=== PATIENT | male | born 1940 | race Caucasian/White ===

== ENCOUNTER 2017-10-26 18:54 | Emergency (ER) | payer MEDICARE, OTHER ==
[2017-10-26] MEDS ORDERED: Bacitracin/Neomycin/Polymyxin B Oint 0.9 GM U/D Packet TOP ONE (19:16)
--- NOTE | 2017-10-26 19:16 | EDM.PDOC ---
ED HPI GENERAL MEDICAL PROBLEM - General Chief Complaint: Laceration Stated Complaint: fell on ice Time Seen by Provider: 10/26/17 19:00 Source of Information: Reports: Patient, Family (, son Leonardo), Old Records ( [facility] chart/EMR) History Limitations: Reports: No Limitations - History of Present Illness INITIAL COMMENTS - FREE TEXT/NARRATIVE: The patient was brought to the emergency room via private automobile by his son and for evaluation of lacerations/skin tears of his right hand, which occurred at his home when he tripped and landed on his wooden walkway at about 18:00 hours. He did have a minor frontal head injury, however no history of headaches, visual changes, diplopia, change in mental status, paresthesias, neck /back pain, neurological deficits, or other complaints or injuries. No history of foreign body. The patient is right-handed. He did rinse out the laceration site and apply dressing prior to arrival with no other medications to this point. He is uncertain when he had his last tetanus booster. The patient denies any chest pain/pressure, heart flutter, dizziness, orthostasis, orthopnea, diaphoresis, paresthesias, recent decreased exercise tolerance, or any other anginal-type symptoms. No recent history of abdominal pain, heartburn, nausea, diarrhea, melena, gross hematochezia, or any food intolerance, including fatty foods, etc.. The patient also denies any recent fever, cough, wheezing, dyspnea , etc.. Onset: Today, Sudden Onset Date: 10/26/17 Onset Time: 16:00 Duration: Constant Location: Reports: Head, Upper Extremity, Right. Denies: Face, Neck, Chest, Abdomen, Back, Pelvis, Upper Extremity, Left, Lower Extremity, Left, Lower Extremity, Right, Radiates to Quality: Reports: Sharp Severity: Moderate Improves with: Reports: None Worsens with: Reports: None Context: Reports: Other (As above) Associated Symptoms: Denies: Confusion, Chest Pain, Cough, Diaphoresis, Fever/ Chills, Headaches, Malaise, Nausea/Vomiting, Seizure, Shortness of Breath, Syncope, Weakness Treatments SENIOR QA ANALYST: Reports: Dressing(s) Right Hand Pain Score (Numeric/FACES): 6 - Related Data Allergies Allergy/AdvReac Type Severity Reaction Status Date / Time celecoxib [From Celebrex] Allergy Stomach Verified 10/26/17 18:58 Ache Home Meds: Home Meds Leflunomide 20 mg PO DAILY 05/20/15 [History] Omeprazole 20 mg PO DAILY 05/20/15 [History] Simvastatin 20 mg PO BEDTIME 05/20/15 [History] Warfarin [Coumadin] 2.5 mg PO DAILY@1800 05/20/15 [History] predniSONE [Prednisone] 5 mg PO DAILY 05/20/15 [History] Calcium Carb & Citrate/Vit D3 [Calcium + D3 ER Tablet] 1 tab PO DAILY@1200 07/27 [History] Krill/Om-3/DHA/EPA/Phospho/Ast [Krill Oil 1,000 mg Softgel] 1 cap PO DAILY@1200 07/27/15 [History] Aspirin 81 mg PO DAILY 11/23/15 [History] Hydrocodone/Acetaminophen [Hydrocodon-Acetaminophn 10-325] 1 each PO Q4HR PRN [History] Nitroglycerin [Nitrostat] 0.4 mg SL ASDIRECTED PRN 11/23/15 [History] Furosemide [Lasix] 20 mg PO DAILY PRN 01/05/16 [History] Sertraline [Zoloft] 25 mg PO DAILY 01/05/16 [History] Amiodarone [Cordarone] 200 mg PO DAILY 10/26/17 [History] Lisinopril 15 mg PO BEDTIME 10/26/17 [History] Metoprolol Succinate [Toprol XL] 100 mg PO DAILY 10/26/17 [History] PARoxetine HCl [Paroxetine HCl] 20 mg PO DAILY 10/26/17 [History] Past Medical History HEENT History: Reports: Cataract, Hard of Hearing, Impaired Vision, Other (See Below). Denies: Allergic Rhinitis, Glaucoma, Macular Degeneration, Retinal Detachment Other HEENT History: Patient wears glasses. No current hearing aide therapy. Cardiovascular History: Reports: Afib, Aneurysm, Arrhythmia, Automatic Implantable Cardioverter Defibrillators, CAD, Cardiomyopathy, Heart Failure, High Cholesterol, Hypertension, PVD, Syncope, Other (See Below). Denies: Blood Clots/VTE/DVT, IA, Pacemaker, PTCA, Stents Other Cardiovascular History: Atrial fibrillation with rapid ventricular response with secondary cardiac and respiratory collapse requiring intubation cardioversion on 05/20/15. PACs, PVCs, and additional history of ventricular tachycardia with ICD placement as below. Borderline incomplete right bundle branch block. Severe cardiomyopathy with ejection fraction of only 25% area of mild carotid occlusive disease at 1649 percent bilaterally. Abdominal aortic aneurysm. Respiratory History: Reports: COPD, Intubation, Previous, Pulmonary Fibrosis, Other (See Below). Denies: Asthma, PE, Pneumothorax, Sleep Apnea, TB Other Respiratory History: Benign right pulmonary nodule Gastrointestinal History: Reports: Cholelithiasis, Gastritis, GERD, Hepatitis, Helicobacter Pylori, Pancreatitis, PUD, Other (See Below). Denies: Celiac Disease, Chronic Constipation, Chronic Diarrhea, Colon Polyp, Diverticulosis, GI Bleed, Inflammatory Bowel Disease, Irritable Bowel Syndrome Other Gastrointestinal History: Cholelithiasis with secondary pancreatitis and hepatitis on 11/30/12. Genitourinary History: Reports: BPH, Prostate Disorder, Renal Calculus, Urinary Incontinence, Other (See Below). Denies: Acute Renal Failure, Chronic Renal Insuffiency, STD, UTI, Recurrent Other Genitourinary History: Bilateral renal cysts, Peyronie's disease. History of bladder cancer diagnosed on 12/09/14 with BCG treatment. Benign prostatic nodule diagnosed on 09/05/1999. Recurrent bilateral nephrolithiasis since his 30s with at least 4 previous episodes with last episode in April 2012. Musculoskeletal History: Reports: Arthritis, Back Pain, Chronic, Neck Pain, Chronic, Osteoarthritis, Osteoporosis, RA, Other (See Below). Denies: Amputation, Fracture, Gout, SLE Other Musculoskeletal History: Severe rheumatoid arthritis Neurological History: Reports: None. Denies: Alzheimers Disease, Cerebral Aneurysms, CVA, Headaches, Chronic, Head Trauma, Migraines, MS, Neuropathy, Diabetic, Neuropathy, Peripheral, Parkinson's, Seizure, TIA Psychiatric History: Reports: Addiction, Anxiety, Depression, Other (See Below) . 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 Denies: Diabetes, Gestational, Diabetes Mellitus, Type 3c, Hyperthyroidism, IDDM Other Endocrine/Metabolic History: Diabetes mellitus/borderline hyperglycemia currently treated with diet Hematologic History: Reports: Anemia. Denies: Blood Transfusion(s) Immunologic History: Reports: None. Denies: AIDS, HIV, SLE Oncologic (Cancer) History: Reports: Bladder, Other (See Below). Denies: Basal Cell Carcinoma, Colon, Leukemia, Lymphoma, Malignant Melanoma, Non-Hodgkin's Lymphoma, Prostate, Squamous Cell Carcinoma Other Oncologic History: Bladder cancer diagnosed on 12/09/14 with subsequent BCG therapy as above Dermatologic History: Reports: None. Denies: Eczema, Psoriasis - Infectious Disease History Infectious Disease History: Reports: Chicken Pox, Measles, Mumps. Denies: C- Difficile, Meningitis, Mononucleosis, MRSA, Pertussis (Whooping Cough), Rheumatic Fever, Rubella, Scarlet Fever, Shingles, TB, VRE - Past Surgical History Head Surgeries/Procedures: Reports: None HEENT Surgical History: Reports: Cataract Surgery, Oral Surgery, Tonsillectomy, Other (See Below). Denies: Adenoidectomy, Eye Surgery, Laser Surgery, LASIK, Myringotomy w Tube(s), Naso-Sinus Surgery Other HEENT Surgeries/Procedures: Bilateral cataract surgery. Multiple teeth extractions with current complete dentures and partial lowers. Tonsillectomy at age 22. Cardiovascular Surgical History: Reports: AICD, Other (See Below). Denies: AAA Repair, Aneurysm, Carotid Stents, Coronary Artery Bypass, Coronary Artery Stent , Pacer, Percutaneous Transluminal Angioplasty, Varicose, Vascular Surgery Other Cardiovascular Surgeries/Procedures: AICD placement in September 28, 2015 with previous Life Vest therapy Respiratory Surgical History: Reports: Lung Biopsies, Other (See Below) (Right pulmonary nodule biopsy in 2000) GI Surgical History: Reports: Colonoscopy, EGD, ERCP, Other (See Below). Denies : Appendectomy, Cholecystectomy, Hernia, Abdominal, Hernia, Inguinal, Hernia Repair/Other, Polypectomy Other GI Surgeries/Procedures: Colonoscopy on 02/28/08 and EGD on 03/26/08 with additional ERCP patient denying cholecystectomy despite previous history of obstructive cholelithiasis and secondary pancreatitis Male Surgical History: Reports: Circumcision, Kidney Stone Extraction, Prostate Biopsy, Renal Calculus, TURBT-Transurethral Resection of Bladder Tumor , Vasectomy, Other (See Below) Other Male Surgeries/Procedures: Last cystoscopy in 2017 by patient history. Circumcision as an . Renal stone extraction June 2002. Vasectomy in his late 20s. Prostate biopsy on 09/05/1999. TURBT on 12/09/14 Endocrine Surgical History: Reports: None. Denies: Thyroidectomy Neurological Surgical History: Reports: None. Denies: C-Spine, Discectomy, Laminectomy, Lumbar Spine, Sacral Spine, Spinal Fusion, Vertebroplasty Musculoskeletal Surgical History: Reports: None. Denies: Amputation, Arthroscopic Procedure, Joint Replacement, ORIF, Shoulder Surgery Oncologic Surgical History: Reports: Other (See Below) Other Oncologic Surgeries/Procedures: TURBT as above Dermatological Surgical History: Reports: None - Past Imaging History Past Imaging History: Reports: Angiography (April 2015 with ejection fraction of only 25%), Carotid US (08/07/15), CAT Scan (CT urethrogram on 11/22/14. CT of the abdomen and pelvis on 02/07/12.), DEXA Scan (09/20/16 with previous evaluation on 12/26/11), Stress Testing (Low level cardiac stress test on ), Ultrasound (Last abdominal aortic ultrasound on 11/11/16. Renal ultrasound on 05/05/12) Social & Family History - Family History HEENT: Reports: None. Denies: Allergic Rhinitis, Glaucoma, Macular Degeneration , Retinal Detachment Cardiac: Reports: High Cholesterol, Other (See Below). Denies: Afib, Aneurysm, Arrhythmia, Blood Clots/VTE/DVT, CAD, Heart Failure, Hypertension, IA, Pacemaker , PVD/COD, Syncope Other Cardiac Family History: Mother with hyperlipidemia Respiratory: Reports: None. Denies: Asthma, COPD, PE, Pneumothorax, Sleep Apnea , TB GI: Reports: Cholelithiasis, Other (See Below). Denies: Celiac Disease, Colon Polyps, GERD, GI bleed, Inflammatory Bowel Disease, Irritable Bowel Syndrome, PUD Other GI Family History: Mother with cholelithiasis : Reports: None, Renal Calculus, Other (See Below). Denies: Dialysis, Renal Disease/Insufficiency Other Family History: Father with urolithiasis OBGYN: Reports: None. Denies: Endometriosis, Recurrent Spontaneous Musculoskeletal: Reports: RA, Other (See Below). Denies: Gout, SLE Other Musculoskeletal Family History: Paternal grandmother with rheumatoid arthritis Neurological: Reports: Alzheimers Disease, CVA, Dementia, Other (See Below) Other Neurological Family History: Parents with Alzheimer's disease. Paternal grandfather with fatal CVA. Psychiatric: Reports: None. Denies: Abuse, Victim of, ADD, ADHD, Anxiety, Depression, Psych Hospitalization(s), PTSD, Suicide Attempt Endocrine/Metabolic: Reports: Diabetes, type II, Hypothyroidism, IDDM, Other ( See Below). Denies: Diabetes, Type I, Diabetes Mellitus, Type 3c Other Endocrine/Metabolic Family History: Mother with hypothyroidism. Mother with IDDM. Hematologic: Reports: None. Denies: Anemia, Transfusion Reaction Immunologic: Reports: None. Denies: AIDS, HIV, SLE Dermatologic: Reports: None. Denies: Eczema, Psoriasis Oncologic: Reports: None. Denies: Bladder, Colon, Hodgkin's Lymphoma, Leukemia , Lymphoma, Non-Hodgkin's Lymphoma, Prostate, Skin - Tobacco Use Smoking Status *Q: Former Smoker Tobacco Use Within Last Twelve Months: No Years of Tobacco use: 55 Packs/Tins Daily: 1 Used Tobacco, but Quit: Yes Month/Year Tobacco Last Used: April 2015 Smoking Cessation Information Provided To Patient: No Second Hand Smoke Exposure: No Second Hand Smoke Education Provided: No - Caffeine Use Caffeine Use: Reports: Coffee (2 cups of coffee per day). 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 ED EXAM, SKIN/RASH Exam: See Below Exam Limited By: No Limitations General Appearance: Alert, WD/WN, No Apparent Distress Eye Exam: Bilateral Eye: EOMI, Normal Fundi, Normal Inspection (Patient wearing glasses, no nystagmus), PERRL Ears: Normal External Exam, Normal Canal (Moderate bilateral cerumen), Normal TMs (However difficult to visualize), Hearing Loss (Mild bilateral presbycusis) Nose: Normal Inspection, Normal Mucosa, No Blood Throat/Mouth: Normal Inspection, Normal Lips, Normal Gums, Normal Oropharynx, Normal Voice, No Airway Compromise. No: Normal Teeth (Complete upper dentures with multiple missing teeth lowers the patient not having his lower partials today), Dysphagia, Inflammation Head: Atraumatic, Normocephalic. No: Facial Swelling, Facial Tenderness, Sinus Tenderness Neck: Normal Inspection, Supple, Non-Tender, Full Range of Motion, Carotid Bruit (Mild bilateral carotid bruits). No: Lymphadenopathy (L), Lymphadenopathy (R), Thyromegaly Respiratory/Chest: No Respiratory Distress, Lungs Clear, Normal Breath Sounds, No Accessory Muscle Use, Chest Non-Tender. No: Pleural Rub, Retractions Cardiovascular: Normal Peripheral Pulses, Regular Rate, Rhythm, No Edema, No Gallop, No JVD, No Murmur, No Rub. No: Gallop/S3, Gallop/S4, Friction Rub Peripheral Pulses: 0: Dorsalis Pedis (L), Dorsalis Pedis (R), 2+: Radial (L), Radial (R) GI/Abdominal: Normal Bowel Sounds, Soft, Non-Tender, No Organomegaly, No Distention, No Abnormal Bruit, No Mass, Pelvis Stable. No: Guarding (Male) Exam: Deferred Rectal (Males) Exam: Deferred Back Exam: Normal Inspection, Full Range of Motion. No: CVA Tenderness (L), CVA Tenderness (R), Muscle Spasm Extremities: No Pedal Edema, Normal Capillary Refill, Joint Swelling (Severe rheumatoid arthritic changes, including his hands, stable by history), Limited Range of Motion (Secondary to rheumatoid arthritis), Other (2 small superficial lacerations and skin tears over than the dorsal surface of the right hand with one C-shaped the lesion of 2.0 cm another small lesion of 0.5 cm. No foreign body with only mild localized tenderness secondary to laceration. No crepitation or sign of fracture. Mild ecchymosis surrounding laceration sites.) . No: Angelito's Sign Neurological: Alert, Oriented, CN II-XII Intact, Normal Cognition, Normal Gait, Normal Reflexes (Negative Babinski's, finger to nose, and pronator rotation tests. No evidence of facial paresis, tongue deviation, orthostasis, etc.. Excellent reverse thought processes.), No Motor/Sensory Deficits Psychiatric: Normal Affect, Normal Mood Skin: Normal Color, No Rash, Ecchymosis (As above), Wound/Incision (As above). No: Diaphoretic, Increased Warmth, Lymphangitis Location, Skin: Upper Extremity, Right Characteristics: Other (As above) Associated features: Tenderness (As above) Lymphatic: No Adenopathy Course - Vital Signs Last Recorded V/S: Last Vital Signs Temp 36.3 C 10/26/17 19:42 Pulse 60 10/26/17 19:42 Resp 18 10/26/17 19:42 BP 139/53 L 10/26/17 19:42 Pulse Ox 98 10/26/17 19:42 Vital Signs - 24 hr 10/26/17 19:42 Temperature [ 36.3 C Temporal] Pulse, 60 Peripheral [ Right Pulse Oximetry] Respiratory 18 Rate Blood Pressure 139/53 L [Right Upper Arm] O2 Sat by Pulse 98 Oximetry - Orders/Labs/Meds Orders: Active Orders 24 hr Category Date Time Status Occlusive Dressing [Wound Care] [RC] ONETIME Care 10/26/17 19:18 Active Vaccines to be Administered [RC] PER UNIT ROUTINE Care 10/26/17 19:17 Active Obtain Past Medical Record [OM.PC] Routine Oth 10/26/17 19:16 Active Labs: None Meds: Medications Discontinued Medications Generic Name Dose Route Start Last Admin Trade Name Freq PRN Reason Stop Dose Admin Diphtheria/Tetanus/Acell Pertussis 0.5 ml 10/26/17 19:17 10/26/17 19:30 Adacel IM 10/26/17 19:18 0.5 ml .ONCE ONE Administration Neomycin/Polymyxin/Bacitracin 1 each 10/26/17 19:16 10/26/17 19:30 Triple Antibiotic Oint TOP 10/26/17 19:17 1 each ONETIME ONE Administration - Radiology Interpretation Free Text/Narrative:: monitoring coordinator showed normal sinus rhythm in the 60s with no ectopy or arrhythmia Departure - Departure Time of Disposition: 19:55 Disposition: Home, Self-Care 01 Condition: Good Clinical Impression: Laceration, Head contusion, Coronary artery disease, COPD (chronic obstructive pulmonary disease), Atrial fibrillation, Hyperlipidemia, Rheumatoid arteritis, Diabetes mellitus, Mixed anxiety depressive disorder - Discharge Information Instructions: Head Injury, Adult Forms: ED Department Discharge Additional Instructions: 1. Follow up with your regular provider in 10-14 days as needed, if symptoms persist. 2. Antibacterial soap wash/soak with subsequent antibacterial dressing such as Neosporin, etc. as directed 2 times per day until the wound or laceration site completely heals. Keep the area clean and dry with activity restrictions as discussed. 3. Head precautions as directed-see form. - Problem List & Annotations (1) Laceration SNOMED Code(s): 920696979 Code(s): BXD1554 - Status: Acute Priority: High Onset Date: 10/26/17 Annotation/Comment:: Minor lacerations/skin tears of the dorsal surface of the right hand not amenable to laceration repair. Wound was cleansed with chlorhexidine and Neosporin applied with subsequent Vaseline gauze dressing by the nurse. DTaP was given. Wound care discussed. (2) Head contusion SNOMED Code(s): 824808151 Code(s): S00.93XA - CONTUSION OF UNSPECIFIED PART OF HEAD, INITIAL ENCOUNTER Status: Acute Priority: High Onset Date: 10/26/17 Annotation/Comment:: Minor head contusion with no neurological deficits. Head precautions given especially in light of patient's Coumadin therapy. Qualifiers: Encounter type: initial encounter Contusion of head detail: scalp Qualified Code(s): S00.03XA - Contusion of scalp, initial encounter (3) Coronary artery disease SNOMED Code(s): 75756339 Code(s): I25.10 - ATHSCL HEART DISEASE OF [place] CORONARY ARTERY W/O ANG PCTRS Status: Chronic Priority: Medium Annotation/Comment:: Stable by history with no recent history of chest pain or anginal type symptoms Qualifiers: Coronary Disease-Associated Artery/Lesion type: [place] artery [place] vs. transplanted heart: [place] heart Associated angina: without angina Qualified Code(s): I25.10 - Atherosclerotic heart disease of [place] coronary artery without angina pectoris (4) Diabetes mellitus SNOMED Code(s): 55509400 Code(s): E11.9 - TYPE 2 DIABETES MELLITUS WITHOUT COMPLICATIONS Status: Chronic Priority: Medium Onset Date: 11/23/15 Annotation/Comment:: Stable by history. The patient does not perform home Accu-Cheks with his diabetes currently diet controlled Qualifiers: Diabetes mellitus type: type 2 Diabetes mellitus complication status: without complication Qualified Code(s): E11.9 - Type 2 diabetes mellitus without complications (5) Atrial fibrillation SNOMED Code(s): 50532691 Code(s): I48.91 - UNSPECIFIED ATRIAL FIBRILLATION Status: Chronic Priority: Medium Annotation/Comment:: No recent history of chest pain, heart flutter, or other anginal complaints. INR 1 week ago was 2.6 by their history. Note history of PVCs, ventricular tachycardia, etc. with current defibrillator, which has not been firing recently Qualifiers: Atrial fibrillation type: chronic Qualified Code(s): I48.2 - Chronic atrial fibrillation (6) COPD (chronic obstructive pulmonary disease) SNOMED Code(s): 71829365 Code(s): J44.9 - CHRONIC OBSTRUCTIVE PULMONARY DISEASE, UNSPECIFIED Status : Chronic Priority: Medium Annotation/Comment:: No recent fevers, bronchitic -type symptoms, etc. Qualifiers: COPD type: unspecified COPD Qualified Code(s): J44.9 - Chronic obstructive pulmonary disease, unspecified (7) Hyperlipidemia SNOMED Code(s): 20849848 Code(s): E78.5 - HYPERLIPIDEMIA, UNSPECIFIED Status: Chronic Priority: Medium Annotation/Comment:: Currently under therapy Qualifiers: Hyperlipidemia type: Mixed hyperlipidemia (8) Rheumatoid arteritis SNOMED Code(s): 509963294 Code(s): I00 - RHEUMATIC FEVER WITHOUT HEART INVOLVEMENT Status: Chronic Priority: Medium Annotation/Comment:: Severe rheumatoid arthritis, however stable by his history (9) Mixed anxiety depressive disorder SNOMED Code(s): 217512393 Code(s): F41.8 - OTHER SPECIFIED ANXIETY DISORDERS Status: Chronic Priority: Medium Annotation/Comment:: Stable by patient history. They are somewhat confused about his current medical therapy and will verify whether the patient is on Zoloft versus Paxil. - Problem List Review Problem List Initiated/Reviewed/Updated: Yes - My Orders Last 24 Hours: My Active Orders 10/26/17 19:16 Obtain Past Medical Record [OM.PC] Routine 10/26/17 19:17 Vaccines to be Administered [RC] PER UNIT ROUTINE 10/26/17 19:18 Occlusive Dressing [Wound Care] [RC] ONETIME - Assessment/Plan Last 24 Hours: My Active Orders 10/26/17 19:16 Obtain Past Medical Record [OM.PC] Routine 10/26/17 19:17 Vaccines to be Administered [RC] PER UNIT ROUTINE 10/26/17 19:18 Occlusive Dressing [Wound Care] [RC] ONETIME Assessment:: As above Plan: As above. Extensive precautions were given to the patient and his family, who are in agreement with the treatment plan. See Patient Instructions for further treatment and plan.
[2017-10-26] MEDS ORDERED: Diphtheria,Pertussis(Acell),Tetanus Vaccine 0.5 ML SDV IM ONE (19:17)
[2017-10-26 19:43] VITALS: BP 139/53
== END 2017-10-26 19:55 | disposition home or self-care (01) ==
LOC: LL.ED 18:54
DX: S61.411A Laceration without foreign body of right hand, initial encounter (principal); S00.93XA Contusion of unspecified part of head, initial encounter; I25.10 Atherosclerotic heart disease of native coronary artery without angina pectoris; J44.9 Chronic obstructive pulmonary disease, unspecified; I48.91 Unspecified atrial fibrillation; E78.5 Hyperlipidemia, unspecified; F41.8 Other specified anxiety disorders; I00 Rheumatic fever without heart involvement; I11.0 Hypertensive heart disease with heart failure; I50.9 Heart failure, unspecified; E78.00 Pure hypercholesterolemia, unspecified; E11.9 Type 2 diabetes mellitus without complications; Z88.8 Allergy status to other drugs, medicaments and biological substances; Z79.899 Other long term (current) drug therapy; Z23 Encounter for immunization; Z79.82 Long term (current) use of aspirin; Z87.891 Personal history of nicotine dependence; W00.9XXA Unspecified fall due to ice and snow, initial encounter
CPT/HCPCS: 90471; 90715; 99283

== ENCOUNTER 2019-02-22 10:07 | Inpatient (IN) | payer MEDICARE, OTHER ==
[2019-02-22] MEDS ORDERED: Promethazine 12.5 MG in Sodium Chloride 0.9% 100 ML IV ONE (10:25)
--- NOTE | 2019-02-22 10:28 | EDM.PDOC ---
ED HPI GENERAL MEDICAL PROBLEM - General Chief Complaint: General Stated Complaint: Weakness, loose stools Time Seen by Provider: 02/22/19 10:15 Source of Information: Reports: Patient, Family () History Limitations: Reports: No Limitations - History of Present Illness INITIAL COMMENTS - FREE TEXT/NARRATIVE: Patient is a 78-year-old gentleman with known history of coronary arterial disease and peripheral artery disease seen today with generalized weakness nausea diarrhea testicular pain patient underwent peripheral angioplasty of the lower extremities with stent placement for the past 3 days has had diarrhea and multiple emesis seen today with generalized weakness. Duration: Day(s): Location: Reports: Generalized Quality: Reports: Ache Severity: Moderate Improves with: Reports: Rest Worsens with: Reports: Movement Associated Symptoms: Reports: Nausea/Vomiting, Weakness Groin Pain Score (Numeric/FACES): 3 - Related Data Allergies Allergy/AdvReac Type Severity Reaction Status Date / Time celecoxib [From Celebrex] Allergy Stomach Verified 02/22/19 10:11 Ache Home Meds: Home Meds Leflunomide 20 mg PO DAILY 05/20/15 [History] Omeprazole 20 mg PO DAILY 05/20/15 [History] Simvastatin 20 mg PO BEDTIME 05/20/15 [History] predniSONE [Prednisone] 5 mg PO DAILY 05/20/15 [History] Aspirin 81 mg PO DAILY 11/23/15 [History] Hydrocodone/Acetaminophen [Hydrocodon-Acetaminophn 10-325] 1 each PO Q4HR PRN [History] Nitroglycerin [Nitrostat] 0.4 mg SL ASDIRECTED PRN 11/23/15 [History] Furosemide [Lasix] 20 mg PO DAILY PRN 01/05/16 [History] Lisinopril 10 mg PO BEDTIME 10/26/17 [History] Metoprolol Succinate [Toprol XL] 100 mg PO DAILY@1800 10/26/17 [History] PARoxetine HCl [Paroxetine HCl] 20 mg PO DAILY 10/26/17 [History] Iron Polysaccharide Complex [Ferric X-150] 150 mg PO DAILY 06/06/18 [History] Tamsulosin [Tamsulosin 24 Hr] 0.4 mg PO DAILY 06/06/18 [History] Warfarin Sodium [Jantoven] 2.5 mg PO DAILY 06/06/18 [History] Acetaminophen 650 mg PO Q6HR PRN 02/22/19 [History] Calcium Carbonate/Vitamin D3 [Calcium 500-Vit D3 200 Caplet] 1 tab PO DAILY [History] Enoxaparin [Lovenox] 80 mg SQ BID 02/22/19 [History] Hydrocortisone [Hydrocortisone 2.5% Crm] 1 supp RECTAL BID PRN 02/22/19 [History ] Warfarin [Coumadin] 1.25 mg PO ASDIRECTED 02/22/19 [History] cephALEXin [Keflex] 250 mg PO BID PRN 02/22/19 [History] Past Medical History HEENT History: Reports: Cataract, Hard of Hearing, Impaired Vision, Other (See Below) Other HEENT History: Patient wears glasses. No current hearing aide therapy. Cardiovascular History: Reports: Afib, Aneurysm, Arrhythmia, Automatic Implantable Cardioverter Defibrillators, CAD, Cardiomyopathy, Heart Failure, High Cholesterol, Hypertension, PVD, Syncope, Other (See Below) Other Cardiovascular History: Atrial fibrillation with rapid ventricular response with secondary cardiac and respiratory collapse requiring intubation cardioversion on 05/20/15. PACs, PVCs, and additional history of ventricular tachycardia with ICD placement as below. Borderline incomplete right bundle branch block. Severe cardiomyopathy with ejection fraction of only 25% area of mild carotid occlusive disease at 1649 percent bilaterally. Abdominal aortic aneurysm. Respiratory History: Reports: COPD, Intubation, Previous, Pulmonary Fibrosis, Other (See Below) Other Respiratory History: Benign right pulmonary nodule Gastrointestinal History: Reports: Cholelithiasis, Gastritis, GERD, Hepatitis, Helicobacter Pylori, Pancreatitis, PUD, Other (See Below) Other Gastrointestinal History: Cholelithiasis with secondary pancreatitis and hepatitis on 11/30/12. Genitourinary History: Reports: BPH, Prostate Disorder, Renal Calculus, Urinary Incontinence, Other (See Below) Other Genitourinary History: Bilateral renal cysts, Peyronie's disease. History of bladder cancer diagnosed on 12/09/14 with BCG treatment. Benign prostatic nodule diagnosed on 09/05/1999. Recurrent bilateral nephrolithiasis since his 30s with at least 4 previous episodes with last episode in April 2012. 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 Endocrine/Metabolic History: Reports: Diabetes, Type II, Osteopenia, Osteoporosis Other Endocrine/Metabolic History: Diabetes mellitus/borderline hyperglycemia currently treated with diet Hematologic History: Reports: Anemia Immunologic History: Reports: None Oncologic (Cancer) History: Reports: Bladder, Other (See Below) Other Oncologic History: Bladder cancer diagnosed on 12/09/14 with subsequent BCG therapy as above Dermatologic History: Reports: None - Infectious Disease History Infectious Disease History: Reports: Chicken Pox, Measles, Mumps - Past Surgical History Head Surgeries/Procedures: Reports: None HEENT Surgical History: Reports: Cataract Surgery, Oral Surgery, Tonsillectomy, Other (See Below) Other HEENT Surgeries/Procedures: Bilateral cataract surgery. Multiple teeth extractions with current complete dentures and partial lowers. Tonsillectomy at age 22. Cardiovascular Surgical History: Reports: AICD, Other (See Below) Other Cardiovascular Surgeries/Procedures: AICD placement in September 28, 2015 with previous Life Vest therapy Respiratory Surgical History: Reports: Lung Biopsies, Other (See Below) GI Surgical History: Reports: Colonoscopy, EGD, ERCP, Other (See Below) Other GI Surgeries/Procedures: Colonoscopy on 02/28/08 and EGD on 03/26/08 with additional ERCP patient denying cholecystectomy despite previous history of obstructive cholelithiasis and secondary pancreatitis Male Surgical History: Reports: Circumcision, Kidney Stone Extraction, Prostate Biopsy, Renal Calculus, TURBT-Transurethral Resection of Bladder Tumor , Vasectomy, Other (See Below) Other Male Surgeries/Procedures: Last cystoscopy in 2016 by patient history. Circumcision as an infant. Renal stone extraction June 2002. Vasectomy in his late 20s. Prostate biopsy on 09/05/1999. TURBT on 12/09/14 Endocrine Surgical History: Reports: None Neurological Surgical History: Reports: None Musculoskeletal Surgical History: Reports: None Oncologic Surgical History: Reports: Other (See Below) Other Oncologic Surgeries/Procedures: TURBT as above Dermatological Surgical History: Reports: None - Past Imaging History Past Imaging History: Reports: Angiography (April 2015 with ejection fraction of only 25%), Carotid US (08/07/15), CAT Scan (CT urethrogram on 11/22/14. CT of the abdomen and pelvis on 02/07/12.), DEXA Scan (09/20/16 with previous evaluation on 12/26/11), Stress Testing (Low level cardiac stress test on ), Ultrasound (Last abdominal aortic ultrasound on 11/11/16. Renal ultrasound on 05/05/12) Social & Family History - Family History HEENT: Reports: None Cardiac: Reports: High Cholesterol, Other (See Below) Other Cardiac Family History: Mother with hyperlipidemia Respiratory: Reports: None GI: Reports: Cholelithiasis, Other (See Below) Other GI Family History: Mother with cholelithiasis : Reports: None, Renal Calculus, Other (See Below) Other Family History: Father with urolithiasis OBGYN: Reports: None Musculoskeletal: Reports: RA, Other (See Below) Other Musculoskeletal Family History: Paternal grandmother with rheumatoid arthritis Neurological: Reports: Alzheimers Disease, CVA, Dementia, Other (See Below) Other Neurological Family History: Parents with Alzheimer's disease. Paternal grandfather with fatal CVA. Psychiatric: Reports: None Endocrine/Metabolic: Reports: Diabetes, type II, Hypothyroidism, IDDM, Other ( See Below) Other Endocrine/Metabolic Family History: Mother with hypothyroidism. Mother with IDDM. Hematologic: Reports: None Immunologic: Reports: None Dermatologic: Reports: None Oncologic: Reports: None - Caffeine Use Caffeine Use: Reports: Coffee (2 cups of coffee per day). 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 Denies: Chest Pain Endocrine: Reports: Fatigue GI/Abdominal: Reports: Stool Incontinence : Reports: Other (Testicular pain with swelling) Musculoskeletal: Reports: No Symptoms Skin: Reports: Change in Color (Multiple ecchymotic areas around the belly secondary to Lovenox) Neurological: Reports: No Symptoms Psychiatric: Reports: No Symptoms Hematologic/Lymphatic: Reports: Easy Bleeding, Easy Bruising Immunologic: Reports: No Symptoms ED EXAM, GENERAL - Physical Exam Exam: See Below Exam Limited By: No Limitations General Appearance: Mild Distress Eye Exam: Bilateral Eye: EOMI, PERRL Ears: Other (Atul side) Ear Exam: Bilateral Ear: Auricle Normal (Atul sign) Nose: Normal Inspection, Normal Mucosa, No Blood Throat/Mouth: Normal Inspection, Normal Lips, Normal Teeth, Normal Gums, Normal Oropharynx, Normal Voice, No Airway Compromise Head: Atraumatic, Normocephalic Neck: Normal Inspection, Supple, Non-Tender, Full Range of Motion Respiratory/Chest: No Respiratory Distress, Lungs Clear, Chest Non-Tender Cardiovascular: Regular Rate, Rhythm Peripheral Pulses: 1+: Posterior Tibial (L) (Dopplerable), Posterior Tibial (R) (Dopplerable ), Dorsalis Pedis (L) (Dopplerable), Dorsalis Pedis (R) ( dopplerable), 2+: Femoral (L), Femoral (R) GI/Abdominal: Normal Bowel Sounds, Soft, Non-Tender, No Organomegaly, No Distention, No Mass, Pelvis Stable (Male) Exam: Scrotum Tenderness (L) (Secondary to hematoma), Scrotum Tenderness (R), Testicular Tenderness (L), Testicular Tenderness (R) Rectal (Males) Exam: Decreased Rectal Tone Back Exam: Normal Inspection, Full Range of Motion, NT Extremities: No Pedal Edema, Slow Capillary Refill, Other (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) Neurological: Alert, Oriented, CN II-XII Intact, Normal Cognition, Normal Gait, Normal Reflexes, No Motor/Sensory Deficits Psychiatric: Anxious, Depressed Mood Skin Exam: Warm, Dry Lymphatic: No Adenopathy Course - Vital Signs Last Recorded V/S: Last Vital Signs Temp 98.3 F 02/22/19 10:10 Pulse 67 02/22/19 10:10 Resp 14 02/22/19 10:10 BP 121/59 L 02/22/19 10:10 Pulse Ox 92 L 02/22/19 10:10 - Orders/Labs/Meds Orders: Active Orders 24 hr Category Date Time Status EKG Documentation Completion [RC] ASDIRECTED Care 02/22/19 10:28 Ordered Chest 1V Frontal [CR] Stat Exams 02/22/19 10:56 Ordered CULTURE BLOOD [BC] Stat Lab 02/22/19 11:07 Ordered CULTURE BLOOD [BC] Stat Lab 02/22/19 11:07 Ordered Sodium Chloride 0.9% [Normal Saline] 1,000 ml Med 02/22/19 10:30 Ordered IV ASDIRECTED Sodium Chloride 0.9% [Saline Flush] Med 02/22/19 10:22 Ordered 10 ml FLUSH ASDIRECTED PRN Blood Culture x2 Reflex Set [OM.PC] Stat Ot 02/22/19 11:07 Ordered Saline Lock Insert [OM.PC] Stat Ot 02/22/19 10:22 Ordered Medication Orders Sodium Chloride (Normal Saline) 1,000 mls @ 500 mls/hr IV ASDIRECTED [place] Last Admin: 02/22/19 10:45 Dose: 500 mls/hr Sodium Chloride (Saline Flush) 10 ml FLUSH ASDIRECTED PRN PRN Reason: Keep Vein Open Labs: Laboratory Tests 02/22/19 02/22/19 02/22/19 Range/Units 10:40 10:40 10:40 WBC 20.2 H (4.0-10.2) K/uL RBC 3.69 L (4.33-5.41) M/uL Hgb 10.8 L (13.1-16.8) g/dL Hct 33.7 L (39.0-49.0) % MCV 91.3 D (84.0-98.0) fL MCH 29.3 (28.2-33.3) pg MCHC 32.0 (31.7-36.0) g/dL RDW 16.7 H (11.2-14.1) % Plt Count 166 (150-350) K/uL Neut % (Auto) 86.3 H (45.0-80.0) % Lymph % (Auto) 5.1 L (10.0-50.0) % Aurora % (Auto) 8.4 (2.0-14.0) % Eos % (Auto) 0.0 (0.0-5.0) % Baso % (Auto) 0.2 (0.0-2.0) % Neut # (Auto) 17.37 H (1.40-7.00) K/uL Lymph # (Auto) 1.03 (0.50-3.50) K/uL Aurora # (Auto) 1.70 H (0.00-1.00) K/uL Eos # (Auto) 0.01 (0.00-0.50) K/uL Baso # (Auto) 0.04 (0.00-0.20) K/uL PT 22.7 H D (9.5-12.0) SEC INR 2.1 Sodium 138 (136-145) mmol/L Potassium 3.0 L (3.5-5.1) mmol/L Chloride 100 (98-107) mmol/L Carbon Dioxide 23.8 (21.0-32.0) mmol/L BUN 25 H (7-18) mg/dL Creatinine 1.25 H (0.51-1.17) mg/dL Est Cr Clr Drug Dosing TNP Estimated GFR (MDRD) 56 mL/min Glucose 140 H (74-106) mg/dL Calcium 9.0 (8.5-10.1) mg/dL Total Bilirubin 1.7 H (0.2-1.0) mg/dL AST 18 (15-37) U/L ALT 21 (12-78) U/L Alkaline Phosphatase 95 (46-116) IU/L Troponin I (0.000-0.056) ng/mL NT-Pro-B Natriuret Pep (0-125) pg/mL Total Protein 7.2 (6.4-8.2) g/dL Albumin 2.8 L (3.4-5.0) g/dL 02/22/19 Range/Units 10:57 WBC (4.0-10.2) K/uL RBC (4.33-5.41) M/uL Hgb (13.1-16.8) g/dL Hct (39.0-49.0) % MCV (84.0-98.0) fL MCH (28.2-33.3) pg MCHC (31.7-36.0) g/dL RDW (11.2-14.1) % Plt Count (150-350) K/uL Neut % (Auto) (45.0-80.0) % Lymph % (Auto) (10.0-50.0) % Aurora % (Auto) (2.0-14.0) % Eos % (Auto) (0.0-5.0) % Baso % (Auto) (0.0-2.0) % Neut # (Auto) (1.40-7.00) K/uL Lymph # (Auto) (0.50-3.50) K/uL [place] # (Auto) (0.00-1.00) K/uL Eos # (Auto) (0.00-0.50) K/uL Baso # (Auto) (0.00-0.20) K/uL PT (9.5-12.0) SEC INR Sodium (136-145) mmol/L Potassium (3.5-5.1) mmol/L Chloride (98-107) mmol/L Carbon Dioxide (21.0-32.0) mmol/L BUN (7-18) mg/dL Creatinine (0.51-1.17) mg/dL Est Cr Clr Drug Dosing Estimated GFR (MDRD) mL/min Glucose (74-106) mg/dL Calcium (8.5-10.1) mg/dL Total Bilirubin (0.2-1.0) mg/dL AST (15-37) U/L ALT (12-78) U/L Alkaline Phosphatase (46-116) IU/L Troponin I 0.011 (0.000-0.056) ng/mL NT-Pro-B Natriuret Pep 9093 H (0-125) pg/mL Total Protein (6.4-8.2) g/dL Albumin (3.4-5.0) g/dL Meds: Medications Generic Name Dose Route Start Last Admin Trade Name Freq PRN Reason Stop Dose Admin Sodium Chloride 1,000 mls @ 500 mls/hr 02/22/19 10:30 02/22/19 10:45 Normal Saline IV 500 mls/hr ASDIRECTED [place] Administration Sodium Chloride 10 ml 02/22/19 10:22 Saline Flush FLUSH ASDIRECTED PRN Keep Vein Open Discontinued Medications Generic Name Dose Route Start Last Admin Trade Name Freq PRN Reason Stop Dose Admin Diphenoxylate HCl/Atropine 2 tab 02/22/19 10:58 02/22/19 11:26 Lomotil 0.025-2.5 Mg PO 02/22/19 10:59 2 tab ONETIME ONE Administration Promethazine HCl 12.5 mg/ 100.5 mls @ 400 mls/hr 02/22/19 10:25 02/22/19 10: 48 Sodium Chloride IV 02/22/19 10:40 400 mls/hr ONETIME ONE Administration Departure - Departure Time of Disposition: 11:38 Disposition: Admitted As Inpatient 64 Condition: Fair Clinical Impression: Diarrhea - Discharge Information *PRESCRIPTION DRUG MONITORING PROGRAM REVIEWED*: No *COPY OF PRESCRIPTION DRUG MONITORING REPORT IN PATIENT RADHA: No Referrals: More Fried PA-C [Primary Care Provider] - Forms: ED Department Discharge - Problem List & Annotations (1) Hypokalemia SNOMED Code(s): 74149981 Code(s): E87.6 - HYPOKALEMIA Status: Acute Priority: Medium Onset Date : 11/23/15 Annotation/Comment:: Secondary to diarrhea and generalized weakness (2) Dehydration, moderate SNOMED Code(s): 2096369712995 Code(s): E86.0 - DEHYDRATION Status: Acute Annotation/Comment:: Secondary to diarrhea (3) Diarrhea SNOMED Code(s): 68551662 Code(s): R19.7 - DIARRHEA, UNSPECIFIED Status: Acute Qualifiers: Diarrhea type: presumed infectious Qualified Code(s): R19.7 - Diarrhea, unspecified - Problem List Review Problem List Initiated/Reviewed/Updated: Yes - My Orders Last 24 Hours: My Active Orders 02/22/19 10:22 Sodium Chloride 0.9% [Saline Flush] 10 ml FLUSH ASDIRECTED PRN Saline Lock Insert [OM.PC] Stat 02/22/19 10:28 EKG Documentation Completion [RC] ASDIRECTED 02/22/19 10:30 Sodium Chloride 0.9% [Normal Saline] 1,000 ml IV ASDIRECTED 02/22/19 10:56 Chest 1V Frontal [CR] Stat 02/22/19 11:07 CULTURE BLOOD [BC] Stat CULTURE BLOOD [BC] Stat Blood Culture x2 Reflex Set [OM.PC] Stat - Assessment/Plan Admission H&P: Please use this note as an admission H&P Last 24 Hours: My Active Orders 02/22/19 10:22 Sodium Chloride 0.9% [Saline Flush] 10 ml FLUSH ASDIRECTED PRN Saline Lock Insert [OM.PC] Stat 02/22/19 10:28 EKG Documentation Completion [RC] ASDIRECTED 02/22/19 10:30 Sodium Chloride 0.9% [Normal Saline] 1,000 ml IV ASDIRECTED 02/22/19 10:56 Chest 1V Frontal [CR] Stat 02/22/19 11:07 CULTURE BLOOD [BC] Stat CULTURE BLOOD [BC] Stat Blood Culture x2 Reflex Set [OM.PC] Stat Plan: Patient will be admitted for workup which will include blood cultures and stool cultures for C. difficile I will hydrate him and start IV potassium and medication to control symptoms
[2019-02-22] MEDS ORDERED: Sodium Chloride 0.9% 1,000 ML IV SCH (10:30)
[2019-02-22] MEDS ORDERED: Atropine/Diphenoxylate 0.025-2.5 MG Tab PO ONE (10:58)
[2019-02-22 11:04] LABS: CHLORIDE,CL 100 mmol/L (98-107); SODIUM,NA 138 mmol/L (136-145)
[2019-02-22] MEDS ORDERED: Sodium Chloride 0.9% 10 ML Syringe FLUSH PRN (11:43)
[2019-02-22] MEDS ORDERED: Acetaminophen 325 MG Tab PO PRN (11:43)
[2019-02-22] MEDS ORDERED: Furosemide 20 MG Tab PO PRN (11:50)
[2019-02-22] MEDS ORDERED: Nitroglycerin 0.4 MG Tab.SL SL PRN (11:50)
[2019-02-22] MEDS ORDERED: Hydrocortisone Acetate 25 MG Supp RECTAL PRN (11:50)
[2019-02-22] MEDS ORDERED: Atropine/Diphenoxylate 0.025-2.5 MG Tab PO SCH (12:00)
[2019-02-22] MEDS: metroNIDAZOLE 500 MG Tab PO SCH ×2 (12:52→19:52)
[2019-02-22] MEDS: Sodium Chloride 0.9% 1,000 ML IV SCH ×2 (13:16→19:14)
[2019-02-22] MEDS ORDERED: Potassium Chloride 10 MEQ in Premix Bag 1 BAG IV SCH ×2 (15:30→16:30)
[2019-02-22] MEDS: Potassium Chloride 10 MEQ in Premix Bag 1 BAG IV SCH ×4 (15:51→19:13)
[2019-02-22] MEDS: Atropine/Diphenoxylate 0.025-2.5 MG Tab PO SCH ×2 (15:51→19:55)
[2019-02-22] MEDS ORDERED: Promethazine 25 MG/ML SDV IM PRN (17:00)
[2019-02-22] MEDS: Metoprolol Succinate 50 MG Tab.ER PO SCH (17:58)
[2019-02-22] MEDS ORDERED: Warfarin 2.5 MG Tab PO SCH (18:00)
[2019-02-22] MEDS: Simvastatin 20 MG Tab PO SCH (19:52)
[2019-02-22] MEDS: Lisinopril 10 MG Tab PO SCH (19:55)
[2019-02-22] MEDS: Enoxaparin 80 MG/0.8 ML Syringe SUBCUT SCH (19:56)
[2019-02-22] MEDS: Acetaminophen 325 MG Tab PO PRN (22:39)
[2019-02-23] MEDS: metroNIDAZOLE 500 MG Tab PO SCH ×3 (04:29→19:42)
[2019-02-23] MEDS: Acetaminophen 325 MG Tab PO PRN ×3 (04:29→19:52)
[2019-02-23] MEDS: Enoxaparin 80 MG/0.8 ML Syringe SUBCUT SCH (07:28)
[2019-02-23] MEDS: Omeprazole 20 MG Cap.CR PO SCH (07:29)
[2019-02-23] MEDS: Atropine/Diphenoxylate 0.025-2.5 MG Tab PO SCH ×4 (07:29→19:42)
[2019-02-23] MEDS: Tamsulosin 0.4 MG Cap.ER PO SCH (07:29)
[2019-02-23] MEDS: predniSONE 5 MG Tab PO SCH (07:29)
[2019-02-23] MEDS: Aspirin 81 MG Tab.Chew PO SCH (07:29)
[2019-02-23] MEDS: Calcium Carbonate/Vitamin D3 1500 MG-400 Units Tab PO SCH (07:29)
[2019-02-23] MEDS: Iron Polysaccharides Complex 150 MG Cap PO SCH (07:29)
[2019-02-23] MEDS: PARoxetine 20 MG Tab PO SCH (07:29)
[2019-02-23] MEDS: Sodium Chloride 0.9% 1,000 ML IV SCH (08:17)
[2019-02-23] MEDS: LEFLUNOMIDE 20 MG PO SCH (09:11)
--- NOTE | 2019-02-23 09:31 | PCM.PN ---
- General Info Date of Service: 02/23/19 Functional Status: Reports: Tolerating Diet - Review of Systems General: Reports: Fever (Last night had temperature over 103 Tylenol given) Pulmonary: Reports: No Symptoms Cardiovascular: Reports: No Symptoms Gastrointestinal: Reports: Diarrhea, Nausea (Improving) Genitourinary: Reports: Other (Testicular discomfort) Skin: Reports: Bruising, Other (Testicular discoloration secondary to bruising and pink secondary to multiple BMs) - Patient Data Vitals - Most Recent: Last Vital Signs Temp 98.8 F 02/23/19 08:00 Pulse 80 02/23/19 08:00 Resp 16 02/23/19 08:00 BP 129/47 L 02/23/19 08:00 Pulse Ox 96 02/23/19 08:00 Weight - Most Recent: 155 lb 12.8 oz I&O - Last 24 Hours: Intake & Output 02/22/19 02/23/19 02/23/19 22:59 06:59 14:59 Intake Total 900 2038 350 Balance 900 2038 350 Lab Results Last 24 Hours: Laboratory Results - last 24 hr 02/22/19 02/22/19 02/22/19 Range/Units 10:40 10:40 10:40 WBC 20.2 H (4.0-10.2) K/uL RBC 3.69 L (4.33-5.41) M/uL Hgb 10.8 L (13.1-16.8) g/dL Hct 33.7 L (39.0-49.0) % MCV 91.3 D (84.0-98.0) fL MCH 29.3 (28.2-33.3) pg MCHC 32.0 (31.7-36.0) g/dL RDW 16.7 H (11.2-14.1) % Plt Count 166 (150-350) K/uL Neut % (Auto) 86.3 H (45.0-80.0) % Lymph % (Auto) 5.1 L (10.0-50.0) % [place] % (Auto) 8.4 (2.0-14.0) % Eos % (Auto) 0.0 (0.0-5.0) % Baso % (Auto) 0.2 (0.0-2.0) % Neut # (Auto) 17.37 H (1.40-7.00) K/uL Lymph # (Auto) 1.03 (0.50-3.50) K/uL [place] # (Auto) 1.70 H (0.00-1.00) K/uL Eos # (Auto) 0.01 (0.00-0.50) K/uL Baso # (Auto) 0.04 (0.00-0.20) K/uL PT 22.7 H D (9.5-12.0) SEC INR 2.1 Sodium 138 (136-145) mmol/L Potassium 3.0 L (3.5-5.1) mmol/L Chloride 100 (98-107) mmol/L Carbon Dioxide 23.8 (21.0-32.0) mmol/L BUN 25 H (7-18) mg/dL Creatinine 1.25 H (0.51-1.17) mg/dL Est Cr Clr Drug Dosing TNP Estimated GFR (MDRD) 56 mL/min Glucose 140 H (74-106) mg/dL Lactic Acid (0.4-2.0) mmol/L Calcium 9.0 (8.5-10.1) mg/dL Total Bilirubin 1.7 H (0.2-1.0) mg/dL AST 18 (15-37) U/L ALT 21 (12-78) U/L Alkaline Phosphatase 95 (46-116) IU/L Troponin I (0.000-0.056) ng/mL NT-Pro-B Natriuret Pep (0-125) pg/mL Total Protein 7.2 (6.4-8.2) g/dL Albumin 2.8 L (3.4-5.0) g/dL 02/22/19 02/22/19 02/22/19 Range/Units 10:40 10:57 11:00 WBC (4.0-10.2) K/uL RBC (4.33-5.41) M/uL Hgb (13.1-16.8) g/dL Hct (39.0-49.0) % MCV (84.0-98.0) fL MCH (28.2-33.3) pg MCHC (31.7-36.0) g/dL RDW (11.2-14.1) % Plt Count (150-350) K/uL Neut % (Auto) (45.0-80.0) % Lymph % (Auto) (10.0-50.0) % [place] % (Auto) (2.0-14.0) % Eos % (Auto) (0.0-5.0) % Baso % (Auto) (0.0-2.0) % Neut # (Auto) (1.40-7.00) K/uL Lymph # (Auto) (0.50-3.50) K/uL [place] # (Auto) (0.00-1.00) K/uL Eos # (Auto) (0.00-0.50) K/uL Baso # (Auto) (0.00-0.20) K/uL PT (9.5-12.0) SEC INR Sodium (136-145) mmol/L Potassium (3.5-5.1) mmol/L Chloride (98-107) mmol/L Carbon Dioxide (21.0-32.0) mmol/L BUN (7-18) mg/dL Creatinine (0.51-1.17) mg/dL Est Cr Clr Drug Dosing Estimated GFR (MDRD) mL/min Glucose (74-106) mg/dL Lactic Acid 2.0 2.0 (0.4-2.0) mmol/L Calcium (8.5-10.1) mg/dL Total Bilirubin (0.2-1.0) mg/dL AST (15-37) U/L ALT (12-78) U/L Alkaline Phosphatase (46-116) IU/L Troponin I 0.011 (0.000-0.056) ng/mL NT-Pro-B Natriuret Pep 9093 H (0-125) pg/mL Total Protein (6.4-8.2) g/dL Albumin (3.4-5.0) g/dL 02/23/19 02/23/19 02/23/19 Range/Units 07:15 07:15 07:15 WBC 17.1 H (4.0-10.2) K/uL RBC 3.18 L (4.33-5.41) M/uL Hgb 9.3 L D (13.1-16.8) g/dL Hct 29.0 L (39.0-49.0) % MCV 91.2 (84.0-98.0) fL MCH 29.2 (28.2-33.3) pg MCHC 32.1 (31.7-36.0) g/dL RDW 16.4 H (11.2-14.1) % Plt Count 143 L (150-350) K/uL Neut % (Auto) 86.0 H (45.0-80.0) % Lymph % (Auto) 4.7 L (10.0-50.0) % [place] % (Auto) 8.8 (2.0-14.0) % Eos % (Auto) 0.3 (0.0-5.0) % Baso % (Auto) 0.2 (0.0-2.0) % Neut # (Auto) 14.70 H (1.40-7.00) K/uL Lymph # (Auto) 0.81 (0.50-3.50) K/uL [place] # (Auto) 1.51 H (0.00-1.00) K/uL Eos # (Auto) 0.05 (0.00-0.50) K/uL Baso # (Auto) 0.04 (0.00-0.20) K/uL PT 34.0 H D (9.5-12.0) SEC INR 3.2 Sodium 139 (136-145) mmol/L Potassium 3.1 L (3.5-5.1) mmol/L Chloride 105 (98-107) mmol/L Carbon Dioxide 22.9 (21.0-32.0) mmol/L BUN 27 H (7-18) mg/dL Creatinine 1.21 H (0.51-1.17) mg/dL Est Cr Clr Drug Dosing 48.67 Estimated GFR (MDRD) 58 mL/min Glucose 119 H (74-106) mg/dL Lactic Acid (0.4-2.0) mmol/L Calcium 8.0 L (8.5-10.1) mg/dL Total Bilirubin (0.2-1.0) mg/dL AST (15-37) U/L ALT (12-78) U/L Alkaline Phosphatase (46-116) IU/L Troponin I (0.000-0.056) ng/mL NT-Pro-B Natriuret Pep (0-125) pg/mL Total Protein (6.4-8.2) g/dL Albumin (3.4-5.0) g/dL Carlos Results Last 24 Hours: Microbiology 02/22/19 11:07 Stool Occult Blood (CARLOS) - Final Stool / Feces Med Orders - Current: Current Medications Acetaminophen (Tylenol) 650 mg PO Q6HR PRN PRN Reason: Pain Last Admin: 02/23/19 04:29 Dose: 650 mg Hydrocodone Bitart/Acetaminophen ([place] 325-10 Mg) 1 tab PO BID PRN PRN Reason: Pain Aspirin (Aspirin) 81 mg PO DAILY [facility] Last Admin: 02/23/19 07:29 Dose: 81 mg Calcium Carbonate (Caltrate 600+D 1500 Mg-400 Units) 1 tab PO DAILY [facility] Last Admin: 02/23/19 07:29 Dose: 1 tab Diphenoxylate HCl/Atropine (Lomotil 0.025-2.5 Mg) 1 tab PO QID [facility] Last Admin: 02/23/19 07:29 Dose: 1 tab Enoxaparin Sodium (Lovenox) 80 mg SUBCUT Q12HR [facility] Last Admin: 02/23/19 07:28 Dose: 80 mg Furosemide (Lasix) 20 mg PO DAILY PRN PRN Reason: fluid Hydrocortisone Acetate (Anucort-Hc) 25 mg RECTAL BID PRN PRN Reason: Itching Sodium Chloride (Normal Saline) 1,000 mls @ 75 mls/hr IV ASDIRECTED [facility] Last Admin: 02/23/19 08:17 Dose: 75 mls/hr Potassium Chloride 10 meq/ (Premix) 50 mls @ 50 mls/hr IV Q1H [facility] Stop: 02/23/19 13:29 Lisinopril (Prinivil) 10 mg PO BEDTIME [facility] Last Admin: 02/22/19 19:55 Dose: Not Given Metoprolol Succinate (Toprol Xl) 100 mg PO DAILY@1800 [facility] Last Admin: 02/22/19 17:58 Dose: 100 mg Metronidazole (Flagyl) 500 mg PO Q8H [facility] Last Admin: 02/23/19 04:29 Dose: 500 mg Nitroglycerin (Nitrostat) 0.4 mg SL ASDIRECTED PRN PRN Reason: Chest Pain Leflunomide [ Leflunomide] 20 Mg Tablet 20 mg PO DAILY [facility] Last Admin: 02/23/19 09:11 Dose: 20 mg Omeprazole (Omeprazole) 20 mg PO DAILY [facility] Last Admin: 02/23/19 07:29 Dose: 20 mg Paroxetine HCl (Paxil) 20 mg PO DAILY [facility] Last Admin: 02/23/19 07:29 Dose: 20 mg Polysaccharide Iron Complex (Ferrex 150) 150 mg PO DAILY [facility] Last Admin: 02/23/19 07:29 Dose: 150 mg Prednisone (Prednisone) 5 mg PO DAILY [facility] Last Admin: 02/23/19 07:29 Dose: 5 mg Promethazine HCl (Phenergan) 12.5 mg IM Q6H PRN PRN Reason: Nausea/Vomiting Simvastatin (Zocor) 20 mg PO BEDTIME [facility] Last Admin: 02/22/19 19:52 Dose: 20 mg Sodium Chloride (Saline Flush) 10 ml FLUSH ASDIRECTED PRN PRN Reason: Keep Vein Open Sodium Chloride (Saline Flush) 10 ml FLUSH ASDIRECTED PRN PRN Reason: Keep Vein Open Tamsulosin HCl (Flomax) 0.4 mg PO DAILY [facility] Last Admin: 02/23/19 07:29 Dose: 0.4 mg Warfarin Sodium (Coumadin) 1.25 mg PO SuTuThSa@1800 [facility] Warfarin Sodium (Coumadin) 2.5 mg PO MoWeFr@1800 [facility] Last Admin: 02/22/19 17:58 Dose: 2.5 mg Discontinued Medications Acetaminophen (Tylenol) 650 mg PO Q4H PRN PRN Reason: analgesia/fever Diphenoxylate HCl/Atropine (Lomotil 0.025-2.5 Mg) 2 tab PO ONETIME ONE Stop: 02/22/19 10:59 Last Admin: 02/22/19 11:26 Dose: 2 tab Diphenoxylate HCl/Atropine (Lomotil 0.025-2.5 Mg) 1 tab PO QID [facility] Last Admin: 02/22/19 14:12 Dose: Not Given Sodium Chloride (Normal Saline) 1,000 mls @ 500 mls/hr IV ASDIRECTED [facility] Last Admin: 02/22/19 10:45 Dose: 500 mls/hr Promethazine HCl 12.5 mg/ (Sodium Chloride) 100.5 mls @ 400 mls/hr IV ONETIME ONE Stop: 02/22/19 10:40 Last Admin: 02/22/19 10:48 Dose: 400 mls/hr Potassium Chloride 10 meq/ (Premix) 50 mls @ 50 mls/hr IV Q1H [place] Stop: 02/22/19 19:59 Last Admin: 02/22/19 19:13 Dose: 50 mls/hr - Exam General: Alert, Oriented, Cooperative, Lethargic (At times) HEENT: Pupils Equal Neck: Supple Lungs: Clear to Auscultation, Normal Respiratory Effort Cardiovascular: Regular Rate, Regular Rhythm GI/Abdominal Exam: Normal Bowel Sounds, Soft, No Organomegaly, No Distention, No Abnormal Bruit, No Mass, Pelvis Stable (Male) Exam: Scrotal Swelling, Scrotum Tenderness (L), Scrotum Tenderness (R) , Suprapubic Fullness, Other (Secondary to hematoma) Back Exam: Normal Inspection, Full Range of Motion Extremities: Normal Inspection, Limited Range of Motion Skin: Warm, Dry, Ecchymosis (Testicular) Neurological: No New Focal Deficit Psy/Mental Status: Alert, Normal Affect, Normal Mood - Problem List & Annotations (1) Hypokalemia SNOMED Code(s): 91159856 Code(s): E87.6 - HYPOKALEMIA Status: Acute Priority: Medium Current Visit: No Onset Date: 11/23/15 Annotation/Comment:: Slowly improving potassium today 3.1 (2) Dehydration, moderate SNOMED Code(s): 5098282696397 Code(s): E86.0 - DEHYDRATION Status: Acute Current Visit: Yes Annotation/Comment:: Dehydration improving (3) Diarrhea SNOMED Code(s): 02116672 Code(s): R19.7 - DIARRHEA, UNSPECIFIED Status: Acute Current Visit: Yes Qualifiers: Diarrhea type: presumed infectious Qualified Code(s): R19.7 - Diarrhea, unspecified Annotation/Comment:: Diarrhea slowing down to 1-2 bowel movements in the last 24 hours sample obtained for C. difficile and cultures - Problem List Review Problem List Initiated/Reviewed/Updated: Yes - My Orders Last 24 Hours: My Active Orders 02/22/19 10:22 Sodium Chloride 0.9% [Saline Flush] 10 ml FLUSH ASDIRECTED PRN Saline Lock Insert [OM.PC] Stat 02/22/19 10:28 EKG Documentation Completion [RC] ASDIRECTED 02/22/19 10:56 Chest 1V Frontal [CR] Stat 02/22/19 11:07 Blood Culture x2 Reflex Set [OM.PC] Stat 02/22/19 11:30 CULTURE BLOOD [BC] Stat 02/22/19 11:43 Patient Status [ADT] Routine Up With Assistance [RC] ASDIRECTED Vital Signs [RC] Q4HR Sodium Chloride 0.9% [Saline Flush] 10 ml FLUSH ASDIRECTED PRN Peripheral IV Insertion Adult [OM.PC] Routine Resuscitation Status Routine 02/22/19 11:44 Peripheral IV Care [RC] 02/22/19 11:45 STOOL CULTURE [MREF] DAILY Sodium Chloride 0.9% [Normal Saline] 1,000 ml IV ASDIRECTED 02/22/19 11:48 Intake and Output [RC] QSHIFT OT Evaluation and Treatment [CONS] Routine PT Evaluation and Treatment [CONS] Routine 02/22/19 11:50 Telemetry Monitoring [Cardiac Monitoring] [RC] Q2HR CULTURE BLOOD [BC] Stat Acetaminophen [Tylenol] 650 mg PO Q6HR PRN Acetaminophen/HYDROcodone [[place] 325-10 MG] 1 tab PO BID PRN Furosemide [Lasix] 20 mg PO DAILY PRN Hydrocortisone Acetate [Anucort-HC] 25 mg RECTAL BID PRN Nitroglycerin [Nitrostat] 0.4 mg SL ASDIRECTED PRN 02/22/19 12:00 metroNIDAZOLE [Flagyl] 500 mg PO Q8H 02/22/19 16:00 Atropine/Diphenoxylate [Lomotil 0.025-2.5 MG] 1 tab PO QID 02/22/19 17:00 Promethazine [Phenergan] 12.5 mg IM Q6H PRN 02/22/19 18:00 Metoprolol Succinate [Toprol XL] 100 mg PO DAILY@1800 Warfarin [Coumadin] 2.5 mg PO MoWeFr@1800 02/22/19 20:00 Enoxaparin [Lovenox] 80 mg SUBCUT Q12HR Lisinopril [Prinivil] 10 mg PO BEDTIME Simvastatin [Zocor] 20 mg PO BEDTIME 02/22/19 Lunch Regular Diet [DIET] 02/23/19 08:00 Aspirin 81 mg PO DAILY Calcium Carbonate/Vitamin D3 [Caltrate 600+D 1500 MG-400 Units] 1 tab PO DAILY Iron Polysaccharides Complex [Ferrex 150] 150 mg PO DAILY Leflunomide [Leflunomide] 20 mg PO DAILY Omeprazole 20 mg PO DAILY PARoxetine [Paxil] 20 mg PO DAILY Tamsulosin [Flomax] 0.4 mg PO DAILY predniSONE 5 mg PO DAILY 02/23/19 09:15 Potassium Chloride [KCl 10 MEQ in Water 50 ML] 10 meq Premix Bag 1 bag IV Q1H 02/23/19 18:00 Warfarin [Coumadin] 1.25 mg PO SuTuThSa@1800 02/24/19 05:11 BASIC METABOLIC PANEL,BMP [CHEM] DAILY CBC WITH AUTO DIFF [HEME] DAILY 02/25/19 05:11 BASIC METABOLIC PANEL,BMP [CHEM] DAILY CBC WITH AUTO DIFF [HEME] DAILY 02/26/19 05:11 BASIC METABOLIC PANEL,BMP [CHEM] DAILY CBC WITH AUTO DIFF [HEME] DAILY
[2019-02-23] MEDS ORDERED: Furosemide 40 MG/4 ML VIAL IVPUSH ONE (10:07)
[2019-02-23] MEDS: Potassium Chloride 10 MEQ in Premix Bag 1 BAG IV SCH ×4 (10:30→13:44)
[2019-02-23] MEDS ORDERED: Piperacillin/Tazobactam 3.375 GM in Sodium Chloride 0.9% 100 ML IV SCH (10:30)
[2019-02-23] MEDS: Sodium Chloride 0.9% 10 ML Syringe FLUSH PRN ×2 (14:46→19:54)
[2019-02-23] MEDS: Piperacillin/Tazobactam 3.375 GM in Sodium Chloride 0.9% 100 ML IV SCH ×2 (14:46→19:42)
[2019-02-23] MEDS: Metoprolol Succinate 50 MG Tab.ER PO SCH (17:13)
[2019-02-23] MEDS ORDERED: Warfarin 2.5 MG Tab PO SCH ×2 (18:00)
[2019-02-23] MEDS: Simvastatin 20 MG Tab PO SCH (19:43)
[2019-02-23] MEDS: Lisinopril 10 MG Tab PO SCH (19:54)
[2019-02-24] MEDS: Acetaminophen 325 MG Tab PO PRN ×2 (01:44→08:26)
[2019-02-24] MEDS: Piperacillin/Tazobactam 3.375 GM in Sodium Chloride 0.9% 100 ML IV SCH ×4 (01:45→19:58)
[2019-02-24] MEDS: metroNIDAZOLE 500 MG Tab PO SCH ×2 (05:14→11:35)
[2019-02-24] MEDS: LEFLUNOMIDE 20 MG PO SCH (08:24)
[2019-02-24] MEDS: predniSONE 5 MG Tab PO SCH (08:25)
[2019-02-24] MEDS: Aspirin 81 MG Tab.Chew PO SCH (08:25)
[2019-02-24] MEDS: Calcium Carbonate/Vitamin D3 1500 MG-400 Units Tab PO SCH (08:25)
[2019-02-24] MEDS: Atropine/Diphenoxylate 0.025-2.5 MG Tab PO SCH ×4 (08:25→19:56)
[2019-02-24] MEDS: Omeprazole 20 MG Cap.CR PO SCH (08:25)
[2019-02-24] MEDS: Tamsulosin 0.4 MG Cap.ER PO SCH (08:25)
[2019-02-24] MEDS: PARoxetine 20 MG Tab PO SCH (08:26)
[2019-02-24] MEDS: Iron Polysaccharides Complex 150 MG Cap PO SCH (08:26)
--- NOTE | 2019-02-24 11:39 | PCM.PN ---
- General Info Date of Service: 02/24/19 - Review of Systems General: Reports: Fever, Weakness HEENT: Reports: No Symptoms Pulmonary: Reports: Shortness of Breath Cardiovascular: Reports: Dyspnea on Exertion Gastrointestinal: Reports: No Symptoms Genitourinary: Reports: No Symptoms Musculoskeletal: Reports: No Symptoms Skin: Reports: No Symptoms Neurological: Reports: No Symptoms Psychiatric: Reports: No Symptoms - Patient Data Vitals - Most Recent: Last Vital Signs Temp 101.5 F H 02/24/19 07:40 Pulse 82 02/24/19 07:40 Resp 15 02/24/19 07:40 BP 160/55 H 02/24/19 07:40 Pulse Ox 97 02/24/19 11:13 Weight - Most Recent: 155 lb 12.811 oz I&O - Last 24 Hours: Intake & Output 02/23/19 02/24/19 02/24/19 22:59 06:59 14:59 Intake Total 860 300 Balance 860 300 Lab Results Last 24 Hours: Laboratory Results - last 24 hr 02/23/19 02/24/19 02/24/19 Range/Units 16:45 07:07 07:07 WBC 17.1 H (4.0-10.2) K/uL RBC 3.47 L (4.33-5.41) M/uL Hgb 9.9 L (13.1-16.8) g/dL Hct 31.2 L (39.0-49.0) % MCV 89.9 (84.0-98.0) fL MCH 28.5 (28.2-33.3) pg MCHC 31.7 (31.7-36.0) g/dL RDW 16.3 H (11.2-14.1) % Plt Count 160 (150-350) K/uL Neut % (Auto) 83.6 H (45.0-80.0) % Lymph % (Auto) 7.4 L (10.0-50.0) % [place] % (Auto) 8.2 (2.0-14.0) % Eos % (Auto) 0.7 (0.0-5.0) % Baso % (Auto) 0.1 (0.0-2.0) % Neut # (Auto) 14.25 H (1.40-7.00) K/uL Lymph # (Auto) 1.27 (0.50-3.50) K/uL [place] # (Auto) 1.39 H (0.00-1.00) K/uL Eos # (Auto) 0.12 (0.00-0.50) K/uL Baso # (Auto) 0.02 (0.00-0.20) K/uL PT (9.5-12.0) SEC INR Sodium 139 (136-145) mmol/L Potassium 3.9 3.3 L (3.5-5.1) mmol/L Chloride 105 (98-107) mmol/L Carbon Dioxide 20.0 L (21.0-32.0) mmol/L BUN 24 H (7-18) mg/dL Creatinine 1.19 H (0.51-1.17) mg/dL Est Cr Clr Drug Dosing 49.49 mL/min Estimated GFR (MDRD) 59 mL/min Glucose 119 H (74-106) mg/dL Calcium 8.5 (8.5-10.1) mg/dL 02/24/19 Range/Units 07:07 WBC (4.0-10.2) K/uL RBC (4.33-5.41) M/uL Hgb (13.1-16.8) g/dL Hct (39.0-49.0) % MCV (84.0-98.0) fL MCH (28.2-33.3) pg MCHC (31.7-36.0) g/dL RDW (11.2-14.1) % Plt Count (150-350) K/uL Neut % (Auto) (45.0-80.0) % Lymph % (Auto) (10.0-50.0) % [place] % (Auto) (2.0-14.0) % Eos % (Auto) (0.0-5.0) % Baso % (Auto) (0.0-2.0) % Neut # (Auto) (1.40-7.00) K/uL Lymph # (Auto) (0.50-3.50) K/uL [place] # (Auto) (0.00-1.00) K/uL Eos # (Auto) (0.00-0.50) K/uL Baso # (Auto) (0.00-0.20) K/uL PT 38.1 H (9.5-12.0) SEC INR 3.5 Sodium (136-145) mmol/L Potassium (3.5-5.1) mmol/L Chloride (98-107) mmol/L Carbon Dioxide (21.0-32.0) mmol/L BUN (7-18) mg/dL Creatinine (0.51-1.17) mg/dL Est Cr Clr Drug Dosing mL/min Estimated GFR (MDRD) mL/min Glucose (74-106) mg/dL Calcium (8.5-10.1) mg/dL Carlos Results Last 24 Hours: Microbiology 02/22/19 11:30 Aerobic Blood Culture - Preliminary Blood - Venous NO GROWTH AFTER 2 DAYS Anaerobic Blood Culture - Preliminary NO GROWTH AFTER 2 DAYS 02/23/19 11:15 Clostridioides difficile (PCR) - Final Stool / Feces 02/22/19 11:50 Aerobic Blood Culture - Preliminary Blood - Venous - Lab Draw NO GROWTH AFTER 1 DAY Anaerobic Blood Culture - Preliminary NO GROWTH AFTER 1 DAY Med Orders - Current: Current Medications Acetaminophen (Tylenol) 650 mg PO Q6HR PRN PRN Reason: Pain Last Admin: 02/24/19 08:26 Dose: 650 mg Hydrocodone Bitart/Acetaminophen ([place] 325-10 Mg) 1 tab PO BID PRN PRN Reason: Pain Albuterol/Ipratropium (Duoneb 3.0-0.5 Mg/3 Ml) 3 ml NEB Q4HRRT [facility] Aspirin (Aspirin) 81 mg PO DAILY [facility] Last Admin: 02/24/19 08:25 Dose: 81 mg Calcium Carbonate (Caltrate 600+D 1500 Mg-400 Units) 1 tab PO DAILY [facility] Last Admin: 02/24/19 08:25 Dose: 1 tab Diphenoxylate HCl/Atropine (Lomotil 0.025-2.5 Mg) 1 tab PO QID [facility] Last Admin: 02/24/19 08:25 Dose: 1 tab Furosemide (Lasix) 20 mg PO DAILY PRN PRN Reason: fluid Furosemide (Lasix) 40 mg IVPUSH DAILY [facility] Hydrocortisone Acetate (Anucort-Hc) 25 mg RECTAL BID PRN PRN Reason: Itching Piperacillin Sod/Tazobactam (Sod 3.375 gm/ Sodium Chloride) 100 mls @ 200 mls/ hr IV Q6H [facility] Last Admin: 02/24/19 08:26 Dose: 200 mls/hr Azithromycin 500 mg/ Sodium (Chloride) 250 mls @ 250 mls/hr IV Q24H [facility] Lisinopril (Prinivil) 10 mg PO BEDTIME [facility] Last Admin: 02/23/19 19:54 Dose: Not Given Metoprolol Succinate (Toprol Xl) 100 mg PO DAILY@1800 [facility] Last Admin: 02/23/19 17:13 Dose: Not Given Metronidazole (Flagyl) 500 mg PO Q8H [facility] Last Admin: 02/24/19 05:14 Dose: 500 mg Nitroglycerin (Nitrostat) 0.4 mg SL ASDIRECTED PRN PRN Reason: Chest Pain Leflunomide [ Leflunomide] 20 Mg Tablet 20 mg PO DAILY [facility] Last Admin: 02/24/19 08:24 Dose: 20 mg Omeprazole (Omeprazole) 20 mg PO DAILY [facility] Last Admin: 02/24/19 08:25 Dose: 20 mg Paroxetine HCl (Paxil) 20 mg PO DAILY [facility] Last Admin: 02/24/19 08:26 Dose: 20 mg Polysaccharide Iron Complex (Ferrex 150) 150 mg PO DAILY [facility] Last Admin: 02/24/19 08:26 Dose: 150 mg Potassium Chloride (Klor-Con M20) 40 meq PO BID [facility] Prednisone (Prednisone) 5 mg PO DAILY [facility] Last Admin: 02/24/19 08:25 Dose: 5 mg Promethazine HCl (Phenergan) 12.5 mg IM Q6H PRN PRN Reason: Nausea/Vomiting Simvastatin (Zocor) 20 mg PO BEDTIME [facility] Last Admin: 02/23/19 19:43 Dose: 20 mg Sodium Chloride (Saline Flush) 10 ml FLUSH ASDIRECTED PRN PRN Reason: Keep Vein Open Last Admin: 02/23/19 19:54 Dose: 10 ml Sodium Chloride (Saline Flush) 10 ml FLUSH ASDIRECTED PRN PRN Reason: Keep Vein Open Tamsulosin HCl (Flomax) 0.4 mg PO DAILY [facility] Last Admin: 02/24/19 08:25 Dose: 0.4 mg Warfarin Sodium (Coumadin) 1.25 mg PO DAILY@1800 [facility] Last Admin: 02/23/19 17:13 Dose: 1.25 mg Discontinued Medications Acetaminophen (Tylenol) 650 mg PO Q4H PRN PRN Reason: analgesia/fever Diphenoxylate HCl/Atropine (Lomotil 0.025-2.5 Mg) 2 tab PO ONETIME ONE Stop: 02/22/19 10:59 Last Admin: 02/22/19 11:26 Dose: 2 tab Diphenoxylate HCl/Atropine (Lomotil 0.025-2.5 Mg) 1 tab PO QID [facility] Last Admin: 02/22/19 14:12 Dose: Not Given Enoxaparin Sodium (Lovenox) 80 mg SUBCUT Q12HR [facility] Last Admin: 02/23/19 07:28 Dose: 80 mg Furosemide (Lasix) 40 mg IVPUSH NOW ONE Stop: 02/23/19 10:08 Last Admin: 02/23/19 10:29 Dose: 40 mg Sodium Chloride (Normal Saline) 1,000 mls @ 500 mls/hr IV ASDIRECTED [facility] Last Admin: 02/22/19 10:45 Dose: 500 mls/hr Promethazine HCl 12.5 mg/ (Sodium Chloride) 100.5 mls @ 400 mls/hr IV ONETIME ONE Stop: 02/22/19 10:40 Last Admin: 02/22/19 10:48 Dose: 400 mls/hr Sodium Chloride (Normal Saline) 1,000 mls @ 75 mls/hr IV ASDIRECTED [facility] Last Admin: 02/23/19 08:17 Dose: 75 mls/hr Potassium Chloride 10 meq/ (Premix) 50 mls @ 50 mls/hr IV Q1H [facility] Stop: 02/22/19 19:59 Last Admin: 02/22/19 19:13 Dose: 50 mls/hr Potassium Chloride 10 meq/ (Premix) 50 mls @ 50 mls/hr IV Q1H [facility] Stop: 02/23/19 13:29 Last Admin: 02/23/19 13:44 Dose: 50 mls/hr Piperacillin Sod/Tazobactam (Sod 3.375 gm/ Sodium Chloride) 100 mls @ 200 mls/ hr IV Q6H [facility] Last Admin: 02/23/19 11:52 Dose: Not Given Warfarin Sodium (Coumadin) 1.25 mg PO SuTuThSa@1800 [facility] Warfarin Sodium (Coumadin) 2.5 mg PO MoWeFr@1800 [facility] Last Admin: 02/22/19 17:58 Dose: 2.5 mg - Exam Quality Assessment: Supplemental Oxygen General: Alert, Oriented, Cooperative, No Acute Distress HEENT: Pupils Equal, Pupils Reactive, EOMI, Mucous Membr. Moist/[place] Neck: Supple Lungs: Decreased Breath Sounds, Rales Cardiovascular: Regular Rate, Regular Rhythm GI/Abdominal Exam: Normal Bowel Sounds, Soft, Non-Tender, No Organomegaly, No Distention, No Abnormal Bruit, No Mass, Pelvis Stable (Male) Exam: Deferred Back Exam: Decreased Range of Motion Extremities: Normal Inspection, Normal Range of Motion, Non-Tender, No Pedal Edema, Normal Capillary Refill Skin: Warm, Dry, Intact Neurological: No New Focal Deficit Psy/Mental Status: Alert, Normal Affect, Normal Mood - Problem List & Annotations (1) Hypokalemia SNOMED Code(s): 18463810 Code(s): E87.6 - HYPOKALEMIA Status: Acute Priority: Medium Current Visit: No Onset Date: 11/23/15 Annotation/Comment:: Slowly improving potassium today 3.1 (2) Dehydration, moderate SNOMED Code(s): 1253501481924 Code(s): E86.0 - DEHYDRATION Status: Acute Current Visit: Yes Annotation/Comment:: Dehydration improving (3) Diarrhea SNOMED Code(s): 20997803 Code(s): R19.7 - DIARRHEA, UNSPECIFIED Status: Acute Current Visit: Yes Qualifiers: Diarrhea type: presumed infectious Qualified Code(s): R19.7 - Diarrhea, unspecified Annotation/Comment:: Diarrhea slowing down to 1-2 bowel movements in the last 24 hours sample obtained for C. difficile and cultures (4) Pneumonia SNOMED Code(s): 778476389 Code(s): J18.9 - PNEUMONIA, UNSPECIFIED ORGANISM Status: Acute Current Visit: Yes Qualifiers: Laterality: right Lung location: lower lobe of lung Annotation/Comment:: Lower lobe pneumonitis as seen on x-ray cardiac silhouette increased assessment pneumonia cultures negative up to now will switch antibiotics from patient (5) Congestive heart failure SNOMED Code(s): 98190726 Code(s): I50.9 - HEART FAILURE, UNSPECIFIED Status: Acute Current Visit: Yes Annotation/Comment:: Chest x-ray revealed increased heart size saturations down to 88% on room air 97% on 2 L will start him on Lasix daily potassium and Zithromax 500 daily at this time DuoNeb started - Problem List Review Problem List Initiated/Reviewed/Updated: Yes - My Orders Last 24 Hours: My Active Orders 02/23/19 14:30 Piperacillin/Tazobactam [Zosyn] 3.375 gm Sodium Chloride 0.9% [Normal Saline] 100 ml IV Q6H 02/23/19 16:25 Vital Signs [RC] Q8HR 02/23/19 18:00 Warfarin [Coumadin] 1.25 mg PO DAILY@1800 02/24/19 07:33 Chest 1V Frontal [CR] Routine 02/24/19 11:22 RT Aerosol Therapy [RC] ASDIRECTED 02/24/19 11:30 Azithromycin [Zithromax] 500 mg Sodium Chloride 0.9% [Normal Saline] 250 ml IV Q24H 02/24/19 12:00 Albuterol/Ipratropium [DuoNeb 3.0-0.5 MG/3 ML] 3 ml NEB Q4HRRT 02/24/19 18:00 Potassium Chloride [Klor-Con M20] 40 meq PO BID 02/25/19 05:11 BASIC METABOLIC PANEL,BMP [CHEM] DAILY CBC WITH AUTO DIFF [HEME] DAILY 02/25/19 08:00 Furosemide [Lasix] 40 mg IVPUSH DAILY 02/26/19 05:11 BASIC METABOLIC PANEL,BMP [CHEM] DAILY CBC WITH AUTO DIFF [HEME] DAILY - Plan Plan:: See above note
[2019-02-24] MEDS: Potassium Chloride 20 MEQ Tab.ER PO SCH ×2 (11:53→17:44)
[2019-02-24] MEDS: Albuterol/Ipratropium 3.0-0.5 MG/3 ML Neb Soln NEB SCH ×4 (11:53→23:36)
[2019-02-24] MEDS: Furosemide 40 MG/4 ML VIAL IVPUSH SCH (11:54)
[2019-02-24] MEDS: Sodium Chloride 0.9% 10 ML Syringe FLUSH PRN ×3 (11:55→13:45)
[2019-02-24] MEDS: Azithromycin 500 MG in Sodium Chloride 0.9% 250 ML IV SCH (11:56)
[2019-02-24] MEDS: Metoprolol Succinate 50 MG Tab.ER PO SCH (17:44)
[2019-02-24] MEDS: Lisinopril 10 MG Tab PO SCH (19:55)
[2019-02-24] MEDS: Simvastatin 20 MG Tab PO SCH (19:56)
[2019-02-25] MEDS: Acetaminophen/HYDROcodone 325-10 MG Tab PO PRN ×2 (01:33→11:36)
[2019-02-25] MEDS: Piperacillin/Tazobactam 3.375 GM in Sodium Chloride 0.9% 100 ML IV SCH ×2 (01:34→07:55)
[2019-02-25] MEDS: Albuterol/Ipratropium 3.0-0.5 MG/3 ML Neb Soln NEB SCH ×3 (04:14→11:24)
[2019-02-25 07:26] LABS: CHLORIDE,CL 104 mmol/L (98-107); SODIUM,NA 138 mmol/L (136-145)
[2019-02-25 07:39] VITALS: BP 115/52; PULSE 76
[2019-02-25] MEDS: Potassium Chloride 20 MEQ Tab.ER PO SCH (07:41)
[2019-02-25] MEDS: Furosemide 40 MG/4 ML VIAL IVPUSH SCH (07:46)
[2019-02-25] MEDS: Sodium Chloride 0.9% 10 ML Syringe FLUSH PRN (07:46)
[2019-02-25] MEDS: Acetaminophen 325 MG Tab PO PRN (07:50)
[2019-02-25] MEDS: LEFLUNOMIDE 20 MG PO SCH (07:51)
[2019-02-25] MEDS: Tamsulosin 0.4 MG Cap.ER PO SCH (07:51)
[2019-02-25] MEDS: PARoxetine 20 MG Tab PO SCH (07:52)
[2019-02-25] MEDS: Atropine/Diphenoxylate 0.025-2.5 MG Tab PO SCH ×2 (07:52→11:24)
[2019-02-25] MEDS: Omeprazole 20 MG Cap.CR PO SCH (07:52)
[2019-02-25] MEDS: Calcium Carbonate/Vitamin D3 1500 MG-400 Units Tab PO SCH (07:52)
[2019-02-25] MEDS: Iron Polysaccharides Complex 150 MG Cap PO SCH (07:52)
[2019-02-25] MEDS: Aspirin 81 MG Tab.Chew PO SCH (07:52)
[2019-02-25] MEDS: predniSONE 5 MG Tab PO SCH (07:52)
[2019-02-25] MEDS ORDERED: Phytonadione ORAL 2.5mg/2.5ml Soln Simple Syrup U/D PO ONE (11:01)
--- NOTE | 2019-02-25 11:10 | PCM.PN ---
- General Info Date of Service: 02/25/19 Functional Status: Reports: Tolerating Diet - Review of Systems General: Reports: Weakness, Fatigue. Denies: Fever HEENT: Reports: No Symptoms Pulmonary: Reports: No Symptoms Cardiovascular: Reports: No Symptoms Gastrointestinal: Reports: Diarrhea (cultures negative) Genitourinary: Reports: Other (testicular enlargement and tenderness to touch; escoriation on posterior aspect of testicle secondary to enlargement and diarrhea; foul smelling) Musculoskeletal: Reports: No Symptoms Skin: Reports: Other (see ) Neurological: Reports: Confusion Psychiatric: Reports: Confusion - Patient Data Vitals - Most Recent: Last Vital Signs Temp 98.4 F 02/25/19 07:39 Pulse 76 02/25/19 07:39 Resp 18 02/25/19 07:39 BP 115/52 L 02/25/19 07:39 Pulse Ox 96 02/25/19 07:39 Weight - Most Recent: 155 lb 12.811 oz I&O - Last 24 Hours: Intake & Output 02/24/19 02/25/19 02/25/19 22:59 06:59 14:59 Intake Total 1 200 960 Balance 1 200 960 Lab Results Last 24 Hours: Laboratory Results - last 24 hr 02/24/19 02/25/19 02/25/19 Range/Units 07:07 06:55 06:55 WBC 13.0 H (4.0-10.2) K/uL RBC 3.23 L (4.33-5.41) M/uL Hgb 9.4 L (13.1-16.8) g/dL Hct 28.9 L (39.0-49.0) % MCV 89.5 (84.0-98.0) fL MCH 29.1 (28.2-33.3) pg MCHC 32.5 (31.7-36.0) g/dL RDW 16.6 H (11.2-14.1) % Plt Count 188 (150-350) K/uL Neut % (Auto) 82.8 H (45.0-80.0) % Lymph % (Auto) 9.6 L (10.0-50.0) % Rich % (Auto) 6.1 (2.0-14.0) % Eos % (Auto) 1.3 (0.0-5.0) % Baso % (Auto) 0.2 (0.0-2.0) % Neut # (Auto) 10.74 H (1.40-7.00) K/uL Lymph # (Auto) 1.24 (0.50-3.50) K/uL Rich # (Auto) 0.79 (0.00-1.00) K/uL Eos # (Auto) 0.17 (0.00-0.50) K/uL Baso # (Auto) 0.03 (0.00-0.20) K/uL PT (9.5-12.0) SEC INR Sodium 138 (136-145) mmol/L Potassium 3.3 L (3.5-5.1) mmol/L Chloride 104 (98-107) mmol/L Carbon Dioxide 22.9 (21.0-32.0) mmol/L BUN 24 H (7-18) mg/dL Creatinine 1.10 (0.51-1.17) mg/dL Est Cr Clr Drug Dosing 53.54 mL/min Estimated GFR (MDRD) > 60 mL/min Glucose 115 H (74-106) mg/dL Calcium 8.3 L (8.5-10.1) mg/dL NT-Pro-B Natriuret Pep 4886 H (0-125) pg/mL 02/25/19 Range/Units 06:55 WBC (4.0-10.2) K/uL RBC (4.33-5.41) M/uL Hgb (13.1-16.8) g/dL Hct (39.0-49.0) % MCV (84.0-98.0) fL MCH (28.2-33.3) pg MCHC (31.7-36.0) g/dL RDW (11.2-14.1) % Plt Count (150-350) K/uL Neut % (Auto) (45.0-80.0) % Lymph % (Auto) (10.0-50.0) % Rich % (Auto) (2.0-14.0) % Eos % (Auto) (0.0-5.0) % Baso % (Auto) (0.0-2.0) % Neut # (Auto) (1.40-7.00) K/uL Lymph # (Auto) (0.50-3.50) K/uL Rich # (Auto) (0.00-1.00) K/uL Eos # (Auto) (0.00-0.50) K/uL Baso # (Auto) (0.00-0.20) K/uL PT 73.8 H D (9.5-12.0) SEC INR 6.8 H* Sodium (136-145) mmol/L Potassium (3.5-5.1) mmol/L Chloride (98-107) mmol/L Carbon Dioxide (21.0-32.0) mmol/L BUN (7-18) mg/dL Creatinine (0.51-1.17) mg/dL Est Cr Clr Drug Dosing mL/min Estimated GFR (MDRD) mL/min Glucose (74-106) mg/dL Calcium (8.5-10.1) mg/dL NT-Pro-B Natriuret Pep (0-125) pg/mL Carlos Results Last 24 Hours: Microbiology 02/22/19 11:15 Stool Aerobic Culture - Preliminary Stool / Feces 02/22/19 11:50 Aerobic Blood Culture - Preliminary Blood - Venous - Lab Draw NO GROWTH AFTER 2 DAYS Anaerobic Blood Culture - Preliminary NO GROWTH AFTER 2 DAYS 02/22/19 11:30 Aerobic Blood Culture - Preliminary Blood - Venous NO GROWTH AFTER 2 DAYS Anaerobic Blood Culture - Preliminary NO GROWTH AFTER 2 DAYS 02/23/19 11:15 Clostridioides difficile (PCR) - Final Stool / Feces Med Orders - Current: Current Medications Acetaminophen (Tylenol) 650 mg PO Q6HR PRN PRN Reason: Pain Last Admin: 02/25/19 07:50 Dose: 650 mg Hydrocodone Bitart/Acetaminophen ([place] 325-10 Mg) 1 tab PO BID PRN PRN Reason: Pain Last Admin: 02/25/19 01:33 Dose: 1 tab Albuterol/Ipratropium (Duoneb 3.0-0.5 Mg/3 Ml) 3 ml NEB Q4HRRT [facility] Last Admin: 02/25/19 07:41 Dose: 3 ml Aspirin (Aspirin) 81 mg PO DAILY [place] Last Admin: 02/25/19 07:52 Dose: 81 mg Calcium Carbonate (Caltrate 600+D 1500 Mg-400 Units) 1 tab PO DAILY [facility] Last Admin: 02/25/19 07:52 Dose: 1 tab Diphenoxylate HCl/Atropine (Lomotil 0.025-2.5 Mg) 1 tab PO QID [facility] Last Admin: 02/25/19 07:52 Dose: 1 tab Furosemide (Lasix) 20 mg PO DAILY PRN PRN Reason: fluid Furosemide (Lasix) 40 mg IVPUSH DAILY [facility] Last Admin: 02/25/19 07:46 Dose: 40 mg Hydrocortisone Acetate (Anucort-Hc) 25 mg RECTAL BID PRN PRN Reason: Itching Piperacillin Sod/Tazobactam (Sod 3.375 gm/ Sodium Chloride) 100 mls @ 200 mls/ hr IV Q6H [facility] Last Admin: 02/25/19 07:55 Dose: 200 mls/hr Azithromycin 500 mg/ Sodium (Chloride) 250 mls @ 250 mls/hr IV Q24H [facility] Last Admin: 02/24/19 11:56 Dose: 250 mls/hr Lisinopril (Prinivil) 10 mg PO BEDTIME [facility] Last Admin: 02/24/19 19:55 Dose: 10 mg Metoprolol Succinate (Toprol Xl) 100 mg PO DAILY@1800 [facility] Last Admin: 02/24/19 17:44 Dose: 100 mg Nitroglycerin (Nitrostat) 0.4 mg SL ASDIRECTED PRN PRN Reason: Chest Pain Leflunomide [ Leflunomide] 20 Mg Tablet 20 mg PO DAILY [facility] Last Admin: 02/25/19 07:51 Dose: 20 mg Omeprazole (Omeprazole) 20 mg PO DAILY [facility] Last Admin: 02/25/19 07:52 Dose: 20 mg Paroxetine HCl (Paxil) 20 mg PO DAILY [facility] Last Admin: 02/25/19 07:52 Dose: 20 mg Phytonadione (Aquamephyton) 5 mg PO ONETIME ONE Stop: 02/25/19 11:02 Polysaccharide Iron Complex (Ferrex 150) 150 mg PO DAILY [facility] Last Admin: 02/25/19 07:52 Dose: 150 mg Potassium Chloride (Klor-Con M20) 40 meq PO BID [facility] Last Admin: 02/25/19 07:41 Dose: 40 meq Prednisone (Prednisone) 5 mg PO DAILY [facility] Last Admin: 02/25/19 07:52 Dose: 5 mg Promethazine HCl (Phenergan) 12.5 mg IM Q6H PRN PRN Reason: Nausea/Vomiting Simvastatin (Zocor) 20 mg PO BEDTIME [facility] Last Admin: 02/24/19 19:56 Dose: 20 mg Sodium Chloride (Saline Flush) 10 ml FLUSH ASDIRECTED PRN PRN Reason: Keep Vein Open Last Admin: 02/25/19 07:46 Dose: 10 ml Sodium Chloride (Saline Flush) 10 ml FLUSH ASDIRECTED PRN PRN Reason: Keep Vein Open Tamsulosin HCl (Flomax) 0.4 mg PO DAILY [facility] Last Admin: 02/25/19 07:51 Dose: 0.4 mg Discontinued Medications Acetaminophen (Tylenol) 650 mg PO Q4H PRN PRN Reason: analgesia/fever Diphenoxylate HCl/Atropine (Lomotil 0.025-2.5 Mg) 2 tab PO ONETIME ONE Stop: 02/22/19 10:59 Last Admin: 02/22/19 11:26 Dose: 2 tab Diphenoxylate HCl/Atropine (Lomotil 0.025-2.5 Mg) 1 tab PO QID [facility] Last Admin: 02/22/19 14:12 Dose: Not Given Enoxaparin Sodium (Lovenox) 80 mg SUBCUT Q12HR [facility] Last Admin: 02/23/19 07:28 Dose: 80 mg Furosemide (Lasix) 40 mg IVPUSH NOW ONE Stop: 02/23/19 10:08 Last Admin: 02/23/19 10:29 Dose: 40 mg Sodium Chloride (Normal Saline) 1,000 mls @ 500 mls/hr IV ASDIRECTED [facility] Last Admin: 02/22/19 10:45 Dose: 500 mls/hr Promethazine HCl 12.5 mg/ (Sodium Chloride) 100.5 mls @ 400 mls/hr IV ONETIME ONE Stop: 02/22/19 10:40 Last Admin: 02/22/19 10:48 Dose: 400 mls/hr Sodium Chloride (Normal Saline) 1,000 mls @ 75 mls/hr IV ASDIRECTED [facility] Last Admin: 02/23/19 08:17 Dose: 75 mls/hr Potassium Chloride 10 meq/ (Premix) 50 mls @ 50 mls/hr IV Q1H [place] Stop: 02/22/19 19:59 Last Admin: 02/22/19 19:13 Dose: 50 mls/hr Potassium Chloride 10 meq/ (Premix) 50 mls @ 50 mls/hr IV Q1H [facility] Stop: 02/23/19 13:29 Last Admin: 02/23/19 13:44 Dose: 50 mls/hr Piperacillin Sod/Tazobactam (Sod 3.375 gm/ Sodium Chloride) 100 mls @ 200 mls/ hr IV Q6H [facility] Last Admin: 02/23/19 11:52 Dose: Not Given Metronidazole (Flagyl) 500 mg PO Q8H [facility] Last Admin: 02/24/19 11:35 Dose: 500 mg Warfarin Sodium (Coumadin) 1.25 mg PO SuTuThSa@1800 [place] Warfarin Sodium (Coumadin) 2.5 mg PO MoWeFr@1800 [place] Last Admin: 02/22/19 17:58 Dose: 2.5 mg Warfarin Sodium (Coumadin) 1.25 mg PO DAILY@1800 [place] Last Admin: 02/23/19 17:13 Dose: 1.25 mg Warfarin Sodium (Coumadin) 1 mg PO DAILY@1800 [facility] Last Admin: 02/24/19 17:44 Dose: 1 mg - Exam General: Alert, Cooperative HEENT: Pupils Equal, Pupils Reactive, EOMI, Mucous Membr. Moist/[place] Neck: Supple Lungs: Clear to Auscultation, Normal Respiratory Effort Cardiovascular: Irregular Rhythm, Other (a fib) GI/Abdominal Exam: Normal Bowel Sounds, Soft, Non-Tender, No Organomegaly, No Distention, No Abnormal Bruit, No Mass, Pelvis Stable (Male) Exam: Scrotum Tenderness (L), Scrotum Tenderness (R), Testicular Tenderness (L), Testicular Tenderness (R), Other (testicular enlargement and tenderness to touch; escoriation on posterior aspect of testicle secondary to enlargement and diarrhea; foul smelling; unable to transluminate scrotum secondary to possile slid fluids or infection; US ordered) Back Exam: Normal Inspection, Full Range of Motion Extremities: Normal Inspection, Normal Range of Motion, Non-Tender, No Pedal Edema, Normal Capillary Refill Skin: Other (see ) Wound/Incisions: Other (see ) Neurological: Other (some confusion; worse at night) Psy/Mental Status: Alert, Normal Mood - Problem List & Annotations (1) Hypokalemia SNOMED Code(s): 36495171 Code(s): E87.6 - HYPOKALEMIA Status: Acute Priority: Medium Current Visit: No Onset Date: 11/23/15 Annotation/Comment:: will increase potassium to three times day (2) Dehydration, moderate SNOMED Code(s): 0619500290346 Code(s): E86.0 - DEHYDRATION Status: Acute Current Visit: Yes Annotation/Comment:: Dehydration improving (3) Diarrhea SNOMED Code(s): 72385603 Code(s): R19.7 - DIARRHEA, UNSPECIFIED Status: Acute Current Visit: Yes Qualifiers: Diarrhea type: presumed infectious Qualified Code(s): R19.7 - Diarrhea, unspecified Annotation/Comment:: negative c diff cultures; improving. Nurse reports only one episode this AM. (4) Pneumonia SNOMED Code(s): 811459252 Code(s): J18.9 - PNEUMONIA, UNSPECIFIED ORGANISM Status: Acute Current Visit: Yes Qualifiers: Pneumonia type: due to unspecified organism Laterality: right Lung location: lower lobe of lung Qualified Code(s): J18.1 - Lobar pneumonia, unspecified organism Annotation/Comment:: Improving; lungs clear; will continue antibiotic therapy and duonebs as scheduled; WBC improving (5) Congestive heart failure SNOMED Code(s): 62105432 Code(s): I50.9 - HEART FAILURE, UNSPECIFIED Status: Acute Current Visit: Yes Qualifiers: Heart failure chronicity: unspecified Annotation/Comment:: will continue lasix and duoneb therapy. Chest X ray tomorrow. (6) Scrotum swelling SNOMED Code(s): 950149715 Code(s): N50.89 - OTHER SPECIFIED DISORDERS OF THE MALE GENITAL ORGANS Status: Acute Current Visit: Yes Annotation/Comment:: testicular enlargement and tenderness to touch; escoriation on posterior aspect of testicle secondary to enlargement and diarrhea; foul smelling; unable to transluminate scrotum secondary to possile slid fluids or infection; US ordered for today. May need I & D of scrotum will wait for US results - Problem List Review Problem List Initiated/Reviewed/Updated: Yes - My Orders Last 24 Hours: My Active Orders 02/24/19 11:22 RT Aerosol Therapy [RC] Q4HR 02/24/19 12:00 Albuterol/Ipratropium [DuoNeb 3.0-0.5 MG/3 ML] 3 ml NEB Q4HRRT Azithromycin [Zithromax] 500 mg Sodium Chloride 0.9% [Normal Saline] 250 ml IV Q24H Furosemide [Lasix] 40 mg IVPUSH DAILY Potassium Chloride [Klor-Con M20] 40 meq PO BID 02/25/19 11:01 Wound Care [RC] Q12H Scrotum and Contents [US] Routine CULTURE WOUND + SMEAR [RM] Routine Phytonadione [AquaMephyton] 5 mg PO ONETIME ONE 02/25/19 11:47 Chest 2V [CR] Routine 02/26/19 05:11 Chest 2V [CR] Routine BASIC METABOLIC PANEL,BMP [CHEM] DAILY CBC WITH AUTO DIFF [HEME] DAILY INR,PT,PROTHROMBIN TIME [COAG] Routine PRO B-TYPE NATRIUR PEPT,BNPPRO [CHEM] DAILY - Plan Plan:: See above note
[2019-02-25] MEDS: Azithromycin 500 MG in Sodium Chloride 0.9% 250 ML IV SCH (11:25)
[2019-02-25] MEDS ORDERED: Potassium Chloride 20 MEQ Tab.ER PO SCH (12:00)
--- NOTE | 2019-02-25 13:42 | PCM.DCSUM1 ---
Discharge Summary - Hospital Course Free Text/Narrative:: Patient was admitted with hypokalemia, diarrhea, and generalized weakness. He also had leukocytosis and testicular tenderness. At this time, we decided to admit the patient. Patient was admitted for treatment of the diarrhea and hypokalemia. Antibiotics were started secondary to possibility of C diff. Cultures came back negative. Patient spiked fever during initial admission. Chest x ray revealed CHF and pneumonia- right lower lobe. Patient started on antibiotics for this. WBC improving. Chest x ray still shows mild infiltrate and CHF is improving. Patient will be transferred to [facility] care to continue antibiotic therapy. Ultrasound was completed today showed bilateral hydrocele and skin thickening in the posterior scrotal. Will continue with dressing changes and antibiotic therapy secondary to scrotal skin infection. PT and OT will work with patient on strengthening. Patient has intermittent confusion. reports this does happen at home sometimes. Diagnosis: Stroke: No - Discharge Data Discharge Date: 02/25/19 Discharge Disposition: DC/Tfer W/I Hosp To Swing Condition: Good - Discharge Diagnosis/Problem(s) (1) Hypokalemia SNOMED Code(s): 01932877 ICD Code: E87.6 - HYPOKALEMIA Status: Acute Priority: Medium Current Visit: No Onset Date: 11/23/15 Problem Details: will increase potassium to three times day as SWB (2) Dehydration, moderate SNOMED Code(s): 8243196749843 ICD Code: E86.0 - DEHYDRATION Status: Acute Current Visit: Yes Problem Details: Dehydration improving (3) Diarrhea SNOMED Code(s): 81356816 ICD Code: R19.7 - DIARRHEA, UNSPECIFIED Status: Acute Current Visit: Yes Problem Details: negative c diff cultures; improving. Nurse reports only one episode this AM. Qualifiers: Diarrhea type: presumed infectious Qualified Code(s): R19.7 - Diarrhea, unspecified (4) Pneumonia SNOMED Code(s): 163634840 ICD Code: J18.9 - PNEUMONIA, UNSPECIFIED ORGANISM Status: Acute Current Visit: Yes Problem Details: Improving; lungs clear; will continue antibiotic therapy and duonebs as scheduled; WBC improving Qualifiers: Pneumonia type: due to unspecified organism Laterality: right Lung location: lower lobe of lung Qualified Code(s): J18.1 - Lobar pneumonia, unspecified organism (5) Congestive heart failure SNOMED Code(s): 13570380 ICD Code: I50.9 - HEART FAILURE, UNSPECIFIED Status: Acute Current Visit : Yes Problem Details: will continue lasix and duoneb therapy. Chest X ray tomorrow. Qualifiers: Heart failure chronicity: unspecified (6) Scrotum swelling SNOMED Code(s): 314849500 ICD Code: N50.89 - OTHER SPECIFIED DISORDERS OF THE MALE GENITAL ORGANS Status: Acute Current Visit: Yes Problem Details: testicular enlargement and tenderness to touch; escoriation on posterior aspect of testicle secondary to enlargement and diarrhea; foul smelling; unable to transluminate scrotum secondary to possile slid fluids or infection; US ordered for today. Ultrasound showed thickening of the scrotal skin. Patient will need urology follow up as an outpatient for bilateral hydrocele. - Patient Summary/Data Consults: Consultations 02/22/19 11:48 OT Evaluation and Treatment [CONS] Routine PT Evaluation and Treatment [CONS] Routine - Discharge Plan *PRESCRIPTION DRUG MONITORING PROGRAM REVIEWED*: No *COPY OF PRESCRIPTION DRUG MONITORING REPORT IN PATIENT RADHA: No Home Medications: Home Meds Leflunomide 20 mg PO DAILY 05/20/15 [History] Omeprazole 20 mg PO DAILY 05/20/15 [History] Simvastatin 20 mg PO BEDTIME 05/20/15 [History] predniSONE [Prednisone] 5 mg PO DAILY 05/20/15 [History] Aspirin 81 mg PO DAILY 11/23/15 [History] Hydrocodone/Acetaminophen [Hydrocodon-Acetaminophn 10-325] 1 each PO BID PRN [History] Nitroglycerin [Nitrostat] 0.4 mg SL ASDIRECTED PRN 11/23/15 [History] Furosemide [Lasix] 20 mg PO DAILY PRN 01/05/16 [History] Lisinopril 10 mg PO BEDTIME 10/26/17 [History] Metoprolol Succinate [Toprol XL] 100 mg PO DAILY@1800 10/26/17 [History] PARoxetine HCl [Paroxetine HCl] 20 mg PO DAILY 10/26/17 [History] Iron Polysaccharide Complex [Ferric X-150] 150 mg PO DAILY 06/06/18 [History] Tamsulosin [Tamsulosin 24 Hr] 0.4 mg PO DAILY 06/06/18 [History] Warfarin Sodium [Jantoven] 2.5 mg PO MOWEFR 06/06/18 [History] Acetaminophen 650 mg PO Q6HR PRN 02/22/19 [History] Calcium Carbonate/Vitamin D3 [Calcium 500-Vit D3 200 Caplet] 1 tab PO DAILY [History] Enoxaparin [Lovenox] 80 mg SQ BID 02/22/19 [History] Warfarin [Coumadin] 1.25 mg PO ASDIRECTED 02/22/19 [History] cephALEXin [Keflex] 250 mg PO BID PRN 02/22/19 [History] Hydrocortisone Acetate [Anusol-Hc] 25 mg RC BID PRN 02/23/19 [History] Patient Handouts: Promethazine injection, Atropine; Diphenoxylate tablets Forms: ED Department Discharge Referrals: More Fried PA-C [Primary Care Provider] - - Discharge Summary/Plan Comment DC Time >30 min.: No - General Info Date of Service: 02/25/19 Admission Dx/Problem (Free Text: See progress note from 02-25-19 - Patient Data Vitals - Most Recent: Last Vital Signs Temp 98.4 F 02/25/19 07:39 Pulse 76 02/25/19 07:39 Resp 18 02/25/19 07:39 BP 115/52 L 02/25/19 07:39 Pulse Ox 96 02/25/19 07:39 Weight - Most Recent: 155 lb 12.811 oz I&O - Last 24 hours: Intake & Output 02/24/19 02/25/19 02/25/19 22:59 06:59 14:59 Intake Total 1 200 1200 Balance 1 200 1200 Lab Results - Last 24 hrs: Laboratory Results - last 24 hr 02/25/19 02/25/19 02/25/19 Range/Units 06:55 06:55 06:55 WBC 13.0 H (4.0-10.2) K/uL RBC 3.23 L (4.33-5.41) M/uL Hgb 9.4 L (13.1-16.8) g/dL Hct 28.9 L (39.0-49.0) % MCV 89.5 (84.0-98.0) fL MCH 29.1 (28.2-33.3) pg MCHC 32.5 (31.7-36.0) g/dL RDW 16.6 H (11.2-14.1) % Plt Count 188 (150-350) K/uL Neut % (Auto) 82.8 H (45.0-80.0) % Lymph % (Auto) 9.6 L (10.0-50.0) % [place] % (Auto) 6.1 (2.0-14.0) % Eos % (Auto) 1.3 (0.0-5.0) % Baso % (Auto) 0.2 (0.0-2.0) % Neut # (Auto) 10.74 H (1.40-7.00) K/uL Lymph # (Auto) 1.24 (0.50-3.50) K/uL [place] # (Auto) 0.79 (0.00-1.00) K/uL Eos # (Auto) 0.17 (0.00-0.50) K/uL Baso # (Auto) 0.03 (0.00-0.20) K/uL PT 73.8 H D (9.5-12.0) SEC INR 6.8 H* Sodium 138 (136-145) mmol/L Potassium 3.3 L (3.5-5.1) mmol/L Chloride 104 (98-107) mmol/L Carbon Dioxide 22.9 (21.0-32.0) mmol/L BUN 24 H (7-18) mg/dL Creatinine 1.10 (0.51-1.17) mg/dL Est Cr Clr Drug Dosing 53.54 mL/min Estimated GFR (MDRD) > 60 mL/min Glucose 115 H (74-106) mg/dL Calcium 8.3 L (8.5-10.1) mg/dL REG Results - Last 24 hrs: Microbiology 02/22/19 11:50 Aerobic Blood Culture - Preliminary Blood - Venous - Lab Draw NO GROWTH AFTER 3 DAYS Anaerobic Blood Culture - Preliminary NO GROWTH AFTER 3 DAYS 02/22/19 11:30 Aerobic Blood Culture - Preliminary Blood - Venous NO GROWTH AFTER 3 DAYS Anaerobic Blood Culture - Preliminary NO GROWTH AFTER 3 DAYS 02/22/19 11:15 Stool Aerobic Culture - Preliminary Stool / Feces 02/23/19 11:15 Clostridioides difficile (PCR) - Final Stool / Feces Med Orders - Current: Current Medications Acetaminophen (Tylenol) 650 mg PO Q6HR PRN PRN Reason: Pain Last Admin: 02/25/19 07:50 Dose: 650 mg Hydrocodone Bitart/Acetaminophen ([place] 325-10 Mg) 1 tab PO BID PRN PRN Reason: Pain Last Admin: 02/25/19 11:36 Dose: 1 tab Albuterol/Ipratropium (Duoneb 3.0-0.5 Mg/3 Ml) 3 ml NEB Q4HRRT [facility] Last Admin: 02/25/19 11:24 Dose: 3 ml Aspirin (Aspirin) 81 mg PO DAILY [facility] Last Admin: 02/25/19 07:52 Dose: 81 mg Calcium Carbonate (Caltrate 600+D 1500 Mg-400 Units) 1 tab PO DAILY [facility] Last Admin: 02/25/19 07:52 Dose: 1 tab Diphenoxylate HCl/Atropine (Lomotil 0.025-2.5 Mg) 1 tab PO QID [facility] Last Admin: 02/25/19 11:24 Dose: 1 tab Furosemide (Lasix) 20 mg PO DAILY PRN PRN Reason: fluid Furosemide (Lasix) 40 mg IVPUSH DAILY [facility] Last Admin: 02/25/19 07:46 Dose: 40 mg Hydrocortisone Acetate (Anucort-Hc) 25 mg RECTAL BID PRN PRN Reason: Itching Piperacillin Sod/Tazobactam (Sod 3.375 gm/ Sodium Chloride) 100 mls @ 200 mls/ hr IV Q6H [facility] Last Admin: 02/25/19 07:55 Dose: 200 mls/hr Azithromycin 500 mg/ Sodium (Chloride) 250 mls @ 250 mls/hr IV Q24H [facility] Last Admin: 02/25/19 11:25 Dose: 250 mls/hr Lisinopril (Prinivil) 10 mg PO BEDTIME [facility] Last Admin: 02/24/19 19:55 Dose: 10 mg Metoprolol Succinate (Toprol Xl) 100 mg PO DAILY@1800 [facility] Last Admin: 02/24/19 17:44 Dose: 100 mg Nitroglycerin (Nitrostat) 0.4 mg SL ASDIRECTED PRN PRN Reason: Chest Pain Leflunomide [ Leflunomide] 20 Mg Tablet 20 mg PO DAILY [facility] Last Admin: 02/25/19 07:51 Dose: 20 mg Omeprazole (Omeprazole) 20 mg PO DAILY [facility] Last Admin: 02/25/19 07:52 Dose: 20 mg Paroxetine HCl (Paxil) 20 mg PO DAILY [facility] Last Admin: 02/25/19 07:52 Dose: 20 mg Polysaccharide Iron Complex (Ferrex 150) 150 mg PO DAILY [facility] Last Admin: 02/25/19 07:52 Dose: 150 mg Potassium Chloride (Klor-Con M20) 40 meq PO TID [facility] Last Admin: 02/25/19 11:24 Dose: 40 meq Prednisone (Prednisone) 5 mg PO DAILY [facility] Last Admin: 02/25/19 07:52 Dose: 5 mg Promethazine HCl (Phenergan) 12.5 mg IM Q6H PRN PRN Reason: Nausea/Vomiting Simvastatin (Zocor) 20 mg PO BEDTIME [facility] Last Admin: 02/24/19 19:56 Dose: 20 mg Sodium Chloride (Saline Flush) 10 ml FLUSH ASDIRECTED PRN PRN Reason: Keep Vein Open Last Admin: 02/25/19 07:46 Dose: 10 ml Sodium Chloride (Saline Flush) 10 ml FLUSH ASDIRECTED PRN PRN Reason: Keep Vein Open Tamsulosin HCl (Flomax) 0.4 mg PO DAILY [facility] Last Admin: 02/25/19 07:51 Dose: 0.4 mg Discontinued Medications Acetaminophen (Tylenol) 650 mg PO Q4H PRN PRN Reason: analgesia/fever Diphenoxylate HCl/Atropine (Lomotil 0.025-2.5 Mg) 2 tab PO ONETIME ONE Stop: 02/22/19 10:59 Last Admin: 02/22/19 11:26 Dose: 2 tab Diphenoxylate HCl/Atropine (Lomotil 0.025-2.5 Mg) 1 tab PO QID [facility] Last Admin: 02/22/19 14:12 Dose: Not Given Enoxaparin Sodium (Lovenox) 80 mg SUBCUT Q12HR [facility] Last Admin: 02/23/19 07:28 Dose: 80 mg Furosemide (Lasix) 40 mg IVPUSH NOW ONE Stop: 02/23/19 10:08 Last Admin: 02/23/19 10:29 Dose: 40 mg Sodium Chloride (Normal Saline) 1,000 mls @ 500 mls/hr IV ASDIRECTED [facility] Last Admin: 02/22/19 10:45 Dose: 500 mls/hr Promethazine HCl 12.5 mg/ (Sodium Chloride) 100.5 mls @ 400 mls/hr IV ONETIME ONE Stop: 02/22/19 10:40 Last Admin: 02/22/19 10:48 Dose: 400 mls/hr Sodium Chloride (Normal Saline) 1,000 mls @ 75 mls/hr IV ASDIRECTED [facility] Last Admin: 02/23/19 08:17 Dose: 75 mls/hr Potassium Chloride 10 meq/ (Premix) 50 mls @ 50 mls/hr IV Q1H [facility] Stop: 02/22/19 19:59 Last Admin: 02/22/19 19:13 Dose: 50 mls/hr Potassium Chloride 10 meq/ (Premix) 50 mls @ 50 mls/hr IV Q1H [facility] Stop: 02/23/19 13:29 Last Admin: 02/23/19 13:44 Dose: 50 mls/hr Piperacillin Sod/Tazobactam (Sod 3.375 gm/ Sodium Chloride) 100 mls @ 200 mls/ hr IV Q6H [facility] Last Admin: 02/23/19 11:52 Dose: Not Given Metronidazole (Flagyl) 500 mg PO Q8H [facility] Last Admin: 02/24/19 11:35 Dose: 500 mg Phytonadione (Aquamephyton) 5 mg PO ONETIME ONE Stop: 02/25/19 11:02 Last Admin: 02/25/19 11:24 Dose: 5 mg Potassium Chloride (Klor-Con M20) 40 meq PO BID [facility] Last Admin: 02/25/19 07:41 Dose: 40 meq Warfarin Sodium (Coumadin) 1.25 mg PO [email or web address] [facility] Warfarin Sodium (Coumadin) 2.5 mg PO [email or web address] [facility] Last Admin: 02/22/19 17:58 Dose: 2.5 mg Warfarin Sodium (Coumadin) 1.25 mg PO [email or web address] [facility] Last Admin: 02/23/19 17:13 Dose: 1.25 mg Warfarin Sodium (Coumadin) 1 mg PO [email or web address] [facility] Last Admin: 02/24/19 17:44 Dose: 1 mg Comments:: See progress note from 02-25-19 for physical exam.
== END 2019-02-25 13:47 | disposition swing bed (61) | DRG 391 ==
LOC: LL.ED 10:07 → LL.MS 11:16
PROVIDERS: ADMIT Family Medicine; ATTEND Family Medicine
DX: R19.7 Diarrhea, unspecified (principal); J18.1 Lobar pneumonia, unspecified organism; I42.9 Cardiomyopathy, unspecified; E87.6 Hypokalemia; N50.819 Testicular pain, unspecified; E86.0 Dehydration; H91.90 Unspecified hearing loss, unspecified ear; H54.7 Unspecified visual loss; I48.91 Unspecified atrial fibrillation; Z95.810 Presence of automatic (implantable) cardiac defibrillator; I11.0 Hypertensive heart disease with heart failure; I25.10 Atherosclerotic heart disease of native coronary artery without angina pectoris; I50.9 Heart failure, unspecified; N40.0 Benign prostatic hyperplasia without lower urinary tract symptoms; I73.9 Peripheral vascular disease, unspecified; E78.00 Pure hypercholesterolemia, unspecified; E11.51 Type 2 diabetes mellitus with diabetic peripheral angiopathy without gangrene; N50.89 Other specified disorders of the male genital organs; I47.2 Ventricular tachycardia; M19.91 Primary osteoarthritis, unspecified site; I71.4 Abdominal aortic aneurysm, without rupture; Z98.49 Cataract extraction status, unspecified eye; Z87.442 Personal history of urinary calculi; Z87.11 Personal history of peptic ulcer disease; J44.9 Chronic obstructive pulmonary disease, unspecified; R91.1 Solitary pulmonary nodule; K21.9 Gastro-esophageal reflux disease without esophagitis; N40.1 Benign prostatic hyperplasia with lower urinary tract symptoms; N39.498 Other specified urinary incontinence; Z85.51 Personal history of malignant neoplasm of bladder; G89.29 Other chronic pain; M54.9 Dorsalgia, unspecified; M54.2 Cervicalgia; M19.90 Unspecified osteoarthritis, unspecified site; M06.9 Rheumatoid arthritis, unspecified; E11.9 Type 2 diabetes mellitus without complications; F32.9 Major depressive disorder, single episode, unspecified; F41.9 Anxiety disorder, unspecified; M81.0 Age-related osteoporosis without current pathological fracture; Z79.01 Long term (current) use of anticoagulants; Z79.82 Long term (current) use of aspirin; Z79.52 Long term (current) use of systemic steroids; Z79.899 Other long term (current) drug therapy; Z88.8 Allergy status to other drugs, medicaments and biological substances
CPT/HCPCS: 36415; 71045; 80053; 82272; 83605; 83880; 84484; 85025; 85610; 87045; 87046 ×3; 93005; 96365; 99285; J2550; J7030; J7050; 51702; 71046; 76870; 80048; 84132; 87040; 87070; 87077; 87186; 87205; 87493; 94640; 97110-GP; 97162-GP; 97165-GO; 97530-GP; A9270-GY; J0456; J1650; J1940; J2543; J3480; J7620-GY

== ENCOUNTER 2019-02-25 13:36 | Inpatient (IN) | payer MEDICARE, OTHER ==
[2019-02-25] MEDS ORDERED: Furosemide 20 MG Tab PO PRN (13:43)
[2019-02-25] MEDS ORDERED: Sodium Chloride 0.9% 10 ML Syringe FLUSH PRN (13:43)
[2019-02-25] MEDS ORDERED: Hydrocortisone Acetate 25 MG Supp RECTAL PRN (13:43)
[2019-02-25] MEDS ORDERED: Nitroglycerin 0.4 MG Tab.SL SL PRN (13:43)
[2019-02-25] MEDS ORDERED: Promethazine 25 MG/ML SDV IM PRN (14:00)
[2019-02-25] MEDS: Piperacillin/Tazobactam 3.375 GM in Sodium Chloride 0.9% 100 ML IV SCH ×2 (14:34→19:56)
[2019-02-25] MEDS ORDERED: LORazepam 2 MG/ML SDV IVPUSH ONE (16:48)
[2019-02-25] MEDS: Sodium Chloride 0.9% 10 ML Syringe FLUSH PRN ×2 (17:01→19:57)
[2019-02-25] MEDS: Potassium Chloride 20 MEQ Tab.ER PO SCH (17:58)
[2019-02-25] MEDS: Atropine/Diphenoxylate 0.025-2.5 MG Tab PO SCH ×2 (18:02→22:35)
[2019-02-25] MEDS: Albuterol/Ipratropium 3.0-0.5 MG/3 ML Neb Soln NEB SCH ×3 (18:02→23:30)
[2019-02-25] MEDS: Metoprolol Succinate 50 MG Tab.ER PO SCH (18:13)
[2019-02-25] MEDS: Simvastatin 20 MG Tab PO SCH (22:15)
[2019-02-25] MEDS: Lisinopril 10 MG Tab PO SCH (22:26)
[2019-02-26] MEDS: Piperacillin/Tazobactam 3.375 GM in Sodium Chloride 0.9% 100 ML IV SCH ×4 (01:52→19:59)
[2019-02-26] MEDS: Albuterol/Ipratropium 3.0-0.5 MG/3 ML Neb Soln NEB SCH ×5 (04:27→20:06)
[2019-02-26 08:02] LABS: CHLORIDE,CL 107 mmol/L (98-107); SODIUM,NA 140 mmol/L (136-145)
[2019-02-26] MEDS: PARoxetine 20 MG Tab PO SCH (08:11)
[2019-02-26] MEDS: predniSONE 5 MG Tab PO SCH (08:11)
[2019-02-26] MEDS: Iron Polysaccharides Complex 150 MG Cap PO SCH (08:11)
[2019-02-26] MEDS: Omeprazole 20 MG Cap.CR PO SCH (08:11)
[2019-02-26] MEDS: Tamsulosin 0.4 MG Cap.ER PO SCH (08:11)
[2019-02-26] MEDS: Potassium Chloride 20 MEQ Tab.ER PO SCH ×3 (08:11→17:39)
[2019-02-26] MEDS: Furosemide 40 MG/4 ML VIAL IVPUSH SCH (08:11)
[2019-02-26] MEDS: Calcium Carbonate/Vitamin D3 1500 MG-400 Units Tab PO SCH (08:11)
[2019-02-26] MEDS: LEFLUNOMIDE 20 MG PO SCH (08:12)
[2019-02-26] MEDS: Aspirin 81 MG Tab.Chew PO SCH (08:13)
[2019-02-26] MEDS: Atropine/Diphenoxylate 0.025-2.5 MG Tab PO SCH ×3 (08:19→15:45)
[2019-02-26] MEDS: Sodium Chloride 0.9% 10 ML Syringe FLUSH PRN ×2 (11:46→15:23)
[2019-02-26] MEDS ORDERED: Azithromycin 500 MG in Sodium Chloride 0.9% 250 ML IV SCH (12:00)
[2019-02-26] MEDS: Acetaminophen/HYDROcodone 325-10 MG Tab PO PRN (15:21)
--- NOTE | 2019-02-26 15:21 | PCM.PN ---
- General Info Date of Service: 02/26/19 Functional Status: Reports: Pain Controlled - Review of Systems General: Reports: Weakness HEENT: Reports: No Symptoms Pulmonary: Reports: No Symptoms Cardiovascular: Reports: No Symptoms Gastrointestinal: Reports: No Symptoms, Other (Diarrhea control) Genitourinary: Reports: Pain (Testicular pain) Musculoskeletal: Reports: No Symptoms Skin: Reports: Bruising (Bilateral testicles), Other (Pus draining from skin abscess) Neurological: Reports: No Symptoms Psychiatric: Reports: No Symptoms - Patient Data Vitals - Most Recent: Last Vital Signs Temp 98.8 F 02/26/19 07:24 Pulse 92 02/26/19 07:24 Resp 18 02/26/19 07:24 BP 158/53 H 02/26/19 07:24 Pulse Ox 96 02/26/19 07:24 Weight - Most Recent: 155 lb 12.811 oz I&O - Last 24 Hours: Intake & Output 02/26/19 02/26/19 02/26/19 06:59 14:59 22:59 Output Total 900 1600 Balance -900 -1600 Lab Results Last 24 Hours: Laboratory Results - last 24 hr 02/26/19 02/26/19 02/26/19 Range/Units 07:25 07:25 07:25 WBC 10.3 H (4.0-10.2) K/uL RBC 3.29 L (4.33-5.41) M/uL Hgb 9.5 L (13.1-16.8) g/dL Hct 29.2 L (39.0-49.0) % MCV 88.8 (84.0-98.0) fL MCH 28.9 (28.2-33.3) pg MCHC 32.5 (31.7-36.0) g/dL RDW 16.6 H (11.2-14.1) % Plt Count 231 (150-350) K/uL Neut % (Auto) 77.5 (45.0-80.0) % Lymph % (Auto) 11.8 (10.0-50.0) % [place] % (Auto) 7.9 (2.0-14.0) % Eos % (Auto) 2.4 (0.0-5.0) % Baso % (Auto) 0.4 (0.0-2.0) % Neut # (Auto) 7.99 H (1.40-7.00) K/uL Lymph # (Auto) 1.22 (0.50-3.50) K/uL [place] # (Auto) 0.81 (0.00-1.00) K/uL Eos # (Auto) 0.25 (0.00-0.50) K/uL Baso # (Auto) 0.04 (0.00-0.20) K/uL PT 22.3 H D (9.5-12.0) SEC INR 2.1 Sodium 140 (136-145) mmol/L Potassium 4.5 (3.5-5.1) mmol/L Chloride 107 (98-107) mmol/L Carbon Dioxide 23.2 (21.0-32.0) mmol/L BUN 23 H (7-18) mg/dL Creatinine 1.00 (0.51-1.17) mg/dL Est Cr Clr Drug Dosing 58.89 mL/min Estimated GFR (MDRD) > 60 mL/min Glucose 127 H (74-106) mg/dL Calcium 8.6 (8.5-10.1) mg/dL NT-Pro-B Natriuret Pep 4945 H (0-125) pg/mL Med Orders - Current: Current Medications Acetaminophen (Tylenol) 650 mg PO Q6H PRN PRN Reason: Pain Hydrocodone Bitart/Acetaminophen ([place] 325-10 Mg) 1 tab PO BID PRN PRN Reason: Pain Albuterol/Ipratropium (Duoneb 3.0-0.5 Mg/3 Ml) 3 ml NEB Q4HRRT [facility] Last Admin: 02/26/19 11:43 Dose: 3 ml Aspirin (Aspirin) 81 mg PO DAILY [facility] Last Admin: 02/26/19 08:13 Dose: 81 mg Azithromycin (Zithromax) 500 mg PO DAILY@1200 [place] Calcium Carbonate (Caltrate 600+D 1500 Mg-400 Units) 1 tab PO DAILY [facility] Last Admin: 02/26/19 08:11 Dose: 1 tab Diphenoxylate HCl/Atropine (Lomotil 0.025-2.5 Mg) 1 tab PO QID [facility] Last Admin: 02/26/19 11:53 Dose: Not Given Furosemide (Lasix) 20 mg PO DAILY PRN PRN Reason: fluid Furosemide (Lasix) 40 mg IVPUSH DAILY [facility] Last Admin: 02/26/19 08:11 Dose: 40 mg Hydrocortisone Acetate (Anucort-Hc) 25 mg RECTAL BID PRN PRN Reason: Itching Piperacillin Sod/Tazobactam (Sod 3.375 gm/ Sodium Chloride) 100 mls @ 200 mls/ hr IV Q6H [facility] Last Admin: 02/26/19 08:11 Dose: 200 mls/hr Lisinopril (Prinivil) 10 mg PO BEDTIME [facility] Last Admin: 02/25/19 22:26 Dose: Not Given Metoprolol Succinate (Toprol Xl) 100 mg PO DAILY@1800 [facility] Last Admin: 02/25/19 18:13 Dose: Not Given Nitroglycerin (Nitrostat) 0.4 mg SL ASDIRECTED PRN PRN Reason: Chest Pain Leflunomide [ Leflunomide] 20 Mg Tab 20 mg PO DAILY [facility] Last Admin: 02/26/19 08:12 Dose: 20 mg Omeprazole (Omeprazole) 20 mg PO DAILY [facility] Last Admin: 02/26/19 08:11 Dose: 20 mg Paroxetine HCl (Paxil) 20 mg PO DAILY [facility] Last Admin: 02/26/19 08:11 Dose: 20 mg Polysaccharide Iron Complex (Ferrex 150) 150 mg PO DAILY [facility] Last Admin: 02/26/19 08:11 Dose: 150 mg Potassium Chloride (Klor-Con M20) 40 meq PO TID [facility] Last Admin: 02/26/19 11:45 Dose: 40 meq Prednisone (Prednisone) 5 mg PO DAILY [facility] Last Admin: 02/26/19 08:11 Dose: 5 mg Promethazine HCl (Phenergan) 12.5 mg IM Q6H PRN PRN Reason: Nausea/Vomiting Simvastatin (Zocor) 20 mg PO BEDTIME [facility] Last Admin: 02/25/19 22:15 Dose: Not Given Sodium Chloride (Saline Flush) 10 ml FLUSH ASDIRECTED PRN PRN Reason: Keep Vein Open Last Admin: 02/26/19 11:46 Dose: 10 ml Sodium Chloride (Saline Flush) 10 ml FLUSH ASDIRECTED PRN PRN Reason: Keep Vein Open Sodium Chloride (Saline Flush) 10 ml FLUSH ASDIRECTED PRN PRN Reason: Keep Vein Open Tamsulosin HCl (Flomax) 0.4 mg PO DAILY [facility] [place] Last Admin: 02/26/19 08:11 Dose: 0.4 mg Discontinued Medications Azithromycin 500 mg/ Sodium (Chloride) 250 mls @ 250 mls/hr IV Q24H [place] Stop: 02/26/19 12:59 Last Admin: 02/26/19 11:45 Dose: 250 mls/hr Lorazepam (Ativan) 1 mg IVPUSH ONETIME ONE Stop: 02/25/19 16:49 Last Admin: 02/25/19 16:54 Dose: 1 mg - Problem List & Annotations (1) Swelling of testicle SNOMED Code(s): 737751828 Code(s): N50.89 - OTHER SPECIFIED DISORDERS OF THE MALE GENITAL ORGANS Status: Acute Current Visit: Yes Annotation/Comment:: Patient came in with testicular swelling and testicular tenderness ultrasound revealed testicles to be good bilateral hydrocele there was a small abscess on the posterior aspect of the testicle which was draining we been keeping it clean there is some skin ecchymosis secondary to the mass at this time we will continue giving antibiotics for the pneumonia which seems to be helping and the swelling is down I will contact urology to see they have any other recommendations thank you - Problem List Review Problem List Initiated/Reviewed/Updated: Yes - My Orders Last 24 Hours: My Active Orders 02/25/19 14:30 Piperacillin/Tazobactam [Zosyn] 3.375 gm Sodium Chloride 0.9% [Normal Saline] 100 ml IV Q6H 02/25/19 16:00 Albuterol/Ipratropium [DuoNeb 3.0-0.5 MG/3 ML] 3 ml NEB Q4HRRT Atropine/Diphenoxylate [Lomotil 0.025-2.5 MG] 1 tab PO QID 02/25/19 18:00 Metoprolol Succinate [Toprol XL] 100 mg PO DAILY@1800 Potassium Chloride [Klor-Con M20] 40 meq PO TID 02/25/19 18:43 Consult to Case Management/[employer]tainment [employer] Manager [CONS] Routine 02/25/19 20:00 Lisinopril [Prinivil] 10 mg PO BEDTIME Simvastatin [Zocor] 20 mg PO BEDTIME 02/26/19 05:11 Chest 2V [CR] Routine 02/26/19 08:00 Aspirin 81 mg PO DAILY Calcium Carbonate/Vitamin D3 [Caltrate 600+D 1500 MG-400 Units] 1 tab PO DAILY Furosemide [Lasix] 40 mg IVPUSH DAILY [place] Polysaccharides Complex [Ferrex 150] 150 mg PO DAILY Leflunomide [Leflunomide] 20 mg PO DAILY Omeprazole 20 mg PO DAILY PARoxetine [Paxil] 20 mg PO DAILY Tamsulosin [Flomax] 0.4 mg PO DAILY predniSONE 5 mg PO DAILY 02/26/19 11:15 Insert Soliz Catheter [Insert Urinary Catheter] [OM.PC] Q24H 02/26/19 Lunch Mechanical Soft Diet [DIET] 02/27/19 11:15 Insert Soliz Catheter [Insert Urinary Catheter] [OM.PC] Q24H 02/27/19 12:00 Azithromycin [Zithromax] 500 mg PO DAILY@1200 02/28/19 11:15 Insert Soliz Catheter [Insert Urinary Catheter] [OM.PC] Q24H
[2019-02-26] MEDS: Metoprolol Succinate 50 MG Tab.ER PO SCH (17:43)
[2019-02-26] MEDS: Simvastatin 20 MG Tab PO SCH (19:59)
[2019-02-26] MEDS: Lisinopril 10 MG Tab PO SCH (20:00)
[2019-02-27] MEDS: Albuterol/Ipratropium 3.0-0.5 MG/3 ML Neb Soln NEB SCH (00:04)
[2019-02-27] MEDS ORDERED: Albuterol/Ipratropium 3.0-0.5 MG/3 ML Neb Soln NEB PRN (00:53)
[2019-02-27] MEDS: Piperacillin/Tazobactam 3.375 GM in Sodium Chloride 0.9% 100 ML IV SCH ×4 (02:44→20:14)
[2019-02-27] MEDS: Acetaminophen/HYDROcodone 325-10 MG Tab PO PRN ×2 (04:01→11:18)
[2019-02-27] MEDS: LEFLUNOMIDE 20 MG PO SCH (07:47)
[2019-02-27] MEDS: Omeprazole 20 MG Cap.CR PO SCH (07:48)
[2019-02-27] MEDS: Aspirin 81 MG Tab.Chew PO SCH (07:48)
[2019-02-27] MEDS: Tamsulosin 0.4 MG Cap.ER PO SCH (07:48)
[2019-02-27] MEDS: Iron Polysaccharides Complex 150 MG Cap PO SCH (07:48)
[2019-02-27] MEDS: PARoxetine 20 MG Tab PO SCH (07:49)
[2019-02-27] MEDS: Calcium Carbonate/Vitamin D3 1500 MG-400 Units Tab PO SCH (07:49)
[2019-02-27] MEDS: predniSONE 5 MG Tab PO SCH (07:49)
[2019-02-27] MEDS: Sodium Chloride 0.9% 10 ML Syringe FLUSH PRN ×2 (07:50→15:57)
[2019-02-27] MEDS: Furosemide 40 MG/4 ML VIAL IVPUSH SCH (07:50)
[2019-02-27] MEDS: Potassium Chloride 20 MEQ Tab.ER PO SCH ×2 (07:50→11:18)
[2019-02-27] MEDS: LORazepam 2 MG/ML SDV IVPUSH PRN (11:19)
[2019-02-27] MEDS ORDERED: Azithromycin 250 MG Tab PO SCH (12:00)
--- NOTE | 2019-02-27 15:01 | PCM.PN ---
- General Info Date of Service: 02/27/19 Admission Dx/Problem (Free Text): Pneumonia scleral infection hypokalemia Patient seen today doing better less confused family present we will ahead and examined his scrotal look much better it was decided to continue medications the same way cultures and sensitivity activities arrived later today and it was decided that he had he had E. Faecalis sensitive to penicillin and [place] at this time I felt that the amoxicillin and so Bactrim were doing the job but decided to go with straight penicillin and Banko at this time about 1 hour later I saw her the nurses were surprised that he started shaking and not feeling well and diaphoretic and last approximately 15 minutes and now patient is feeling his usual self with no complaints I will go ahead and do a CBC and a CMP now and a chest x-ray and UA to see if there is an underlying condition otherwise will continue with the plan Functional Status: Reports: Pain Controlled (Diaphoretic) - Review of Systems General: Reports: Weakness, Fatigue, Chills, Other HEENT: Reports: No Symptoms Pulmonary: Reports: Shortness of Breath Cardiovascular: Reports: Dyspnea on Exertion, Lightheadedness Gastrointestinal: Reports: No Symptoms Genitourinary: Reports: No Symptoms Musculoskeletal: Reports: No Symptoms Neurological: Reports: No Symptoms Psychiatric: Reports: No Symptoms - Patient Data Vitals - Most Recent: Last Vital Signs Temp 96.8 F 02/27/19 08:00 Pulse 99 02/27/19 08:00 Resp 16 02/27/19 08:00 BP 125/58 L 02/27/19 08:00 Pulse Ox 99 02/27/19 08:00 Weight - Most Recent: 155 lb 12.811 oz I&O - Last 24 Hours: Intake & Output 02/26/19 02/27/19 02/27/19 22:59 06:59 14:59 Intake Total 640 175 Output Total 1550 400 Balance -910 -225 Lab Results Last 24 Hours: Laboratory Results - last 24 hr 02/27/19 02/27/19 Range/Units 07:13 14:08 INR 2.3 POC Glucose 188 H (65-110) mg/dl Med Orders - Current: Current Medications Acetaminophen (Tylenol) 650 mg PO Q6H PRN PRN Reason: Pain Hydrocodone Bitart/Acetaminophen ([place] 325-10 Mg) 1 tab PO BID PRN PRN Reason: Pain Last Admin: 02/27/19 11:18 Dose: 1 tab Albuterol/Ipratropium (Duoneb 3.0-0.5 Mg/3 Ml) 3 ml NEB Q6HRRT PRN PRN Reason: Dyspnea Aspirin (Aspirin) 81 mg PO DAILY [facility] Last Admin: 02/27/19 07:48 Dose: 81 mg Calcium Carbonate (Caltrate 600+D 1500 Mg-400 Units) 1 tab PO DAILY [facility] Last Admin: 02/27/19 07:49 Dose: 1 tab Diphenoxylate HCl/Atropine (Lomotil 0.025-2.5 Mg) 1 tab PO QID PRN PRN Reason: Diarrhea Furosemide (Lasix) 20 mg PO DAILY PRN PRN Reason: fluid Furosemide (Lasix) 40 mg IVPUSH DAILY [facility] Last Admin: 02/27/19 07:50 Dose: 40 mg Hydrocortisone Acetate (Anucort-Hc) 25 mg RECTAL BID PRN PRN Reason: Itching Piperacillin Sod/Tazobactam (Sod 3.375 gm/ Sodium Chloride) 100 mls @ 200 mls/ hr IV Q6H [facility] Last Admin: 02/27/19 07:50 Dose: 200 mls/hr Vancomycin HCl 1.25 gm/ Sodium (Chloride) 250 mls @ 135 mls/hr IV ONETIME ONE Stop: 02/27/19 16:51 Vancomycin HCl 1.25 gm/ Sodium (Chloride) 250 mls @ 135 mls/hr IV Q24H [facility] Lisinopril (Prinivil) 10 mg PO BEDTIME [facility] Last Admin: 02/26/19 20:00 Dose: 10 mg Lorazepam (Ativan) 0.5 mg IVPUSH Q8H PRN PRN Reason: Agitation Last Admin: 02/27/19 11:19 Dose: 0.5 mg Metoprolol Succinate (Toprol Xl) 100 mg PO DAILY@1800 [facility] Last Admin: 02/26/19 17:43 Dose: 100 mg Nitroglycerin (Nitrostat) 0.4 mg SL ASDIRECTED PRN PRN Reason: Chest Pain Leflunomide [ Leflunomide] 20 Mg Tab 20 mg PO DAILY [facility] Last Admin: 02/27/19 07:47 Dose: 20 mg Omeprazole (Omeprazole) 20 mg PO DAILY [facility] Last Admin: 02/27/19 07:48 Dose: 20 mg Paroxetine HCl (Paxil) 20 mg PO DAILY [facility] Last Admin: 02/27/19 07:49 Dose: 20 mg Polysaccharide Iron Complex (Ferrex 150) 150 mg PO DAILY [facility] Last Admin: 02/27/19 07:48 Dose: 150 mg Potassium Chloride (Klor-Con M20) 40 meq PO TID [facility] Last Admin: 02/27/19 11:18 Dose: 40 meq Prednisone (Prednisone) 5 mg PO DAILY [facility] Last Admin: 02/27/19 07:49 Dose: 5 mg Promethazine HCl (Phenergan) 12.5 mg IM Q6H PRN PRN Reason: Nausea/Vomiting Simvastatin (Zocor) 20 mg PO BEDTIME [facility] Last Admin: 02/26/19 19:59 Dose: 20 mg Sodium Chloride (Saline Flush) 10 ml FLUSH ASDIRECTED PRN PRN Reason: Keep Vein Open Last Admin: 02/27/19 07:50 Dose: 10 ml Sodium Chloride (Saline Flush) 10 ml FLUSH ASDIRECTED PRN PRN Reason: Keep Vein Open Sodium Chloride (Saline Flush) 10 ml FLUSH ASDIRECTED PRN PRN Reason: Keep Vein Open Tamsulosin HCl (Flomax) 0.4 mg PO DAILY [facility] Last Admin: 02/27/19 07:48 Dose: 0.4 mg Vancomycin HCl (Pharmacy To Dose - Vancomycin) 1 dose .XX ASDIRECTED [facility] Discontinued Medications Albuterol/Ipratropium (Duoneb 3.0-0.5 Mg/3 Ml) 3 ml NEB Q4HRRT [facility] Stop: 02/27/19 00:53 Last Admin: 02/27/19 00:04 Dose: 3 ml Azithromycin (Zithromax) 500 mg PO DAILY@1200 [facility] Last Admin: 02/27/19 11:18 Dose: 500 mg Diphenoxylate HCl/Atropine (Lomotil 0.025-2.5 Mg) 1 tab PO QID [facility] Last Admin: 02/26/19 15:45 Dose: Not Given Azithromycin 500 mg/ Sodium (Chloride) 250 mls @ 250 mls/hr IV Q24H [place] Stop: 02/26/19 12:59 Last Admin: 02/26/19 11:45 Dose: 250 mls/hr Lorazepam (Ativan) 1 mg IVPUSH ONETIME ONE Stop: 02/25/19 16:49 Last Admin: 02/25/19 16:54 Dose: 1 mg Warfarin Sodium (Coumadin) 1 mg PO ONETIME ONE Stop: 02/26/19 18:01 Last Admin: 02/26/19 17:39 Dose: 1 mg - Exam Quality Assessment: Supplemental Oxygen, Urine Catheter General: Alert, Oriented, No Acute Distress (Present time) HEENT: Pupils Equal, Pupils Reactive, EOMI, Mucous Membr. Moist/[place] Neck: Supple Lungs: Clear to Auscultation, Normal Respiratory Effort Cardiovascular: Regular Rate, Regular Rhythm GI/Abdominal Exam: Normal Bowel Sounds, Soft, Non-Tender, No Organomegaly, No Distention, No Abnormal Bruit, No Mass, Pelvis Stable Back Exam: Normal Inspection, Full Range of Motion Extremities: Normal Inspection, Normal Range of Motion, Non-Tender, No Pedal Edema, Normal Capillary Refill Skin: Ecchymosis, Other (Testicles are swollen with some skin breakdown) Wound/Incisions: Healing Well, Drainage (Minimal compared to yesterday) Neurological: No New Focal Deficit Psy/Mental Status: Alert, Normal Affect, Normal Mood - Problem List & Annotations (1) Swelling of testicle SNOMED Code(s): 772430638 Code(s): N50.89 - OTHER SPECIFIED DISORDERS OF THE MALE GENITAL ORGANS Status: Acute Current Visit: Yes Annotation/Comment:: Patient seen will do lab workup and chest x-ray to see what can figure out what happened to him - Problem List Review Problem List Initiated/Reviewed/Updated: Yes - My Orders Last 24 Hours: My Active Orders 02/26/19 15:23 Swallowing Function w Video [CR] Routine 02/26/19 15:51 Atropine/Diphenoxylate [Lomotil 0.025-2.5 MG] 1 tab PO QID PRN 02/27/19 00:50 LORazepam [Ativan] 0.5 mg IVPUSH Q8H PRN 02/27/19 00:53 Albuterol/Ipratropium [DuoNeb 3.0-0.5 MG/3 ML] 3 ml NEB Q6HRRT PRN 02/27/19 11:15 Insert Soliz Catheter [Insert Urinary Catheter] [OM.PC] Q24H 02/27/19 14:53 Chest 2V [CR] Stat CBC WITH AUTO DIFF [HEME] Stat CMP [COMPREHENSIVE METABOLIC PN,CMP] [CHEM] Routine 02/27/19 15:00 Vancomycin 1.25 gm Sodium Chloride 0.9% [Normal Saline] 250 ml IV ONETIME 02/28/19 11:15 Insert Soliz Catheter [Insert Urinary Catheter] [OM.PC] Q24H 02/28/19 12:00 Vancomycin 1.25 gm Sodium Chloride 0.9% [Normal Saline] 250 ml IV Q24H 03/04/19 11:00 Swallowing Function w Video [CR] Routine
[2019-02-27] MEDS ORDERED: LORazepam 2 MG/ML SDV IVPUSH ONE (15:37)
--- NOTE | 2019-02-27 15:40 | PCM.SN ---
- Free Text/Narrative Note: Patient seen at the request of nurses patient appeared very anxious confused and disoriented I went ahead and evaluated him chest x-ray revealed maybe the pneumonia is still present we will go ahead and change antibiotics as above we will go ahead and start Ativan 1 mg IV since he is a threat to the nurses and himself patient is more combative today and wants to get up from bed therefore we will sedate him since he could hurt himself a fall.
[2019-02-27 15:45] LABS: CHLORIDE,CL 102 mmol/L (98-107); SODIUM,NA 138 mmol/L (136-145)
[2019-02-27] MEDS: Metoprolol Succinate 50 MG Tab.ER PO SCH (17:27)
[2019-02-27] MEDS ORDERED: Haloperidol Lactate 5 MG/ML SDV IM ONE (18:02)
[2019-02-27] MEDS: Digoxin 500 MCG/2 ML Amp IVPUSH SCH (20:14)
[2019-02-27] MEDS: Lisinopril 10 MG Tab PO SCH (20:15)
[2019-02-27] MEDS: Simvastatin 20 MG Tab PO SCH (20:15)
[2019-02-28] MEDS: Piperacillin/Tazobactam 3.375 GM in Sodium Chloride 0.9% 100 ML IV SCH ×4 (02:22→20:43)
[2019-02-28] MEDS: Digoxin 500 MCG/2 ML Amp IVPUSH SCH ×2 (02:23→08:00)
[2019-02-28] MEDS: Sodium Chloride 0.9% 10 ML Syringe FLUSH PRN ×5 (02:23→20:47)
[2019-02-28] MEDS: Acetaminophen/HYDROcodone 325-10 MG Tab PO PRN ×2 (07:44→17:40)
[2019-02-28] MEDS: Calcium Carbonate/Vitamin D3 1500 MG-400 Units Tab PO SCH (07:57)
[2019-02-28] MEDS: Omeprazole 20 MG Cap.CR PO SCH (07:57)
[2019-02-28] MEDS: Aspirin 81 MG Tab.Chew PO SCH (07:57)
[2019-02-28] MEDS: Iron Polysaccharides Complex 150 MG Cap PO SCH (07:57)
[2019-02-28] MEDS: Tamsulosin 0.4 MG Cap.ER PO SCH (07:58)
[2019-02-28] MEDS: predniSONE 5 MG Tab PO SCH (07:58)
[2019-02-28] MEDS: PARoxetine 20 MG Tab PO SCH (07:58)
[2019-02-28] MEDS: Furosemide 40 MG/4 ML VIAL IVPUSH SCH (07:59)
[2019-02-28] MEDS: LEFLUNOMIDE 20 MG PO SCH (08:02)
[2019-02-28 08:08] LABS: CHLORIDE,CL 104 mmol/L (98-107); SODIUM,NA 138 mmol/L (136-145)
[2019-02-28] MEDS: Lisinopril 10 MG Tab PO SCH (20:37)
[2019-02-28] MEDS: Simvastatin 20 MG Tab PO SCH (20:37)
[2019-03-01] MEDS: Piperacillin/Tazobactam 3.375 GM in Sodium Chloride 0.9% 100 ML IV SCH ×4 (02:04→19:28)
[2019-03-01] MEDS: Sodium Chloride 0.9% 10 ML Syringe FLUSH PRN ×5 (02:05→19:29)
[2019-03-01] MEDS: Acetaminophen/HYDROcodone 325-10 MG Tab PO PRN ×2 (03:41→21:36)
[2019-03-01] MEDS: Aspirin 81 MG Tab.Chew PO SCH (07:16)
[2019-03-01] MEDS: predniSONE 5 MG Tab PO SCH (07:16)
[2019-03-01] MEDS: Iron Polysaccharides Complex 150 MG Cap PO SCH (07:16)
[2019-03-01] MEDS: PARoxetine 20 MG Tab PO SCH (07:16)
[2019-03-01] MEDS: LEFLUNOMIDE 20 MG PO SCH (07:16)
[2019-03-01] MEDS: Omeprazole 20 MG Cap.CR PO SCH (07:16)
[2019-03-01] MEDS: Calcium Carbonate/Vitamin D3 1500 MG-400 Units Tab PO SCH (07:16)
[2019-03-01] MEDS: Tamsulosin 0.4 MG Cap.ER PO SCH (07:17)
[2019-03-01] MEDS: Furosemide 40 MG/4 ML VIAL IVPUSH SCH (07:17)
[2019-03-01] MEDS: Acetaminophen 325 MG Tab PO PRN (09:43)
[2019-03-01] MEDS: Simvastatin 20 MG Tab PO SCH (19:29)
[2019-03-01] MEDS: Lisinopril 10 MG Tab PO SCH (19:29)
[2019-03-02] MEDS: Piperacillin/Tazobactam 3.375 GM in Sodium Chloride 0.9% 100 ML IV SCH ×2 (02:24→08:10)
[2019-03-02] MEDS: Sodium Chloride 0.9% 10 ML Syringe FLUSH PRN ×5 (02:25→14:14)
[2019-03-02] MEDS: LEFLUNOMIDE 20 MG PO SCH (08:14)
[2019-03-02] MEDS: Furosemide 40 MG/4 ML VIAL IVPUSH SCH (08:14)
[2019-03-02] MEDS: Iron Polysaccharides Complex 150 MG Cap PO SCH (08:16)
[2019-03-02] MEDS: Acetaminophen 325 MG Tab PO PRN ×2 (08:16→13:05)
[2019-03-02] MEDS: Aspirin 81 MG Tab.Chew PO SCH (08:17)
[2019-03-02] MEDS: predniSONE 5 MG Tab PO SCH (08:17)
[2019-03-02] MEDS: Omeprazole 20 MG Cap.CR PO SCH (08:17)
[2019-03-02] MEDS: PARoxetine 20 MG Tab PO SCH (08:17)
[2019-03-02] MEDS: Calcium Carbonate/Vitamin D3 1500 MG-400 Units Tab PO SCH (08:17)
[2019-03-02] MEDS: Tamsulosin 0.4 MG Cap.ER PO SCH (08:18)
[2019-03-02] MEDS: Acetaminophen/HYDROcodone 325-10 MG Tab PO PRN ×2 (09:42→19:52)
[2019-03-02] MEDS ORDERED: Penicillin G Benzathine/Procaine 600-600 1.2 Millunits/2 ML Syringe IM ONE (13:45)
[2019-03-02] MEDS: fentaNYL 100 MCG/2 ML SDV IVPUSH PRN (14:07)
[2019-03-02] MEDS: Lisinopril 10 MG Tab PO SCH (19:47)
[2019-03-02] MEDS: Simvastatin 20 MG Tab PO SCH (19:47)
[2019-03-03] MEDS: LORazepam 2 MG/ML SDV IVPUSH PRN (01:47)
[2019-03-03] MEDS: Sodium Chloride 0.9% 10 ML Syringe FLUSH PRN ×2 (01:48→11:56)
[2019-03-03] MEDS: predniSONE 5 MG Tab PO SCH (07:54)
[2019-03-03] MEDS: PARoxetine 20 MG Tab PO SCH (07:54)
[2019-03-03] MEDS: Tamsulosin 0.4 MG Cap.ER PO SCH (07:54)
[2019-03-03] MEDS: Calcium Carbonate/Vitamin D3 1500 MG-400 Units Tab PO SCH (07:54)
[2019-03-03] MEDS: Iron Polysaccharides Complex 150 MG Cap PO SCH (07:55)
[2019-03-03] MEDS: Omeprazole 20 MG Cap.CR PO SCH (07:55)
[2019-03-03] MEDS: Aspirin 81 MG Tab.Chew PO SCH (07:56)
[2019-03-03] MEDS: Furosemide 40 MG/4 ML VIAL IVPUSH SCH (07:56)
[2019-03-03] MEDS: LEFLUNOMIDE 20 MG PO SCH (07:56)
[2019-03-03] MEDS: Acetaminophen/HYDROcodone 325-10 MG Tab PO PRN ×2 (07:57→19:36)
[2019-03-03 08:04] LABS: CHLORIDE,CL 100 mmol/L (98-107); SODIUM,NA 137 mmol/L (136-145)
[2019-03-03] MEDS: Atropine/Diphenoxylate 0.025-2.5 MG Tab PO PRN ×2 (09:20→19:36)
[2019-03-03] MEDS: fentaNYL 100 MCG/2 ML SDV IVPUSH PRN (12:34)
[2019-03-03] MEDS: Simvastatin 20 MG Tab PO SCH (19:38)
[2019-03-03] MEDS: Lisinopril 10 MG Tab PO SCH (19:38)
[2019-03-04] MEDS: Omeprazole 20 MG Cap.CR PO SCH (07:32)
[2019-03-04] MEDS: Aspirin 81 MG Tab.Chew PO SCH (07:32)
[2019-03-04] MEDS: Tamsulosin 0.4 MG Cap.ER PO SCH (07:33)
[2019-03-04] MEDS: Iron Polysaccharides Complex 150 MG Cap PO SCH (07:33)
[2019-03-04] MEDS: PARoxetine 20 MG Tab PO SCH (07:33)
[2019-03-04] MEDS: LEFLUNOMIDE 20 MG PO SCH (07:33)
[2019-03-04] MEDS: Calcium Carbonate/Vitamin D3 1500 MG-400 Units Tab PO SCH (07:33)
[2019-03-04] MEDS: Sodium Chloride 0.9% 10 ML Syringe FLUSH PRN ×2 (07:33→12:16)
[2019-03-04] MEDS: predniSONE 5 MG Tab PO SCH (07:33)
[2019-03-04] MEDS: Furosemide 40 MG/4 ML VIAL IVPUSH SCH (07:33)
[2019-03-04] MEDS: Acetaminophen/HYDROcodone 325-10 MG Tab PO PRN ×2 (07:34→18:35)
[2019-03-04] MEDS ORDERED: Penicillin G Benzathine/Procaine 600-600 1.2 Millunits/2 ML Syringe IM ONE (12:00)
[2019-03-04] MEDS: Acetaminophen 325 MG Tab PO PRN (12:13)
[2019-03-04] MEDS: Lisinopril 10 MG Tab PO SCH (19:50)
[2019-03-04] MEDS: Simvastatin 20 MG Tab PO SCH (19:50)
[2019-03-05] MEDS: Omeprazole 20 MG Cap.CR PO SCH (07:25)
[2019-03-05] MEDS: Tamsulosin 0.4 MG Cap.ER PO SCH (07:25)
[2019-03-05] MEDS: Calcium Carbonate/Vitamin D3 1500 MG-400 Units Tab PO SCH (07:25)
[2019-03-05] MEDS: Aspirin 81 MG Tab.Chew PO SCH (07:25)
[2019-03-05] MEDS: LEFLUNOMIDE 20 MG PO SCH (07:25)
[2019-03-05] MEDS: PARoxetine 20 MG Tab PO SCH (07:26)
[2019-03-05] MEDS: Acetaminophen/HYDROcodone 325-10 MG Tab PO PRN ×2 (07:26→20:22)
[2019-03-05] MEDS: predniSONE 5 MG Tab PO SCH (07:26)
[2019-03-05] MEDS: Iron Polysaccharides Complex 150 MG Cap PO SCH (07:28)
--- NOTE | 2019-03-05 09:13 | PN ---
PATIENT NAME: WADE POWERS MEDICAL RECORD NUMBER: : [id number] DATE: 02/25/2019 HISTORY OF PRESENT ILLNESS: This 78-year-old gentleman is seen in consultation from Dr. Hummel for evaluation of scrotal infection. He was admitted a week ago with weakness, elevated WBC, testicular swelling and pain, and right lower lobe pneumonia. He was placed on antibiotics for the scrotal infection and did have purulent drainage. This revealed Enterococcus faecalis. The patient is currently on IV vancomycin. According to Dr. Hummel and the nurse, infection has significantly improved and ultrasound revealed resolution of the abscess. The patient's vitals are reviewed and he has been afebrile. WBC is also improving and was down to 11.1 yesterday. PHYSICAL EXAMINATION: GENERAL: Reveals a pleasant elderly gentleman who is awake and alert. He apparently was quite confused earlier this morning, but is orientated to person and place today. ABDOMEN: Completely soft, nontender. GENITOURINARY: External genitalia normal other than the posterior half of the scrotum where he has a well-demarcated eschar which is starting to peel posteriorly. This measures up to approximately 6 x 8 cm. This is consistent with a pressure sore with its location posteriorly and well demarcation. There is no evidence of cellulitis today. The eschar is starting to peel off posteriorly and I did debride and trim this portion. There is granulation tissue forming beneath. This appears to be healing satisfactorily. ASSESSMENT: Scrotal infection. PLAN: Findings were reviewed with Dr. Hummel and his family. Apparently, the patient resides at home and has a very sedentary lifestyle and I presume this is a pressure sore that got infected from prolonged sitting. He is currently in swing bed and transition plans will be made with Dr. Hummel and the family. I feel he could be switched to oral antibiotics soon and continue this for another week or so. No further surgical intervention is necessary at this time. Dr. Hummel will continue to debride the eschar as it comes loose.
[2019-03-05] MEDS: Furosemide 40 MG/4 ML VIAL IVPUSH SCH (10:58)
[2019-03-05] MEDS: Sodium Chloride 0.9% 10 ML Syringe FLUSH PRN ×3 (12:35→23:54)
[2019-03-05] MEDS: Simvastatin 20 MG Tab PO SCH (20:23)
[2019-03-05] MEDS: Lisinopril 10 MG Tab PO SCH (20:24)
[2019-03-05] MEDS: Acetaminophen 325 MG Tab PO PRN (23:51)
[2019-03-05] MEDS: LORazepam 2 MG/ML SDV IVPUSH PRN (23:53)
[2019-03-06] MEDS: PARoxetine 20 MG Tab PO SCH (08:28)
[2019-03-06] MEDS: LEFLUNOMIDE 20 MG PO SCH (08:28)
[2019-03-06] MEDS: Aspirin 81 MG Tab.Chew PO SCH (08:29)
[2019-03-06] MEDS: Tamsulosin 0.4 MG Cap.ER PO SCH (08:29)
[2019-03-06] MEDS: Omeprazole 20 MG Cap.CR PO SCH (08:29)
[2019-03-06] MEDS: Iron Polysaccharides Complex 150 MG Cap PO SCH (08:29)
[2019-03-06] MEDS: Calcium Carbonate/Vitamin D3 1500 MG-400 Units Tab PO SCH (08:29)
[2019-03-06] MEDS: Sodium Chloride 0.9% 10 ML Syringe FLUSH PRN ×2 (08:30→12:07)
[2019-03-06] MEDS: Furosemide 40 MG/4 ML VIAL IVPUSH SCH (08:30)
[2019-03-06] MEDS: predniSONE 5 MG Tab PO SCH (08:36)
[2019-03-06] MEDS: Acetaminophen/HYDROcodone 325-10 MG Tab PO PRN ×2 (10:04→17:58)
[2019-03-06] MEDS: Lisinopril 10 MG Tab PO SCH (19:50)
[2019-03-06] MEDS: Simvastatin 20 MG Tab PO SCH (19:50)
[2019-03-07] MEDS: Aspirin 81 MG Tab.Chew PO SCH (07:30)
[2019-03-07] MEDS: Omeprazole 20 MG Cap.CR PO SCH (07:30)
[2019-03-07] MEDS: predniSONE 5 MG Tab PO SCH (07:30)
[2019-03-07] MEDS: LEFLUNOMIDE 20 MG PO SCH (07:30)
[2019-03-07] MEDS: Tamsulosin 0.4 MG Cap.ER PO SCH (07:30)
[2019-03-07] MEDS: Iron Polysaccharides Complex 150 MG Cap PO SCH (07:30)
[2019-03-07] MEDS: Calcium Carbonate/Vitamin D3 1500 MG-400 Units Tab PO SCH (07:30)
[2019-03-07] MEDS: PARoxetine 20 MG Tab PO SCH (07:30)
[2019-03-07] MEDS: Acetaminophen/HYDROcodone 325-10 MG Tab PO PRN ×2 (07:31→14:48)
[2019-03-07] MEDS: Acetaminophen 325 MG Tab PO PRN (11:58)
[2019-03-07] MEDS: Sodium Chloride 0.9% 10 ML Syringe FLUSH PRN ×2 (12:00→12:01)
[2019-03-07] MEDS: Simvastatin 20 MG Tab PO SCH (19:54)
[2019-03-07] MEDS: Lisinopril 10 MG Tab PO SCH (19:55)
[2019-03-08] MEDS: Acetaminophen/HYDROcodone 325-10 MG Tab PO PRN ×3 (05:36→23:47)
[2019-03-08] MEDS: Tamsulosin 0.4 MG Cap.ER PO SCH (08:04)
[2019-03-08] MEDS: PARoxetine 20 MG Tab PO SCH (08:04)
[2019-03-08] MEDS: Iron Polysaccharides Complex 150 MG Cap PO SCH (08:05)
[2019-03-08] MEDS: Calcium Carbonate/Vitamin D3 1500 MG-400 Units Tab PO SCH (08:05)
[2019-03-08] MEDS: Omeprazole 20 MG Cap.CR PO SCH (08:05)
[2019-03-08] MEDS: Aspirin 81 MG Tab.Chew PO SCH (08:06)
[2019-03-08] MEDS: predniSONE 5 MG Tab PO SCH (08:06)
[2019-03-08] MEDS: LEFLUNOMIDE 20 MG PO SCH (08:06)
[2019-03-08] MEDS: Simvastatin 20 MG Tab PO SCH (19:37)
[2019-03-08] MEDS: Lisinopril 10 MG Tab PO SCH (19:37)
[2019-03-08] MEDS: Acetaminophen 325 MG Tab PO PRN (19:40)
[2019-03-08] MEDS: LORazepam 2 MG/ML SDV IVPUSH PRN (21:15)
[2019-03-09] MEDS: PARoxetine 20 MG Tab PO SCH (07:56)
[2019-03-09] MEDS: Omeprazole 20 MG Cap.CR PO SCH (07:56)
[2019-03-09] MEDS: predniSONE 5 MG Tab PO SCH (07:57)
[2019-03-09] MEDS: Calcium Carbonate/Vitamin D3 1500 MG-400 Units Tab PO SCH (07:57)
[2019-03-09] MEDS: Tamsulosin 0.4 MG Cap.ER PO SCH (07:57)
[2019-03-09] MEDS: Aspirin 81 MG Tab.Chew PO SCH (07:57)
[2019-03-09] MEDS: LEFLUNOMIDE 20 MG PO SCH (07:58)
[2019-03-09] MEDS: Iron Polysaccharides Complex 150 MG Cap PO SCH (07:58)
[2019-03-09] MEDS: Acetaminophen/HYDROcodone 325-10 MG Tab PO PRN ×2 (07:59→17:10)
[2019-03-09] MEDS: Sodium Chloride 0.9% 10 ML Syringe FLUSH SCH ×3 (07:59→17:10)
[2019-03-09 08:13] VITALS: BP 113/54; PULSE 75
--- NOTE | 2019-03-09 12:41 | PCM.DCSUM1 ---
Discharge Summary - Hospital Course Free Text/Narrative:: Patient was seen and admitted to the hospital with testicular swelling and pain at this time he was diagnosed with diarrhea and an infectious process probably secondary to the diarrhea.On his testicle he had irritation we went ahead and cultured one of the wounds which showed it to be enterococci faecalis at this time we started him on vancomycin and penicillin which were sensitive to the bacteria we discontinue the antibiotic today on day 9 secondary to worsening of renal functions. Plan is for patient to discharge with home health care for [place]. Face to Face completed. Face to face completed on 03-09-19. Primary reason for home health: patient is homebound and will need assistance with ADLS, wound care, and mediations. Patient will need to be followed by nursing, home health aide for assistance with ADLS, and social work coordinator. Patient treated for sepsis, confusion, and giving medications, including antibiotics in the hospital. patient has open testicular wound and will need assistance with cleansing of the wound. JUSTICE Silva to assume plan of care. Testicular wound- Patient will need periodic debridement of eschar tissue. Please consult PCP for this. Diagnosis: Stroke: No - Discharge Data Discharge Date: 03/10/19 Discharge Disposition: Home, W Home Health Agency 06 Condition: Good - Discharge Diagnosis/Problem(s) (1) Swelling of testicle SNOMED Code(s): 171804145 ICD Code: N50.89 - OTHER SPECIFIED DISORDERS OF THE MALE GENITAL ORGANS Status: Acute Current Visit: Yes Problem Details: Patient was admitted with bilateral hydroceles and diarrhea which progressed to infection of the scrotum and sepsis patient was treated aggressively with antibiotics and responded well to current antibiotics will be DC'd home tomorrow with home health at this time I had a [id number] with patient to establish home health. I feel comfortable that he will do well at home. JUSTICE Silva to assume care after hospitalization. (2) Diarrhea SNOMED Code(s): 81550388 ICD Code: R19.7 - DIARRHEA, UNSPECIFIED Status: Resolved Current Visit: No Problem Details: resolved Qualifiers: Diarrhea type: presumed infectious Qualified Code(s): R19.7 - Diarrhea, unspecified - Patient Summary/Data Consults: Consultations 02/25/19 13:43 OT Evaluation and Treatment [CONS] Routine PT Evaluation and Treatment [CONS] Routine 02/25/19 18:43 Consult to Case Management/Shell Sorter [CONS] Routine 03/01/19 19:38 Consult to Physician [CONS] Routine - Patient Instructions Diet: Usual Diet as Tolerated Activity: As Tolerated Showering/Bathing: May Shower Wound/Incision Care: Keep Operative Site/Wound Site Clean and Dry Notify Provider of: Fever, Increased Pain, Swelling and Redness, Drainage - Discharge Plan *PRESCRIPTION DRUG MONITORING PROGRAM REVIEWED*: Not Applicable *COPY OF PRESCRIPTION DRUG MONITORING REPORT IN PATIENT RADHA: Not Applicable Prescriptions/Med Rec: Warfarin [Coumadin] 1.5 mg PO DAILY@1800 #30 tablet Home Medications: Home Meds Leflunomide 20 mg PO DAILY 05/20/15 [History] Omeprazole 20 mg PO DAILY 05/20/15 [History] Simvastatin 20 mg PO BEDTIME 05/20/15 [History] predniSONE [Prednisone] 5 mg PO DAILY 05/20/15 [History] Aspirin 81 mg PO DAILY 11/23/15 [History] Hydrocodone/Acetaminophen [Hydrocodon-Acetaminophn 10-325] 1 each PO BID PRN [History] Nitroglycerin [Nitrostat] 0.4 mg SL ASDIRECTED PRN 11/23/15 [History] Furosemide [Lasix] 20 mg PO DAILY PRN 01/05/16 [History] Lisinopril 10 mg PO BEDTIME 10/26/17 [History] Metoprolol Succinate [Toprol XL] 100 mg PO DAILY@1800 10/26/17 [History] PARoxetine HCl [Paroxetine HCl] 20 mg PO DAILY 10/26/17 [History] Iron Polysaccharide Complex [Ferric X-150] 150 mg PO DAILY 06/06/18 [History] Tamsulosin [Flomax] 0.4 mg PO DAILY 06/06/18 [History] Acetaminophen 650 mg PO Q6HR PRN 02/22/19 [History] Calcium Carbonate/Vitamin D3 [Calcium 500-Vit D3 200 Caplet] 1 tab PO DAILY [History] Hydrocortisone Acetate [Anusol-Hc] 25 mg RC BID PRN 02/23/19 [History] Warfarin [Coumadin] 1.5 mg PO DAILY@1800 #30 tablet 03/09/19 [Rx] Oxygen Therapy Mode: Room Air Patient Handouts: Wound Infection, Wound Care, Adult - Discharge Summary/Plan Comment DC Time >30 min.: Yes (40 min; coordination of care) - General Info Date of Service: 03/09/19 - Review of Systems General: Reports: Weakness (improving) HEENT: Reports: No Symptoms Pulmonary: Reports: No Symptoms Cardiovascular: Reports: No Symptoms Gastrointestinal: Denies: Diarrhea Genitourinary: Reports: Other (remove blackwell today; monitor for retention) Musculoskeletal: Reports: No Symptoms Skin: Reports: Other (testicular wound) Neurological: Reports: Confusion (intermittent) Psychiatric: Reports: Confusion - Patient Data Vitals - Most Recent: Last Vital Signs Temp 98.1 F 03/09/19 08:00 Pulse 75 03/09/19 08:00 Resp 16 03/09/19 08:00 BP 113/54 L 03/09/19 08:00 Pulse Ox 95 03/09/19 08:00 Weight - Most Recent: 147 lb 11.355 oz I&O - Last 24 hours: Intake & Output 03/08/19 03/09/19 03/09/19 22:59 06:59 14:59 Intake Total 700 Output Total 900 800 Balance -200 -800 Lab Results - Last 24 hrs: Laboratory Results - last 24 hr 03/09/19 Range/Units 07:45 PT 16.5 H (9.5-12.0) SEC INR 1.5 Med Orders - Current: Current Medications Acetaminophen (Tylenol) 650 mg PO Q6H PRN PRN Reason: Pain Last Admin: 03/08/19 19:40 Dose: 650 mg Hydrocodone Bitart/Acetaminophen ([place] 325-10 Mg) 1 tab PO TID PRN PRN Reason: Pain Last Admin: 03/09/19 07:59 Dose: 1 tab Albuterol/Ipratropium (Duoneb 3.0-0.5 Mg/3 Ml) 3 ml NEB Q6HRRT PRN PRN Reason: Dyspnea Aspirin (Aspirin) 81 mg PO DAILY [place] Last Admin: 03/09/19 07:57 Dose: 81 mg Calcium Carbonate (Caltrate 600+D 1500 Mg-400 Units) 1 tab PO DAILY [place] Last Admin: 03/09/19 07:57 Dose: 1 tab Diphenoxylate HCl/Atropine (Lomotil 0.025-2.5 Mg) 1 tab PO QID PRN PRN Reason: Diarrhea Last Admin: 03/03/19 19:36 Dose: 1 tab Fentanyl (Sublimaze) 50 mcg IVPUSH Q2H PRN PRN Reason: Pain Last Admin: 03/03/19 12:34 Dose: 50 mcg Hydrocortisone Acetate (Anucort-Hc) 25 mg RECTAL BID PRN PRN Reason: Itching Lisinopril (Prinivil) 10 mg PO BEDTIME [facility] Last Admin: 03/08/19 19:37 Dose: 10 mg Lorazepam (Ativan) 0.5 mg IVPUSH Q8H PRN PRN Reason: Agitation Last Admin: 03/08/19 21:15 Dose: 0.5 mg Nitroglycerin (Nitrostat) 0.4 mg SL ASDIRECTED PRN PRN Reason: Chest Pain Leflunomide [ Leflunomide] 20 Mg Tab 20 mg PO DAILY [facility] Last Admin: 03/09/19 07:58 Dose: 20 mg Omeprazole (Omeprazole) 20 mg PO DAILY [facility] Last Admin: 03/09/19 07:56 Dose: 20 mg Paroxetine HCl (Paxil) 20 mg PO DAILY [facility] Last Admin: 03/09/19 07:56 Dose: 20 mg Polysaccharide Iron Complex (Ferrex 150) 150 mg PO DAILY [facility] Last Admin: 03/09/19 07:58 Dose: 150 mg Prednisone (Prednisone) 5 mg PO DAILY [facility] Last Admin: 03/09/19 07:57 Dose: 5 mg Promethazine HCl (Phenergan) 12.5 mg IM Q6H PRN PRN Reason: Nausea/Vomiting Simvastatin (Zocor) 20 mg PO BEDTIME [facility] Last Admin: 03/08/19 19:37 Dose: 20 mg Sodium Chloride (Saline Flush) 10 ml FLUSH ASDIRECTED PRN PRN Reason: Keep Vein Open Last Admin: 03/05/19 23:54 Dose: 10 ml Sodium Chloride (Saline Flush) 10 ml FLUSH BID [facility] Last Admin: 03/09/19 10:53 Dose: Not Given Tamsulosin HCl (Flomax) 0.4 mg PO DAILY [facility] Last Admin: 03/09/19 07:57 Dose: 0.4 mg Warfarin Sodium (Coumadin) 1.5 mg PO DAILY@1800 [facility] Last Admin: 03/08/19 17:14 Dose: 1.5 mg Discontinued Medications Hydrocodone Bitart/Acetaminophen ([place] 325-10 Mg) 1 tab PO BID PRN PRN Reason: Pain Last Admin: 03/07/19 07:31 Dose: 1 tab Albuterol/Ipratropium (Duoneb 3.0-0.5 Mg/3 Ml) 3 ml NEB Q4HRRT [facility] Stop: 02/27/19 00:53 Last Admin: 02/27/19 00:04 Dose: 3 ml Azithromycin (Zithromax) 500 mg PO DAILY@1200 [facility] Last Admin: 02/27/19 11:18 Dose: 500 mg Digoxin (Lanoxin) 250 mcg IVPUSH Q6H [facility] Stop: 02/28/19 08:01 Last Admin: 02/28/19 08:00 Dose: 250 mcg Diphenoxylate HCl/Atropine (Lomotil 0.025-2.5 Mg) 1 tab PO QID [facility] Last Admin: 02/26/19 15:45 Dose: Not Given Furosemide (Lasix) 20 mg PO DAILY PRN PRN Reason: fluid Furosemide (Lasix) 40 mg IVPUSH DAILY [facility] Last Admin: 03/06/19 08:30 Dose: 40 mg Haloperidol Lactate (Haldol) 2 mg IM ONETIME ONE Stop: 02/27/19 18:03 Last Admin: 02/27/19 18:18 Dose: 2 mg Azithromycin 500 mg/ Sodium (Chloride) 250 mls @ 250 mls/hr IV Q24H [facility] Stop: 02/26/19 12:59 Last Admin: 02/26/19 11:45 Dose: 250 mls/hr Piperacillin Sod/Tazobactam (Sod 3.375 gm/ Sodium Chloride) 100 mls @ 200 mls/ hr IV Q6H [facility] Last Admin: 03/01/19 07:30 Dose: 200 mls/hr Vancomycin HCl 1.25 gm/ Sodium (Chloride) 250 mls @ 135 mls/hr IV ONETIME ONE Stop: 02/27/19 16:51 Last Admin: 02/27/19 16:00 Dose: Not Given Vancomycin HCl 1.25 gm/ Sodium (Chloride) 250 mls @ 135 mls/hr IV Q24H [facility] Last Admin: 03/05/19 12:33 Dose: Not Given Vancomycin HCl 1.25 gm/ Sodium (Chloride) 250 mls @ 135 mls/hr IV ONETIME ONE Stop: 02/27/19 17:51 Last Admin: 02/27/19 16:15 Dose: 135 mls/hr Piperacillin Sod/Tazobactam (Sod 3.375 gm/ Sodium Chloride) 100 mls @ 200 mls/ hr IV Q6H [facility] Last Admin: 03/02/19 08:10 Dose: 200 mls/hr Vancomycin HCl 1 gm/ Sodium (Chloride) 250 mls @ 165 mls/hr IV Q24H [facility] Last Admin: 03/08/19 12:18 Dose: Not Given Lorazepam (Ativan) 1 mg IVPUSH ONETIME ONE Stop: 02/25/19 16:49 Last Admin: 02/25/19 16:54 Dose: 1 mg Lorazepam (Ativan) 1 mg IVPUSH ONETIME ONE Stop: 02/27/19 15:38 Last Admin: 02/27/19 15:54 Dose: 1 mg Metoprolol Succinate (Toprol Xl) 100 mg PO DAILY@1800 [facility] Last Admin: 02/27/19 17:27 Dose: Not Given Penicillin G Procaine/Benzathine (Bicillin C-R 600/600) 1.2 millunits IM ONETIME ONE Stop: 03/02/19 13:46 Last Admin: 03/02/19 14:07 Dose: 1.2 millunits Penicillin G Procaine/Benzathine (Bicillin C-R 600/600) 1.2 millunits IM ONETIME ONE Stop: 03/04/19 12:01 Last Admin: 03/04/19 12:13 Dose: 1.2 millunits Pharmacy Consult (Consult To Pharmacy) 1 each .XX ASDIRECTED [facility] Potassium Chloride (Klor-Con M20) 40 meq PO TID [facility] Last Admin: 02/27/19 11:18 Dose: 40 meq Sodium Chloride (Saline Flush) 10 ml FLUSH ASDIRECTED PRN PRN Reason: Keep Vein Open Last Admin: 03/07/19 12:01 Dose: 10 ml Sodium Chloride (Saline Flush) 10 ml FLUSH ASDIRECTED PRN PRN Reason: Keep Vein Open Vancomycin HCl (Pharmacy To Dose - Vancomycin) 1 dose .XX ASDIRECTED [facility] Warfarin Sodium (Coumadin) 1 mg PO ONETIME ONE Stop: 02/26/19 18:01 Last Admin: 02/26/19 17:39 Dose: 1 mg Warfarin Sodium (Coumadin) 1 mg PO DAILY@1800 [facility] Last Admin: 03/07/19 17:56 Dose: 1 mg - Exam General: Reports: Alert, Cooperative HEENT: Reports: Pupils Equal, Pupils Reactive, EOMI, Mucous Membr. Moist/[place] Neck: Reports: Supple Lungs: Reports: Clear to Auscultation, Normal Respiratory Effort Cardiovascular: Reports: Regular Rate, Regular Rhythm GI/Abdominal Exam: Normal Bowel Sounds, Soft, Non-Tender, No Organomegaly, No Distention, No Abnormal Bruit, No Mass, Pelvis Stable (Male) Exam: Scrotal Swelling (testicular wound- Patient will need periodic debridement of eschar tissue. Please consult PCP for this. ) Back Exam: Reports: Normal Inspection, Full Range of Motion Extremities: Normal Inspection, Normal Range of Motion, Non-Tender, No Pedal Edema, Normal Capillary Refill Wound/Incisions: Reports: Healing Well, Other (eschar tissue present ) Psy/Mental Status: Reports: Alert, Normal Affect
== END 2019-03-09 19:00 | disposition home health service (06) | DRG 871 ==
LOC: LL.MS 13:48
PROVIDERS: ADMIT Family Medicine; ATTEND Family Medicine
DX: A41.9 Sepsis, unspecified organism (principal); J18.1 Lobar pneumonia, unspecified organism; R19.7 Diarrhea, unspecified; E87.6 Hypokalemia; E86.0 Dehydration; I50.9 Heart failure, unspecified; N50.89 Other specified disorders of the male genital organs; Z79.82 Long term (current) use of aspirin; Z79.01 Long term (current) use of anticoagulants; Z79.899 Other long term (current) drug therapy
CPT/HCPCS: 36415; 71045; 71046; 74230; 76870; 80048; 80053; 80202; 82962; 83605; 83880; 85025; 85610; 92526-GN; 92611-GN; 93975; 94640; 97110-GO; 97110-GP; 97116-GP; 97161-GP; 97165-GO; 97530-GO; 97530-GP; A9270-GY; J0456; J0558; J1160; J1630; J1940; J2060; J2543; J3010; J3370; J7050; J7620-GY

== ENCOUNTER 2019-03-26 11:42 | Inpatient (IN) | payer MEDICARE, OTHER ==
--- OUTSIDE RECORDS SUMMARY | 2019-03-26 13:24 | XMSREPORT ---
:1940 Author Organization and [facility] Address [address] [place] [address] Care Team Providers Name Role Phone Adelita Seth MD Primary Care Provider More Fried PA-C Attributed Provider Adelita Seth MD Home Health Attending [facility] Unavailable Reason for Referral (Routine) Status Reason Specialty Diagnoses / Procedures Referred By Contact Referred To Contact [address] [address] (Routine) Status Reason Specialty Diagnoses / Procedures Referred By Contact Referred To Contact [address] [address] Reason for Visit Reason Comments Abscess Has abcess scrotal area past 3 weeks. has been on antibiotics. Auth/Cert Status Reason Specialty Diagnoses / Procedures Referred By Contact Referred To Contact Encounter Details Date Type Department Care Team Description 03/16/2019 - Hospital Encounter [facility], Emergency Department [address] [place], [place] [id number] Cellulitis of 03/26/2019 Center 5E Surgical RohitMarisol MD [address] [place] [address] scrotum [address] [facility] [address] [place] [address] [phone] [place] [address] Jamir Coles MD [address] [place] [address] [phone] Navjot Leigh MD [address] [place] [address] [phone] Hilary Feliz MD [address] [place] [address] [phone] Rodolfo Castillo MD [address] [place], [place] [id number] Allergies Active Allergy Reactions Severity Noted Date Comments Celecoxib Stomach Pain Medium 09/10/2013 documented as of this encounter (statuses as of 03/26/2019) Medications Medication Sig Dispensed Refills Start End Status Date Date calcium Take 1 tablet 0 Active carbonate-vitamin D by mouth 1 time (CALCIUM 500+D) 500 per day at noon mg-200 unit tablet With meals acetaminophen (TYLENOL) Take 650 mg by 0 06/15/20 Active 325 mg tablet mouth every 6 18 hours as needed for fever Fe Take 1 tablet 0 Active Bzoueb-Tfyr-M-Thre-B12- by mouth 1 time FA (IRON-150 PO) per day at noon warfarin (JANTOVEN) 2.5 Take 1 tablet 90 tablet 0 03/26/20 Active MG tabletIndications: (2.5 mg) by Chronic atrial mouth 1 time fibrillation (HCC) per day leflunomide (ARAVA) 20 Take 1 tablet 90 tablet 0 03/26/2006/24/ Active mg tabletIndications: (20 mg) by 2018 Rheumatoid arthritis mouth 1 time involving multiple per day sites with positive rheumatoid factor (HCC) aspirin (ASPIRIN LOW Take 1 tablet 90 tablet 0 03/26/2006/24/ Active DOSE) 81 mg chewable (81 mg) by 2018 tabletIndications: mouth 1 time Cardiomyopathy, per day dilated, nonischemic (HCC) PARoxetine (PAXIL) 20 Take 1 tablet 90 tablet 0 03/26/2006/24/ Active mg tabletIndications: (20 mg) by 2018 Anxiety mouth 1 time per day predniSONE 5 mg Take 1 tablet 90 tablet 0 03/26/2006/24/ Active tabletIndications: (5 mg) by mouth 2018 Rheumatoid arthritis 1 time per day involving multiple sites, unspecified rheumatoid factor presence (HCC) furosemide (LASIX) 20 Take 2 tablets 30 tablet 0 03/27/2004/11/ Active mg tabletIndications: (40 mg) by 2018 Acute on chronic mouth 1 time diastolic congestive per day for 15 heart failure, NYHA days class 4 (HCC) furosemide (LASIX) 20 Take 1 tablet 30 tablet 0 04/11/2005/11/ Active mg tabletIndications: (20 mg) by 2018 Acute on chronic mouth 1 time diastolic congestive per day heart failure, NYHA class 4 (HCC) metoprolol succinate Take 1 tablet 90 tablet 0 03/27/2006/25/ Active (TOPROL XL) 100 mg SR (100 mg) by 2018 tablet (24 mouth 1 time hr)Indications: Acute per day on chronic diastolic congestive heart failure, NYHA class 4 (HCC) nitroglycerin Dissolve 1 30 tablet 0 03/26/2003/30/ Active (NITROSTAT) 0.4 mg tablet (0.4 mg) 2019 sublingual under the tabletIndications: tongue Every 5 Cardiomyopathy, minutes as dilated, nonischemic needed for (HCC) chest pain May repeat every 5 minutes for a total of 3 doses. 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 per day at noon bladder (HCC) lactobacillus Take 1 capsule 90 capsule 0 03/27/2006/25/ Active (CULTURELLE) by mouth 1 time 2018 capsuleIndications: per day Jose Maria's gangrene of scrotum melatonin 3 mg Take 3 tablets 90 tablet 0 03/26/2004/25/ Active tabletIndications: (9 mg) by mouth 2018 Anxiety every night at bedtime oxyCODONE (OXY-IR) 5 mg Take 2 tablets 30 tablet 0 03/26/20 Active tablet (immediate (10 mg) by release)Indications: mouth every 6 Jose Maria's gangrene of hours as needed scrotum for moderate pain or severe pain polyethylene glycol Take 3 1 Bottle 0 03/26/20 Active (MIRALAX) teaspoonsful powderIndications: (17 g) by mouth Jose Maria's gangrene of 1 time per day scrotum docusate sodium Take 2 capsules 120 capsule 0 03/26/2004/25/ Active (COLACE) 100 mg (200 mg) by 2018 capsuleIndications: mouth 2 times a Jose Maria's gangrene of day scrotum ciprofloxacin (CIPRO) Take 1 tablet 2 tablet 0 03/26/2003/27/ Active 500 mg (500 mg) by 2018 tabletIndications: mouth 2 times a Jose Maria's gangrene of day for 1 day scrotum amoxicillin-clavulanate Take 1 tablet 2 tablet 0 03/26/2003/27/ Active potassium (AUGMENTIN) by mouth 2 2018 875-125 mg times a day for tabletIndications: 1 day Jose Maria's gangrene of scrotum nitroglycerin Dissolve 1 25 tablet 1 01/20/2003/26/ Discontinued (NITROSTAT) 0.4 mg tablet under 2018 sublingual tablet the tongue as needed for chest pain. aspirin (ASPIRIN LOW Take 81 mg by 0 03/26/ Discontinued DOSE) 81 mg chewable mouth 1 time 2019 tablet per day. predniSONE 5 mg TAKE 1 TABLET 90 tablet 3 06/15/2003/16/ Discontinued tabletIndications: BY MOUTH ONCE 2018 Rheumatoid arthritis DAILY involving multiple sites with positive rheumatoid factor (HCC) furosemide (LASIX) 20 Take 1 tablet 1 06/24/2003/26/ Discontinued mg tabletIndications: (20 mg) by 2018 Systolic congestive mouth 1 time heart failure, per day unspecified HF chronicity (HCC) lisinopril (PRINIVIL, Take 1.5 tablet 3 06/24/2003/26/ Discontinued ZESTRIL) 10 mg (15 mg) by 2018 tabletIndications: mouth at Cardiomyopathy, bedtime. dilated, nonischemic (HCC) omeprazole (PRILOSEC) TAKE 1 CAPSULE 90 capsule 4 07/15/2003/16/ Discontinued 20 mg BY MOUTH EVERY 2018 capsuleIndications: MORNING GERD (gastroesophageal reflux disease) PARoxetine (PAXIL) 20 TAKE 1 TABLET 90 tablet 3 10/01/1903/16/ Discontinued mg tabletIndications: (20 MG) BY 2018 Recurrent major MOUTH 1 TIME depressive disorder, in PER DAY partial remission (HCC) JANTOVEN 2.5 MG TAKE 1/2 TO 1 90 tablet 0 10/13/1903/16/ Discontinued tabletIndications: TABLET BY BRANDO 2018 Chronic atrial TH ONCE DAILY fibrillation (HCC) simvastatin (ZOCOR) 20 TAKE 1 TABLET 90 tablet 3 11/14/1903/26/ Discontinued mg tabletIndications: BY MOUTH ONCE 2018 Hypercholesterolemia DAILY *MUST MAKE APPOINTMENT WITH BEFORE ANY MORE REFILLS GIVEN* tamsulosin (FLOMAX) 0.4 TAKE 1 CAPSULE 90 capsule 4 11/26/1903/26/ Discontinued mg capsuleIndications: BY MOUTH ONCE A 2018 Malignant neoplasm of DAY overlapping sites of bladder (HCC), Urinary tract infection metoprolol succinate Take 1 tablet 90 tablet 3 12/16/1903/26/ Discontinued (TOPROL XL) 100 mg SR (100 mg) by 2018 tablet (24 mouth 1 time hr)Indications: per day Essential hypertension leflunomide (ARAVA) 20 TAKE 1 TABLET 90 tablet 0 03/02/2003/26/ Discontinued mg tabletIndications: (20 MG) BY 2018 Rheumatoid arthritis MOUTH 1 TIME involving multiple PER DAY sites with positive rheumatoid factor (HCC) iron polysaccharide 150 mg 0 06/06/20 Discontinued complex (FERREX 150) 2018 150 MG CAPS calcium 1 tablet 0 02/23/2003/16/ Discontinued carbonate-vitamin D3 2018 600 mg-400 unit tablet HYDROcodone-acetaminoph Take 1 tablet 60 tablet 0 03/16/2003/26/ Discontinued en (NORCO) 10-325 mg by mouth 2 2018 tabletIndications: times a day as Rheumatoid arteritis needed for moderate pain omeprazole (PRILOSEC) Take 20 mg by 0 03/26/ Discontinued 20 mg capsule mouth 1 time a 2018 day in the morning PARoxetine (PAXIL) 20 Take 20 mg by 0 03/26/ Discontinued mg tablet mouth 1 time 2019 per day predniSONE 5 mg tablet Take 5 mg by 0 03/26/ Discontinued mouth 1 time 2019 per day documented as of this encounter (statuses as of 03/26/2019) Active Problems Problem Noted Date Immunosuppression 03/17/2019 Coronary artery disease 03/17/2019 Mixed anxiety depressive disorder 03/17/2019 Osteoarthrosis 03/17/2019 Rheumatoid arteritis 03/17/2019 Scrotum swelling 03/17/2019 Wound, open, scrotum or testes 03/16/2019 CKD (chronic kidney disease) stage 2, GFR 60-89 ml/min 03/16/2019 Acute kidney injury superimposed on chronic kidney disease 03/16/2019 Cellulitis of scrotum 03/16/2019 Heart disease 03/12/2019 Overview: January 25, 2019 Angiogram Single renal arteries bilaterally without significant stenosis. No significant aortoiliac stenotic disease. Occluded left superficial femoral artery, which responded well to recanalization, 4-mm angioplasty, 5-mm stent graft placement, and 5-mm angioplasty with palpable pulse to the left foot following intervention. February 09, 2019 Angiogram for staged right intervention, Multifocal stenosis right superficial femoral and popliteal artery responded well to prolonged inflation 6 mm angioplasty. Single vessel peritoneal runoff to the right foot. Patent left common femoral, deep femoral, and superficial femoral artery including stent graft left common femoral arteriotomy closure. 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 05/09/2016 Overview: Overview: ICD [employer] D142 INOGEN MRI CONDITIONAL Ventricular tachycardia (paroxysmal) 11/23/2015 Cardiomyopathy, dilated, nonischemic 11/03/2015 HCD (health care directive) 09/29/2015 Labyrinthitis 07/27/2015 CHF (congestive heart failure), NYHA class IV 06/09/2015 Dyslipidemia 05/30/2015 Bladder cancer 01/08/2015 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 06/09/2014 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 06/06/2014 Atrial fibrillation 12/30/2013 GERD (gastroesophageal reflux disease) 12/27/2013 Hyperlipidemia 05/14/2010 Vitamin D deficiency 05/14/2010 Rheumatoid arthritis 08/26/2002 COPD (chronic obstructive pulmonary disease) documented as of this encounter (statuses as of 03/26/2019) Resolved Problems Problem Noted Date Resolved Date Open wound of left chest wall 01/05/2016 06/08/2017 Pain management contract signed 11/03/2015 10/21/2018 Overview: More Fried PA-C, [facility] in [place], [place], seen every 6 months Bladder tumor 12/01/2014 02/06/2015 Chest wall pain 09/15/2014 10/31/2014 Encounter for long-term (current) use of other medications 09/16/20112016 Special screening for malignant neoplasm of prostate 10/09/2010 12/30/2013 Tobacco use disorder 08/01/2015 Personal history of other specified diseases(V13.89) 11/17/2012 Disorder of bone and cartilage 11/17/2012 documented as of this encounter (statuses as of 03/26/2019) Immunizations Name Dates Previously Given Next Due BCG 01/05/2016 (Deferred: Patient Refused) Denosumab (Prolia) 02/08/2015, 06/13/2014 FLU VACCINE HIGH DOSE 65YR+(Fluzone) 05/21/2018, 05/16/2017, 05/15/2016, 04/23/2016, 06/10/2015 Influenza Vaccine 06/10/2015, 07/08/2013, 05/28/2012 Influenza Vaccine,unspecified 05/05/2014, 07/08/2013, 05/28/2012, 06/03/2011, 05/31/2010, 04/25/2009, 06/16/2008, 06/18/2006, 06/20/2004, 06/12/2004 Pneumococcal Conj PCV13 11/03/2015 Pneumococcal Polysaccharide PPSV23 01/02/2012, 06/20/2004 TDAP 10/26/2017, 01/02/2012 Varicella Vaccine 10/31/2015 (Deferred: Patient Refused) documented as of this encounter Social History Tobacco Use Types Packs/Day Years Used Date Former Smoker Cigarettes 0.25 50 Quit: 05/28/2015 Smokeless Tobacco: Never Used Alcohol Use Drinks/Week oz/Week Comments No 0 Standard drinks or equivalent 0.0 Sexually Active Control Partners Comments Not Currently Sex Assigned at Date Recorded Not on file Job Start Date Occupation Industry Not on file Not on file Not on file Travel History Travel Start Travel End No recent travel history available. documented as of this encounter Last Filed Vital Signs Vital Sign Reading Time Taken Blood Pressure 142/66 03/26/2019 8:03 AM CDT Pulse 78 03/26/2019 8:03 AM CDT Temperature 36.8 C (98.2 F) 03/26/2019 8:03 AM CDT Respiratory Rate 17 03/26/2019 8:03 AM CDT Oxygen Saturation 93% 03/26/2019 8:03 AM CDT Inhaled Oxygen Concentration - - Weight 77.3 kg (170 lb 8 oz) 03/26/2019 7:00 AM CDT Height 175.3 cm (5' 9") 03/17/2019 2:19 PM CDT Body Mass Index 25.18 03/17/2019 2:19 PM CDT documented in this encounter Functional Status Functional Status Response Date of Assessment Is the person deaf or does he/she have serious difficulty No 03/17/2019 hearing? Is this person blind or does he/she have difficulty No 03/17/2019 seeing even when wearing glasses? Do you have difficulty with walking, balance, climbing Yes 03/17/2019 stairs, or had a fall in the last 3 months? Does the patient have difficulty dressing or bathing? Yes 03/17/2019 Because of a physical, mental, or emotional condition; Yes 03/17/2019 does this person have difficulty doing errands alone such as visiting a doctor's office or shopping? Cognitive Status Response Date of Assessment Because of a physical, mental, or emotional condition; No 03/17/2019 does this person have serious difficulty concentrating, remembering, or making decisions? documented as of this encounter Discharge Summaries Rodolfo Castillo MD - 03/26/2019 9:23 AM CDT Hospital Discharge Summary Attending Physician: Rodolfo Castillo MD Attending Physician Specialty: Adult Hospitalist Admit Date: 03/16/2019 Discharge Date: 03/26/19 Primary Care Physician: Adelita Seth MD Discharge Diagnoses Principal Problem: Cellulitis of scrotum Active Problems: Rheumatoid arthritis (HCC) GERD (gastroesophageal reflux disease) Atrial fibrillation (HCC) [facility] current use of anticoagulant therapy CHF (congestive heart failure), NYHA class IV (HCC) Cardiomyopathy, dilated, nonischemic (HCC) Anxiety Dyslipidemia ICD (implantable cardioverter-defibrillator) in place CKD (chronic kidney disease) stage 2, GFR 60-89 ml/min Acute kidney injury superimposed on chronic kidney disease (HCC) Immunosuppression (HCC) Resolved Problems: * No resolved hospital problems. * Hospital Course No notes on file 78-year-old male with history of diabetes, rheumatoid arthritis on chronic prednisone, congestive heart failure, CKD stage II who presented to the hospital on March 16, 2019 after he was experiencing scrotal pain. He was found to have a lesion prior to admission to the hospital. It was thought to be related to a possible cellulitis versus abscess. He was started on antibiotics. He felt that it was related to sitting down on his scrotum. When he was initially admitted to the hospital he was treated with antibiotics and then eventually discharged. Unfortunately presented back with worsening fevers and chills. When he presented to the ER patient was seen to have a thick eschar over the distalscrotum and posterior scrotum. It was noted to be edematous and erythematous with tenderness. He was also complaining of multiple symptoms including fevers chills nausea vomiting. He was admitted [facility] for scrotal cellulitis and started on IV antibiotics. Trauma acute care was consulted as the large scrotal wound appeared to be worsening and he is noted to be septic with worsening renalfunction. 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 Patient was placed on broad-spectrum antibiotic and IV fluids. Due to the fact the patient is on Coumadin, he was given blood products. In the OR patient was found to have necrotic skin. That portion of the skin was removed and the right testicle was exposed. There was some tissue over the left testicle but no abscess or significant drainage. There was only skin debridement. Patient went back to the OR again for scrotal wound dressing changes. During that time plastic surgery did see the patient and placed a Grafix XC graft and a Grafix core. The core was placed over the left posterior left testicle and the second sheet of the XC covering the defect scrotal support was applied. Patient was also seen by infectious disease who recommended IV antibiotics while in hospital vancomycin was stopped. Patient was switched to Cipro and Augmentin on discharge. Duration would be completed on March 27, 2019. During his hospitalization he was noted to be mildly confused. This started to improve as he was provided melatonin. Family was updated with information and questions were answered. Prior to discharge follow- up appointments with surgical services were provided. Prescriptions were sent to pharmacy at [facility]. Discharge assessment Severe sepsis secondary to scrotal cellulitis necrotizing scrotal skin: At this point the patient isnot septic anymore. He is hemodynamically stable. Antibiotics will be continued until March 27 Scrotal cellulitis/necrotizing scrotal lesion status post debridement status post graft placement Atrial fibrillation: Currently rate controlled: Continue metoprolol. Continue Coumadin. Acute on chronic diastolic heart failure:Patient has gained approximately 5 kg. Will increase the patient's Lasix. Patient has not required oxygen. Acute on chronic kidney injury secondary to sepsis and possible drug-induced. Lisinopril will be continued to be hold. Lasix is restarted. Last creatinine is 1.21 appears to be baseline History of nonischemic cardiomyopathy status post ICD placed Pain provided: Patient has required oxycodone while in hospital this will be provided upon discharge. LabTests Pending at Discharge Unresulted Lab Orders (From admission, onward) Start Ordered 03/23/19 0700 PROTIME/INR Every twenty four hours, Timed Rout Start: 03/23/19 0700 End: Until Specified 03/22/19 1143 03/18/19 0655 COMPREHENSIVE METABOLIC PANEL Early AM draw, Routine & nbsp; Start: 03/18/19 0655 End: Until Specified 03/18/19 0651 03/17/19 0432 BASIC METABOLIC PANEL Early AM draw, Routine Start: 03/17/19 0432 End: Until Specified 03/16/19 2116 03/17/19 0432 COMPLETE BLOOD COUNT WITH DIFFERENTIAL Early AM draw, Routine Start: 03/17/19 0432 End: Until Specified 03/16/19 3516 Follow-Up Scheduled Preliminary Discharge Medications This list of medications is preliminary and tentative. Please see the After Visit Summary for the final and accurate medication list. Discharge Medication List START taking these medications START: amoxicillin-clavulanate potassium 875-125 mg tablet Commonly known as: AUGMENTIN Dose: 1 tablet Take 1 tablet by mouth 2 times a day for 1 day START: ciprofloxacin 500 mg tablet Commonly known as: CIPRO Dose: 500 mg Take 1 tablet (500 mg) by mouth 2 times a day for 1 day START: docusate sodium 100 mg capsule Commonly known as: COLACE Dose: 200 mg Take 2 capsules (200 mg) by mouth 2 times a day START: lactobacillus capsule Dose: 1 capsule Take 1 capsule by mouth 1 time per day Start taking on: 03/27/2019 START: melatonin 3 mg tablet Dose: 9 mg Take 3 tablets (9 mg) by mouth every night at bedtime START: oxyCODONE 5 mg tablet (immediate release) Commonly known as: OXY-IR Dose: 10 mg Take 2 tablets (10 mg) by mouth every 6 hours as needed for moderate pain or severe pain START: polyethylene glycol powder Commonly known as: MIRALAX Dose: 1 capful Take 3 teaspoonsful (17 g) by mouth 1 time per day CONTINUE taking these medications which have CHANGED CONTINUE: * furosemide 20 mg tablet Commonly known as: LASIX Dose: 40 mg Take 2 tablets (40 mg) by mouth 1 time per day for 15 days Start taking on: 03/27/2019 What changed: how much to take CONTINUE: * furosemide 20 mg tablet Commonly known as: LASIX Dose: 20 mg Take 1 tablet (20 mg) by mouth 1 time per day Start taking on: 04/11/2019 What changed: You were already taking a medication with the same name, and this prescription was added. Make sure you understand how and when to take each. CONTINUE: nitroglycerin 0.4 mg sublingual tablet Commonly known as: NITROSTAT Dose: 0.4 mg Dissolve 1 tablet (0.4 mg) under the tongue Every 5 minutes as needed for chest pain May repeat every 5 minutes for a total of 3 doses. What changed: when to take this additional instructions CONTINUE: simvastatin 20 mg tablet Commonly known as: ZOCOR Dose: 20 mg Take 1 tablet (20 mg) by mouth every night at bedtime What changed: how much to take how to take this when to take this additional instructions CONTINUE: tamsulosin 0.4 mg capsule Commonly known as: FLOMAX Dose: 0.4 mg Take 1 capsule (0.4 mg) by mouth 1 time per day at noon What changed: how much to take how to take this when to take this additional instructions CONTINUE: warfarin 2.5 MG tablet Commonly known as: JANTOVEN Dose: 2.5 mg Take 1 tablet (2.5 mg) by mouth 1 time per day What changed: See the new instructions. * This list has 2 medication(s) that are the same as other medications prescribed for you. Read thedirections carefully, and ask your doctor or other care provider to review them with you. CONTINUE taking these medications which have NOT CHANGED CONTINUE: acetaminophen 325 mg tablet Commonly known as: TYLENOL Dose: 650 mg Take 650 mg by mouth every 6 hours as needed for fever CONTINUE: aspirin 81 mg chewable tablet Commonly known as: ASPIRIN LOW DOSE Dose: 81 mg Take 1 tablet (81 mg) by mouth 1 time per day CONTINUE: CALCIUM 500+D 500 mg-200 unit tablet Generic drug: calcium carbonate-vitamin D Dose: 1 tablet Take 1 tablet by mouth 1 time per day at noon With meals CONTINUE: IRON-150 PO Dose: 1 tablet Take 1 tablet by mouth 1 time per day at noon CONTINUE: leflunomide 20 mg tablet Commonly known as: ARAVA Dose: 20 mg Take 1 tablet (20 mg) by mouth 1 time per day CONTINUE: metoprolol succinate 100 mg SR tablet (24 hr) Commonly known as: TOPROL XL Dose: 100 mg Take 1 tablet (100 mg) by mouth 1 time per day Start taking on: 03/27/2019 CONTINUE: omeprazole 20 mg capsule Commonly known as: priLOSEC Dose: 20 mg Take 1 capsule (20 mg) by mouth 1 time a day in the morning Start taking on: 03/27/2019 CONTINUE: PARoxetine 20 mg tablet Commonly known as: PAXIL Dose: 20 mg Take 1 tablet (20 mg) by mouth 1 time per day CONTINUE: predniSONE 5 mg tablet Dose: 5 mg Take 1 tablet (5 mg) by mouth 1 time per day You might also be taking other medications not listed above. If you have questions about any of your other medications, talk to the person who prescribed them or your Primary Care Provider. STOP taking these medications STOP: HYDROcodone-acetaminophen 10-325 mg tablet Commonly known as: NORCO STOP: lisinopril 10 mg tablet Commonly known as: EDY GEESTRIWalter Where to Get Your Medications These medications were sent to [facility] ([facility] [address] [facility] [id number] [address] [facility] [address] amoxicillin-clavulanate potassium 875-125 mg tablet aspirin 81 mg chewable tablet ciprofloxacin 500 mg tablet docusate sodium 100 mg capsule furosemide 20 mg tablet furosemide 20 mg tablet lactobacillus capsule leflunomide 20 mg tablet melatonin 3 mg tablet metoprolol succinate 100 mg SR tablet (24 hr) nitroglycerin 0.4 mg sublingual tablet omeprazole 20 mg capsule PARoxetine 20 mg tablet polyethylene glycol powder predniSONE 5 mg tablet simvastatin 20 mg tablet tamsulosin 0.4 mg capsule warfarin 2.5 MG tablet Information about where to get these medications is not yet available Ask your nurse or doctor about these medications oxyCODONE 5 mg tablet (immediate release) Temp: 98.2 F (36.8 C) BP: 142/66 Weight: 77.3 kg (170 lb 8 oz) SpO2: 93 % Resp: 17 Pulse: 78 Current BMI (>50=increased risk): 23.48 O2 Device: Room Air O2 Flow Rate (L/min): 2 l/min Physical Exam Constitutional: He is oriented to person, place, and time. He appears well- developed and well-nourished. HENT: Head: Normocephalic. Eyes: Pupils are equal, round, and reactive to light. Conjunctivae are normal. Neck: Normal range of motion. Cardiovascular: Normal rate and regular rhythm. Pulmonary/Chest: Effort normal and breath sounds normal. Abdominal: Soft. Musculoskeletal: Normal range of motion. Neurological: He is alert and oriented to person, place, and time. Skin: Skin is warm. Psychiatric: He has a normal mood and affect. His behavior is normal. Procedures Performed and Findings All procedures during admission Procedure(s): SCROTAL DEBRIDEMENT All procedures during admission Procedure(s): RIGHT GROIN & SCROTAL WOUND DRESSING CHANGE Consultations Obtained UROLOGY CONSULT PHARMACY REFERRAL COMPLETE MEDICATION RECONCILIATION INFECTIOUS DISEASE CONSULT SKIN WOUND OR OSTOMY REFERRAL SPIRITUAL CARE REFERRAL INFECTION CONTROL REFERRAL PLASTIC SURGERY CONSULT SKIN WOUND OR OSTOMY REFERRAL WARFARIN: RX TO DOSE (ADULT) Discharge Disposition ADULT Discharge Planning: Home (1, 2) Medical Decision Making A total of 60 minutes were spent on discharge coordination. documented in this encounter Discharge Instructions Jose Alanna J, [facility] - 03/19/2019Heart Failure Discharge Instructions Activity: ? Be as active as possible ? Break down tasks to small activities to avoid becoming overly tired ? Talk to your doctor before lifting more than 10 pounds ? Begin to exercise slowly and increase only as tolerated; refer to your education book ? Balance activity and rest periods Nutrition: ? Follow a low sodium (salt) diet ? Choose no added salt or low sodium foods; choose fresh foods as much as possible ? Avoid adding salt to food when cooking or at the table ? Read the nutrition facts labels and avoid foods with more than 300 mg of sodium per serving Medication: ? Make a list and schedule of the medications you take ? Keep a current list of your medications with you ? Take your medications as prescribed ? Avoid NSAIDs or Non-Steroidal Anti-Inflammatory Drugs (i.e. Advil, Ibuprofen, Motrin, etc.) Self-Care: ? Weigh yourself and write it down first thing in the morning after you empty your bladder and before you eat or drink ? Check for swelling of your feet, ankles, legs, and stomach ? Do your daily exercise ? If you smoke, stop ? Keep all follow-up appointments and bring your medications and weight log with you Review the Living Well with Heart Failure booklet for more information on caring for yourself or your loved one at home. Call Your Doctor or Health Slabber If You Have: ? Weight gain of more than 2 pounds overnight or 5 pounds in one week (or whatever weight gain you were told to report by your doctor) ? New or increased swelling of your legs or ankles, swelling or pain in your stomach ? Decrease in amount you urinate ? Increased shortness of breath ? Increased cough with yellow or green sputum (mucus) ? Increased breathing trouble at night (waking up short of breath, needing more pillows to breathe) ? Feeling much more tired than usual ? Racing or pounding heart beat ? Dizziness Go To The Nearest Emergency Room or Call 911 If You Have: ? Shortness of breath so severe that you cannot catch your breath even while resting ? [place], foamy sputum (mucus) ? New problem sleeping; you need to sit straight up to sleep or are not able to sleep due to shortness of breath ? Severe chest pain that does not resolve with rest or Nitroglycerin ? New or increased confusion or cannot think clearly ? A continuous rapid or irregular heart beat ? Fainting or feeling to dizzy to stand up Warfarin Discharge Instructions: Warfarin dose given 03/26/19 in the hospital. Start warfarin tomorrow as below: 03/27/19: Take warfarin 1.25 mg 03/28/19: Take warfarin 2.5 mg 03/29/19 take warfarin 1.25 mg 03/30/19: Check INR in AM documented in this encounter Medications at Time of Discharge Medication Sig Dispensed Refills Start Date End Date warfarin () 2.5 MG Take 1 tablet (2.5 90 tablet 0 03/26/2019 tabletIndications: Chronic mg) by mouth 1 atrial fibrillation (HCC) time per day leflunomide (ARAVA) 20 mg Take 1 tablet (20 90 tablet 0 03/26/20192018 tabletIndications: mg) by mouth 1 Rheumatoid arthritis time per day involving multiple sites with positive rheumatoid factor (HCC) aspirin (ASPIRIN LOW DOSE) Take 1 tablet (81 90 tablet 0 03/26/20192018 81 mg chewable mg) by mouth 1 tabletIndications: time per day Cardiomyopathy, dilated, nonischemic (HCC) PARoxetine (PAXIL) 20 mg Take 1 tablet (20 90 tablet 0 03/26/20192018 tabletIndications: Anxiety mg) by mouth 1 time per day predniSONE 5 mg Take 1 tablet (5 90 tablet 0 03/26/2019 06/24/2019 tabletIndications: mg) by mouth 1 Rheumatoid arthritis time per day involving multiple sites, unspecified rheumatoid factor presence (HCC) furosemide (LASIX) 20 mg Take 2 tablets (40 30 tablet 0 03/27/20192018 tabletIndications: Acute mg) by mouth 1 on chronic diastolic time per day for congestive heart failure, 15 days NYHA class 4 (HCC) metoprolol succinate Take 1 tablet (100 90 tablet 0 03/27/2019 06/25/2019 (TOPROL XL) 100 mg SR mg) by mouth 1 tablet (24 hr)Indications: time per day Acute on chronic diastolic congestive heart failure, NYHA class 4 (HCC) nitroglycerin (NITROSTAT) Dissolve 1 tablet 30 tablet 0 03/26/20192019 0.4 mg sublingual (0.4 mg) under the tabletIndications: tongue Every 5 Cardiomyopathy, dilated, minutes as needed nonischemic ([facility]) for chest pain May repeat every 5 minutes for a total of 3 doses. omeprazole (PRILOSEC) 20 Take 1 capsule (20 90 capsule 0 03/27/2019 mg capsuleIndications: mg) by mouth 1 Gastroesophageal reflux time a day in the disease without morning esophagitis simvastatin (ZOCOR) 20 mg Take 1 tablet (20 90 tablet 0 03/26/20192018 tabletIndications: Pure mg) by mouth every hypercholesterolemia night at bedtime tamsulosin (FLOMAX) 0.4 mg Take 1 capsule 90 capsule 0 03/26/20192018 capsuleIndications: (0.4 mg) by mouth Malignant neoplasm of 1 time per day at overlapping sites of noon bladder ([facility]) lactobacillus (CULTURELLE) Take 1 capsule by 90 capsule 0 03/27/201906/25 capsuleIndications: mouth 1 time per Jose Maria's gangrene of day scrotum melatonin 3 mg Take 3 tablets (9 90 tablet 0 03/26/2019 04/25/2019 tabletIndications: Anxiety mg) by mouth every night at bedtime oxyCODONE (OXY-IR) 5 mg Take 2 tablets (10 30 tablet 0 03/26/2019 tablet (immediate mg) by mouth every release)Indications: 6 hours as needed Jose Maria's gangrene of for moderate pain scrotum or severe pain Fe Take 1 tablet by 0 Imzdza-[id number]-FA mouth 1 time per (IRON-150 PO) day at noon acetaminophen (TYLENOL) Take 650 mg by 0 06/15/2018 325 mg tablet mouth every 6 hours as needed for fever calcium carbonate-vitamin Take 1 tablet by 0 D (CALCIUM 500+D) 500 mouth 1 time per mg-200 unit tablet day at noon With meals furosemide (LASIX) 20 mg Take 1 tablet (20 30 tablet 0 04/11/20192018 tabletIndications: Acute mg) by mouth 1 on chronic diastolic time per day congestive heart failure, NYHA class 4 ([facility]) polyethylene glycol Take 3 1 Bottle 0 03/26/2019 (MIRALAX) teaspoonsful (17 powderIndications: g) by mouth 1 time Jose Maria's gangrene of per day scrotum docusate sodium (COLACE) Take 2 capsules 120 capsule 0 03/26/20192018 100 mg capsuleIndications: (200 mg) by mouth Jose Maria's gangrene of 2 times a day scrotum ciprofloxacin (CIPRO) 500 Take 1 tablet (500 2 tablet 0 03/26/20192018 mg tabletIndications: mg) by mouth 2 Jose Maria's gangrene of times a day for 1 scrotum day amoxicillin-clavulanate Take 1 tablet by 2 tablet 0 03/26/2019 03/27/2019 potassium (AUGMENTIN) mouth 2 times a 875-125 mg day for 1 day tabletIndications: Jose Maria's gangrene of scrotum documented as of this encounter Progress Notes Rodolfo Castillo MD - 03/25/2019 9:36 AM CDT Hospital Progress Note Wade Herbert is a 78yr old male admitted on 03/16/2019. Assessment / Plan Principal Problem: Cellulitis of scrotum Active Problems: Rheumatoid arthritis (HCC) GERD (gastroesophageal reflux disease) Atrial fibrillation (HCC) FCI current use of anticoagulant therapy CHF (congestive heart failure), NYHA class IV ([facility]) Cardiomyopathy, dilated, nonischemic (HCC) Anxiety Dyslipidemia ICD (implantable cardioverter-defibrillator) in place CKD (chronic kidney disease) stage 2, GFR 60-89 ml/min Acute kidney injury superimposed on chronic kidney disease (HCC) Immunosuppression (HCC) Resolved Problems: * No resolved hospital problems. * 78-year-old male with history of diabetes, rheumatoid arthritis on chronic prednisone, congestive heart failure, CKD stage II who presented to the hospital on March 16, 2019 after he was experiencing scrotal pain. He was found to have a lesion prior to admission to the hospital. It was thought to be related to a possible cellulitis versus abscess. He was started on antibiotics. He felt that it was related to sitting down on his scrotum. When he was initially admitted to the hospital he was treated with antibiotics and then eventually discharged. Unfortunately presented back with worsening fevers and chills. When he presented to the ER patient was seen to have a thick eschar over the distalscrotum and posterior scrotum. It was noted to be edematous and erythematous with tenderness. He was also complaining of multiple symptoms including fevers chills nausea vomiting. He was admitted [facility] for scrotal cellulitis and started on IV antibiotics. Trauma acute care was consulted as the large scrotal wound appeared to be worsening and he is noted to be septic with worsening renalfunction. 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 Patient was placed on broad-spectrum antibiotic and IV fluids. Due to the fact the patient is on Coumadin, he was given blood products. In the OR patient was found to have necrotic skin. That portion of the skin was removed and the right testicle was exposed. There was some tissue over the left testicle but no abscess or significant drainage. There was only skin debridement. Patient went back to the OR again for scrotal wound dressing changes. During that time plastic surgery did see the patient and placed a Grafix XC graft and a Grafix core. The core was placed over the left posterior left testicle and the second sheet of the XC covering the defect scrotal support was applied. Patient was also seen by infectious disease who recommended IV antibiotics while in hospital vancomycin was stopped. Patient is to be on Cipro and Augmentin on discharge. Duration would be completed on March 27, 2019. Assessment and Plan Severe sepsis secondary to scrotal cellulitis necrotizing scrotal skin: At this point the patient isnot septic anymore. He is hemodynamically stable. Antibiotics will be continued until March 27 Scrotal cellulitis/necrotizing scrotal lesion status post debridement status post graft placement Atrial fibrillation: Currently rate controlled: Continue metoprolol. Continue Coumadin. Acute on chronic diastolic heart failure:Patient has gained approximately 5 kg. Will increase the patient's Lasix. Patient has not required oxygen. Acute on chronic kidney injury secondary to sepsis and possible drug-induced. Lisinopril will be continued to be hold. Lasix is restarted. Last creatinine is 1.21 appears to be baseline History of nonischemic cardiomyopathy status post ICD placed Pain medicationprovided: Patient has required oxycodone HPI / History / ROS HPI Review of Systems Constitutional: Negative. HENT: Negative. Respiratory: Negative. Cardiovascular: Negative. Gastrointestinal: Negative. Endocrine: Negative. Genitourinary: Graft placed. Doing well. No redness. No cellulits Musculoskeletal: Negative. Skin: Negative. Neurological: Negative. Hematological: Negative. Psychiatric/Behavioral: Negative. Physical / Results Current Vital Signs Temp: 98.2 F (36.8 C) BP: 142/66 Weight: 77.3 kg (170 lb 8 oz) SpO2: 93 % Resp: 17 Pulse: 78 Current BMI (>50=increased risk): 23.48 O2 Device: Room Air O2 Flow Rate (L/min): 2 l/min Pain Ratin Physical Exam Constitutional: He is oriented to person, place, and time. He appears well- developed and well-nourished. HENT: Head: Normocephalic. Neck: Normal range of motion. Cardiovascular: Normal rate. Pulmonary/Chest: Effort normal and breath sounds normal. Abdominal: Soft. Bowel sounds are normal. Musculoskeletal: Normal range of motion. Neurological: He is alert and oriented to person, place, and time. Skin: Skin is warm. Medical Decision Making I have: Independently visualized and interpreted an image, tracing or specimen previously or subsequently interpreted by another provider. Discussed results of laboratory, radiology or other diagnostic tests with the physician who performed or interpreted the study. Obtained/reviewed old records from [place] or elsewhere (details outlined elsewhere in note). Obtained history from a person other than the patient (details outlined elsewhere in note). Discussed case with another provider (details outlined elsewhere in note). A total of 25 minutes was spent with the patient or on the floor today, greater than 50% of which was spent in counseling regarding today's findings/assessment/ plan and in coordination of care, chart review, medical decision making, and documentation Marcia Mckeon APRN-MEDICAID SPECIALIST - 03/25/2019 9:36 AM CDTChart check. Patient not seen. Noted he underwent scrotal debridement and placement of placental tissue graft by Dr. Kuhn and plastic surgery [facility] yesterday. Ongoing wound cares/management per their service. Urology will be signing off. Please reconsult prn. Thank you! Marcia Bravo DNP, [employer] ADJUSTER-BC, [employer] [facility] [place] Pager [phone] SingLora MD - 03/25/2019 6:31 AM CDT Wade Marisolranjit Herbert [phone] [id number] Surgery Daily Progress Note Subjective: Patient was seen and examined. AO x 2, to name and date Currently not complaining of pain Denies N/V, denies SOB and CP Had a bowel movement yesterday after procedure Tolerating diet Objective: Current Vital Signs Temp: 97.5 F (36.4 C) BP: 137/76 Pulse: 84 O2 Device: Room Air O2 Flow Rate (L/min): 2 l/min Resp: 16 Pain Ratin (out of 10) Weight: 77.1 kg (169 lb 15.6 oz) SpO2: 95 % General: NAD, pleasant, laying comfortably Respiratory: CTAB, no wheezing Cardiac: RRR, s1s2 nL Abdomen: soft, non-tender, non-distended Extremities: no edema b/l LE : ABD pad in place, no drainage noted, scrotal support in place, external cath Intake/Output Summary (Last 24 hours) at 03/25/2019 0747 Last data filed at 03/25/2019 0424 Gross per 24 hour Intake 2337 ml Output 825 ml Net 1512 ml Labs: Lab Results Component Value Date WBC 6.0 03/24/2019 NUCRBC 0 03/24/2019 RBC 3.22 (L) 03/24/2019 HEMOGLOBIN 9.0 (L) 03/24/2019 HEMATOCRIT 28.8 (L) 03/24/2019 MCV 89.4 03/24/2019 MCH 28.0 03/24/2019 MCHC 31.3 (L) 03/24/2019 RDW 16.7 (A) 02/22/2019 PLTCOUNT 206 03/24/2019 NEUTROPCT 58.0 03/24/2019 BANDPCT 0.2 02/22/2019 LYMPHSPCT 25.8 03/24/2019 MONOSPCT 11.7 03/24/2019 EOSPCT 3.7 03/24/2019 BASOPHILPCT 0.3 03/24/2019 Lab Results Component Value Date GLUCOSE 148 (H) 03/25/2019 BUN 16 03/24/2019 CREATSERUM 1.30 03/24/2019 BCRATIO 12.3 03/24/2019 NA 139 03/24/2019 POTASSIUM 3.9 03/24/2019 CL 107 03/24/2019 CO2 24 03/24/2019 ANIONGAP 10 02/26/2016 CA 8.8 03/24/2019 EGFR 53 (L) 03/24/2019 EGFRAF 64 03/24/2019 Imaging: No new imaging. 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 Doing well. Plan: Continue pain management Continue care per primary team Surgery will sign off. Please call if needed. Lora Dwyer MD PGY-1 Resident [facility]2019 [facility] - 03/24/2019 9:39 AM CDTHospital Progress Note Wade Herbert is a 78yr old male admitted on 03/16/2019. 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 * 78-year-old male with history of diabetes, rheumatoid arthritis on chronic prednisone, congestive heart failure, CKD stage II who presented to the hospital on March 16, 2019 after he was experiencing scrotal pain. He was found to have a lesion prior to admission to the hospital. It was thought to be related to a possible cellulitis versus abscess. He was started on antibiotics. He felt that it was related to sitting down on his scrotum. When he was initially admitted to the hospital he was treated with antibiotics and then eventually discharged. Unfortunately presented back with worsening fevers and chills. When he presented to the ER patient was seen to have a thick eschar over the distalscrotum and posterior scrotum. It was noted to be edematous and erythematous with tenderness. He was also complaining of multiple symptoms including fevers chills nausea vomiting. He was admitted [facility] for scrotal cellulitis and started on IV antibiotics. Trauma acute care was consulted as the large scrotal wound appeared to be worsening and he is noted to be septic with worsening renalfunction. 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 Patient was placed on broad-spectrum antibiotic and IV fluids. Due to the fact the patient is on Coumadin, he was given blood products. In the OR patient was found to have necrotic skin. That portion of the skin was removed and the right testicle was exposed. There was some tissue over the left testicle but no abscess or significant drainage. There was only skin debridement. Patient went back to the OR again for scrotal wound dressing changes. During that time plastic surgery did see the patient and placed a Grafix XC graft and a Grafix core. The core was placed over the left posterior left testicle and the second sheet of the XC covering the defect scrotal support was applied. Patient was also seen by infectious disease who recommended IV antibiotics while in hospital vancomycin was stopped. Patient is to be on Cipro and Augmentin on discharge. Duration would be completed on March 27, 2019. Assessment and Plan Severe sepsis secondary to scrotal cellulitis necrotizing scrotal skin: At this point the patient isnot septic anymore. He is hemodynamically stable. Antibiotics will be continued until March 27 Scrotal cellulitis/necrotizing scrotal lesion status post debridement status post graft placement Atrial fibrillation: Currently rate controlled: Continue metoprolol. Continue Coumadin. Chronic diastolic heart failure:continue home lasix. Acute on chronic kidney injury secondary to sepsis and possible drug-induced. Lisinopril will be continued to be hold. Lasix is restarted. History of nonischemic cardiomyopathy status post ICD placed HPI / History / ROS HPI Review of Systems Constitutional: Negative. HENT: Negative. Respiratory: Negative. Cardiovascular: Negative. Gastrointestinal: Negative. Endocrine: Negative. Genitourinary: Graft placed. Doing well. No redness. No cellulits Musculoskeletal: Negative. Skin: Negative. Neurological: Negative. Hematological: Negative. Psychiatric/Behavioral: Negative. Physical / Results Physical Exam Constitutional: He is oriented to person, place, and time. He appears well- developed and well-nourished. HENT: Head: Normocephalic. Neck: Normal range of motion. Cardiovascular: Normal rate. Pulmonary/Chest: Effort normal and breath sounds normal. Abdominal: Soft. Bowel sounds are normal. Musculoskeletal: Normal range of motion. Neurological: He is alert and oriented to person, place, and time. Skin: Skin is warm. Medical Decision Making I have: Independently visualized and interpreted an image, tracing or specimen previously or subsequently interpreted by another provider. Discussed results of laboratory, radiology or other diagnostic tests with the physician who performed or interpreted the study. Obtained/reviewed old records from [place] or elsewhere (details outlined elsewhere in note). Obtained history from a person other than the patient (details outlined elsewhere in note). Discussed case with another provider (details outlined elsewhere in note). A total of 25 minutes was spent with the patient or on the floor today, greater than 50% of which was spent in counseling regarding today's findings/assessment/ plan and in coordination of care, chart review, medical decision making, and documentation Richard Munoz MD - 03/24/2019 6:32 AM CDT Surgery Daily Progress Note Wade Herbert : 1940 S: - Patient transferred from [facility] last night for dressing change, and possible scrotal graft with Dr. Kuhn today. 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 Medicine is primary. No acute events overnight. Denies chest pain, sob, nausea, vomiting, abdominal pain, scrotal pain. O: Temp: 97.6 F (36.4 C) BP: 121/54 Pulse: 78 O2 Device: NC - no humidity O2 Flow Rate (L/min): 2 l/min Resp: 16 Pain Ratin (out of 10) Weight: 78.5 kg (173 lb 1 oz) SpO2: 98 % Gen: Alert, resting comfortably Resp: CTA BL, no accessory breath sounds Cards: RRR, no murmurs Abd: Soft, non distended, non tender Ext: Palpable pulses, no peripheral edema : Scrotal dressing in place. Ulcer on anterior left scrotum without drainage. Intake/Output Summary (Last 24 hours) at 03/24/2019 0632 Last data filed at 03/24/2019 0500 Gross per 24 hour Intake 300 ml Output 400 ml Net -100 ml Lab Results Component Value Date WBC 6.0 03/24/2019 HEMOGLOBIN 9.0 (L) 03/24/2019 PLTCOUNT 206 03/24/2019 NA 139 03/24/2019 POTASSIUM 3.9 03/24/2019 CREATSERUM 1.30 03/24/2019 Imaging: None A/P: Wade Herbert is a 78yr male s/p scrotal debridement for Jose Maria's gangrene transferred to [place] for dressing change. Stable today - NPO until surgery - OR today for dressing change - Cares per primary team Richard Guallpa MD General Surgery Resident Pager #[phone] Associated attestation - Reza Kuhn MD - 03/24/2019 12:41 PM CDT I have seen and discussed the patient on rounds with the resident. The plan, as outlined in the note, was developed in collaboration with the resident following review of the history, physical exam, radiographs when indicated and events since admission. I have examined the patient and agree with theresident? s assessment and plan. Risks and goal explained to patient and his for scrotal dressing change and indicated procedures.Lucas Bailey MD - 03/23/2019 1:15 PM CDT . INTERNAL MEDICINE DAILY PROGRESS NOTE Patient Name: Wade Herbert Admitted: 03/16/2019 Today's Date: 03/23/2019 Assessment and Plan Acute Medical Conditions: # Chest pain of unknown etiology with diaphoresis and lightheadedness, in setting of general weakness, mild cough with flame. consider CAD vs Arrhthymias vs Pneumonia with h/o COPD vs Costochondritis vs GERD Plan: - EKG ordered- new PVC but otherwise unremarkable from previous EKG - EP was consulted for ICD interrogation - CXR completed - Telemetry - Encourage patient to ambulate - Continue with omeprazole # Scrotal necrotizing/cellulitis 2/2 scrotal injury # Hypokalemia-resolved Plan: - Urology consult appreciated- s/p debridement - Plastic surgery consult appreciated- plan for grafting in 2-3 weeks - ID following- continue with zosyn - Scrotum fluid culture growing citrobacter freundii and bacteriodes ovatus/ xylanisolvens - Continue with Warfarin - Resume Lasix 20 qd - D/c NS IV fluid 50 ml/hr - Wound nurse onboard - Replace electrolytes as needed # Acute kidney injury on CKD, likely multifactorial (infection vs drug induced) - resolved Plan: - Will continue to hold lisinopril and lasix post debridement - Morning labs Stable Chronic Medical Conditions: -Systolic CHF - A-fib- resuming warfarin - Non ischemic cardiomyopathy -CAD- on ASA, metoprolol -V-tach s/p ICD -DM2, diet-controlled: low-dose SSI -GERD: continue omeprazole 20mg -COPD: stable, not on home meds -Pulm HTN: stable -Anemia, normocytic, stable -HLD: simvastatin -PVD: stable, intact pulses, continue simvastatin -MDD, anxiety: continue Paxil 20mg -BPH: continue Flomax - s/p right great toe amputation d/t osteomyelitis: well-healed, stable - RA on prednisone and leflunomide CODE STATUS: Full Code Pain medication: Acetaminophen for mild pain, oxycodone for moderate to severe pain, dilaudid for breakthrough pain and with dressing changes. Narcan for overdose (respriatory depression or arrest) DVT Prophylaxis:Heparin subQ Therapies: PT/OT Disposition: TBD Diet: Regular Brief Summary Wade is a 78 yo male with medical history of A-fib on warfarin, HTN, HLD, systolic CHF, non ischemic cardiomyopathy, ICD implantation, RA , recently seen at [place] 02/22-02/25 for scrotal pain/swelling treated with vanco and zosyn and discharged on keflex, admitted with similar problem found to have suspected scrotal cellulitis/necrotizing on zosyn s/p scrotal debridement, pending graft Interval History Patient complained of chest pain worse with breathing and mild coughing with minimal flame. He also stated that he had lightheadedness, diaphoresis and SOB while standing up to use the bathroom. EKG was ordered, some PVC but otherwise no change from previous EKG, normal troponin, EP consulted for ICD interrogation , CXR pending. He remains afebrile, pulse in the 80s, blood pressure 110/90s mmHg, saturating well on room air. S/p scrotal debridement on zosyn and IV fluid. Urology following and ID following. Review of Systems Review of Systems Constitution: Positive for diaphoresis. Negative for chills, decreased appetite , fever and weight loss. Cardiovascular: Negative for chest pain, dyspnea on exertion and leg swelling. Respiratory: Positive for cough. Negative for shortness of breath, sputum production and wheezing. Musculoskeletal: Negative for back pain, falls and muscle weakness. Gastrointestinal: Negative for bloating, constipation, diarrhea, nausea and vomiting. Neurological: Positive for light-headedness and weakness. Negative for dizziness and headaches. Psychiatric/Behavioral: Negative. Physical Exam Blood pressure 112/96, pulse 80, temperature 98 F (36.7 C), resp. rate 19, height 175.3 cm (69"), weight 73.3 kg (161 lb 9.6 oz), SpO2 93 %. Physical Exam Constitutional: He is oriented to person, place, and time. He appears well- developed and well-nourished. No distress. HENT: Head: Normocephalic and atraumatic. Eyes: Pupils are equal, round, and reactive to light. Conjunctivae and EOM are normal. Neck: Normal range of motion. Neck supple. No JVD present. Cardiovascular: Normal rate. An irregularly irregular rhythm present. Pulmonary/Chest: Effort normal and breath sounds normal. He has no wheezes. Abdominal: Soft. Bowel sounds are normal. He exhibits no distension. There is no tenderness. Genitourinary: Genitourinary Comments: S/p debridement, wrapped Musculoskeletal: Normal range of motion. He exhibits no edema. Neurological: He is alert and oriented to person, place, and time. Skin: Skin is warm and dry. No erythema. Labs reviewed. All pertinent positives and negatives reflected in the assessment and plan Medical Decision making Reviewed: previous chart, nursing note and vitals Reviewed previous: labs Lucas Bailey MD Internal Medicine Resident, PGY1 Pager #[phone] [place], [place] Associated attestation - Hilary Feliz MD - 03/23/2019 5:26 PM CDT I discussed the patient with the resident and personally interviewed and examined the patient. I verified in the medical record all resident documentation/findings, including history, physical exam, and medical decision making, and I agree with the resident's documentation. The patient had some mild chest pain that improved with negative EKG and troponin and was reproducible on exam. CXR was similar to prior exam with final read pending. Will stop his fluids and restart lasix giventhis was being held. Given episode of presyncope, interrogation was ordered. Telemetry was also restarted. Continue to monitor closely and await final results of above. Transfer planned to [facility] for consideration of debridement and Grafix graft placement over the exposed scrotum. Marcia Bravo APRN-CNP - 03/23/2019 12:42 PM CDTNoted patient not transferred to [facility]. Wound assessed. Unchanged from my exam yesterday. No surrounding cellulitis, crepitus, foul odor or evidence of fourniers. Patient has minimal pain now. Nursing in the process of performing dressing exchange. Right zev scrotum wound bed clean, wound edges clean. Left zev scrotum, wet eschar. Continue with bid wet to dry dressing exchanges. Ongoing wound care recommendations per [facility]OC[facility]/plastic surgery. Urology will continue to check chart the next few days and then will formally sign off. Please call if any qs or pt needs to be seen. Thank you! Marcia Bravo DNP, [employer] AD[employer]ER-BC, [facility] Pager [phone] aylah Brian [facility] - 03/22/2019 2:37 PM CDT Warfarin Initial Consult Note Mr. Herbert has been initiated on warfarin per pharmacy protocol for atrial fibrillation. Desired goal INR is 2-3. Patient has previously been on anticoagulation therapy. Previous dose was 1.25mg MWF and2.5mg allother days Reversal agents given (dose/route/timing): Phytonadione 10mg IV 03/17/19 Clinically significant drug interactions: Heparin sq Labs: Lab Results Component Value Date INR 1.2 (L) 03/22/2019 PT 15.1 (H) 03/22/2019 Protime Date/Time Value Ref Range Status 03/22/2019 11:54 AM 15.1 (H) 12.0 - 14.5 secs Final 03/17/2019 05:57 AM 18.0 (H) 12.0 - 14.5 secs Final 02/22/2019 10:40 AM 22.7 (A) 9.5 - 12.0 Final 02/09/2019 10:16 AM 15.5 (H) 12.0 - 14.5 secs Final INR Date/Time Value Ref Range Status 03/22/2019 11:54 AM 1.2 (L) 2.0 - 3.5 Final 03/17/2019 05:57 AM 1.5 (L) 2.0 - 3.5 Final 03/16/2019 11:56 AM 2.3 2.0 - 3.5 Final 02/22/2019 10:40 AM 2.1 Final 09/02/2016 2.10 Final 05/10/2016 2.00 Final 12/05/2015 2.80 Final Platelet Count Date/Time Value Ref Range Status 03/22/2019 07:14 AM 164 140 - 400 K/uL Final 02/22/2019 10:40 AM 166 150 - 350 K/uL Final Hemoglobin Date/Time Value Ref Range Status 03/22/2019 07:14 AM 8.7 (L) 13.5 - 17.5 g/dL Final 02/22/2019 10:40 AM 10.8 (A) 13.1 - 16.8 g/dL Final Plan: Warfarin: 2.5 mg today. Pharmacy will monitor and if indicated, adjust dose per the anticoagulation policy. Thank you very much for the consult. Kaylah Brian [facility] Lucas Michel MD - 03/22/2019 1:07 PM CDT . INTERNAL MEDICINE DAILY PROGRESS NOTE Patient Name: Wade Herbert Admitted: 03/16/2019 Today's Date: 03/22/2019 Assessment and Plan Acute Medical Conditions: # Scrotal necrotizing/cellulitis 2/2 scrotal injury # Hypokalemia Plan: - Urology consult appreciated- s/p debridement - Plastic surgery consult appreciated- plan for grafting in 2-3 weeks - ID following- d/c vanco and continue with zosyn - Blood culture negative - Scrotum fluid culture growing citrobacter freundii and bacteriodes ovatus/ xylanisolvens - Resuming Warfarin 03/22/2019 - NS IV fluid 50 ml/hr - Wound nurse onboard - Replace K # Acute kidney injury on CKD, likely multifactorial (infection vs drug induced) - resolved Plan: - Will continue to hold lisinopril and lasix post debridement - Continue with IV fluid - Morning labs Stable Chronic Medical Conditions: -Systolic CHF - A-fib- resuming warfarin - Non ischemic cardiomyopathy -CAD- on ASA, metoprolol -V-tach s/p ICD -DM2, diet-controlled: low-dose SSI -GERD: continue omeprazole 20mg -COPD: stable, not on home meds -Pulm HTN: stable -Anemia, normocytic, stable -HLD: simvastatin -PVD: stable, intact pulses, continue simvastatin -MDD, anxiety: continue Paxil 20mg -BPH: continue Flomax - s/p right great toe amputation d/t osteomyelitis: well-healed, stable - RA on prednisone and leflunomide CODE STATUS: Full Code Pain medication: Acetaminophen for mild pain, oxycodone for moderate to severe pain, dilaudid for breakthrough pain and with dressing changes. Narcan for overdose (respriatory depression or arrest) DVT Prophylaxis:Heparin subQ Therapies: PT/OT Disposition: TBD Diet: Regular Interval History Wade is a 78 yo male with extensive medical history and recently seen at [place] for scrotal pain/swelling treated with vanco and zosyn and discharged on keflex, admitted with similar problem found to have suspected scrotal cellulitis /necrotizing on zosyn s/p scrotal debridement. No acute events overnight. Pt denies any new concerns this AM. Patient looks less confused than yesterday. He remains afebrile, pulse in the 70s, blood pressure 120/50s mmHg, saturating well on room air. S/p scrotal debridement on zosyn and IV fluid. Urology following and ID following. Review of Systems Review of Systems Constitution: Negative for chills, decreased appetite, diaphoresis, fever and weight loss. Cardiovascular: Negative for chest pain, dyspnea on exertion and leg swelling. Respiratory: Negative for cough, shortness of breath, sputum production and wheezing. Musculoskeletal: Negative for back pain, falls and muscle weakness. Gastrointestinal: Negative for bloating, constipation, diarrhea, nausea and vomiting. Neurological: Negative for dizziness, headaches, light-headedness and weakness. Psychiatric/Behavioral: Negative. Physical Exam Blood pressure 127/62, pulse 77, temperature 98.7 F (37.1 C), resp. rate 16 , height 175.3 cm (69"), weight 73.3 kg (161 lb 9.6 oz), SpO2 98 %. Physical Exam Constitutional: He is oriented to person, place, and time. He appears well- developed and well-nourished. No distress. HENT: Head: Normocephalic and atraumatic. Eyes: Pupils are equal, round, and reactive to light. Conjunctivae and EOM are normal. Neck: Normal range of motion. Neck supple. No JVD present. Cardiovascular: Normal rate and regular rhythm. Pulmonary/Chest: Effort normal and breath sounds normal. He has no wheezes. Abdominal: Soft. Bowel sounds are normal. He exhibits no distension. There is no tenderness. Genitourinary: Genitourinary Comments: S/p debridement, wrapped Musculoskeletal: Normal range of motion. He exhibits no edema. Neurological: He is alert and oriented to person, place, and time. Skin: Skin is warm and dry. No erythema. Labs reviewed. All pertinent positives and negatives reflected in the assessment and plan Medical Decision making Reviewed: previous chart, nursing note and vitals Reviewed previous: labs Lucas Bailey MD Internal Medicine Resident, PGY1 Pager #[phone] [place], [place] Associated attestation - Hilary Feliz MD - 03/22/2019 4:12 PM CDT I discussed the patient with the resident and personally interviewed and examined the patient. I verified in the medical record all resident documentation/findings, including history, physical exam, and medical decision making, and I agree with the resident's documentation. Note the following additions/corrections: Resume coumadin given no surgical intervention planned in the next couple weeks. Will need to stop again in preparation for flap. Eriberto Contreras MD - 03/22/2019 11:49 AM CDT INFECTIOUS DISEASES INPATIENT PROGRESS NOTE 03/22/2019 DIAGNOSIS: #1 Necrotizing skin and soft tissue infection of the scrotum #2 Acute renal failure, multifactorial - sepsis, medication induced #3 Multiple other medical comorbidities contributing to and complicating the primary diagnosis - Diabetes Mellitus Type 2, RA with immunosuppression, preipheral vascular disease etc. ASSESSMENT, PLAN AND RECOMMENDATIONS Stable postop. Surrounding cellulitis much improved. Has a large residual ulcer which will need flapcoverage. He has been evaluated by plastics and the plan is for a graft placement in 2-3 weeks. As for antibiotics, continue Piperacillin / tazobactam for now. Vancomycin can be stopped. At discharge, please switch to Cipro 500 mg PO BID and Augmentin 875 mg PO BID. Total duration of antibiotic therapy would be 10 days postop through 03/27/2019. I will sign off. Please call with questions. Eriberto Contreras MD BACKGROUND: Patient is a 78yr old male who is being followed for necrotizing scrotal infection. Had debridement for the same on 03/17/2019. He is currently on treatment with Vancomycin and Unasyn. INTERVAL HISTORY: The patient is seen in follow-up. He is stable. No new events over the weekend. His cultures grew Citrobacter so Unasyn was switched to zosyn. REVIEW OF SYSTEMS: Pertinent positives and negatives as outlined in Interval History. Rest negative MEDICATIONS: Reviewed in EMR PHYSICAL EXAM Vital Signs: BP: 132/63; Pulse: 79; Temp: 97.9 F (36.6 C); Resp: 16; SpO2: 98 %;O2 Device: Room Air O2 Flow Rate (L/min): 0 l/min; Maximum Temperatures (last 24 hours) Temperature Maximum Max Temp 98.3 F (36.8 C) General: No acute distress Skin: No new rashes or lesions Chest: Clear to auscultation Cardiovascular: Regular rate and rhythm. No murmurs, rubs or gallop Abdomen: Soft and non tender. No organomegaly Genitourinary: Large ulcer primarily on right side of scrotum. Minimal superficial necrotic tissue.Base with granulation tissue and exposed right testicle. Surrounding erythema, swelling and tenderness is much improved. Musculoskeletal: No large joint swelling, tenderness or redness Neurological: Alert and oriented x 3. No gross motor deficits REVIEW AND INTERPRETATION OF LAB AND IMAGING DATA: Microbiology: Blood Cultures - 03/17 - negative Tissue culture - 03/17 - Citrobacter, Bacteroides, Actinomyces Lab Results Component Value Date WBC 7.1 03/22/2019 HEMOGLOBIN 8.7 (L) 03/22/2019 PLTCOUNT 164 03/22/2019 CREATSERUM 1.14 03/22/2019 ALKPHOS 122 03/22/2019 AST 13 03/22/2019 ALT 16 03/22/2019 VANCORAND 12.8 03/18/2019 Marcia Mckeon APRN-MEDICAID SPECIALIST - 03/22/2019 9:40 AM CDT Urology Post-Op Progress Note Wade Herbert is a 78yr old male admitted on 03/16/2019 5 Days Post-Op: Procedure(s): SCROTAL DEBRIDEMENT S: No acute events overnight. Denies having any fevers, chills, or sweats. No CP or SOB. Currently sitting up in a chair. Denies lightheadedness, dizziness, or being uncomfortable up. Has pain to the surgical incision which is controlled with current analgesics. Has been ambulating some. Tolerating dietwithout nausea , vomiting or upset stomach. passing flatus. No voiding concerns. Discussed possible transfer to [facility] today with ongoing wound cares per WOCN/ Plastic sugery recs. Dr. Castorena is aware of possible transfer and plans on seeing him sometime today. Questions answered. Patient verbalizes understanding of all that is discussed and expresses no other questions or concerns at this time. O: Vital signs and nurses notes reviewed. Vital Signs: Temp: 97.9 F (36.6 C) | BP: 132/63 | Pulse: 79 | Resp: 16 | Pain Ratin (out of 10) | Weight: 73.3 kg (161 lb 9.6 oz) | O2 Device: Room Air O2 Flow Rate (L/min): 0 l/min | SpO2: 98 % Maximum Temperatures (last 24 hours) Temperature Maximum Max Temp 98.3 F (36.8 C) Intake and Output: 03/21 0700 - 03/22 0659 In: 814 [Oral:120] Out: 400 [Urine:400] General: Pleasant male. WDWN, NAD Neuro: Alert and oriented. TAYLOR to command. Limited exam. Lungs: few faint rhonchi NESTOR. No cough or wheezing. Breathing non-labored. CV: RRR, normal S1 and S2. No murmur. Abdomen: Bowel sounds present, soft, nondistended.NT : bladder is non-distended, non-tender and without palpable mass. No CVA tenderness.penies is normal. No urethral discharge. scrotum is very mildly erythematous. Dressing removed. Left hemiscrotum wound bed with wet eschar. Wound edges clean. Right hemiscrotum wound edges clean. Right testicle appears viable. Wound irrigated and covered with saline moistened gauze, covered with 4 x 4 gauze and ABD.Pull ups to secure. No surrounding celllulitis, crepitus, foul odor, necrotic areas to suggest fourniers. Extremities: no clubbing, cyanosis, or peripheral edema. Drains: none Labs: Lab Results Component Value Date WBC 7.1 03/22/2019 NUCRBC 0 03/22/2019 RBC 3.10 (L) 03/22/2019 HEMOGLOBIN 8.7 (L) 03/22/2019 HEMATOCRIT 27.7 (L) 03/22/2019 MCV 89.4 03/22/2019 MCH 28.1 03/22/2019 MCHC 31.4 (L) 03/22/2019 RDW 16.7 (A) 02/22/2019 PLTCOUNT 164 03/22/2019 NEUTROPCT 65.7 03/22/2019 BANDPCT 0.2 02/22/2019 LYMPHSPCT 19.2 03/22/2019 MONOSPCT 11.3 03/22/2019 EOSPCT 3.5 03/22/2019 BASOPHILPCT 0.3 03/22/2019 Lab Results Component Value Date GLUCOSE 116 (H) 03/22/2019 BUN 14 03/22/2019 CREATSERUM 1.14 03/22/2019 BCRATIO 12.3 03/22/2019 NA 138 03/22/2019 POTASSIUM 3.2 (L) 03/22/2019 CL 107 03/22/2019 CO2 23 03/22/2019 ANIONGAP 10 02/26/2016 CA 8.3 (L) 03/22/2019 PROTEINTOTAL 5.5 (L) 03/22/2019 ALBUMIN 2.8 (L) 03/22/2019 ALKPHOS 122 03/22/2019 AST 13 03/22/2019 ALT 16 03/22/2019 BILITOTAL 0.7 03/22/2019 Lab Results Component Value Date PSA 1.10 03/16/2012 Lab Results Component Value Date COLORUR Yellow 03/17/2019 CLARITYUR Clear 03/17/2019 GLUCOSEUR Negative 03/17/2019 BILIUR Negative 03/17/2019 SPECGRAV 1.010 03/17/2019 BLDUR Negative 03/17/2019 PHURINE 7.0 03/17/2019 PROTEINUA Negative 03/17/2019 UROBILINOGEN < 2 mg/dL 03/17/2019 NITRITE Negative 03/17/2019 LEUKESTERUR Negative 03/17/2019 WBCUR 0-2 06/10/2016 RBCUR 20-29 (A) 06/10/2016 SQUAMEPI Negative 06/10/2016 BACTERIAUA Rare (0-5) 06/10/2016 Lab Results Component Value Date CULTGROWTH Moderate Bacteroides ovatus/xylanisolvens (!) 03/17/2019 CULTGROWTH Moderate Actinomyces europaeus (!) 03/17/2019 CULTGROWTH Moderate Citrobacter freundii complex (!) 03/17/2019 Radiology: Relevant diagnostic, laboratory and radiological studies been reviewed in the Electronic Medical Record. A/P: 1. Soft tissue infection of the scrotum . He is 5 Days Post-Op Procedure(s): SCROTAL DEBRIDEMENT. Cultures growing Citrobacter freundii complex, Bacteroides ovatus/xylanisolvens , Actinomyces europaeus. ID following for AB management. Dr. Elizabeth with plastic surgery saw over the weekend. Drilling Superintendent pending. [facility] documents request for PRP treatments to the wound which are not available at [facility], but available at [facility]. Patient will likely be transferred to [facility] today or early this week for wound care and AB therapy. Continue with local wound cares bid--wet to dry dressings until transferred to [facility]. Will likely undergo creation of skin flap in a few weeks. Dr. Castorena aware of above. Will defer wound management to [facility]/plastic surgery expertise No other needs identified at this time. Will sign off. Please reconsult prn. Marcia Bravo DNP, [employer] ADJUSTER-BC, [facility] [facility] Pager [phone] Lucas Michel MD - 03/21/2019 10:41 AM CDT . INTERNAL MEDICINE DAILY PROGRESS NOTE Patient Name: Wade Herbert Admitted: 03/16/2019 Today's Date: 03/21/2019 Assessment and Plan Acute Medical Conditions: # Scrotal necrotizing/cellulitis 2/2 scrotal injury # Delirum Plan: - Urology consult appreciated- s/p debridement - Plastic surgery consult appreciated - Blood culture negative, tissue culture result pending - Scrotum fluid culture growing citrobacter freundii and bacteriodes ovatus/ xylanisolvens - Continue with Vancomycin and Unasyn for now - Holding anticoagulation at this time pending surgical needs - NS IV fluid 50 ml/hr -Wound nurse onboard - Delirium protocol in place # Acute kidney injury on CKD, likely multifactorial (infection vs drug induced) - resolved Plan: - Will continue to hold lisinopril and lasix post debridement - Continue with IV fluid - Morning labs Stable Chronic Medical Conditions: -Systolic CHF - A-fib- held warfarin, will need to bridge heparin tomorrow - Non ischemic cardiomyopathy -CAD- on ASA, metoprolol -V-tach s/p ICD -DM2, diet-controlled: low-dose SSI -GERD: continue omeprazole 20mg -COPD: stable, not on home meds -Pulm HTN: stable -Anemia, normocytic, stable -HLD: simvastatin -PVD: stable, intact pulses, continue simvastatin -MDD, anxiety: continue Paxil 20mg -BPH: continue Flomax - s/p right great toe amputation d/t osteomyelitis: well-healed, stable - RA on prednisone and leflunomide CODE STATUS: Full Code Pain medication: Acetaminophen for mild pain, oxycodone for moderate to severe pain, dilaudid for breakthrough pain and with dressing changes. Narcan for overdose (respriatory depression or arrest) DVT Prophylaxis:Heparin subQ Therapies: PT/OT Disposition: TBD Diet: Regular Interval History Wade is a 78 yo male with extensive medical history and recently seen at [place] for scrotal pain/swelling treated with vanco and zosyn and discharged on keflex, admitted with similar problem found to have suspected scrotal cellulitis /necrotizing on vanco and unasyn s/p scrotal debridement. No acute events overnight. Pt denies any new concerns this AM, but looks very confused. Afebrile, pulse in the 70s, blood pressure 120/50s mmHg, saturating well on room air. S/p scrotal debridement on vanco and unasyn and IV fluid. Urology following, plastic surgery consult apopreciated. ID following, continue with current treatment regimen pending culture results. Review of Systems Review of Systems Constitution: Negative for chills, decreased appetite, diaphoresis, fever and weight loss. Cardiovascular: Negative for chest pain, dyspnea on exertion and leg swelling. Respiratory: Negative for cough, shortness of breath, sputum production and wheezing. Musculoskeletal: Negative for back pain, falls and muscle weakness. Gastrointestinal: Negative for bloating, constipation, diarrhea, nausea and vomiting. Neurological: Negative for dizziness, headaches, light-headedness and weakness. Psychiatric/Behavioral: Negative. Physical Exam Blood pressure 121/45, pulse 71, temperature 98.1 F (36.7 C), resp. rate 18 , height 175.3 cm (69"), weight 74.3 kg (163 lb 14.4 oz), SpO2 95 %. Physical Exam Constitutional: He is oriented to person, place, and time. He appears well- developed and well-nourished. No distress. HENT: Head: Normocephalic and atraumatic. Eyes: Pupils are equal, round, and reactive to light. Conjunctivae and EOM are normal. Neck: Normal range of motion. Neck supple. No JVD present. Cardiovascular: Normal rate and regular rhythm. Pulmonary/Chest: Effort normal and breath sounds normal. He has no wheezes. Abdominal: Soft. Bowel sounds are normal. He exhibits no distension. There is no tenderness. Genitourinary: Genitourinary Comments: S/p debridement, wrapped Musculoskeletal: Normal range of motion. He exhibits no edema. Neurological: He is alert and oriented to person, place, and time. Skin: Skin is warm and dry. No erythema. Labs reviewed. All pertinent positives and negatives reflected in the assessment and plan Medical Decision making Reviewed: previous chart, nursing note and vitals Reviewed previous: labs Lucas Bailey MD Internal Medicine Resident, PGY1 Pager #[phone] [place], [place] Associated attestation - Navjot Leigh MD - 03/25/2019 1:59 PM CDTI discussed the patient with the resident and personally interviewed and examined the patient. I agree with the resident's diagnosis and management. Mr. Herbert remains stable on antibiotics, Vanc and Unasyn, and continued wound care. Will need to discuss placement as plastics is saying that he will likely need to wait 2-3 weeks prior to a skin graft to close the wound. Creatinine is back to his baseline but we will hold his Lisinopril and lasix. Monitor weights and breathing. Robb Leigh MD [facility] Clinical Learning Specialistsenior climate advisor [employer] Pager: [phone] Richard Cisse MD - 03/21/2019 8:52 AM CDTDressing changed at bedside with nursing assistance. Patient received prn pain meds prior. Previous dressing removed. Area cleansed with NS. R hemiscrotum probed with Q tip. Wet to dry kerlix packed into R hemiscrotum. Xeroform placed over raw area on L hemiscrotum and small area of exposed right testicle. ABD placed over scrotum with mesh underpants. Patient tolerated well. Richard Cannon MD - 2018 9:00 AM CDTDressing change at bedside with nurse this morning. Previous dressing was removed and the wound wasirrigated. Xeroform gauze was placed over right testicle. Xeroform gauze was also placed over leftopen wound on left hemiscrotum. Wet-to-dry Kerlix was then packed into right hemiscrotum. Patient did receive pain medication prior to the dressing change and tolerated it well. He will require daily dressing changes as he has previously been having. He will likely require plastic surgery consultation at some point to discuss skin grafting. Continue current cares. Lucas Michel MD - 03/20/2019 7:52 AM CDT . INTERNAL MEDICINE DAILY PROGRESS NOTE Patient Name: Wade Herbert Admitted: 03/16/2019 Today's Date: 03/20/2019 Assessment and Plan Acute Medical Conditions: # Scrotal necrotizing/cellulitis 2/2 scrotal injury Plan: - Urology consult appreciated- s/p debridement - Plastic surgery consult. - Blood culture negative, tissue culture result pending - Scrotum fluid culture growing citrobacter freundii - Continue with Vancomycin and Unasyn for now - Holding anticoagulation at this time pending surgical needs - NS IV fluid 50 ml/hr -Wound nurse onboard # Acute kidney injury on CKD, likely multifactorial (infection vs drug induced) - resolved Plan: - Will continue to hold lisinopril and lasix post debridement - Continue with IV fluid - Morning labs Stable Chronic Medical Conditions: -Systolic CHF - A-fib- held warfarin, will need to bridge heparin tomorrow - Non ischemic cardiomyopathy -CAD- on ASA, metoprolol -V-tach s/p ICD -DM2, diet-controlled: low-dose SSI -GERD: continue omeprazole 20mg -COPD: stable, not on home meds -Pulm HTN: stable -Anemia, normocytic, stable -HLD: simvastatin -PVD: stable, intact pulses, continue simvastatin -MDD, anxiety: continue Paxil 20mg -BPH: continue Flomax - s/p right great toe amputation d/t osteomyelitis: well-healed, stable - RA on prednisone and leflunomide CODE STATUS: Full Code Pain medication: Acetaminophen for mild pain, oxycodone for moderate to severe pain, dilaudid for breakthrough pain and with dressing changes. Narcan for overdose (respriatory depression or arrest) DVT Prophylaxis:Heparin subQ Therapies: PT/OT Disposition: TBD Diet: Regular Interval History Wade is a 78 yo male with extensive medical history and recently seen at [place] for scrotal pain/swelling treated with vanco and zosyn and discharged on keflex, admitted with similar problem found to have suspected scrotal cellulitis /necrotizing on vanco and unasyn s/p scrotal debridement. No acute events overnight. Pt denies any new concerns this AM. Afebrile, pulse in the 70s, blood pressure 144/57 mmHg, saturating well on room air. S/p scrotal debridement on vanco and unasyn and IV fluid. Urology following, plastic surgery consult apopreciated. ID following, continue with current treatment regimen pending culture results. Review of Systems Review of Systems Constitution: Negative for chills, decreased appetite, diaphoresis, fever and weight loss. Cardiovascular: Negative for chest pain, dyspnea on exertion and leg swelling. Respiratory: Negative for cough, shortness of breath, sputum production and wheezing. Musculoskeletal: Negative for back pain, falls and muscle weakness. Gastrointestinal: Negative for bloating, constipation, diarrhea, nausea and vomiting. Neurological: Negative for dizziness, headaches, light-headedness and weakness. Psychiatric/Behavioral: Negative. Physical Exam Blood pressure 132/51, pulse 74, temperature 98 F (36.7 C), resp. rate 18, height 175.3 cm (69"), weight 70.7 kg (155 lb 12.8 oz), SpO2 97 %. Physical Exam Constitutional: He is oriented to person, place, and time. He appears well- developed and well-nourished. No distress. HENT: Head: Normocephalic and atraumatic. Eyes: Pupils are equal, round, and reactive to light. Conjunctivae and EOM are normal. Neck: Normal range of motion. Neck supple. No JVD present. Cardiovascular: Normal rate and regular rhythm. Pulmonary/Chest: Effort normal and breath sounds normal. He has no wheezes. Abdominal: Soft. Bowel sounds are normal. He exhibits no distension. There is no tenderness. Genitourinary: Genitourinary Comments: S/p debridement, wrapped Musculoskeletal: Normal range of motion. He exhibits no edema. Neurological: He is alert and oriented to person, place, and time. Skin: Skin is warm and dry. No erythema. Labs reviewed. All pertinent positives and negatives reflected in the assessment and plan Medical Decision making Reviewed: previous chart, nursing note and vitals Reviewed previous: labs Lucas Bailey MD Internal Medicine Resident, PGY1 Pager #[phone] [place], [place] Associated attestation - Navjot Leigh MD - 03/25/2019 1:54 PM CDTI discussed the patient with the resident and personally interviewed and examined the patient. I agree with the resident's diagnosis and management. Mr. Herbert is stable today. Creatinine continues to improve and his wound care is going well with the IV dilaudid prior. Will have plastics evaluate today for timing of a likely wound graft. Cultures still pending and ID is following. Robb Leigh MD [facility] Clinical Learning Specialistsenior climate advisor [employer] Pager: [phone] Eriberto Contreras MD - 03/19/2019 9:40 AM CDT INFECTIOUS DISEASES INPATIENT PROGRESS NOTE 03/19/2019 DIAGNOSIS: #1 Necrotizing skin and soft tissue infection of the scrotum #2 Acute renal failure, multifactorial - sepsis, medication induced #3 Multiple other medical comorbidities contributing to and complicating the primary diagnosis - Diabetes Mellitus Type 2, RA with immunosuppression, preipheral vascular disease etc. ASSESSMENT, PLAN AND RECOMMENDATIONS The patient is recovering well but he has quite a deep wound with exposed testicle. Necrotic tissuehas been debrided. He still has ongoing cellulitis. We will continue the current antimicrobial therapy of Vancomycin and Unasyn pending results of tissue culture. I checked with the lab and thus farit is growing a beta-hemolytic colony which may be a staph aureus. The cultures on the Lilia agar are not growing very well so we will incubate that for 1 more day. I will continue to follow with you. Eriberto Contreras MD BACKGROUND: Patient is a 78yr old male who is being followed for necrotizing scrotal infection. He is currently on treatment with Vancomycin and Unasyn. INTERVAL HISTORY: The patient is seen in follow-up. He underwent debridement of his necrotic scrotal tissue on 03/17/2019. He is stable postop. No fever. He has quite a bit of tenderness in his scrotum. REVIEW OF SYSTEMS: Pertinent positives and negatives as outlined in Interval History. Rest negative MEDICATIONS: Reviewed in EMR PHYSICAL EXAM Vital Signs: BP: 129/62; Pulse: 70; Temp: 98 F (36.7 C); Resp: 17; SpO2: 100 %;O2 Device: Room Air O2 Flow Rate (L/min): 0 l/min; Maximum Temperatures (last 24 hours) Temperature Maximum Max Temp 98.3 F (36.8 C) General: No acute distress Skin: No new rashes or lesions Chest: Clear to auscultation Cardiovascular: Regular rate and rhythm. No murmurs, rubs or gallop Abdomen: Soft and non tender. No organomegaly Genitourinary: Large ulcer primarily on right side of scrotum. No more necrotic tissue. Base with granulation tissue and exposed testicle. Surrounding erythema , swelling and tenderness is present. Musculoskeletal: No large joint swelling, tenderness or redness Neurological: Alert and oriented x 3. No gross motor deficits REVIEW AND INTERPRETATION OF LAB AND IMAGING DATA: Microbiology: Blood Cultures - 03/17 - negative Tissue culture - 03/17 - pending Lab Results Component Value Date WBC 8.2 03/19/2019 HEMOGLOBIN 9.2 (L) 03/19/2019 PLTCOUNT 169 03/19/2019 CREATSERUM 1.36 (H) 03/19/2019 ALKPHOS 88 03/19/2019 AST 13 03/19/2019 ALT 9 03/19/2019 VANCORAND 12.8 03/18/2019 ngelica Cintron PA-C - 03/19/2019 9:23 AM CDT Patient ID: Wade Herbert is a 78yr male. CSN: [id number] PCP: Adelita Seth MD Room: [facility] Attending Provider: Navjot Leigh MD Date of admission: 03/16/2019 Urology Progress Note HPI 78yr old male with a hx of scrotal injury and infected necrotic scrotal skin, now 2 Days Post-Op. Debridement by Dr. Castorena. ID on board, MARCIOCN changed dressing yesterday, did not feel he was a candidate for wound vac. he is otherwise receiving bid dressing changes. Per nursing staff. Wound is deep and patient requires pre-procedure pain management. 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 Sp BCG treatments No recurrance. Follows with Dr. Castorena, last cystoscopy, 11/25/2014 Identified bilateral lobe hypertrophy of prostate, obstructive changes of bladder otherwise normal bladder and urethra mucosa were normal. History of abnormal urine cytology, followed by normals. He is on6 month cystoscopy surveillance. He has had ESWL. Known history of bilateral renal stones, non obstructing and asymptomatic. Last CT 11/12 "several small nonobstructing calculi scattered in each kidney. There are a few well-defined low-attenuation masses in each kidney, the largest of which is exophytic laterally on the left and measures 4.4 cm in diameter." . has a past medical history of Anemia, Anxiety (09/27/2016), Aortic insufficiency, Arthritis, Atrialfibrillation ([facility]), Bacteremia, Basal cell carcinoma of skin, Bilateral renal cysts, Bladder cancer ([facility]), Bladder tumor, CAD (coronary artery disease), Cardiomyopathy, dilated, nonischemic ([facility]), Cataract, CHF (congestive heart failure) ([facility]), Cholelithiasis, Chronic airway obstruction, not elsewhereclassified, Chronic back pain, COPD (chronic obstructive pulmonary disease) ([facility]), Depression, Diabetes mellitus ([facility]), GERD (gastroesophageal reflux disease), H. pylori infection, Hard of hearing, Hepatitis, History of osteomyelitis, HLD (hyperlipidemia), Hypertension, ICD ( implantable cardioverter-defibrillator) in place, Inappropriate shocks from ICD (implantable cardioverter-defibrillator) (2015), Kidney stones, MSSA ( methicillin susceptible Staphylococcus aureus) infection, Osteopenia, Osteoporosis, PAD (peripheral artery disease) ([facility]), Partial nontraumatic amputation of right foot ([facility]), Presence of automatic (implantable) cardiac defibrillator, PUD (peptic ulcer disease), Pulmonary fibrosis ([facility]), Pulmonary hypertension ([facility]), PVD (peripheral vascular disease) ([facility]), RA (rheumatoid arthritis) ([facility]), Smoker, 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 He also has no past medical history of Actinic keratosis, HIV infection ([facility]), Melanoma ([facility]), Myocardial infarction ([facility]), Seizures ([facility]), or Squamous cell carcinoma. No current facility-administered medications on file prior to encounter. Current Outpatient Medications on File Prior to Encounter Medication Sig Dispense Refill HYDROcodone-acetaminophen (NORCO) 10-325 mg tablet Take 1 tablet by mouth 2 times a day as needed for moderate pain 60 tablet 0 omeprazole (PRILOSEC) 20 mg capsule Take 20 mg by mouth 1 time a day in the morning PARoxetine (PAXIL) 20 mg tablet Take 20 mg by mouth 1 time per day predniSONE 5 mg tablet Take 5 mg by mouth 1 time per day leflunomide (ARAVA) 20 mg tablet TAKE 1 TABLET (20 MG) BY MOUTH 1 TIME PER DAY 90 tablet 0 metoprolol succinate (TOPROL XL) 100 mg SR tablet (24 hr) Take 1 tablet ( 100 mg) by mouth 1 timeper day 90 tablet 3 tamsulosin (FLOMAX) 0.4 mg capsule TAKE 1 CAPSULE BY MOUTH ONCE A DAY ( Patient taking differently: Take 0.4 mg by mouth 1 time per day at noon TAKE 1 CAPSULE BY MOUTH ONCE A DAY) 90 capsule 4 simvastatin (ZOCOR) 20 mg tablet TAKE 1 TABLET BY MOUTH ONCE DAILY *MUST MAKE APPOINTMENT WITH BEFORE ANY MORE REFILLS GIVEN* (Patient taking differently: Take 20 mg by mouth every night at bedtime TAKE 1 TABLET BY MOUTH ONCE DAILY *MUST MAKE APPOINTMENT WITH BEFORE ANY MORE REFILLS GIVEN*) 90 tablet 3 Fe Jkrnwj-Nnty-K-Thre-B12-FA (IRON-150 PO) Take 1 tablet by mouth 1 time per day at noon acetaminophen (TYLENOL) 325 mg tablet Take 650 mg by mouth every 6 hours as needed for fever furosemide (LASIX) 20 mg tablet Take 1 tablet (20 mg) by mouth 1 time per day (Patient taking differently: Take 20 mg by mouth 1 time a day as needed for other (Specify) (swelling) ) 1 lisinopril (PRINIVIL, ZESTRIL) 10 mg tablet Take 1.5 tablet (15 mg) by mouth at bedtime. 3 aspirin (ASPIRIN LOW DOSE) 81 mg chewable tablet Take 81 mg by mouth 1 time per day. calcium carbonate-vitamin D (CALCIUM 500+D) 500 mg-200 unit tablet Take 1 tablet by mouth 1 timeper day at noon With meals nitroglycerin (NITROSTAT) 0.4 mg sublingual tablet Dissolve 1 tablet under the tongue as needed for chest pain. 25 tablet 1 Allergies Allergen Reactions Celebrex [Celecoxib] Stomach Pain A/P: 1. scrotal infection GEN: 2 Days Post-Op: Procedure(s): SCROTAL DEBRIDEMENT Overall doing well. Wound dressing exchange was done by myself. No obvious concerns noted at this time. This is an extensive wound. With patient's permission, photos were obtained for assessment of wound progression and attached to this note. See media tab for further photos. Per WOCN, pt. is not a candidate for wound vac. Will need tissue grafting at some point. He will require plastic or other appropriate consult for further wound management for flap or tissuegraft. Otherwise continue with AB per ID team. Continue with BID wet to dry dressing changes as currently planned. Patient requires premedication with narcotics prior to wound cares. Remainder of cares per primary team Subjective: No acute events overnight. Pain level at rest and with ambulation is improving and well controlled. moderately controlled with dressing changes deniesN/ V. Tolerating diet with BM this am Has been OOB since surgery. DeniesCP/ SOB/ lightheadedness/ dizziness/ fever/ chills AM Labwork: Lab Results Component Value Date WBC 8.2 03/19/2019 WBC 7.4 03/18/2019 Lab Results Component Value Date HEMOGLOBIN 9.2 (L) 03/19/2019 HEMOGLOBIN 10.0 (L) 03/18/2019 Lab Results Component Value Date CREATSERUM 1.36 (H) 03/19/2019 CREATSERUM 1.37 (H) 03/18/2019 Current Abx/Cultures: Initial gram stain gram + cocci in pairs. BC neg thus far BP 150/55 Pulse 76 Temp 97.9 F (36.6 C) Resp 16 Ht 1.753 m (5' 9") Wt 72.4 kg (159 lb 9.6 oz) SpO2 96% BMI 23.57 kg/m2|| Physical Exam: Gen: WDWN elderly male in NAD. Awake and cooperative. Talkative. Appropriate mood and affect. HEENT: eyes without icterus or drainage, ears normal externally, hard of hearing trachea midline. Resp: CTAB. No wheezes, rales, rhonchi. No accessory muscle use. No labored respiratory effort. Abd: (+) BS, soft, NTND. No guarding or rebound tenderness. : No suprapubic tenderness or bladder distention. No inguinal lymphadenopathy.There is a 1 cm round lesion, probably an inclusion cyst in left groin, no inflammation or tenderness He is circumcised, normal penile shaft, glans and meatus Scrotal wound shows no evidence of infection, no fluctuance, crepitus or ecchymosis. Edges of scrotal skin are thickened and edematous, scattered eschar along skin border of a large area of denuded tissue anterior scrotum . No active draining, no foul odor. [place] granulation tissue over bilateral testicles which are denuded and exposed. Scattered areas of exudate over right testicle. Dressings moistened with sterile NS for easier removal. There was small amount packing to remove from deep wound. Area was cleansed and probed with sterile q tips, loculations broken up, deepest wound approx. 5 cm deep located superior and right lateral scrotum along lateral edge of right testicle. Wound edge on left lateral border is adhered. Wound redressed using NS moistened kerlix role packing deep in right lateral wound with assistance of qtips. Wet to dry, abd and new scrotal support briefs Patient tolerated procedure reasonably well. Neuro: L2-S1 sensation grossly intact. Moves upper and lower extermities spontaneously PV: skin warm and dry. SCDs intact b/l. No calf tenderness to squeeze b/l. No pitting edema. Intake/Output Summary (Last 24 hours) at 03/19/2019 09 Last data filed at 03/19/2019 0640 Gross per 24 hour Intake 3060 ml Output 450 ml Net 2610 ml Labs/Diagnostics: reviewed. BP 150/55 Pulse 76 Temp 97.9 F (36.6 C) Resp 16 Ht 1.753 m (5' 9") Wt 72.4 kg (159 lb 9.6 oz) SpO2 99% BMI 23.57 kg/m2|| Report [id number] - MEDIA REPORT: MEDIA INFORMATION Print Group [id number] - Media: Media Header Media Information Print Group 71023 - Media: Media Display Print Group 5004 - Media: Media Routing History Print Group 61083 - Media: Anand Information (Rich Text) Document Information Photo Clinical 03/19/2019 10:24 Attached To: Hospital Encounter on 03/16/19 Source Information Eladio Lira RN | Med Surg 8cd [facility] Report [id number] - MEDIA REPORT: MEDIA INFORMATION Print Group [id number] - Media: Media Header Media Information Print Group 11757 - Media: Media Display Print Group 5004 - Media: Media Routing History Print Group 04644 - Media: Anand Information (Rich Text) Document Information Photo Clinical 03/19/2019 10:25 Attached To: Hospital Encounter on 03/16/19 Source Information Eladio Lira RN | Med Surg 8[facility] Dexter Parada MD - 03/19/2019 8:40 AM CDT . INTERNAL MEDICINE DAILY PROGRESS NOTE Patient Name: Wade Herbert Admitted: 03/16/2019 Today's Date: 03/19/2019 Assessment and Plan Acute Medical Conditions: # Scrotal necrotizing/cellulitis 2/2 scrotal injury # Questionable delirium Plan: - Urology consult appreciated- s/p debridement - Blood culture negative - Tissue culture result pending - Continue with Vancomycin and Unasyn for now - Holding anticoagulation at this time pending surgical needs - Consider consulting plastic surgery for reconstructive needs - NS IV fluid 50 ml/hr - Monitor for delirium, delirium protocol in place -Wound nurse onboard # Acute kidney injury on CKD, likely multifactorial (infection vs drug induced) - improving Plan: - Will continue to hold lisinopril and lasix post debridement - Trend Cr - Continue with IV fluid - Morning labs Stable Chronic Medical Conditions: -Systolic CHF - A-fib- held warfarin, will need to bridge heparin tomorrow - Non ischemic cardiomyopathy -CAD- on ASA, metoprolol -V-tach s/p ICD -DM2, diet-controlled: low-dose SSI -GERD: continue omeprazole 20mg -COPD: stable, not on home meds -Pulm HTN: stable -Anemia, normocytic, stable -HLD: simvastatin -PVD: stable, intact pulses, continue simvastatin -MDD, anxiety: continue Paxil 20mg -BPH: continue Flomax - s/p right great toe amputation d/t osteomyelitis: well-healed, stable - RA on prednisone and leflunomide CODE STATUS: Full Code Pain medication: Acetaminophen for mild pain, oxycodone for moderate to severe pain, dilaudid for breakthrough pain and with dressing changes. Narcan for overdose (respriatory depression or arrest) DVT Prophylaxis:Heparin subQ Therapies: PT/OT Disposition: TBD Diet: Regular Interval History Wade is a 78 yo male with extensive medical history and recently seen at [place] for scrotal pain/swelling treated with vanco and zosyn and discharged on keflex, admitted with similar problem found to have suspected scrotal cellulitis /necrotizing on vanco and unasyn s/p scrotal debridement. No acute events overnight. Pt denies any new concerns this AM. Afebrile, pulse in the 70s, blood pressure 150/50s mmHg, saturating well on room air. S/p scrotal debridement on vanco and unasyn and IVfluid. Urology following, planning for continued debridement and plastic surgery consult. ID following, continue with current treatment regimen pending culture results. Review of Systems Review of Systems Constitution: Negative for chills, decreased appetite, diaphoresis, fever and weight loss. Cardiovascular: Negative for chest pain, dyspnea on exertion and leg swelling. Respiratory: Negative for cough, shortness of breath, sputum production and wheezing. Musculoskeletal: Negative for back pain, falls and muscle weakness. Gastrointestinal: Negative for bloating, constipation, diarrhea, nausea and vomiting. Neurological: Negative for dizziness, headaches, light-headedness and weakness. Psychiatric/Behavioral: Negative. Physical Exam Blood pressure 152/56, pulse 59, temperature 97.8 F (36.6 C), resp. rate 16 , height 175.3 cm (69"), weight 72.4 kg (159 lb 9.6 oz), SpO2 97 %. Physical Exam Constitutional: He is oriented to person, place, and time. He appears well- developed and well-nourished. No distress. HENT: Head: Normocephalic and atraumatic. Eyes: Pupils are equal, round, and reactive to light. Conjunctivae and EOM are normal. Neck: Normal range of motion. Neck supple. No JVD present. Cardiovascular: Normal rate and regular rhythm. Pulmonary/Chest: Effort normal and breath sounds normal. He has no wheezes. Abdominal: Soft. Bowel sounds are normal. He exhibits no distension. There is no tenderness. Genitourinary: Genitourinary Comments: S/p debridement, wrapped Musculoskeletal: Normal range of motion. He exhibits no edema. Neurological: He is alert and oriented to person, place, and time. Skin: Skin is warm and dry. No erythema. Labs reviewed. All pertinent positives and negatives reflected in the assessment and plan Medical Decision making Reviewed: previous chart, nursing note and vitals Reviewed previous: labs Dexter Viera MD Internal Medicine Resident, PGY3 Pager #[phone] [place], [place] Associated attestation - Navjot Leigh MD - 03/25/2019 1:47 PM CDTI discussed the patient with the resident and personally interviewed and examined the patient. I agree with the resident's diagnosis and management. Mr. Herbert is mildly confused again this morning but he just received dilaudid IV for the dressing changes. He is not impulsive or agitated at this time. Wound care following and will likely need plastic surgery consult eventually for closure. Will have them follow up for timing. Continue wound cares as well as IV antibiotics. Robb Leigh MD [facility] Clinical Learning Specialistsenior climate advisor [employer] Pager: [phone] [place] [facility] D - 03/18/2019 9:48 PM CDT Mr. Herbert continues on Vancomycin per pharmacy protocol for scrotal abscess. The patient is on day 2 of receiving Vancomycin. Labs: WBC Date/Time Value Ref Range Status 03/18/2019 07:47 AM 7.4 4.0 - 11.0 K/uL Final 03/17/2019 05:57 AM 6.0 4.0 - 11.0 K/uL Final 03/16/2019 03:28 PM 7.5 4.0 - 11.0 K/uL Final Lab Results Component Value Date CREATSERUM 1.37 (H) 03/18/2019 CREATSERUM 1.50 (H) 03/17/2019 CREATSERUM 1.94 (H) 03/16/2019 Vancomycin Random Date/Time Value Ref Range Status 03/18/2019 09:04 PM 12.8 ug/mL Final Cultures: Lab Results Component Value Date CULTGROWTH 03/17/2019 Insufficient growth after overnight incubation. Culture reincubated. Max Temperature: Temp (24hrs), Av.1 F (36.7 C), Min:98 F (36.7 C), Max:98.3 F (36.8 C) Estimated CrCl: Estimated Creatinine Clearance: 43 mL/min (A) (based on SCr of 1.37 mg/dL (H)). ml/min Intake/Output: Intake/Output Summary (Last 24 hours) at 03/18/20192147 Last data filed at 03/18/20192043 Gross per 24 hour Intake 3201 ml Output 350 ml Net 2851 ml Other Active Antimicrobials: unasyn \\ Assessment/Plan: The trough level is within the desired goal of 10-20 mg/L. Vancomycin will be scheduled 1g every 24 hours. Pharmacy will continue to monitor per the pharmacokinetic service policy. [facility] Joby, BCPS Angelica Fierro PA-C - 03/18/2019 2:56 PM CDT Urology Daily Progress Note Wade Herbert is a 78yr old male admitted on 03/16/2019 Urology is following for: scrotal infection 1 Day Post-Op: Procedure(s): SCROTAL DEBRIDEMENT A/P:: 1. Scrotal infection. Wound does not appear infected. Underlying skin is pink. Patient states scrotum feels much less painful and seems less swollen. Dressing was changed and repacked this morning by wound care nurse. Afternoon staff just replaced external gauze this [facility] He is 1 Day Post-Op Status Post: Procedure(s): SCROTAL DEBRIDEMENT overall doing well. Feeling much better I was unable to locate staff notes regarding his dressing changes. I spoke with patient's day staff who were present for am WOCN dressing change. They note all the previous packing was removed and replaced as per directions. They note replaced packing is perhaps not as deep as previous, patient required narcotic pain control to assist with proper dressing change. Recommend to premedicate prior to each dressing/wound care. WO nurse and floor staff have dressing change plans for BID at 9-10 am and pm. I will try to be present at am change to further assess the wound. HPI: this is an 78yr male who was in usual state of health until he "sat down too hard" a few weeks ago. He had diahrea and was in a hurry to toilet and sat down too hard and injured the scrotum. Pain and swelling became progressively worse and went in to home provider. Eventually transferred to [place]. He underwent scrotal debridement yesterday by Dr. Castorena. Patient reports the pain is much better and swelling is greatly improved. S: No acute events overnight. Denies having any fevers, chills, rigors or sweats. Reports he is much better when ambulating. Has very little to no pain while lying in bed. Eating and drinking without problems. Occasional lightheadedness , dizziness when up, is improved grom what he was experiencing before. CP, SOB, and calf pain. Eating and drinking well without nausea, vomiting, or upset stomach. He had a BM today O: Vital signs and nurses notes reviewed. Vital Signs: Temp: 98 F (36.7 C) | BP: 126/68 | Pulse: 81 | Resp: 16 | Pain Ratin (out of 10) | Weight: 72.2 kg (159 lb 1.6 oz) | O2 Device: Room Air O2 Flow Rate (L/min): 0 l/min | SpO2: 98 % Maximum Temperatures (last 24 hours) Temperature Maximum Max Temp 98.2 F (36.8 C) Intake and Output: 03/17 0700 - 03/18 0659 In: 1722 [Oral:290] Out: 745 [Urine:745] No flowsheet data found. BP 126/68 Pulse 81 Temp 98 F (36.7 C) Resp 16 Ht 1.753 m (5' 9") Wt 72.2 kg (159 lb 1.6 oz) SpO2 98% BMI 23.49 kg/m2 VSS. Afebrile, no tachycardia. General: Pleasant male. He appears to be well-developed and nourished. NAD. Pleasant mood and affect. Appropriate. Cognition and thought process appears intact. possibly a bit confused at times, other times very appropriate. HENT: head is normocephalic, eyes wo icterus or drainage, nose grossly normal, trachea midline. Neuro: Alert and oriented x 4. TAYLOR to command. Limited exam. Lungs: clear to auscultation bilaterally occ Coarse rhonchi NESTOR, clears . No cough or wheezing. Non labored effort CV: RRR, normal S1 and S2. No murmur. Abdomen: Bowel sounds present, soft, nondistended. Non tender. : normal penis, glans and meatus. Scrotum with abd and kerlix. Open debrided area is pink, no exudate, No areas of graying discoloration or decay. A few scattered spots at debrided scrotal skin border that are black, consistent with recent cauterized eschar. There was new packing in place. I did not disturb except to examine external wound. There is no scrotal crepitus or fluctuance. Appears freshly denuded/debrided tissue. Very little edema noted. Bladder is non-distended, non-tender and without palpable mass. Extremities: no peripheral edema. SCD's in place Labs: Lab Results Component Value Date WBC 7.4 03/18/2019 NUCRBC 0 03/18/2019 RBC 3.66 (L) 03/18/2019 HEMOGLOBIN 10.0 (L) 03/18/2019 HEMATOCRIT 33.7 (L) 03/18/2019 MCV 92.1 03/18/2019 MCH 27.3 03/18/2019 MCHC 29.7 (L) 03/18/2019 RDW 16.7 (A) 02/22/2019 PLTCOUNT 204 03/18/2019 NEUTROPCT 80.4 03/18/2019 BANDPCT 0.2 02/22/2019 LYMPHSPCT 11.7 03/18/2019 MONOSPCT 7.7 03/18/2019 EOSPCT 0.1 03/18/2019 BASOPHILPCT 0.1 03/18/2019 Lab Results Component Value Date GLUCOSE 140 (H) 03/18/2019 BUN 20 03/18/2019 CREATSERUM 1.37 (H) 03/18/2019 BCRATIO 14.6 03/18/2019 NA 138 03/18/2019 POTASSIUM 4.2 03/18/2019 CL 104 03/18/2019 CO2 25 03/18/2019 ANIONGAP 10 02/26/2016 CA 8.9 03/18/2019 PROTEINTOTAL 6.2 03/18/2019 ALBUMIN 3.3 (L) 03/18/2019 ALKPHOS 94 03/18/2019 AST 12 03/18/2019 ALT 11 03/18/2019 BILITOTAL 0.5 03/18/2019 Lab Results Component Value Date PSA 1.10 03/16/2012 Lab Results Component Value Date COLORUR Yellow 03/17/2019 CLARITYUR Clear 03/17/2019 GLUCOSEUR Negative 03/17/2019 BILIUR Negative 03/17/2019 SPECGRAV 1.010 03/17/2019 BLDUR Negative 03/17/2019 PHURINE 7.0 03/17/2019 PROTEINUA Negative 03/17/2019 UROBILINOGEN < 2 mg/dL 03/17/2019 NITRITE Negative 03/17/2019 LEUKESTERUR Negative 03/17/2019 WBCUR 0-2 06/10/2016 RBCUR 20-29 (A) 06/10/2016 SQUAMEPI Negative 06/10/2016 BACTERIAUA Rare (0-5) 06/10/2016 Lab Results Component Value Date CULTGROWTH 03/17/2019 Insufficient growth after overnight incubation. Culture reincubated. Radiology: Relevant diagnostic, laboratory and radiological studies have been reviewed in the Electronic Medical Record. Angelica Cintron PA-C [facility] Pager [phone]. [place] M 8 AM- 5 PM, and W-F 8 AM- 5 PM Lucas Michel MD - 03/18/2019 1:03 PM CDT INTERNAL MEDICINE DAILY PROGRESS NOTE Patient Name: Wade Herbert Admitted: 03/16/2019 Today's Date: 03/18/2019 Assessment and Plan Acute Medical Conditions: # Scrotal necrotizing/cellulitis 2/2 scrotal injury # Questionable delirium Plan: - Urology consult appreciated- s/p debridement - Blood culture negative - Tissue culture result pending - Continue with Vancomycin and Unasyn - NS IV fluid 50 ml/hr - Monitor for delirium -Wound nurse onboard # Acute kidney injury on CKD, likely multifactorial (infection vs drug induced) - improving Plan: - Will continue to hold lisinopril and lasix post debridement - Trend Cr - Continue with IV fluid - Morning labs Stable Chronic Medical Conditions: -Systolic CHF - A-fib- held warfarin, will need to bridge heparin tomorrow - Non ischemic cardiomyopathy -CAD- on ASA, metoprolol -V-tach s/p ICD -DM2, diet-controlled: low-dose SSI -GERD: continue omeprazole 20mg -COPD: stable, not on home meds -Pulm HTN: stable -Anemia, normocytic, stable -HLD: simvastatin -PVD: stable, intact pulses, continue simvastatin -MDD, anxiety: continue Paxil 20mg -BPH: continue Flomax - s/p right great toe amputation d/t osteomyelitis: well-healed, stable - RA on prednisone and leflunomide CODE STATUS: Full Code Pain medication: Acetaminophen for mild pain DVT Prophylaxis:Heparin subQ Therapies: Not indicated at this time Disposition: Diet: Regular Interval History Wade is a 78 yo male with extensive medical history and recently seen at [place] for scrotal pain/swelling treated with vanco and zosyn and discharged on keflex, admitted with similar problem found to have suspected scrotal cellulitis /necrotizing on vanco and unasyn s/p scrotal debridement. No acute events overnight. Pt denies any new concerns this AM. Afebrile, pulse in the 80, blood pressure 126/68, saturating well on room air. S/p scrotal debridement on vanco and unasyn and IV fluid,not in pain but have oxycodone prn Review of Systems Review of Systems Constitution: Negative for chills, decreased appetite, diaphoresis, fever and weight loss. Cardiovascular: Negative for chest pain, dyspnea on exertion and leg swelling. Respiratory: Negative for cough, shortness of breath, sputum production and wheezing. Musculoskeletal: Negative for back pain, falls and muscle weakness. Gastrointestinal: Negative for bloating, constipation, diarrhea, nausea and vomiting. Neurological: Negative for dizziness, headaches, light-headedness and weakness. Psychiatric/Behavioral: Negative. Physical Exam Blood pressure 126/68, pulse 81, temperature 98 F (36.7 C), resp. rate 16, height 175.3 cm (69"), weight 72.2 kg (159 lb 1.6 oz), SpO2 98 %. Physical Exam Constitutional: He is oriented to person, place, and time. He appears well- developed and well-nourished. No distress. HENT: Head: Normocephalic and atraumatic. Eyes: Pupils are equal, round, and reactive to light. Conjunctivae and EOM are normal. Neck: Normal range of motion. Neck supple. No JVD present. Cardiovascular: Normal rate and regular rhythm. Pulmonary/Chest: Effort normal and breath sounds normal. He has no wheezes. Abdominal: Soft. Bowel sounds are normal. He exhibits no distension. There is no tenderness. Genitourinary: Genitourinary Comments: S/p debridement, wrapped Musculoskeletal: Normal range of motion. He exhibits no edema. Neurological: He is alert and oriented to person, place, and time. Skin: Skin is warm and dry. No erythema. Labs reviewed. All pertinent positives and negatives reflected in the assessment and plan Medical Decision making Reviewed: previous chart, nursing note and vitals Reviewed previous: labs Lucas Bailey MD Internal Medicine Resident, PGY1 Pager #[phone] [place], [place] Associated attestation - Navjot Leigh MD - 03/25/2019 1:46 PM CDTI discussed the patient with the resident and personally interviewed and examined the patient. I agree with the resident's diagnosis and management. Mr. Herbert is stable today. He underwent debridement by Urology yesterday and has a surgical wound that was changed today by wound care. Blood cultures are negative at this time and his cultures fromsurgery are pending. Creatinine has been improving and we will continue with IVF but decrease the rate. Holding his coumadin until we are sure he doesn't have any further interventions planned at this time. Continue ABX for now and ID is following. Robb Leigh MD [facility] Clinical Learning Specialistsenior climate advisor [employer] Pager: [phone] Lucas Bailey MD - 03/17/2019 9:40 AM CDT INTERNAL MEDICINE DAILY PROGRESS NOTE Patient Name: Wade Herbert Admitted: 03/16/2019 Today's Date: 03/17/2019 Assessment and Plan Acute Medical Conditions: # Scrotal necrotizing/cellulitis 2/2 scrotal injury # Questionable delirium Plan: - Urology consult appreciated- s/p debridement - Tissue culture - ID consult appreciated- recommend continuing with Vancomycin and starting Unasyn due to concern for polymicrobial infection. - NS IV fluid 100 ml/hr - Monitor for delirium # Acute kidney injury on CKD, likely multifactorial (infection vs drug induced) Plan: - Will resume lisinopril and lasix post debridement - Trend Cr - Continuing with IV fluid - Morning labs Stable Chronic Medical Conditions: -Systolic CHF - A-fib- held warfarin, will need to bridge heparin tomorrow - Non ischemic cardiomyopathy -CAD- on ASA, metoprolol -V-tach s/p ICD -DM2, diet-controlled: low-dose SSI -GERD: continue omeprazole 20mg -COPD: stable, not on home meds -Pulm HTN: stable -Anemia, normocytic, stable -HLD: simvastatin -PVD: stable, intact pulses, continue simvastatin -MDD, anxiety: continue Paxil 20mg -BPH: continue Flomax - s/p right great toe amputation d/t osteomyelitis: well-healed, stable - RA on prednisone and leflunomide CODE STATUS: Full Code Pain medication: Acetaminophen for mild pain DVT Prophylaxis:Heparin subQ Therapies: Not indicated at this time Disposition: Diet: Regular Interval History Wade is a 78 yo male with extensive medical history and recently seen at [place] for scrotal pain/swelling treated with vanco and zosyn and discharged on keflex, admitted with similar problem found to have suspected scrotal cellulitis /necrotizing on vanco and unasyn s/p scrotal debridement. No acute events overnight. Pt denies any new concerns this AM. Afebrile, pulse in the 70, blood pressure 131/51, saturating well on room air. S/p scrotal debridement on vanco and unasyn and IV fluid Review of Systems Review of Systems Constitution: Negative for chills, decreased appetite, diaphoresis, fever and weight loss. Cardiovascular: Negative for chest pain, dyspnea on exertion and leg swelling. Respiratory: Negative for cough, shortness of breath, sputum production and wheezing. Musculoskeletal: Negative for back pain, falls and muscle weakness. Gastrointestinal: Negative for bloating, constipation, diarrhea, nausea and vomiting. Neurological: Negative for dizziness, headaches, light-headedness and weakness. Psychiatric/Behavioral: Negative. Physical Exam Blood pressure 126/47, pulse 71, temperature 97.9 F (36.6 C), resp. rate 19 , SpO2 96 %. Physical Exam Constitutional: He is oriented to person, place, and time. He appears well- developed and well-nourished. No distress. HENT: Head: Normocephalic and atraumatic. Eyes: Pupils are equal, round, and reactive to light. Conjunctivae and EOM are normal. Neck: Normal range of motion. Neck supple. No JVD present. Cardiovascular: Normal rate and regular rhythm. Pulmonary/Chest: Effort normal and breath sounds normal. He has no wheezes. Abdominal: Soft. Bowel sounds are normal. He exhibits no distension. There is no tenderness. Genitourinary: Genitourinary Comments: Scrotal swelling with eschar Musculoskeletal: Normal range of motion. He exhibits no edema. Neurological: He is alert and oriented to person, place, and time. Skin: Skin is warm and dry. No erythema. Labs reviewed. All pertinent positives and negatives reflected in the assessment and plan Medical Decision making Reviewed: previous chart, nursing note and vitals Reviewed previous: labs Lucas Bailey MD Internal Medicine Resident, PGY1 Pager #[phone] [place], [place] Associated attestation - Navjot Leigh MD - 03/25/2019 12:22 PM CDTI discussed the patient with the resident and personally interviewed and examined the patient. I agree with the resident's diagnosis and management. Mr. Herbert is an 78 year old man who presented with scrotal necrosis and cellulitis. He was seen overnight by Urology and they are planning on debridement today. Will continue vanc and unasyn for nowand monitor carefully for delirium as he is mildly confused this morning after not sleeping much andgetting a decent amount of IV pain medications. Robb Leigh MD [facility] Clinical Learning Specialistsenior climate advisor [employer] Pager: [phone] Eriberto Contreras MD - 03/17/2019 8:28 AM CDT INFECTIOUS DISEASES CONSULTATION NOTE DATE OF SERVICE: March 17, 2019 PHYSICIAN REQUESTING CONSULTATION: Dr. Navjot Leigh REASON FOR CONSULTATION: Scrotal cellulitis HPI: Mr. Herbert is a 78-year-old male with multiple chronic medical problems including diabetes mellitus type 2, rheumatoid arthritis for which he is on prednisone and leflunomide, atrial fibrillation requiring anticoagulation, congestive heart failure with history of V. tach for which he has had an ICD placement etc. He was in his usual state of health until about 3 weeks ago when he thinks he had some cutaneous trauma to his scrotum after sitting down hard and pinching the skin of his scrotum. He initially presented to an outside hospital in [place] on 02/25/2019 with scrotal pain, swelling and diarrhea. He was noted to have a wound on the scrotum. Culture of the same grew Enterococcus faecalis. He was initially treated with vancomycin and Zosyn. The latter was switched to Penicillin after culture results became available. His hospital course was complicated by acute renal failure so antibiotics were stopped after 9 days of treatment. He was discharged to home with home health on 03/10. His scrotal wounds were then noticed to be worsening and getting necrotic. Therefore, he has now been transferred over to our facility for further management. He has been seen by urology and is being taken to the OR today. Wehave been consulted to assist with management. He received a dose of Vancomycin, cefepime and flagyl overnight. REVIEW OF SYSTEMS: Pertinent positive in HPI. Rest Negative PAST MEDICAL HISTORY: Past Medical History: Diagnosis Date Anemia Anxiety 09/27/2016 Aortic insufficiency Arthritis Atrial fibrillation (HCC) Bacteremia Basal cell carcinoma of skin Bilateral renal cysts Bladder cancer (HCC) Bladder tumor cancer CAD (coronary artery disease) Cardiomyopathy, dilated, nonischemic (HCC) Cataract CHF (congestive heart failure) (HCC) Cholelithiasis Chronic airway obstruction, not elsewhere classified Chronic back pain COPD (chronic obstructive pulmonary disease) (HCC) Depression Diabetes mellitus (HCC) GERD (gastroesophageal reflux disease) H. pylori infection Hard of hearing Hepatitis History of osteomyelitis HLD (hyperlipidemia) Hypertension ICD (implantable cardioverter-defibrillator) in place Inappropriate shocks from ICD (implantable cardioverter-defibrillator) 2016 Presented to [facility] ED for evaluation after spontaneous shock from his ICD. No previous shocks. 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 Also reviewed outside hospital discharge medication list SOCIAL HISTORY: Lives with his at home close to [place] FAMILY HISTORY: No pertinent history of infectious diseases in family. PHYSICAL EXAM: Vitals: 03/17/19 0800 BP: Pulse: 71 Resp: 19 Temp: SpO2: 96% General: No acute distress Skin: No rash. ICD site on right chest wall appears clean Lymphatics: No cervical, supraclavicular on inguinal lymph nodes palpable Head and neck: Atraumatic. Normocephalic. Neck supple ENT: oropharynk clear. No thrush or ulcerations Eyes: Extraocular movements intact Heart: S1 S2 normal. No Murmurs Chest: Bilaterally clear to auscultation Abdomen: Soft and non-tender Genitourinary: Large foul smelling ulcer with irregular margins on the right scrotum. Base consists of necrosis tissue with purulence at the edges. No deep tunneling. Testes are not exposed. No subcutaneous air can be palpated. Surrounding skin is erythematous, warm and swollen Musculoskeletal: No large joint swelling or erythema. Right great toe has been previously amputated Neuro: Alert but is generally disoriented. No gross motor deficits LAB AND IMAGING DATA: Lab Results Component Value Date HEMOGLOBIN 9.7 (L) 03/17/2019 PLTCOUNT 194 03/17/2019 WBC 6.0 03/17/2019 AST 17 03/16/2019 ALT 13 03/16/2019 CREATSERUM 1.50 (H) 03/17/2019 ESR 21 (H) 10/31/2014 CRP 4.5 03/16/2019 CT scan of the pelvis reviewed in PACS. No subcutaneous air to suggest Necrotizing fascitis DIAGNOSES: #1 Necrotizing skin and soft tissue infection of the scrotum #2 Acute renal failure, multifactorial - sepsis, medication induced #3 Multiple other medical comorbidities contributing to and complicating the primary diagnosis - Diabetes Mellitus Type 2, RA with immunosuppression, preipheral vascular disease etc. ASSESSMENT AND PLAN: Agree with plans for debridement. Continue with Vancomycin which is being renally dosed. Please alsostart Unasyn due to concerns of polymicrobial infection. Please send tissue culture at the time of surgery so we can determine the specifics of antimicrobial therapy. Discussed with patient. I will continue to follow with you. Eriberto Contreras MD Wen Gonsales, PHARM D - 03/16/2019 8:05 PM CDT03/16/2019 8:05 PM -- Patient was seen by the pharmacy med reconciliation team and HOME MEDICATIONS have been reconciled and updated to match the patient's home usage. Med list updated over the phone with his , Quynh. Wen Aguilar, PHARM D Wen Gonsales, PHARM D - 03/16/2019 5:58 PM CDT Vancomycin Initial Consult Note Mr. Herbert was admitted on 03/16/2019 and today has been initiated on Vancomycin per pharmacy protocol for scrotal abscess. Labs: No results found for: CARLEE WBC Date/Time Value Ref Range Status 03/16/2019 03:28 PM 7.5 4.0 - 11.0 K/uL Final 02/22/2019 10:40 AM 20.2 (A) 4.0 - 10.2 K/uL Final Lab Results Component Value Date CREATSERUM 1.94 (H) 03/16/2019 Max Temperature: Temp (24hrs), Av.7 F (37.1 C), Min:98.6 F (37 C), Max:98.7 F (37.1 C) Estimated CrCl: Estimated Creatinine Clearance: 29 mL/min (A) (based on SCr of 1.94 mg/dL (H)). ml/min Intake/Output: No intake or output data in the 24 hours ending 03/16/19 9494 Other Active Antimicrobial Agents: cefepime, flagyl Plan: We have initiated intravenous Vancomycin therapy at a dose of 1 gm x1, will dose based on levels. The goal trough range will be 10-20 mcg/ml. Pharmacy will monitor and if indicated, adjust dose and/or frequency per the Pharmacy and Therapeutics Committee approved pharmacokinetic service policy. Thank you very much for the consult. We will continue to follow along with you. Wen Aguilar, PHARM D documented in this encounter Plan of Treatment Date Type Specialty Care Team Description 05/28/2019 Office Visit Urology Alejandro Lewis MD [address] [place], [place] [id number] Lester Castornea MD [address] [place] [address] 06/01/2019 Office Visit Rheumatology Najma Schafer MD [address] [place], [place] [id number] 06/01/2019 Office Visit Endocrinology Larissa Moran MD [address] [place] [address] [phone] Name Priority Associated Diagnoses Date/Time CULTURE FUNGAL, OTHER Routine Scrotal infection 03/17/2019 10:54 AM CDT Name Priority Associated Diagnoses Order Schedule BASIC METABOLIC PANEL Routine Early AM draw for labs until discontinued starting 03/17/2019, 1 completed COMPLETE BLOOD COUNT WITH Routine Early AM draw for labs DIFFERENTIAL until discontinued starting 03/17/2019, 10 completed COMPREHENSIVE METABOLIC Routine Early AM draw for labs PANEL until discontinued starting 03/18/2019, 9 completed PROTIME/INR Timed Routine every 24 hours until discontinued starting 03/23/2019, 4 completed PACEMAKER IN PERSON Routine Once for 1 Occurrences PROGRAMMING starting 03/23/2019 until 03/23/2019 Name Priority Associated Diagnoses Order Schedule HOSPITAL DISCHARGE WARFARIN Routine Once for 1 Occurrences ANTICOAG ORDER starting 03/26/2019 until 03/26/2019 documented as of this encounter Implants Implanted Type Area Income Auditor Device Shelf Model / Identifier Expiration Serial / Date Lot Stnt Inlay Wo Wire 6fr 26cm N [id number] Ea - [id number] Urology Right: BARD 03/10/2020 [id number] / Implanted: Qty: 1 on 06/21/2016 by Lester Castorena MD URETER / [id number] Stnt Inlay Wo Wire 6fr 26cm N [id number] Ea - [id number] Urology Left: BARD [id number] / Implanted: Qty: 1 on 06/21/2016 by Lester Castorena MD URETER / [id number] Allo [id number] N [id number] Ea1 - [id number] Vascular N/A: GROIN ANGELICA 04/18/2020 [id number] / Implanted: Qty: 1 on 03/24/2019 by Reza Kuhn MD THERAPUTICS / [id number] Allo [id number] N [id number] Ea1 - [id number] Vascular N/A: GROIN ANGELICA 03/14/2020 [id number] / Implanted: Qty: 1 on 03/24/2019 by Reza Kuhn MD THERAPUTICS / [id number] Allo Skin Disc [id number] Apligraf Ea1 - [id number] Vascular N/A: GROIN ORGANOGENESIS 12/17/2020 [id number] / Implanted: Qty: 1 on 03/24/2019 by Reza Kuhn MD / [id number] [employer] 0.018 [id number] Ea-01/25/2019 [facility] 10/17 [id number] / Implanted: Qty: 1 on 01/25/2019 by Alejandro Lewis MD [id number] / [employer] 0.018 [id number] N [id number] Ea-01/25/2019 [facility] 09/19 [id number] / Implanted: Qty: 1 on 01/25/2019 by Alejandro Lewis MD [id number] / documented as of this encounter Procedures Procedure Name Priority Date/Time Associated Comments Diagnosis LAB ONLY-COMPLETE Routine 03/26/2019 6:56 Results for this BLOOD COUNT WITH AM CDT procedure are in DIFFERENTIAL the results section. PROTIME/INR Timed Routine 03/26/2019 6:56 Results for this AM CDT procedure are in the results section. COMPREHENSIVE Routine 03/26/2019 6:56 Results for this METABOLIC PANEL AM CDT procedure are in the results section. COMPLETE BLOOD COUNT Routine 03/26/2019 6:56 Results for this WITH DIFFERENTIAL AM CDT procedure are in the results section. GLUCOSE BY METER, Routine 03/26/2019 6:55 Results for this POCT AM CDT procedure are in the results section. GLUCOSE BY METER, Routine 03/25/2019 8:47 Results for this POCT PM CDT procedure are in the results section. GLUCOSE BY METER, Routine 03/25/2019 5:16 Results for this POCT PM CDT procedure are in the results section. GLUCOSE BY METER, Routine 03/25/2019 11:41 Results for this POCT AM CDT procedure are in the results section. LAB ONLY-COMPLETE Routine 03/25/2019 7:07 Results for this BLOOD COUNT WITH AM CDT procedure are in DIFFERENTIAL the results section. PROTIME/INR Timed Routine 03/25/2019 7:07 Results for this AM CDT procedure are in the results section. COMPREHENSIVE Routine 03/25/2019 7:07 Results for this METABOLIC PANEL AM CDT procedure are in the results section. COMPLETE BLOOD COUNT Routine 03/25/2019 7:07 Results for this WITH DIFFERENTIAL AM CDT procedure are in the results section. GLUCOSE BY METER, Routine 03/25/2019 6:27 Results for this POCT AM CDT procedure are in the results section. GLUCOSE BY METER, Routine 03/24/2019 9:13 Results for this POCT PM CDT procedure are in the results section. GLUCOSE BY METER, Routine 03/24/2019 4:45 Results for this POCT PM CDT procedure are in the results section. DEHISCENCE 03/24/2019 12:55 Wound of right PM CDT groin, subsequent encounter Special Needs WILL BE INPATIENT, CURRENTLY @ [facility] & BEING TRANSFERRED TO [facility] GLUCOSE BY METER, POCT Routine 03/24/2019 11:20 Results for this AM CDT procedure are in the results section. LAB ONLY-COMPLETE Routine 03/24/2019 7:15 Results for this BLOOD COUNT WITH AM CDT procedure are in DIFFERENTIAL the results section. COMPREHENSIVE Routine 03/24/2019 7:15 Results for this METABOLIC PANEL AM CDT procedure are in the results section. COMPLETE BLOOD COUNT Routine 03/24/2019 7:15 Results for this WITH DIFFERENTIAL AM CDT procedure are in the results section. PROTIME/INR Timed Routine 03/24/2019 7:14 Results for this AM CDT procedure are in the results section. GLUCOSE BY METER, POCT Routine 03/24/2019 6:09 Results for this AM CDT procedure are in the results section. GLUCOSE BY METER, POCT Routine 03/23/2019 8:32 Results for this PM CDT procedure are in the results section. GLUCOSE BY METER, POCT Routine 03/23/2019 5:08 Results for this PM CDT procedure are in the results section. PACEMAKER IN PERSON Routine 03/23/2019 4:11 Results for this PROGRAMMING PM CDT procedure are in the results section. GLUCOSE BY METER, POCT Routine 03/23/2019 1:02 Results for this PM CDT procedure are in the results section. XRAY CHEST PORTABLE Routine 03/23/2019 11:35 Results for this AM CDT procedure are in the results section. TROPONIN I STAT 03/23/2019 11:03 Results for this AM CDT procedure are in the results section. EKG GO 03/23/2019 8:11 Results for this AM CDT procedure are in the results section. LAB ONLY-COMPLETE Routine 03/23/2019 7:04 Results for this BLOOD COUNT WITH AM CDT procedure are in DIFFERENTIAL the results section. PROTIME/INR Timed Routine 03/23/2019 7:04 Results for this AM CDT procedure are in the results section. COMPREHENSIVE Routine 03/23/2019 7:04 Results for this METABOLIC PANEL AM CDT procedure are in the results section. COMPLETE BLOOD COUNT Routine 03/23/2019 7:04 Results for this WITH DIFFERENTIAL AM CDT procedure are in the results section. GLUCOSE BY METER, POCT Routine 03/23/2019 6:29 Results for this AM CDT procedure are in the results section. GLUCOSE BY METER, POCT Routine 03/22/2019 9:06 Results for this PM CDT procedure are in the results section. GLUCOSE BY METER, POCT Routine 03/22/2019 5:23 Results for this PM CDT procedure are in the results section. PROTIME/INR GO 03/22/2019 11:54 Results for this AM CDT procedure are in the results section. GLUCOSE BY METER, POCT Routine 03/22/2019 11:40 Results for this AM CDT procedure are in the results section. LAB ONLY-COMPLETE Routine 03/22/2019 7:14 Results for this BLOOD COUNT WITH AM CDT procedure are in DIFFERENTIAL the results section. COMPREHENSIVE Routine 03/22/2019 7:14 Results for this METABOLIC PANEL AM CDT procedure are in the results section. COMPLETE BLOOD COUNT Routine 03/22/2019 7:14 Results for this WITH DIFFERENTIAL AM CDT procedure are in the results section. GLUCOSE BY METER, POCT Routine 03/22/2019 5:24 Results for this AM CDT procedure are in the results section. GLUCOSE BY METER, POCT Routine 03/21/2019 9:17 Results for this PM CDT procedure are in the results section. GLUCOSE BY METER, POCT Routine 03/21/2019 6:50 Results for this PM CDT procedure are in the results section. GLUCOSE BY METER, POCT Routine 03/21/2019 11:45 Results for this AM CDT procedure are in the results section. GLUCOSE BY METER, POCT Routine 03/21/2019 11:12 Results for this AM CDT procedure are in the results section. LAB ONLY-COMPLETE Routine 03/21/2019 8:27 Results for this BLOOD COUNT WITH AM CDT procedure are in DIFFERENTIAL the results section. COMPREHENSIVE Routine 03/21/2019 8:27 Results for this METABOLIC PANEL AM CDT procedure are in the results section. COMPLETE BLOOD COUNT Routine 03/21/2019 8:27 Results for this WITH DIFFERENTIAL AM CDT procedure are in the results section. GLUCOSE BY METER, POCT Routine 03/21/2019 5:22 Results for this AM CDT procedure are in the results section. GLUCOSE BY METER, POCT Routine 03/20/2019 9:10 Results for this PM CDT procedure are in the results section. GLUCOSE BY METER, POCT Routine 03/20/2019 5:30 Results for this PM CDT procedure are in the results section. GLUCOSE BY METER, POCT Routine 03/20/2019 11:39 Results for this AM CDT procedure are in the results section. LAB ONLY-COMPLETE Routine 03/20/2019 7:20 Results for this BLOOD COUNT WITH AM CDT procedure are in DIFFERENTIAL the results section. COMPREHENSIVE Routine 03/20/2019 7:20 Results for this METABOLIC PANEL AM CDT procedure are in the results section. COMPLETE BLOOD COUNT Routine 03/20/2019 7:20 Results for this WITH DIFFERENTIAL AM CDT procedure are in the results section. GLUCOSE BY METER, POCT Routine 03/20/2019 5:28 Results for this AM CDT procedure are in the results section. GLUCOSE BY METER, POCT Routine 03/19/2019 9:27 Results for this PM CDT procedure are in the results section. GLUCOSE BY METER, POCT Routine 03/19/2019 5:35 Results for this PM CDT procedure are in the results section. GLUCOSE BY METER, POCT Routine 03/19/2019 12:18 Results for this PM CDT procedure are in the results section. GLUCOSE BY METER, POCT Routine 03/19/2019 11:26 Results for this AM CDT procedure are in the results section. LAB ONLY-COMPLETE Routine 03/19/2019 7:21 Results for this BLOOD COUNT WITH AM CDT procedure are in DIFFERENTIAL the results section. COMPREHENSIVE Routine 03/19/2019 7:21 Results for this METABOLIC PANEL AM CDT procedure are in the results section. COMPLETE BLOOD COUNT Routine 03/19/2019 7:21 Results for this WITH DIFFERENTIAL AM CDT procedure are in the results section. GLUCOSE BY METER, POCT Routine 03/19/2019 5:54 Results for this AM CDT procedure are in the results section. VANCOMYCIN RANDOM Timed Routine 03/18/2019 9:04 Results for this PM CDT procedure are in the results section. GLUCOSE BY METER, POCT Routine 03/18/2019 9:03 Results for this PM CDT procedure are in the results section. GLUCOSE BY METER, POCT Routine 03/18/2019 5:42 Results for this PM CDT procedure are in the results section. GLUCOSE BY METER, POCT Routine 03/18/2019 11:41 Results for this AM CDT procedure are in the results section. LAB ONLY-COMPLETE Routine 03/18/2019 7:47 Results for this BLOOD COUNT WITH AM CDT procedure are in DIFFERENTIAL the results section. COMPREHENSIVE Routine 03/18/2019 7:47 Results for this METABOLIC PANEL AM CDT procedure are in the results section. COMPLETE BLOOD COUNT Routine 03/18/2019 7:47 Results for this WITH DIFFERENTIAL AM CDT procedure are in the results section. GLUCOSE BY METER, POCT Routine 03/18/2019 6:17 Results for this AM CDT procedure are in the results section. GLUCOSE BY METER, POCT Routine 03/17/2019 8:57 Results for this PM CDT procedure are in the results section. VANCOMYCIN RANDOM Timed Routine 03/17/2019 6:16 Results for this PM CDT procedure are in the results section. GLUCOSE BY METER, POCT Routine 03/17/2019 5:03 Results for this PM CDT procedure are in the results section. GLUCOSE BY METER, POCT STAT 03/17/2019 1:31 Results for this PM CDT procedure are in the results section. CULTURE BACTERIAL, Routine 03/17/2019 10:54 Scrotal Results for this OTHER WITH GRAM STAIN AM CDT infection procedure are in the results section. CULTURE BACTERIAL, Routine 03/17/2019 10:54 Scrotal Results for this ANAEROBE AM CDT infection procedure are in the results section. HYDROCELECTOMY ADULT 03/17/2019 9:11 Scrotal AM CDT infection GLUCOSE BY METER, POCT STAT 03/17/2019 6:04 Results for this AM CDT procedure are in the results section. LAB ONLY-COMPLETE Routine 03/17/2019 5:57 Results for this BLOOD COUNT WITH AM CDT procedure are in DIFFERENTIAL the results section. PROTIME/INR STAT 03/17/2019 5:57 Results for this AM CDT procedure are in the results section. BASIC METABOLIC PANEL Routine 03/17/2019 5:57 Results for this AM CDT procedure are in the results section. COMPLETE BLOOD COUNT Routine 03/17/2019 5:57 Results for this WITH DIFFERENTIAL AM CDT procedure are in the results section. URINE DIP, REFLEX TO STAT 03/17/2019 5:32 Results for this MICROSCOPIC, REFLEX TO AM CDT procedure are in CULTURE the results section. CULTURE, BLOOD STAT 03/17/2019 1:50 Results for this AM CDT procedure are in the results section. CULTURE, BLOOD STAT 03/17/2019 1:45 Results for this AM CDT procedure are in the results section. TRANSFUSE FRESH FROZEN Routine 03/16/2019 10:45 PLASMA IN MLS PM CDT LACTIC ACID STAT 03/16/2019 9:36 Results for this PM CDT procedure are in the results section. TRANSFUSE FRESH FROZEN Routine 03/16/2019 8:17 PLASMA IN MLS PM CDT PREPARE AND HOLD FRESH Timed Routine 03/16/2019 5:36 Results for this FROZEN PLASMA IN MLS- PM CDT procedure are in BLOOD BANK the results section. CT PELVIS WITHOUT Routine 03/16/2019 5:26 Results for this CONTRAST PM CDT procedure are in the results section. TYPE AND SCREEN STAT 03/16/2019 5:12 Results for this PM CDT procedure are in the results section. PREPARE AND HOLD FRESH Routine 03/16/2019 4:50 Results for this FROZEN PLASMA IN MLS- PM CDT procedure are in BLOOD BANK the results section. LAB ONLY-COMPLETE STAT 03/16/2019 3:28 Results for this BLOOD COUNT WITH PM CDT procedure are in DIFFERENTIAL the results section. C-REACTIVE PROTEIN STAT 03/16/2019 3:28 Results for this (INFLAMMATION) PM CDT procedure are in the results section. COMPREHENSIVE STAT 03/16/2019 3:28 Results for this METABOLIC PANEL PM CDT procedure are in the results section. COMPLETE BLOOD COUNT STAT 03/16/2019 3:28 Results for this WITH DIFFERENTIAL PM CDT procedure are in the results section. documented in this encounter Results LAB ONLY-COMPLETE BLOOD COUNT WITH DIFFERENTIAL (03/26/2019 6:56 AM CDT)Only the most recent of11 resultswithin the time period is included. WBC 8.2 4.0 - 11.0 K/uL [facility] RBC 3.33 (L) 4.40 - 5.80 [facility] M/uL CLINIC Hemoglobin 9.4 (L) 13.5 - 17.5 [facility] g/dL CLINIC Hematocrit 29.9 (L) 40.0 - 50.0 % [facility] MCV 89.8 80.0 - 98.0 fL [facility] MCH 28.2 25.5 - 34.0 pg [facility] MCHC 31.4 (L) 31.5 - 36.5 [facility] g/dL [facility] RDW-CV 18.3 (H) 11.5 - 15.5 % [facility] RDW-SD 59.2 (H) 35.5 - 50.0 fl [facility] Platelet Count 225 140 - 400 K/uL [facility] MPV 9.1 8.5 - 12.0 fL [facility] Seg Neut Absolute 5.4 1.8 - 8.0 K/uL [facility] Lymphocytes Absolute 1.7 0.8 - 4.1 K/uL [facility] Monocytes Absolute 0.9 0.0 - 1.0 K/uL [facility] Eosinophils Absolute 0.1 0.0 - 0.7 K/uL [facility] Basophil Absolute 0.0 0.0 - 0.2 K/uL [facility] Immature Granulocyte 0.06 0.00 - 0.06 [facility] Absolute K/uL CLINIC Neutrophils Abs. 5,400 /uL [facility] (Segs and Bands) [facility] Neutrophils Percent 66.0 % [facility] Lymphocytes Percent 20.7 % [facility] Monocytes Percent 11.2 % [facility] Immature Granulocyte 0.7 % [facility] Percent CLINIC Eosinophils Percent 1.3 % [facility] Basophil Percent 0.1 % [facility] Nucleated RBC 0 /100 WBC's [facility] Specimen Blood Performing Organization Address City/State/Zipcode Phone Number [address] [phone] PROTIME/INR (03/26/2019 6:56 AM CDT)Only the most recent of6 resultswithin the time period is included. Protime 23.9 (H) 12.0 - 14.5 secs [facility] INR 2.1 2.0 - 3.5 [facility] Specimen Blood Narrative Performed At Normal INR reference range (patients not on oral [facility] anticoagulants)0.9-1.1. INR Standard Intensity=(2.0 - 3.0) INR Higher Intensity=(2.5 - 3.5) Performing Organization Address City/State/Zipcode Phone Number [facility] [address] [place] [address] COMPREHENSIVE METABOLIC PANEL (03/26/2019 6:56 AM CDT)Only the most recent of10 resultswithin the time period is included. Glucose 125 (H) 70 - 100 mg/dL [facility] BUN 19 6 - 22 mg/dL [facility] Creatinine 1.21 0.80 - 1.30 [facility] mg/dL [facility] BUN/Creatinine Ratio 15.7 10.0 - 25.0 [facility] Sodium 139 135 - 145 meq/L [facility] Potassium 3.2 (L) 3.5 - 5.3 meq/L [facility] Chloride 108 99 - 110 meq/L [facility] CO2 24 20 - 29 meq/L [facility] Anion Gap with K 10 6 - 20 meq/L [facility] Calcium 8.3 (L) 8.5 - 10.5 [facility] mg/dL [facility] Protein Total 5.2 (L) 6.0 - 8.2 g/dL [facility] Albumin 2.8 (L) 3.5 - 5.0 g/dL [facility] Alkaline Phosphatase 130 30 - 150 U/L [facility] AST - SGOT 21 0 - 35 U/L [facility] ALT - SGPT 46 0 - 55 U/L [facility] Bilirubin Total 0.3 0.2 - 1.2 mg/dL [facility] Corrected Calcium 9.3 8.5 - 10.5 [facility] mg/dL [facility] Age 78 Years [facility] eGFR Non- 58 (L) >=60 [facility] Gren[place] mL/min/1.73m2 [facility] eGFR 70 >=60 [facility] mL/min/1.73m2 CLINIC Specimen Blood Performing Organization Address City/[facility]/Zipcode Phone Number [facility] [address] [facility] [place] [address] GLUCOSE BY METER, POCT (03/26/2019 6:55 AM CDT)Only the most recent of39 resultswithin the time period is included. Glucose POC 121 (H) 70 - 100 mg/dL [facility] Specimen Blood Performing Organization Address [facility] Phone Number [facility] [address] [facility] [place] [address] PACEMAKER IN PERSON PROGRAMMING (03/23/2019 4:11 PM CDT) Narrative Performed At Performing Organization Address [facility] Phone Number SH [facility]ACE[facility] XRAY CHEST PORTABLE - (03/23/2019 11:35 AM CDT) Specimen Narrative Performed At [facility] Patient Name: WADE HERBERT Date of :1940 Procedure: XRAY CHEST PORTABLE Date of Service: 03/23/2019 EXAM: XRAY CHEST PORTABLE INDICATION:cough with flame, chest pain COMPARISON(S): 02/28/2019 FINDINGS: Right subclavian venous pacer in position with 2 metallic leads grossly intact nondisplaced stable. No pneumothorax. Moderate cardiomegaly no interstitial edema. Mild pulmonary venous congestion present, otherwise new. Minimal left, mild right pleural effusions mildly increased right, new left. Mild mid to inferior lung curvilinear patchy airspace opacity, volume loss mildly increased. IMPRESSION: Moderate stable cardiomegaly with mild pulmonary venous congestion otherwise new consistent with volume overload versus early congestive heart failure new. Mild right, minimal left pleural effusions mildly increased right, new left. Mild parahilar, bibasilar segmental atelectasis and/or scarring change versus superimposed consolidation from pneumonia versus aspiration mildly increased. Finalized by: Yifan Pope MD on 03/23/2019 5:27 PM CDT Patient/Procedure Information: [facility] MRN/PEDRO: [id number] Order Number: [id number] Accession Number: [id number] Ordering Provider: TEMO DUNCAN Authorizing Provider: HILARY FELIZ Procedure Note Interface, Radiantres - 03/23/2019 5:29 PM CDT Patient Name: WADE HERBERT Date of : 1940 Procedure: XRAY CHEST PORTABLE Date of Service: 03/23/2019 EXAM: XRAY CHEST PORTABLE INDICATION:cough with flame, chest pain COMPARISON(S): 02/28/2019 FINDINGS: Right subclavian venous pacer in position with 2 metallic leads grossly intact nondisplaced stable. No pneumothorax. Moderate cardiomegaly no interstitial edema. Mild pulmonary venous congestion present, otherwise new. Minimal left, mild right pleural effusions mildly increased right, new left. Mild mid to inferior lung curvilinear patchy airspace opacity, volume loss mildly increased. IMPRESSION: Moderate stable cardiomegaly with mild pulmonary venous congestion otherwise new consistent with volume overload versus early congestive heart failure new. Mild right, minimal left pleural effusions mildly increased right, new left. Mild parahilar, bibasilar segmental atelectasis and/or scarring change versus superimposed consolidation from pneumonia versus aspiration mildly increased. Finalized by: Yifan Pope MD on 03/23/2019 5:27 PM CDT Patient/Procedure Information: [facility] MRN/PEDRO: [id number] Order Number: [id number] Accession Number: [id number] Ordering Provider: TEMO DUNCAN Authorizing Provider: HILARY FELIZ Performing Organization Address [facility] Phone Number [facility] TROPONIN I (03/23/2019 11:03 AM CDT) Troponin I 0.018 0.000 - 0.028 ng/mL [place] [address] [facility]IN[facility] Specimen Blood Performing Organization Address [facility] Phone Number [place] [address] [facility] [address] [place] [id number] EKG (03/23/2019 8:11 AM CDT) 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 [employer] Suspect unspecified pacemaker failure Atrial fibrillation with occasional ventricular-paced complexes and with premature ventricular or aberrantly conducted complexes Low voltage QRS, consider pulmonary disease, pericardial effusion, or normal variant Cannot rule out Anterior infarct , age undetermined Abnormal ECG When compared with ECG of 19-JAN-2018 07:47, Previous ECG has undetermined rhythm, needs review Ventricular Rate: 91 BPM Atrial Rate: 119 BPM QRS Duration: 92 ms Q-T Interval: 370 ms QTc Calculation(Bazett): 455 ms Calculated R [place]: 59 degrees Calculated T [place]: -25 degrees Specimen Narrative Performed At Performing Organization Address [facility] Phone Number SUMAN ZAMORA VANCOMYCIN RANDOM (03/18/2019 9:04 PM CDT)Only the most recent of2 resultswithin the time period is included. Vancomycin Random 12.8 ug/mL [address] Specimen Blood Performing Organization Address [facility] Phone Number [address] [place] [address] CULTURE BACTERIAL, OTHER WITH GRAM STAIN (03/17/2019 10:54 AM CDT) Culture Result CITROBACTER FREUNDII (!) [facility] Culture Result Mixed microflora [facility] (!)Comment: No further CLINIC identification or susceptibilities to follow. Gram Stain Many (>25/LPF) WBC's [facility] Gram Stain No epithelial cells seen [facility] Gram Stain Many (>30/OIF) Gram [facility] positive cocci in pairs CLINIC Gram Stain Rare (less than 1/OIF) [facility] Yeast CLINIC Gram Stain Rare (less than 1/OIF) [facility] Gram negative bacilli CLINIC Specimen Fluid Organism Antibiotic Method Susceptibility Citrobacter freundii complex Amoxicillin/clavulanate REG 8 ug/mL: Resistant Citrobacter freundii complex Cefazolin REG >=64 ug/mL: Resistant Citrobacter freundii complex Cefepime REG <=1 ug/mL: Sensitive Citrobacter freundii complex Cefoxitin REG 16 ug/mL: Resistant Citrobacter freundii complex Ceftriaxone REG <=1 ug/mL: Sensitive Citrobacter freundii complex Ciprofloxacin REG <=0.25 ug/mL: Sensitive Citrobacter freundii complex Gentamicin REG <=1 ug/mL: Sensitive Citrobacter freundii complex Meropenem REG <=0.25 ug/mL: Sensitive Citrobacter freundii complex Piperacillin/Tazobactam REG <=4 ug/mL: Sensitive Citrobacter freundii complex Tobramycin REG <=1 ug/mL: Sensitive Performing Organization Address [facility] Phone Number [facility] [address] [place] [address] CULTURE BACTERIAL, ANAEROBE (03/17/2019 10:54 AM CDT) Culture Result Moderate Bacteroides [facility] ovatus/xylanisolvens CLINIC (!)Comment: Susceptibility performed upon request Culture Result Moderate Actinomyces [facility] europaeus (!)Comment: CLINIC Susceptibility performed upon request Specimen Fluid Narrative Performed At Scrotal [facility] skin Performing Organization Address [facility] Phone Number [facility] [address] [place] [address] BASIC METABOLIC PANEL (03/17/2019 5:57 AM CDT) Glucose 95 70 - 100 mg/dL [address] BUN 24 (H) 6 - 22 mg/dL [address] Creatinine 1.50 (H) 0.80 - 1.30 [place] [address] [facility] mg/dL BUN/Creatinine Ratio 16.0 10.0 - 25.0 [place] [address] [facility] Sodium 138 135 - 145 meq/L [place] [address] [facility] Potassium 4.2 3.5 - 5.3 meq/L [place] [address] [facility] Chloride 103 99 - 110 meq/L [place] [address] [facility] CO2 26 20 - 29 meq/L [place] [address] [facility] Anion Gap with K 13 6 - 20 meq/L [address] Calcium 9.0 8.5 - 10.5 [place] [address] [facility] mg/dL Age [address] eGFR Non- 45 (L) >=60 [place] [address] [facility] [place] mL/min/1.73m2 eGFR 55 (L) >=[address] mL/min/1.73m2 Specimen Blood Narrative Performed At For patients with a GFR <45 a referral to Nephrology is [address] recommended. Performing Organization Address [facility] Phone Number [address] [place] [address] URINE DIP, REFLEX TO MICROSCOPIC, REFLEX TO CULTURE (03/17/2019 5:32 AM CDT) Color Urine Yellow [place], Dark [place] [address] Yellow, Straw, CLINIC Yellow, Colorless Clarity Urine Clear Clear [facility] [address] [facility] Glucose Urine Negative Negative [address] Bilirubin Urine Negative Negative [address] Ketones Urine Negative Negative, 5 mg/dL, [place] [address] 10 mg/dL [facility] Specific [place] 1.010 1.002 - 1.[address] Blood Urine Negative Negative [address] PH Urine 7.0 5.0, 5.5, 6.0, [place] [address] 6.5, 7.0, 7.5, 8.0 [facility] Protein Urine Negative Negative [address] Urobilinogen < 2 mg/dL < 2 mg/dL [address] Nitrite Negative Negative [address] Leukocyte Esterase Negative Negative [place] [address] Urine CLINIC Specimen Urine Narrative Performed At Microscopic exam not indicated [address] Culture not performed - reflex criteria not met. Culture is only performed when the urine macroscopic color is reported as Bright [place], or whentwoor more of the following criteria are met: Positive Nitrite, Positive Leukocyte Esterase, WBC's >5 cells/hpf. Performing Organization Address [facility] [place] Phone Number [address] [address] CULTURE, BLOOD (03/17/2019 1:50 AM CDT)Only the most recent of2 resultswithin the time period is included. [facility] Culture Result No growth at 5 [facility] Specimen Blood Performing Organization Address [facility] [place] Phone Number [address] [phone] LACTIC ACID (03/16/2019 9:36 PM CDT) [facility] Lactic Acid 0.9 0.5 - 2.2 mmol/L [address] Specimen Blood Performing Organization Address [facility] [place] Phone Number [address] [address] PREPARE AND HOLD FRESH FROZEN PLASMA IN ML- BLOOD BANK (03/16/2019 5:36 PM CDT )Only the most recent of2 resultswithin the time period is included. [facility] BPAM Product Code [id number] LAB BPAM Unit Number [id number] LAB Unit ABO Type A LAB Unit Rh Type POS LAB BPAM Dispense Status TR LAB BPAM Blood [id number] LAB Expiration Date BPAM Coding System 6200 LAB Product Code Plasma, LAB thawed/Apheresis 3rd container Unit ID [id number] LAB Product Status Transfused LAB Specimen Performing Organization Address City/State/Zipcode Phone Number LAB CT PELVIS WITHOUT CONTRAST (03/16/2019 5:26 PM CDT) Specimen Narrative Performed At [facility] Patient Name: WADE HERBERT Date of :1940 Procedure: CT PELVIS WITHOUT CONTRAST Date of Service: 03/16/2019 EXAM: CT PELVIS WITHOUT CONTRAST INDICATION: Male,78 years year old patient, Scrotal mass or lump, scrotal abscess. History of bladder cancer. COMPARISON(S): Scrotal ultrasound, 03/01/2019 TECHNIQUE: Axial images were obtained from the iliac crest to the symphysis pubis without intravenous contrast administration at 3.75mm intervals with sagittal and coronal reconstructions at 4 mm intervals. FINDINGS: Soft tissues/musculature/pelvic wall :Unremarkable. No abdominal wall or inguinal hernia is identified.: Normal abdominal wall. Visible ureters/bladder: Normal visualized ureters. Nondependent air within the bladder, which may reflect recent instrumentation. No indwelling catheter visualized. Gastrointestinal/Pelvic Viscera/ Mesentery/Peritoneal cavity: Stomach: Normal visualized stomach.. Small bowel has a normal caliber.Left colonic diverticulosis, without diverticulitis.There is non-visualization of the appendix.. No intraperitoneal free air. No ascites. No organized fluid collection. There are prostatic calcifications. There is skin thickening each hemiscrotum to 0.8 cm on the left and 0.64 cm on the right. Significance fluid collection on the right side. Subcutaneous scrotal air in the midline and on the left side (I - 90/93 axial, images 34 - 28 coronal), without obvious organized abscess or developing fasciitis appreciated.. Vessels: No aneurysm. Significant mural calcifications present in the aorta and iliac arteries. Lymph nodes: Reactive inguinal lymph nodes, without lymphadenopathy. Osseous: Normal osseous structures. There is no acute fracture. Normal bilateral ischial tuberosities. Normal superior and inferior pubic rami. Normal bilateral iliac wings, sacroiliac joints and visualized sacrum. Normal pubic symphysis. IMPRESSION: 1. Extensive scrotal skin thickening left greater than right with scrotal air visible at the midline and left scrotum, concerning for ongoing cellulitis. No well delineated abscess collection visualized, no obvious fasciitis of the perineum. 2. Incidental note of air within the nondependent portion of the bladder which may reflect recent instrumentation, right hydrocele, significant atherosclerotic disease. Finalized by: Marleny Carmona MD on 03/16/2019 5:55 PM CDT Patient/Procedure Information: [facility] MRN/PEDRO: [id number] Order Number: [id number] Accession Number: [id number] Ordering Provider: MARISOL ORDOÑEZ Authorizing Provider: MARISOL ORDOÑEZ Procedure Note Interface, Radiantres - 03/16/2019 5:57 PM CDT Patient Name: WADE HERBERT Date of : 1940 Procedure: CT PELVIS WITHOUT CONTRAST Date of Service: 03/16/2019 EXAM: CT PELVIS WITHOUT CONTRAST INDICATION: Male, 78 years year old patient, Scrotal mass or lump, scrotal abscess. History of bladder cancer. COMPARISON(S): Scrotal ultrasound, 03/01/2019 TECHNIQUE: Axial images were obtained from the iliac crest to the symphysis pubis without intravenous contrast administration at 3.75 mm intervals with sagittal and coronal reconstructions at 4 mm intervals. FINDINGS: Soft tissues/musculature/pelvic wall :Unremarkable. No abdominal wall or inguinal hernia is identified.: Normal abdominal wall. Visible ureters/bladder: Normal visualized ureters. Nondependent air within the bladder, which may reflect recent instrumentation. No indwelling catheter visualized. Gastrointestinal/Pelvic Viscera/ Mesentery/Peritoneal cavity: Stomach: Normal visualized stomach. . Small bowel has a normal caliber. Left colonic diverticulosis, without diverticulitis. There is non-visualization of the appendix.. No intraperitoneal free air. No ascites. No organized fluid collection. There are prostatic calcifications. There is skin thickening each hemiscrotum to 0.8 cm on the left and 0.64 cm on the right. Significance fluid collection on the right side. Subcutaneous scrotal air in the midline and on the left side (I - 90/93 axial, images 34 - 28 coronal), without obvious organized abscess or developing fasciitis appreciated.. Vessels: No aneurysm. Significant mural calcifications present in the aorta and iliac arteries. Lymph nodes: Reactive inguinal lymph nodes, without lymphadenopathy. Osseous: Normal osseous structures. There is no acute fracture. Normal bilateral ischial tuberosities. Normal superior and inferior pubic rami. Normal bilateral iliac wings, sacroiliac joints and visualized sacrum. Normal pubic symphysis. IMPRESSION: 1. Extensive scrotal skin thickening left greater than right with scrotal air visible at the midline and left scrotum, concerning for ongoing cellulitis. No well delineated abscess collection visualized, no obvious fasciitis of the perineum. 2. Incidental note of air within the nondependent portion of the bladder which may reflect recent instrumentation, right hydrocele, significant atherosclerotic disease. Finalized by: Marleny Carmona MD on 03/16/2019 5:55 PM CDT Patient/Procedure Information: [facility] MRN/PEDRO: [id number] Order Number: [id number] Accession Number: [id number] Ordering Provider: MARISOL ORDOÑEZ Authorizing Provider: MARISOL ORDOÑEZ Performing Organization Address [facility] Phone Number [id number] TYPE AND SCREEN (03/16/2019 5:12 PM CDT) ABO Type A [address] BLOOD BANK Rh Type Positive [address] BLOOD BANK Antibody Screen Negative [address] Comment: BLOOD BANK Allogenic Red Cells Available 03.16.2019 Expiration Date 03/19/2019 23:[address] BLOOD BANK Specimen Blood Performing Organization Address [facility] [place] [facility] Phone Number [address] BLOOD BANK [address] [place] [address] C-REACTIVE PROTEIN QUANTITATIVE (03/16/2019 3:28 PM CDT) CRP 4.5 0.0 - 8.0 mg/L [address] Specimen Blood Performing Organization Address [facility] Phone Number [address] [place] [address] documented in this encounter Visit Diagnoses Diagnosis Cellulitis of scrotum - Primary Other inflammatory disorder of male genital organs Scrotal wall abscess Other inflammatory disorder of male genital organs Scrotal infection Other inflammatory disorder of male genital organs Chronic atrial fibrillation (HCC) Atrial fibrillation Rheumatoid arthritis involving multiple sites, 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 Specified vascular disorder of male genital organs Gastroesophageal reflux disease without esophagitis Esophageal reflux Acute on chronic diastolic congestive heart failure, NYHA class 4 (HCC) Acute on chronic diastolic heart failure Cardiomyopathy, dilated, nonischemic (HCC) Other primary cardiomyopathies Anxiety Anxiety state, unspecified Pure hypercholesterolemia Malignant neoplasm of overlapping sites of bladder (HCC) Malignant neoplasm of other specified sites of bladder Rheumatoid arthritis (HCC) GERD (gastroesophageal reflux disease) Esophageal reflux Atrial fibrillation (HCC) 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 CHF (congestive heart failure), NYHA class IV (HCC) Congestive heart failure, unspecified Dyslipidemia Other and unspecified hyperlipidemia ICD (implantable cardioverter-defibrillator) in place CKD (chronic kidney disease) stage 2, GFR 60-89 ml/min Chronic kidney disease, Stage II (mild) Acute kidney injury superimposed on chronic kidney disease (HCC) Immunosuppression (HCC) Unspecified disorder of immune mechanism documented in this encounter Discharge Diagnoses Not on filedocumented in this encounter Administered Medications Medication Order MAR Action Action Date Dose Rate Site .Anticoagulation (WARFARIN) therapy nursing reminder Anti-coag reminder, First dose on Fri03/22/19 at 1400, Until Discontinued acetaminophen (TYLENOL) suppository 650 mg 650 mg, Rectal, Every six hours prn, Starting Fri03/16/19 at 2117, Until Discontinued, fever > (indicate temp), 100.5 degrees F, Total dose of acetaminophen from all acetaminophen containing products should not exceed 4 grams (4000 mg) per day. Use rectal suppository if patient not able to take oral acetaminophen., acetaminophen (TYLENOL) tablet 650 mg 650 mg, Oral, Every six hours prn, Starting Fri03/16/19 at 2118, Until Discontinued, mild pain, fever, fever > (indicate temp), 100.5 degrees F, Total dose of acetaminophen from all acetaminophen containing products should not exceed 4 grams (4000 mg) per day., aspirin chewable tablet 81 mg Given 03/26/2019 8:11 AM CDT 81 mg 81 mg, Oral, DAILY, First dose on Fri03/17/19 at 0900, Until Discontinued Given 03/25/2019 9:18 AM CDT 81 mg Given 03/24/2019 4:46 PM CDT 81 mg bisacodyl (DULCOLAX) suppository 10 mg 10 mg, Rectal, One time a day prn, Starting Fri03/16/19 at 2116, Until Discontinued, constipation, Use SECOND for constipation. If patient cannot take oral medications, use first for constipation., carbohydrate 15 g 15 g, Oral, PRN per parameter, Starting Fri03/16/19 at 2300, Until Discontinued , low blood glucose, Give 15 grams of carbohydrate if blood glucose is less than 70 mg/dL, patient is responsive and able to take food or oral meds. Recheck blood glucose in 15 minutes. Repeat 1 time and call MD. If recheck is greater than 70 mg/dL and able to take food or oral meds, give 15 gram carbohydrate if meal or snack due in more than an hour. Serve meal or snack if due in less than 1 hour. See hypoglycemia treatment on cardex. Sources of 15 grams carbohydrate: a.4 oz of fruit juice or b.4 oz of soda pop (NOT diet) or c.1 tablespoon of honey, docusate sodium (THEREVAC-SB MINI;ENEMEEZ MINI) 283 MG enema 1 enema 1 enema, Rectal, One time a day prn, Starting Fri03/16/19 at 2116, Until Discontinued, constipation, Use THIRD for constipation - if no BM 8 hours after ducolax suppository. If patient cannot take oral medications, use second for constipation., furosemide (LASIX) tablet 20 mg Given 03/26/2019 8:11 AM CDT 20 mg 20 mg, Oral, Daily, First dose on Fri03/23/19 at 1500, Until Discontinued, Hold for SBP less than 90, Given 03/25/2019 9:18 AM CDT 20 mg Given 03/24/2019 4:46 PM CDT 20 mg glucagon for injection 1 mg vial 1 mg 1 mg, Intramuscular, PRN per parameter, Starting Fri03/16/19 at 2300, Until Discontinued, low blood glucose, Give if blood glucose less than 70 mg/dL, patient is unresponsive or NPO, and has no IV access. Establish IV access. Recheck blood glucose in 15 minutes and call MD. If recheck is greater than 70 mg/dL and able to take food or oral meds, give 15 gram carbohydrate if meal or snack due in more than an hour. Serve meals or snack if due in less than 1 hour. See hypoglycemia treatment on cardex. Reconstitute vial with 1 mL of sterile water for injection for reconstitution for a final concentration of 1 mg/mL. Shake vial gently. Use immediately and discard unused portion. Reconstitute with 1 mL of sterile water for injection to yield 1 mg/mL. Shake vial gently. Use immediately and discard unused portion., heparin (porcine) injection solution Given 03/25/2019 11:35 PM CDT 5,000 Units 5,000 Units 5,000 Units, Subcutaneous, Every twelve hours, First dose on Fri03/17/19 at 1200, Until Discontinued, 1 mL Given 03/25/2019 12:04 PM CDT 5,000 Units Given 03/25/2019 12:00 AM CDT 5,000 Units HYDROmorphone (DILAUDID) injection solution Given 03/23/2019 11:00 AM CDT 0.5 mg (conc: 0.5 mg/0.5mL) 0.5 mg 0.5 mg, IV, Every three hours prn, Starting Fri03/16/19 at 1836, Until Discontinued, breakthrough pain, 0.5 mL Given 03/22/2019 9:32 PM CDT 0.5 mg Given 03/22/2019 9:10 AM CDT 0.5 mg HYDROmorphone (DILAUDID) injection solution (conc: 0.5 mg/0.5mL) 0.5 mg 0.5 mg, IV, PRN per parameter, Starting Fri03/19/19 at 1145, Until Discontinued , other (Specify), wound dressing changes, please hold if patient drowsy or not in pain, 0.5 mL insulin aspart (NovoLOG) SQ correction Given 03/25/2019 5:57 PM CDT 2 Units scale (Adult) 2-12 Units, Subcutaneous, Three times a day with meals, First dose on Fri03/25/19 at 1745, Until Discontinued, 0.12 mL, Patient is eating MEDIUM DOSE insulin aspart (NovoLOG) subcutaneous correction scale Premeal Blood Glucose=Insulin Dose 150-199 2 units 200-249 4 units 250-299 7 units 300-349 10 units Over 349 12 units, lactobacillus (CULTURELLE) capsule 1 Given 03/26/2019 8:10 AM CDT 1 capsule capsule 1 capsule, Oral, Daily, First dose on Fri03/24/19 at 0900, Until Discontinued, LIVE MICROORGANISM: Do not open capsules or packets and do not crush tablets or wafers in the vicinity of patients with central lines. Health care workers should follow standard good practices: Wash hands and wear gloves when administering this product. Always wash hands well and change gloves after handling as to avoid any accidental transfer into the central line of any patient. , Given 03/25/2019 9:19 AM CDT 1 capsule Given 03/24/2019 4:47 PM CDT 1 capsule melatonin tablet 9 mg Given 03/25/2019 11:13 PM CDT 9 mg 9 mg, Oral, Bedtime prn, Starting Fri03/19/19 at 1144, Until Discontinued, other (Specify), insomnia, If inadequate response in 60 minutes, may proceed to next choice option or, if no other options, contact provider., Given 03/19/2019 8:58 PM CDT 9 mg metoprolol succinate (TOPROL XL) SR tablet Given 03/26/2019 8:11 AM CDT 100 mg (24 hr) 100 mg 100 mg, Oral, DAILY, First dose on Fri03/17/19 at 0900, Until Discontinued, Tablet may be broken in half, but should not be crushed or chewed., , , Given 03/25/2019 9:18 AM CDT 100 mg Given 03/24/2019 10:00 AM CDT 100 mg nalOXone (NARCAN) injection solution (vial) 0.4 mg 0.4 mg, IV, Every two minutes prn, Starting Fri03/19/19 at 1145, Until Discontinued, respiratory depression, respiratory arrest, 1 mL omeprazole (priLOSEC) capsule 20 mg Given 03/26/2019 6:56 AM CDT 20 mg 20 mg, Oral, Every morning, First dose on Fri03/17/19 at 0700, Until Discontinued, Swallow cap whole. Do not crush, chew or open., Given 03/25/2019 6:04 AM CDT 20 mg Given 03/23/2019 6:08 AM CDT 20 mg ondansetron (ZOFRAN ODT) dispersible tablet 4 mg 4 mg, Oral, Every four hours prn, Starting Fri03/16/19 at 2116, Until Discontinued, nausea, vomiting, Use FIRST. If ineffective after 30 minutes use ondansetron IV , ondansetron (ZOFRAN) injection solution 4 mg Given 03/23/2019 11:01 AM CDT 4 mg 4 mg, IV, Every four hours prn, Starting Fri03/16/19 at 2116, Until Discontinued, nausea, vomiting, 2 mL, Use SECOND. If ineffective after 30 minutes and ondansetron ODT used, call physician for alternative. If preference is to further dilute for IV administration: First draw up patient-specific dose, then dilute to 10 mL with 0.9% sodium chloride., Given 03/17/2019 10:33 AM CDT 4 mg oxyCODONE (OXY-IR) tablet 5-10 mg Given 03/26/2019 8:20 AM CDT 10 mg 5-10 mg, Oral, Every four hours prn, Starting Fri03/16/19 at 1835, Until Discontinued, 5 for moderate, 10 for severe Given 03/25/2019 9:39 PM CDT 10 mg Given 03/25/2019 1:36 PM CDT 10 mg PARoxetine (PAXIL) tablet 20 mg Given 03/26/2019 8:11 AM CDT 20 mg 20 mg, Oral, DAILY, First dose on Fri03/17/19 at 0900, Until Discontinued Given 03/25/2019 9:18 AM CDT 20 mg Given 03/24/2019 4:47 PM CDT 20 mg piperacillin-tazobactam (ZOSYN) IV premix Given 03/26/2019 8:10 AM CDT 4, 500 mg in D-2% 4,500 mg 4,500 mg (4.5 g), IV, Every eight hours, First dose on Fri03/19/19 at 1630, Until Discontinued, 100 mL, Infuse first dose over 30 minutes., Given 03/25/2019 11:35 PM CDT 4,500 mg Given 03/25/2019 3:37 PM CDT 4,500 mg predniSONE tablet 5 mg Given 03/26/2019 8:11 AM CDT 5 mg 5 mg, Oral, DAILY, First dose on Fri03/17/19 at 0900, Until Discontinued Given 03/25/2019 9:18 AM CDT 5 mg Given 03/24/2019 4:47 PM CDT 5 mg senna-docusate sodium Given 03/21/2019 8:36 AM CDT 2 tablets (SENOKOT-S;PERICOLACE) tablet 2 tablet 2 tablet, Oral, Two times a day prn, Starting Fri03/16/19 at 2116, Until Discontinued, constipation, Use FIRST for constipation unless patient cannot take oral medications., simvastatin (ZOCOR) tablet 20 mg Given 03/25/2019 8:48 PM CDT 20 mg 20 mg, Oral, Bedtime, First dose on Fri03/16/19 at 2130, Until Discontinued Given 03/24/2019 8:34 PM CDT 20 mg Given 03/23/2019 8:33 PM CDT 20 mg sodium chloride 0.9% flush (adult) 10 mL Given 03/26/2019 8:11 AM CDT 10 mL 10 mL, IV, Two times a day and prn, First dose on Fri03/16/19 at 2100, Until Discontinued, 10 mL, Flush IV line as scheduled and as often as necessary before and after meds., Given 03/25/2019 9:21 AM CDT 10 mL Given 03/24/2019 8:36 PM CDT 10 mL tamsulosin (FLOMAX) capsule 0.4 mg Given 03/25/2019 12:04 PM CDT 0.4 mg 0.4 mg, Oral, Daily (Noon), First dose on Fri03/17/19 at 1200, Until Discontinued, Swallow cap whole. Do not crush, chew or open., Given 03/24/2019 4:48 PM CDT 0.4 mg Given 03/23/2019 1:21 PM CDT 0.4 mg Medication Order MAR Action Action Date Dose Rate Site ampicillin-sulbactam (UNASYN) Given 03/19/2019 10:31 AM CDT 3,000 mg 3,000 mg in sodium chloride 0.9% 100 mL 3,000 mg, IV, Every eight hours, First dose on Fri03/17/19 at 1030, Until Discontinued, 100 mL Given 03/19/2019 2:04 AM CDT 3,000 mg Given 03/18/2019 6:41 PM CDT 3,000 mg cefepime (MAXIPIME) 1000 mg/10 mL in Given 03/16/2019 5:55 PM CDT 1,000 mg sterile water IV syringe 1,000 mg, IV, Every twenty four hours, First dose on Fri03/16/19 at 1735, Until Discontinued, 10 mL, Administer over 5 minutes., fentaNYL (100 mcg/2 mL) preservative free injection solution 1 dose, Starting Fri03/24/19 at 1510, Until Fri03/24/19 at 1513, (Parrish Jorge: cabinet override, fentaNYL 100 mcg/2 mL preservative free Given 03/24/2019 3:44 PM CDT 25 mcg injection solution 25 mcg 25 mcg, IV, Every five minutes prn, 12 doses, Starting Fri03/24/19 at 1513, Until Fri03/24/19 at 1622, moderate pain, severe pain, 2 mL, PACU, For pain scale 4 to 6 or pain not relieved by medications for pain Scale 1 - 3 and for pain scale 7 or greater or pain not relieved by medications for pain scale 4 to 6 Max 300 mcg total accumulated dose. Use only anesthesia's orders for moderate/severe pain while in PACU or recovery care, Given 03/24/2019 3:13 PM CDT 25 mcg hydrocortisone sod succinate (solu-CORTEF) Given 03/25/2019 6:04 AM CDT 25 mg injection 25 mg 25 mg, IV, Every six hours, 4 doses, First dose on Fri03/24/19 at 1200, Last dose on Fri03/25/19 at 0600, 2 mL, If diluent is not supplied (act-o-vial), dilute 100mg vial with 2mL of sterile water or 0.9% sodium chloride for final concentration of 50mg/mL., Given 03/25/2019 12:01 AM CDT 25 mg Given 03/24/2019 5:55 PM CDT 25 mg insulin aspart (NovoLOG) SQ correction Given 03/25/2019 12:09 PM CDT 2 Units scale (Adult) 2-8 Units, Subcutaneous, Three times a day, First dose on Fri03/17/19 at 0730, Until Discontinued, 0.08 mL, Patient is NPO LOW DOSE insulin aspart (NovoLOG) subcutaneous correction scale Blood Glucose=Insulin Dose 150-199 2 units 200-249 3 units 250-299 5 units 300-349 7 units Over 349 8 units, Given 03/23/2019 1:19 PM CDT 2 Units Given 03/22/2019 12:39 PM CDT 2 Units lactated ringers IV solution New Bag 03/16/2019 10:00 PM CDT 150 mL/hr IV, at 150 mL/hr, Continuous, Starting Fri03/16/19 at 1755, Until Fri03/16/19 at 2358, 1,000 mL lactated ringers IV solution Already Infusing 03/24/2019 3:30 PM CDT 125 mL/hr IV, at 125 mL/hr, Continuous, Starting Fri03/24/19 at 1525, Until Fri03/24/19 at 1622, 1,000 mL, PACU, TKO current fluids if patient is going to Day Unit / ARU and tolerating PO fluids without nausea., lidocaine 2% gel (Urojet)~ Given 03/25/2019 4:00 PM CDT 10 mL 10 mL, Urethral, One time, 1 dose, Lucía 03/25/19 at 1540, 10 mL, To urethra for comfort upon insertion of urinary catheter., melatonin tablet 3 mg Given 03/18/2019 9:38 PM CDT 3 mg 3 mg, Oral, Bedtime prn, Starting Fri03/16/19 at 2115, Until Fri03/19/19 at 1144, other (Specify), insomnia, If inadequate response in 60 minutes, may proceed to next choice option or, if no other options, contact provider., metroNIDAZOLE (FLAGYL) IV piggyback Given 03/16/2019 7:11 PM CDT 500 mg 100 mL/hr in sodium chloride 0.79% (premix) 500 mg 500 mg, IV, at 100 mL/hr, Every eight hours, First dose on Fri03/16/19 at 1735, Until Discontinued, 100 mL phytonadione (Vitamin K, AQUAMEPHYTON) 10 mg Given 03/17/2019 12:13 AM CDT 10 mg in sodium chloride 0.9% 50 mL 10 mg, IV, One time, 1 dose, Fri03/16/19 at 2345, 50 mL, Protect from light., potassium chloride (KLOR-CON M20) CR tablet Given 03/22/2019 12:39 PM CDT 40 mEq 40 mEq 40 mEq, Oral, One time, 1 dose, 03/22/19 at 1130, Tablet may be broken in half, but should not be crushed or chewed. Tablet may be dissolved in 4 oz of water., sodium chloride 0.9% IV solution flush New Bag 03/16/2019 8:21 PM CDT 1, 000 mL bag IV, Continuous, Starting Fri03/16/19 at 1750, Until Fri03/16/19 at 2358, 500 mL, IV line carrier for line flush with blood product infusion., sodium chloride 0.9% IV solution New Bag 03/17/2019 7:14 PM CDT 100 mL/hr IV, at 100 mL/hr, Continuous, Starting Fri03/17/19 at 0145, Until Fri03/18/19 at 1310, 1,000 mL New Bag 03/17/2019 8:44 AM CDT 100 mL/hr Rate Change 03/17/2019 8:20 AM CDT 100 mL/hr sodium chloride 0.9% IV solution New Bag 03/25/2019 4:19 PM CDT 50 mL/hr IV, at 50 mL/hr, Continuous, Starting Fri03/18/19 at 1415, Until Fri03/26/19 at 0849, 1,000 mL New Bag 03/24/2019 8:35 PM CDT 50 mL/hr Already Infusing 03/24/2019 5:07 PM CDT 50 mL/hr vancomycin in dextrose 200 mL IV piggyback Given 03/16/2019 6:00 PM CDT 1, 000 mg (premix) 1,000 mg 1,000 mg, IV, Now, 1 dose, Fri03/16/19 at 1735, 200 mL vancomycin in dextrose 200 mL IV piggyback Given 03/17/2019 9:03 PM CDT 1, 000 mg (premix) 1,000 mg 1,000 mg, IV, Now, 1 dose, Fri03/17/19 at 2000, 200 mL vancomycin in dextrose 200 mL IV piggyback Given 03/21/2019 11:56 PM CDT 1, 000 mg (premix) 1,000 mg 1,000 mg, IV, Every twenty four hours, First dose on Fri03/18/19 at 2230, Until Discontinued, 200 mL Given 03/21/2019 12:54 AM CDT 1,000 mg Given 03/19/2019 11:14 PM CDT 1,000 mg warfarin (COUMADIN) tablet 1.25 mg Given 03/26/2019 10:49 AM CDT 1.25 mg 1.25 mg, Oral, Warfarin one time dose, 1 dose, 03/26/19 at 1130, Injection Operator prior to discharge If patient is receiving tube feeding, hold tube feeding 1 hour before and 1 hour after warfarin administration., warfarin (COUMADIN) tablet 2.5 mg Given 03/22/2019 4:30 PM CDT 2.5 mg 2.5 mg, Oral, Warfarin one time dose, 1 dose, 03/22/19 at 1600, If patient is receiving tube feeding, hold tube feeding 1 hour before and 1 hour after warfarin administration., warfarin (COUMADIN) tablet 2.5 mg Given 03/23/2019 4:01 PM CDT 2.5 mg 2.5 mg, Oral, Warfarin one time dose, 1 dose, 03/23/19 at 1600, If patient is receiving tube feeding, hold tube feeding 1 hour before and 1 hour after warfarin administration., warfarin (COUMADIN) tablet 2.5 mg Given 03/24/2019 4:48 PM CDT 2.5 mg 2.5 mg, Oral, Warfarin one time dose, 1 dose, 03/24/19 at 1600, If patient is receiving tube feeding, hold tube feeding 1 hour before and 1 hour after warfarin administration., warfarin (COUMADIN) tablet 2.5 mg Given 03/25/2019 3:37 PM CDT 2.5 mg 2.5 mg, Oral, Warfarin one time dose, 1 dose, Lucía 03/25/19 at 1600, If patient is receiving tube feeding, hold tube feeding 1 hour before and 1 hour after warfarin administration., documented in this encounter
[2019-03-26] MEDS ORDERED: Nitroglycerin 0.4 MG Tab.SL SL PRN (14:00)
--- NOTE | 2019-03-26 14:00 | PCM.HP.2 ---
H&P History of Present Illness - General Date of Service: 03/26/19 Admit Problem/Dx: Wound care of scrotal graft post debridement and PT/OT Source of Information: Patient History Limitations: Reports: No Limitations, Altered Mental Status - History of Present Illness Initial Comments - Free Text/Narative: Patient is here for a B admission. He was transferred from [place] to our care for wound care post surgical debridement to scrotum and PT/OT. He is on antibiotics for 1 day, followed by BID dressing changes. His goal is to regain strength and return home. - Related Data Allergies/Adverse Reactions: Allergies Allergy/AdvReac Type Severity Reaction Status Date / Time celecoxib [From Celebrex] Allergy Stomach Verified 02/22/19 10:11 Ache Home Medications: Home Meds Leflunomide 20 mg PO DAILY 05/20/15 [History] Omeprazole 20 mg PO DAILY 05/20/15 [History] Simvastatin 20 mg PO BEDTIME 05/20/15 [History] predniSONE [Prednisone] 5 mg PO DAILY 05/20/15 [History] Aspirin 81 mg PO DAILY 11/23/15 [History] Nitroglycerin [Nitrostat] 0.4 mg SL ASDIRECTED PRN 11/23/15 [History] Furosemide [Lasix] 40 mg PO DAILY 01/05/16 [History] Metoprolol Succinate [Toprol XL] 100 mg PO DAILY@1800 10/26/17 [History] PARoxetine HCl [Paroxetine HCl] 20 mg PO DAILY 10/26/17 [History] Iron Polysaccharide Complex [Ferric X-150] 150 mg PO DAILY@1200 06/06/18 [ History] Tamsulosin [Flomax] 0.4 mg PO DAILY@1200 06/06/18 [History] Acetaminophen 650 mg PO Q6HR PRN 02/22/19 [History] Calcium Carbonate/Vitamin D3 [Calcium 500-Vit D3 200 Caplet] 1 tab PO DAILY@ 1200 02/22/19 [History] Amoxicillin/Clavulanate K [Augmentin 500-125 MG] 1 tab PO BID 03/26/19 [History] Ciprofloxacin [Ciprofloxacin HCl] 1 tab PO BID 03/26/19 [History] Docusate Sodium 200 mg PO BID 03/26/19 [History] Furosemide 20 mg PO DAILY 03/26/19 [History] Lactobacillus Acidophilus [Probiotic] 1 cap PO DAILY 03/26/19 [History] Melatonin 9 mg PO BEDTIME 03/26/19 [History] Polyethylene Glycol 3350 [MiraLAX] 17 gm PO DAILY 03/26/19 [History] Warfarin [Coumadin] 2.5 mg PO DAILY@1800 03/26/19 [History] oxyCODONE 10 mg PO Q6H PRN 03/26/19 [History] Past Medical History HEENT History: Reports: Cataract, Hard of Hearing, Impaired Vision, Other (See Below) Other HEENT History: Patient wears glasses. No current hearing aide therapy. Cardiovascular History: Reports: Afib, Aneurysm, Arrhythmia, Automatic Implantable Cardioverter Defibrillators, CAD, Cardiomyopathy, Heart Failure, High Cholesterol, Hypertension, PVD, Syncope, Other (See Below) Other Cardiovascular History: Atrial fibrillation with rapid ventricular response with secondary cardiac and respiratory collapse requiring intubation cardioversion on 05/20/15. PACs, PVCs, and additional history of ventricular tachycardia with ICD placement as below. Borderline incomplete right bundle branch block. Severe cardiomyopathy with ejection fraction of only 25% area of mild carotid occlusive disease at 1649 percent bilaterally. Abdominal aortic aneurysm. Respiratory History: Reports: COPD, Intubation, Previous, Pulmonary Fibrosis, Other (See Below) Other Respiratory History: Benign right pulmonary nodule Gastrointestinal History: Reports: Cholelithiasis, Gastritis, GERD, Hepatitis, Helicobacter Pylori, Pancreatitis, PUD, Other (See Below) Other Gastrointestinal History: Cholelithiasis with secondary pancreatitis and hepatitis on 11/30/12. Genitourinary History: Reports: BPH, Prostate Disorder, Renal Calculus, Urinary Incontinence, Other (See Below) Other Genitourinary History: Bilateral renal cysts, Peyronie's disease. History of bladder cancer diagnosed on 12/09/14 with BCG treatment. Benign prostatic nodule diagnosed on 09/05/1999. Recurrent bilateral nephrolithiasis since his 30s with at least 4 previous episodes with last episode in April 2012. 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 Endocrine/Metabolic History: Reports: Diabetes, Type II, Osteopenia, Osteoporosis Other Endocrine/Metabolic History: Diabetes mellitus/borderline hyperglycemia currently treated with diet Hematologic History: Reports: Anemia Immunologic History: Reports: None Oncologic (Cancer) History: Reports: Bladder, Other (See Below) Other Oncologic History: Bladder cancer diagnosed on 12/09/14 with subsequent BCG therapy as above Dermatologic History: Reports: None - Infectious Disease History Infectious Disease History: Reports: None - Past Surgical History HEENT Surgical History: Reports: Cataract Surgery, Oral Surgery, Tonsillectomy, Other (See Below) Other HEENT Surgeries/Procedures: Bilateral cataract surgery. Multiple teeth extractions with current complete dentures and partial lowers. Tonsillectomy at age 22. Cardiovascular Surgical History: Reports: AICD, Coronary Artery Stent, Other ( See Below) Other Cardiovascular Surgeries/Procedures: AICD placement in September 28, 2015 with previous Life Vest therapy Respiratory Surgical History: Reports: Lung Biopsies, Other (See Below) GI Surgical History: Reports: Colonoscopy, EGD, ERCP, Other (See Below) Other GI Surgeries/Procedures: Colonoscopy on 02/28/08 and EGD on 03/26/08 with additional ERCP patient denying cholecystectomy despite previous history of obstructive cholelithiasis and secondary pancreatitis Male Surgical History: Reports: Circumcision, Kidney Stone Extraction, Prostate Biopsy, Renal Calculus, TURBT-Transurethral Resection of Bladder Tumor , Vasectomy, Other (See Below) Other Male Surgeries/Procedures: Last cystoscopy in 2016 by patient history. Circumcision as an . Renal stone extraction June 2002. Vasectomy in his late 20s. Prostate biopsy on 09/05/1999. TURBT on 12/09/14 Musculoskeletal Surgical History: Reports: None Oncologic Surgical History: Reports: Other (See Below) Other Oncologic Surgeries/Procedures: TURBT as above - Past Imaging History Past Imaging History: Reports: Angiography (April 2015 with ejection fraction of only 25%), Carotid US (08/07/15), CAT Scan (CT urethrogram on 11/22/14. CT of the abdomen and pelvis on 02/07/12.), DEXA Scan (09/20/16 with previous evaluation on 12/26/11), Stress Testing (Low level cardiac stress test on ), Ultrasound (Last abdominal aortic ultrasound on 11/11/16. Renal ultrasound on 05/05/12) Social & Family History - Family History HEENT: Reports: None Cardiac: Reports: High Cholesterol, Other (See Below) Other Cardiac Family History: Mother with hyperlipidemia Respiratory: Reports: None GI: Reports: Cholelithiasis, Other (See Below) Other GI Family History: Mother with cholelithiasis : Reports: None, Renal Calculus, Other (See Below) Other Family History: Father with urolithiasis OBGYN: Reports: None Musculoskeletal: Reports: RA, Other (See Below) Other Musculoskeletal Family History: Paternal grandmother with rheumatoid arthritis Neurological: Reports: Alzheimers Disease, CVA, Dementia, Other (See Below) Other Neurological Family History: Parents with Alzheimer's disease. Paternal grandfather with fatal CVA. Psychiatric: Reports: None Endocrine/Metabolic: Reports: Diabetes, type II, Hypothyroidism, IDDM, Other ( See Below) Other Endocrine/Metabolic Family History: Mother with hypothyroidism. Mother with IDDM. 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.) H&P Review of Systems - Review of Systems: Review Of Systems: See Below General: Reports: Weakness HEENT: Reports: No Symptoms Pulmonary: Reports: No Symptoms Cardiovascular: Reports: No Symptoms Gastrointestinal: Reports: No Symptoms Genitourinary: Reports: No Symptoms Skin: Reports: Wound (scrotum, has pain to abdomen and storm-area from debridement) Exam - Exam Exam: See Below - Exam General: Alert, Oriented, Cooperative HEENT: Conjunctiva Clear Neck: Supple, Trachea Midline Lungs: Clear to Auscultation, Normal Respiratory Effort Cardiovascular: Regular Rate, Regular Rhythm GI/Abdominal Exam: Normal Bowel Sounds, Soft (Has mild tenderness but this is improving) (Male) Exam: Deferred Rectal (Males) Exam: Deferred Back Exam: Normal Inspection Extremities: Normal Inspection, Normal Range of Motion Skin: Warm, Intact, Wound Neuro Extensive - Mental Status: Alert, Oriented x3, Normal Mood/Affect Psychiatric: Alert, Normal Affect, Normal Mood - Problem List (1) Wound, open, scrotum or testes SNOMED Code(s): 422853658 ICD Code: S31.30XA - UNSPECIFIED OPEN WOUND OF SCROTUM AND TESTES, INIT ENCNTR Status: Acute Current Visit: Yes Problem Details: Open wound to scrotum with BID dressing changes of outer dressing. Antibiotics in place for 1 day. Monitor for signs of infection, redness, increased drainage, fever, pain. Has oxycodone PRN for pain (2) Congestive heart failure SNOMED Code(s): 79386037 ICD Code: I50.9 - HEART FAILURE, UNSPECIFIED Status: Acute Current Visit : No Problem Details: Continue on elevated dose of Lasix 40mg for 15 days, then we will decrease to 20mg per Gomez. Monitor BP and vitals. Qualifiers: Heart failure chronicity: unspecified Problem List Initiated/Reviewed/Updated: Yes - Mortality Measure Prognosis:: Good
[2019-03-26] MEDS: oxyCODONE 5 MG Tab PO PRN (14:46)
[2019-03-26] MEDS: Ciprofloxacin 500 MG Tab PO SCH (17:37)
[2019-03-26] MEDS: Metoprolol Succinate 50 MG Tab.ER PO SCH (17:37)
[2019-03-26] MEDS: Docusate Sodium 100 MG Cap PO SCH (17:37)
[2019-03-26] MEDS: Amoxicillin/Clavulanate K 500-125 MG Tab PO SCH (17:38)
[2019-03-26] MEDS: Acetaminophen 325 MG Tab PO PRN (19:27)
[2019-03-26] MEDS: Melatonin 3 MG Tab PO SCH (19:28)
[2019-03-26] MEDS: Simvastatin 20 MG Tab PO SCH (19:29)
[2019-03-27] MEDS: oxyCODONE 5 MG Tab PO PRN ×2 (02:08→23:16)
[2019-03-27] MEDS: predniSONE 5 MG Tab PO SCH (07:49)
[2019-03-27] MEDS: Omeprazole 20 MG Cap.CR PO SCH (07:49)
[2019-03-27] MEDS: Amoxicillin/Clavulanate K 500-125 MG Tab PO SCH (07:49)
[2019-03-27] MEDS: Ciprofloxacin 500 MG Tab PO SCH ×2 (07:50→18:04)
[2019-03-27] MEDS: PARoxetine 20 MG Tab PO SCH (07:50)
[2019-03-27] MEDS: Furosemide 40 MG Tab PO SCH (07:51)
[2019-03-27] MEDS: Aspirin 81 MG Tab.Chew PO SCH (07:51)
[2019-03-27] MEDS: Lactobacillus Rhamnosus GG (Probiotic) Cap PO SCH (07:51)
[2019-03-27] MEDS: LEFLUNOMIDE 20 MG PO SCH (07:52)
[2019-03-27] MEDS: Docusate Sodium 100 MG Cap PO SCH ×2 (07:52→18:04)
[2019-03-27] MEDS: Polyethylene Glycol 3350 Powder 17 GM Packet PO SCH (07:53)
[2019-03-27] MEDS: Tamsulosin 0.4 MG Cap.ER PO SCH (12:04)
[2019-03-27] MEDS: Iron Polysaccharides Complex 150 MG Cap PO SCH (12:04)
[2019-03-27] MEDS: Calcium Carbonate/Vitamin D3 1500 MG-400 Units Tab PO SCH (12:04)
[2019-03-27] MEDS ORDERED: LORazepam 2 MG/ML SDV IM PRN (12:39)
[2019-03-27] MEDS: Metoprolol Succinate 50 MG Tab.ER PO SCH (18:03)
[2019-03-27] MEDS: Simvastatin 20 MG Tab PO SCH (19:36)
[2019-03-27] MEDS: Melatonin 3 MG Tab PO SCH (19:36)
[2019-03-27] MEDS: LORazepam 0.5 MG Tab PO PRN (19:37)
[2019-03-27] MEDS: Acetaminophen 325 MG Tab PO PRN (23:16)
[2019-03-28] MEDS ORDERED: Warfarin 2.5 MG Tab PO ONE (08:00)
[2019-03-28] MEDS ORDERED: Warfarin 2.5 MG Tab ONE (10:14)
[2019-03-28] MEDS: Aspirin 81 MG Tab.Chew PO SCH (10:39)
[2019-03-28] MEDS: Omeprazole 20 MG Cap.CR PO SCH (10:39)
[2019-03-28] MEDS: PARoxetine 20 MG Tab PO SCH (10:39)
[2019-03-28] MEDS: LEFLUNOMIDE 20 MG PO SCH (10:39)
[2019-03-28] MEDS: Ciprofloxacin 500 MG Tab PO SCH ×2 (10:39→17:47)
[2019-03-28] MEDS: predniSONE 5 MG Tab PO SCH (10:39)
[2019-03-28] MEDS: Lactobacillus Rhamnosus GG (Probiotic) Cap PO SCH (10:39)
[2019-03-28] MEDS: Docusate Sodium 100 MG Cap PO SCH ×2 (10:40→17:50)
[2019-03-28] MEDS: Furosemide 40 MG Tab PO SCH (10:40)
[2019-03-28] MEDS: Polyethylene Glycol 3350 Powder 17 GM Packet PO SCH (10:41)
[2019-03-28] MEDS: Tamsulosin 0.4 MG Cap.ER PO SCH ×2 (10:44→11:20)
[2019-03-28] MEDS: Calcium Carbonate/Vitamin D3 1500 MG-400 Units Tab PO SCH ×2 (10:44→11:20)
[2019-03-28] MEDS: Iron Polysaccharides Complex 150 MG Cap PO SCH ×2 (10:44→11:20)
[2019-03-28] MEDS: oxyCODONE 5 MG Tab PO PRN ×2 (11:44→17:49)
[2019-03-28] MEDS: Acetaminophen 325 MG Tab PO PRN ×2 (11:44→17:48)
[2019-03-28] MEDS: Metoprolol Succinate 50 MG Tab.ER PO SCH (17:47)
[2019-03-28] MEDS: Melatonin 3 MG Tab PO SCH (20:10)
[2019-03-28] MEDS: Simvastatin 20 MG Tab PO SCH (20:10)
[2019-03-29] MEDS: Omeprazole 20 MG Cap.CR PO SCH (07:48)
[2019-03-29] MEDS: LEFLUNOMIDE 20 MG PO SCH (07:48)
[2019-03-29] MEDS: Ciprofloxacin 500 MG Tab PO SCH (07:53)
[2019-03-29] MEDS: predniSONE 5 MG Tab PO SCH (07:53)
[2019-03-29] MEDS: oxyCODONE 5 MG Tab PO PRN (07:53)
[2019-03-29] MEDS: Furosemide 40 MG Tab PO SCH (07:53)
[2019-03-29] MEDS: Aspirin 81 MG Tab.Chew PO SCH (07:53)
[2019-03-29] MEDS: PARoxetine 20 MG Tab PO SCH (07:56)
[2019-03-29] MEDS: Lactobacillus Rhamnosus GG (Probiotic) Cap PO SCH (07:56)
[2019-03-29] MEDS: Docusate Sodium 100 MG Cap PO SCH (08:02)
[2019-03-29] MEDS: Polyethylene Glycol 3350 Powder 17 GM Packet PO SCH (08:03)
[2019-03-29 08:28] VITALS: BP 140/61
[2019-03-29] MEDS ORDERED: Albuterol 0.083% 2.5 MG/3 ML Neb Soln INH PRN (08:43)
[2019-03-29] MEDS ORDERED: Albuterol/Ipratropium 3.0-0.5 MG/3 ML Neb Soln NEB PRN (08:43)
[2019-03-29] MEDS: LORazepam 0.5 MG Tab PO PRN (09:40)
[2019-03-29] MEDS: Acetaminophen 325 MG Tab PO PRN (09:41)
[2019-03-29] MEDS: Tamsulosin 0.4 MG Cap.ER PO SCH (11:51)
[2019-03-29] MEDS: Calcium Carbonate/Vitamin D3 1500 MG-400 Units Tab PO SCH (11:51)
[2019-03-29] MEDS: Iron Polysaccharides Complex 150 MG Cap PO SCH (11:51)
[2019-03-29] MEDS ORDERED: Albuterol/Ipratropium 3.0-0.5 MG/3 ML Neb Soln NEB SCH (14:00)
--- NOTE | 2019-03-29 20:54 | PCM.DCSUM1 ---
Discharge Summary - Hospital Course HPI Initial Comments: See admission H&P Brief History: See admission H&P Diagnosis: Stroke: No Modified Bianka Scale: No Symptoms at All Modified Bianka Scale Score: 0 - Discharge Data Discharge Date: 03/29/19 Discharge Disposition: DC/Tfer to Acute Hospital 02 Condition: Serious - Discharge Diagnosis/Problem(s) (1) Sepsis SNOMED Code(s): 32191859 ICD Code: A41.9 - SEPSIS, UNSPECIFIED ORGANISM Status: Acute Priority: High Onset Date: 03/29/19 Problem Details: Note clinical evidence of sepsis including tachycardia, leukocytosis, lactic acid elevation, etc. Very possible etiologies could the current pneumonia, possible C. difficile colitis secondary to extensive recent antibiotic therapy, and/or postoperative cellulitis from recent skin graft as below. Patient does have a Soliz catheter consideration of additional UTI. Despite of patient's CHF we will initiate IV lactated Ringer's with caution secondary to his sepsis and hypokalemia. No IV Lasix therapy for now per request of accepting physician. Telephone consultation at 12:[address] Hardin, emergency room physician at , who does accept the patient for further treatment, evaluation, and admission. He is in agreement with our treatment planned as above/below. Ambulance transfer with weaver hand loom accompaniment. Note that per the patient's daughter the patient is currently a no code/comfort care only status, although the family does agree to patient transfer. The patient was apparently incorrectly admitted to full code status during his recent swing bed care. Significant lactic acid elevation with repeat lactic acid level in 3 hours recommended. Qualifiers: Sepsis acute organ dysfunction status: without acute organ dysfunction (2) Coronary artery disease SNOMED Code(s): 44962760 ICD Code: I25.10 - ATHSCL HEART DISEASE OF [place] CORONARY ARTERY W/O ANG PCTRS Status: Chronic Priority: Medium Problem Details: Note recent chest pain and anginal type symptoms as above. Borderline new left bundle branch block ?. Chest pain protocol initiated in the emergency room. Patient is chest pain- free at time of transfer. Note BNP elevation with artifactually elevated CK index with low baseline CK. Troponin I is still normal although mildly change secondary to his CHF. Consider cardiology consultation, routine rule out CO workup, etc. by accepting providers. Qualifiers: Coronary Disease-Associated Artery/Lesion type: [place] artery [place] vs. transplanted heart: [place] heart Associated angina: without angina Qualified Code(s): I25.10 - Atherosclerotic heart disease of [place] coronary artery without angina pectoris (3) Pneumonia SNOMED Code(s): 944342955 ICD Code: J18.9 - PNEUMONIA, UNSPECIFIED ORGANISM Status: Acute Priority : High Problem Details: Note current right upper lobe pneumonia by clinical exam and today's chest x-ray, although the etiology this did not indicate this in his report. IV Rocephin therapy initiated as above. Qualifiers: Pneumonia type: due to unspecified organism Laterality: right Lung location: upper lobe of lung Qualified Code(s): J18.1 - Lobar pneumonia, unspecified organism (4) Congestive heart failure SNOMED Code(s): 38301136 ICD Code: I50.9 - HEART FAILURE, UNSPECIFIED Status: Acute Priority: High Problem Details: Note moderate CHF based on BNP, chest x-ray, and today' s clinical exam. Note concomitant pneumonia. Oral Lasix was continued during his swing bed care, however no further IV Lasix at this time per request of the accepting emergency room physician. This is extremely reasonable secondary to patient's current probable sepsis. Qualifiers: Heart failure chronicity: unspecified (5) D-dimer, elevated SNOMED Code(s): 310168919 ICD Code: R79.89 - OTHER SPECIFIED ABNORMAL FINDINGS OF BLOOD CHEMISTRY Status: Acute Priority: High Onset Date: 03/29/19 Problem Details: Note current Coumadin therapy with INR 3.1. No direct clinical evidence of PE or DVT. Emergency room physician is in agreement with holding off on CTA of the chest for the time being with further workup by accepting providers depending on patient's clinical course. (6) Anemia SNOMED Code(s): 156553000 ICD Code: D64.9 - ANEMIA, UNSPECIFIED Status: Acute Priority: Medium Onset Date: 11/22/15 Problem Details: Stable anemia during recent swing bed care. Continue to observe closely by accepting providers. Note suspicion of possible C. difficile colitis as above with further workup depending on his clinical course. Qualifiers: Anemia type: unspecified type Qualified Code(s): D64.9 - Anemia, unspecified (7) COPD (chronic obstructive pulmonary disease) SNOMED Code(s): 29549315 ICD Code: J44.9 - CHRONIC OBSTRUCTIVE PULMONARY DISEASE, UNSPECIFIED Status : Chronic Priority: Medium Problem Details: COPD with pneumonia as above. DuoNeb Nebulizer treatments have been ordered, however not initiated this point. Qualifiers: COPD type: COPD with acute lower respiratory infection Qualified Code(s): J44.0 - Chronic obstructive pulmonary disease with acute lower respiratory infection (8) Hypokalemia SNOMED Code(s): 11658278 ICD Code: E87.6 - HYPOKALEMIA Status: Chronic Priority: Medium Onset Date: 11/23/15 Problem Details: Lactated Ringer's initiated in the emergency room with caution contrary to his CHF and sepsis. Further medication adjustment by accepting physicians. (9) Mixed anxiety depressive disorder SNOMED Code(s): 943566650 ICD Code: F41.8 - OTHER SPECIFIED ANXIETY DISORDERS Status: Chronic Priority: Medium Problem Details: Stable by patient and family's history. Note chronic narcotic therapy secondary to his chronic pain syndrome/rheumatoid arthritis (10) Need for comfort care SNOMED Code(s): 840766949, 241105328 ICD Code: EAY7550 - Status: Chronic Priority: High Problem Details: Confirmed with family as above. Long-term prognosis is poor. 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 Current infection may be a contributing factor. He may benefit from senior living placement depending on his clinical course. Family members were counseled concerning this during today' s emergency room visit. - Patient Summary/Data Operative Procedure(s) Performed: None Complications: Probable sepsis as above Consults: Consultations 03/26/19 14:29 OT Evaluation and Treatment [CONS] Routine PT Evaluation and Treatment [CONS] Routine Labs Pending at D/C: None Recommended Follow-up Testing/Procedures: As above. Patient transferred to Planned Operative Procedure(s) after DC: Per accepting providers Hospital Course: The patient was initially transferred from [facility] for further swing bed care, including wound care, physical therapy, and Cipro therapy for his scrotal cellulitis secondary to failed skin graft in that facility. The patient did have some increased anxiety during the last couple of days of his care with overall good control with oral Ativan. On day of transfer patient began experiencing some anginal onset type symptoms with emergency room evaluation required. Emergency room subjective as below: The patient was brought to the emergency room via stretcher from his swing bed in this facility to the emergency room by the nursing staff for evaluation of mild to moderate retrosternal chest pain and pressure associated with dyspnea, diaphoresis, and tachycardia associated with some nausea/emesis and possible cyanosis. He is a somewhat poor historian. Note that patient did have some nonspecific chest pain-type symptoms at 07:45 AM with symptoms resolved with 1 sublingual nitroglycerin tablet at that time. His symptoms did return at about 10:15 a.m. this morning with progression to the above symptoms at about 10:30 a.m. He has had some problems with anxiety during the last few days with last dose of Ativan of 0.5 mg at 9:50 a.m. this morning. He also received some OxyContin at 8 AM for some nonspecific epigastric abdominal pain. His Colace and MiraLAX were held this morning. Note current oral Cipro antibiotic therapy for postoperative cellulitis secondary to recent failed scrotal skin graft as below. No history of hematemesis, melena, gross hematochezia, or UTI symptoms. He has had a nonproductive cough and mild increased rales since this morning with DuoNeb nebulizer treatments ordered, however not administered to this point. He is unable to completely rate his pain or discomfort. - Patient Instructions Diet: NPO Activity: Bedrest Driving: Do Not Drive Showering/Bathing: No Showering Wound/Incision Care: Change Dressing Daily Notify Provider of: Increased Pain, Nausea and/or Vomiting Other/Special Instructions: Ambulance transfer to [facility] with weaver hand loom accompaniment - Discharge Plan *PRESCRIPTION DRUG MONITORING PROGRAM REVIEWED*: Not Applicable *COPY OF PRESCRIPTION DRUG MONITORING REPORT IN PATIENT RADHA: Not Applicable Home Medications: Home Meds Leflunomide 20 mg PO DAILY 05/20/15 [History] Omeprazole 20 mg PO DAILY 05/20/15 [History] Simvastatin 20 mg PO BEDTIME 05/20/15 [History] predniSONE [Prednisone] 5 mg PO DAILY 05/20/15 [History] Aspirin 81 mg PO DAILY 11/23/15 [History] Nitroglycerin [Nitrostat] 0.4 mg SL ASDIRECTED PRN 11/23/15 [History] Furosemide [Lasix] 40 mg PO DAILY 01/05/16 [History] Metoprolol Succinate [Toprol XL] 100 mg PO DAILY@1800 10/26/17 [History] PARoxetine HCl [Paroxetine HCl] 20 mg PO DAILY 10/26/17 [History] Iron Polysaccharide Complex [Ferric X-150] 150 mg PO DAILY@1200 06/06/18 [ History] Tamsulosin [Flomax] 0.4 mg PO DAILY@1200 06/06/18 [History] Acetaminophen 650 mg PO Q6HR PRN 02/22/19 [History] Calcium Carbonate/Vitamin D3 [Calcium 500-Vit D3 200 Caplet] 1 tab PO DAILY@ 1200 02/22/19 [History] Amoxicillin/Clavulanate K [Augmentin 500-125 MG] 1 tab PO BID 03/26/19 [History] Ciprofloxacin [Ciprofloxacin HCl] 1 tab PO BID 03/26/19 [History] Docusate Sodium 200 mg PO BID 03/26/19 [History] Furosemide 20 mg PO DAILY 03/26/19 [History] Lactobacillus Acidophilus [Probiotic] 1 cap PO DAILY 03/26/19 [History] Melatonin 9 mg PO BEDTIME 03/26/19 [History] Polyethylene Glycol 3350 [MiraLAX] 17 gm PO DAILY 03/26/19 [History] Warfarin [Coumadin] 2.5 mg PO DAILY@1800 03/26/19 [History] oxyCODONE 10 mg PO Q6H PRN 03/26/19 [History] Oxygen Therapy Mode: Nasal Cannula Oxygen Flow Rate (L/min): 2 - Discharge Summary/Plan Comment DC Time >30 min.: Yes (Coordination of care and subsequent emergency room care) Discharge Summary/Plan Comment: As above. Extensive precautions given to the patient, his , his daughter, and granddaughter with all parties being in agreement with treatment plan. Ambulance transfer to [place] as above. - General Info Date of Service: 03/29/19 Admission Dx/Problem (Free Text: Post operative scrotal cellulitis Subjective Update: See emergency room note on 03/29/19 for complete subjective and objective. Functional Status: Reports: Pain Controlled, Tolerating Diet, Urinating, New Symptoms (Chest pain and sepsis). Denies: Ambulating Numeric/FACES Score: 5 - Patient Data Vitals - Most Recent: Last Vital Signs Temp 36.4 C 03/29/19 08:00 Pulse 82 03/29/19 08:00 Resp 18 03/29/19 08:00 BP 140/61 03/29/19 08:00 Pulse Ox 96 03/29/19 08:00 Vital Signs (72 hours) 03/27/19 03/27/19 03/27/19 07:27 17:59 18:03 Temperature [ 36.8 C 36.8 C Temporal] Pulse, 81 Peripheral Pulse, 96 81 Peripheral [ Right Pulse Oximetry] Respiratory 20 16 Rate Blood Pressure 144/72 H Blood Pressure 139/67 144/72 H [Left Upper Arm ] O2 Sat by Pulse 97 97 Oximetry 03/28/19 03/28/19 03/28/19 08:00 17:47 17:50 Temperature [ 36.8 C 36.6 C Temporal] Pulse, 76 Peripheral Pulse, 78 76 Peripheral [ Right Pulse Oximetry] Respiratory 20 20 Rate Blood Pressure 140/70 Blood Pressure 150/60 H 140/70 [Left Upper Arm ] O2 Sat by Pulse 94 L 97 Oximetry 03/29/19 03/29/19 03/29/19 07:30 07:45 08:00 Temperature [ 36.6 C 36.4 C Temporal] Pulse, Peripheral Pulse, 90 82 Peripheral [ Right Pulse Oximetry] Respiratory 16 18 Rate Blood Pressure 145/73 H Blood Pressure 141/67 H 140/61 [Left Upper Arm ] O2 Sat by Pulse 98 96 Oximetry Weight - Most Recent: 77.111 kg Imaging Impressions - Last 24 hrs: See emergency room note on 03/29/19 Lab Results - Last 24 hrs: See emergency room note on 03/29/19 Med Orders - Current: Current Medications Discontinued Medications Acetaminophen (Tylenol) 650 mg PO Q6HR PRN PRN Reason: Pain Last Admin: 03/29/19 09:41 Dose: 650 mg Albuterol (Proventil Neb Soln) 2.5 mg INH Q2H PRN PRN Reason: SHORTNESS OF BREATH Albuterol/Ipratropium (Duoneb 3.0-0.5 Mg/3 Ml) 3 ml NEB Q6HRRT [place] Albuterol/Ipratropium (Duoneb 3.0-0.5 Mg/3 Ml) 3 ml NEB Q4HRRT PRN PRN Reason: Dyspnea Last Admin: 03/29/19 10:23 Dose: 3 ml Amoxicillin/Clavulanate Potassium (Augmentin 500 Mg\125 Mg) 1 tab PO BID [facility] Stop: 03/27/19 08:01 Last Admin: 03/27/19 07:49 Dose: 1 tab Aspirin (Aspirin) 81 mg PO DAILY [facility] Last Admin: 03/29/19 07:53 Dose: 81 mg Calcium Carbonate (Caltrate 600+D 1500 Mg-400 Units) 1 tab PO DAILY@1200 [facility] Last Admin: 03/29/19 11:51 Dose: Not Given Ciprofloxacin (Ciprofloxacin Hcl) 500 mg PO BID [facility] Last Admin: 03/29/19 07:53 Dose: 500 mg Docusate Sodium (Colace) 200 mg PO BID [facility] Last Admin: 03/29/19 08:02 Dose: Not Given Furosemide (Lasix) 40 mg PO DAILY [facility] Stop: 04/10/19 08:01 Last Admin: 03/29/19 07:53 Dose: 40 mg Furosemide (Lasix) 20 mg PO DAILY [facility] Lactobacillus Rhamnosus (Culturelle) 1 cap PO DAILY [facility] Last Admin: 03/29/19 07:56 Dose: 1 cap Lorazepam (Ativan) 1 mg IM Q6H PRN PRN Reason: Anxiety Last Admin: 03/27/19 12:57 Dose: 1 mg Lorazepam (Ativan) 0.5 mg PO Q4H PRN PRN Reason: Anxiety Last Admin: 03/29/19 09:40 Dose: 0.5 mg Melatonin (Melatonin) 9 mg PO BEDTIME [facility] Last Admin: 03/28/19 20:10 Dose: 9 mg Metoprolol Succinate (Toprol Xl) 100 mg PO DAILY@1800 [facility] Last Admin: 03/28/19 17:47 Dose: 100 mg Nitroglycerin (Nitrostat) 0.4 mg SL ASDIRECTED PRN PRN Reason: Chest Pain Last Admin: 03/29/19 07:45 Dose: 0.4 mg Nf-Leflunomide 20mg (Tab) 20 mg PO DAILY [facility] Last Admin: 03/29/19 07:48 Dose: 20 mg Omeprazole (Omeprazole) 20 mg PO ACBREAKFAST [facility] Last Admin: 03/29/19 07:48 Dose: 20 mg Oxycodone HCl (Oxycodone) 10 mg PO Q6H PRN PRN Reason: Pain (moderate 4-6) Last Admin: 03/29/19 07:53 Dose: 10 mg Paroxetine HCl (Paxil) 20 mg PO DAILY [facility] Last Admin: 03/29/19 07:56 Dose: 20 mg Polyethylene Glycol (Miralax) 17 gm PO DAILY [facility] Last Admin: 03/29/19 08:03 Dose: Not Given Polysaccharide Iron Complex (Ferrex 150) 150 mg PO DAILY@1200 [place] Last Admin: 03/29/19 11:51 Dose: Not Given Prednisone (Prednisone) 5 mg PO DAILY [facility] Last Admin: 03/29/19 07:53 Dose: 5 mg Simvastatin (Zocor) 20 mg PO BEDTIME [facility] Last Admin: 03/28/19 20:10 Dose: 20 mg Tamsulosin HCl (Flomax) 0.4 mg PO DAILY@1200 [place] Last Admin: 03/29/19 11:51 Dose: Not Given Warfarin Sodium (Coumadin) 1.25 mg PO ONETIME ONE Stop: 03/27/19 08:01 Last Admin: 03/27/19 07:51 Dose: 1.25 mg Warfarin Sodium (Coumadin) 2.5 mg PO ONETIME ONE Stop: 03/28/19 08:01 Last Admin: 03/28/19 10:40 Dose: 2.5 mg Warfarin Sodium (Coumadin) 1.25 mg PO ONETIME ONE Stop: 03/29/19 08:01 Last Admin: 03/29/19 07:49 Dose: 1.25 mg Warfarin Sodium (Coumadin) Confirm Administered Dose 2.5 mg .ROUTE .STK-MED ONE Stop: 03/28/19 10:15 Last Admin: 03/28/19 10:40 Dose: Not Given - Exam Physical Findings Comments:: See physical exam and emergency room note on 03/29/19.
[2019-04-11] MEDS ORDERED: Furosemide 20 MG Tab PO SCH (08:00)
== END 2019-03-29 10:43 | DRG 871 ==
LOC: LL.MS 14:22
PROVIDERS: ADMIT Nurse Practitioner; ATTEND Family Medicine
DX: A41.9 Sepsis, unspecified organism (principal); J18.1 Lobar pneumonia, unspecified organism; I42.9 Cardiomyopathy, unspecified; J44.0 Chronic obstructive pulmonary disease with (acute) lower respiratory infection; S31.30XA Unspecified open wound of scrotum and testes, initial encounter; H54.7 Unspecified visual loss; H91.90 Unspecified hearing loss, unspecified ear; E87.6 Hypokalemia; F41.8 Other specified anxiety disorders; Z51.5 Encounter for palliative care; F09 Unspecified mental disorder due to known physiological condition; I48.91 Unspecified atrial fibrillation; I25.10 Atherosclerotic heart disease of native coronary artery without angina pectoris; I50.9 Heart failure, unspecified; E78.00 Pure hypercholesterolemia, unspecified; I73.9 Peripheral vascular disease, unspecified; K21.9 Gastro-esophageal reflux disease without esophagitis; G89.29 Other chronic pain; M81.0 Age-related osteoporosis without current pathological fracture; Z87.442 Personal history of urinary calculi; E11.9 Type 2 diabetes mellitus without complications; Z85.51 Personal history of malignant neoplasm of bladder; Z95.5 Presence of coronary angioplasty implant and graft; I11.0 Hypertensive heart disease with heart failure; R79.89 Other specified abnormal findings of blood chemistry; D64.9 Anemia, unspecified; Z95.810 Presence of automatic (implantable) cardiac defibrillator; Z98.49 Cataract extraction status, unspecified eye; Z91.048 Other nonmedicinal substance allergy status; Z79.82 Long term (current) use of aspirin; Z79.52 Long term (current) use of systemic steroids; Z79.01 Long term (current) use of anticoagulants; Z79.899 Other long term (current) drug therapy
CPT/HCPCS: 94640; 97162-GP; A9270-GY; J2060; J7620-GY

== ENCOUNTER 2019-03-29 10:45 | Emergency (ER) | payer MEDICARE, OTHER ==
--- NOTE | 2019-03-29 10:51 | EDM.PDOC ---
ED HPI GENERAL MEDICAL PROBLEM - General Chief Complaint: Cardiovascular Problem Stated Complaint: tachy, weak, pale Time Seen by Provider: 03/29/19 10:50 Source of Information: Reports: Patient, Family (), Old Records ([facility] chart/EMR), Other ([facility] EMR) History Limitations: Reports: Altered Mental Status - History of Present Illness INITIAL COMMENTS - FREE TEXT/NARRATIVE: The patient was brought to the emergency room via stretcher from his swing bed in this facility to the emergency room by the nursing staff for evaluation of mild to moderate retrosternal chest pain and pressure associated with dyspnea, diaphoresis, and tachycardia associated with some nausea/emesis and possible cyanosis. He is a somewhat poor historian. Note that patient did have some nonspecific chest pain-type symptoms at 07:45 AM with symptoms resolved with 1 sublingual nitroglycerin tablet at that time. His symptoms did return at about 10:15 a.m. this morning with progression to the above symptoms at about 10:30 a.m. He has had some problems with anxiety during the last few days with last dose of Ativan of 0.5 mg at 9:50 a.m. this morning. He also received some OxyContin at 8 AM for some nonspecific epigastric abdominal pain. His Colace and MiraLAX were held this morning. Note current oral Cipro antibiotic therapy for postoperative cellulitis secondary to recent failed scrotal skin graft as below. No history of hematemesis, melena, gross hematochezia, or UTI symptoms. He has had a nonproductive cough and mild increased rales since this morning with DuoNeb nebulizer treatments ordered, however not administered to this point. He is unable to completely rate his pain or discomfort. Onset: Today, Gradual, Other (As above) Onset Date: 03/29/19 Duration: Constant, Getting Worse Location: Reports: Chest, Abdomen. Denies: Head, Face, Neck, Back, Upper Extremity, Left, Upper Extremity, Right, Radiates to Quality: Reports: Same as Previous Episode Severity: Moderate Improves with: Reports: None Worsens with: Reports: None Context: Reports: Other (As above). Denies: Sick Contact, Trauma Associated Symptoms: Reports: Confusion (Stable baseline), Chest Pain, Cough, Diaphoresis, Nausea/Vomiting, Shortness of Breath, Weakness (Stable generalized) . Denies: cough w sputum, Fever/Chills, Headaches, Loss of Appetite, Malaise, Rash, Seizure, Syncope Treatments DIRECTOR OF SPA AND GUEST EXPERIENCE: Reports: Other Medication(s) (As above) Chest Pain Score (Numeric/FACES): 5 - Related Data Allergies Allergy/AdvReac Type Severity Reaction Status Date / Time celecoxib [From Celebrex] AdvReac Stomach Verified 03/29/19 12:09 Ache Home Meds: Home Meds Leflunomide 20 mg PO DAILY 05/20/15 [History] Omeprazole 20 mg PO DAILY 05/20/15 [History] Simvastatin 20 mg PO BEDTIME 05/20/15 [History] predniSONE [Prednisone] 5 mg PO DAILY 05/20/15 [History] Aspirin 81 mg PO DAILY 11/23/15 [History] Nitroglycerin [Nitrostat] 0.4 mg SL ASDIRECTED PRN 11/23/15 [History] Furosemide [Lasix] 40 mg PO DAILY 01/05/16 [History] Metoprolol Succinate [Toprol XL] 100 mg PO DAILY@1800 10/26/17 [History] PARoxetine HCl [Paroxetine HCl] 20 mg PO DAILY 10/26/17 [History] Iron Polysaccharide Complex [Ferric X-150] 150 mg PO DAILY@1200 06/06/18 [ History] Tamsulosin [Flomax] 0.4 mg PO DAILY@1200 06/06/18 [History] Acetaminophen 650 mg PO Q6HR PRN 02/22/19 [History] Calcium Carbonate/Vitamin D3 [Calcium 500-Vit D3 200 Caplet] 1 tab PO DAILY@ 1200 02/22/19 [History] Amoxicillin/Clavulanate K [Augmentin 500-125 MG] 1 tab PO BID 03/26/19 [History] Ciprofloxacin [Ciprofloxacin HCl] 1 tab PO BID 03/26/19 [History] Docusate Sodium 200 mg PO BID 03/26/19 [History] Furosemide 20 mg PO DAILY 03/26/19 [History] Lactobacillus Acidophilus [Probiotic] 1 cap PO DAILY 03/26/19 [History] Melatonin 9 mg PO BEDTIME 03/26/19 [History] Polyethylene Glycol 3350 [MiraLAX] 17 gm PO DAILY 03/26/19 [History] Warfarin [Coumadin] 2.5 mg PO DAILY@1800 03/26/19 [History] oxyCODONE 10 mg PO Q6H PRN 03/26/19 [History] Past Medical History HEENT History: Reports: Allergic Rhinitis, Cataract, Hard of Hearing, Impaired Vision, Other (See Below). Denies: Glaucoma, Macular Degeneration, Otitis Media , Retinal Detachment Other HEENT History: Patient wears glasses. No current hearing aide therapy. Cardiovascular History: Reports: Afib, Aneurysm, Arrhythmia, Automatic Implantable Cardioverter Defibrillators, CAD, Cardiomyopathy, Heart Failure, High Cholesterol, Hypertension, Pulmonary Hypertension, PVD, Syncope, Other ( See Below). Denies: Blood Clots/VTE/DVT Other Cardiovascular History: Atrial fibrillation with rapid ventricular response with secondary cardiac and respiratory collapse requiring intubation cardioversion on 05/20/15. PACs, PVCs, and additional history of ventricular tachycardia with ICD placement as below. Borderline incomplete right bundle branch block. Severe cardiomyopathy with ejection fraction of only 25% area of mild carotid occlusive disease at 1649 percent bilaterally. Abdominal aortic aneurysm mildly progressive at 2.9 cm by ultrasound on 11/11/16. Peripheral vascular disease requiring right toe amputation as below. Dyslipidemia. Respiratory History: Reports: Bronchitis, Recurrent, COPD, Intubation, Previous , Pneumonia, Recurrent, Pulmonary Fibrosis, Other (See Below). Denies: Asthma, Intubation, Difficult, PE, Pneumothorax, Sleep Apnea, TB Other Respiratory History: Benign right pulmonary nodule Gastrointestinal History: Reports: Cholelithiasis, Fecal Incontinence, Gastritis , GERD, Hepatitis, Helicobacter Pylori, Pancreatitis, PUD, Other (See Below). Denies: Celiac Disease, Chronic Constipation, Chronic Diarrhea, Colon Polyp, GI Bleed, Inflammatory Bowel Disease, Irritable Bowel Syndrome, Jaundice Other Gastrointestinal History: Cholelithiasis with secondary pancreatitis and hepatitis on 11/30/12. Mild dysphagia. Genitourinary History: Reports: BPH, Prostate Disorder, Renal Calculus, Urinary Incontinence, Other (See Below). Denies: Acute Renal Failure, Chronic Renal Insuffiency, STD, UTI, Recurrent Other Genitourinary History: Bilateral renal cysts, Peyronie's disease. History of bladder cancer diagnosed on 12/09/14 with BCG treatment. Benign prostatic nodule diagnosed on 09/05/1999. Recurrent bilateral nephrolithiasis since his 30s with at least 4 previous episodes with last episode in April 2012. Severe bilateral hydroceles and postoperative scrotal hematomas requiring surgery as below with failed scrotal skin graft as below. Right renal hemangioma. Musculoskeletal History: Reports: Amputation, Arthritis, Back Pain, Chronic, Neck Pain, Chronic, Osteoarthritis, Osteoporosis, RA, Other (See Below). Denies : Fracture, Gout, SLE Other Musculoskeletal History: Severe rheumatoid arthritis. Osteomyelitis of the right great toe requiring surgery as below. Neurological History: Reports: Alzheimers Disease, Other (See Below). 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 Benign resting tremor. History of acute encephalopathy and cerebral atrophy. Psychiatric History: Reports: Addiction, Alzheimers Disease, Anxiety, Dementia , Depression, Other (See Below). 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 Denies: Diabetes, Type I, Diabetes Mellitus, Type 3c, Hypothyroidism, IDDM, Obesity/BMI 30+ Other Endocrine/Metabolic History: Diabetes mellitus/borderline hyperglycemia currently treated with diet. Multiple thyroid nodules by ultrasound on 10/26/18. Hypokalemia. Hematologic History: Reports: None, Anemia. Denies: Blood Transfusion(s) Immunologic History: Reports: None. Denies: AIDS, HIV, SLE Oncologic (Cancer) History: Reports: Bladder, Other (See Below). Denies: Basal Cell Carcinoma, Colon, Hodgkin's Lymphoma, Leukemia, Lymphoma, Malignant Melanoma, Non-Hodgkin's Lymphoma, Prostate, Squamous Cell Carcinoma Other Oncologic History: Bladder cancer diagnosed on 12/09/14 with subsequent BCG therapy as above Dermatologic History: Reports: None. Denies: Eczema, Psoriasis - Infectious Disease History Infectious Disease History: Reports: Chicken Pox, Measles, MRSA, Mumps. Denies : C-Difficile, Meningitis, Mononucleosis, Pertussis (Whooping Cough), Rubella, Scarlet Fever, Shingles, TB, VRE - Past Surgical History Head Surgeries/Procedures: Reports: None HEENT Surgical History: Reports: Cataract Surgery, Oral Surgery, Tonsillectomy, Other (See Below). Denies: Adenoidectomy, Laser Surgery, LASIK, Myringotomy w Tube(s), Naso-Sinus Surgery Other HEENT Surgeries/Procedures: Bilateral cataract surgery. Multiple teeth extractions with current complete dentures and partial lowers. Tonsillectomy at age 22. Cardiovascular Surgical History: Reports: AICD, Pacer, Vascular Surgery, Other ( See Below). Denies: Carotid Endarterectomy, Coronary Artery Bypass, Coronary Artery Stent, Varicose Other Cardiovascular Surgeries/Procedures: Right femoral popliteal bypass in January 2019. Last AICD placement on 05/09/16 with removal of previous AICD on secondary to postoperative infection with initial placement on September 28, 2015 ; previous Life Vest therapy. Respiratory Surgical History: Reports: Lung Biopsies, Other (See Below). Denies : Thoracentesis Other Respiratory Surgeries/Procedures: Right pulmonary nodule biopsy in 2000. GI Surgical History: Reports: Colonoscopy, EGD, ERCP, Other (See Below). Denies : Appendectomy, Cholecystectomy, Hernia, Inguinal, Hernia Repair/Other Other GI Surgeries/Procedures: Colonoscopy on 02/28/08 and EGD on 03/26/08 with additional ERCP with patient denying cholecystectomy despite previous history of obstructive cholelithiasis and secondary pancreatitis Male Surgical History: Reports: Circumcision, Kidney Stone Extraction, Prostate Biopsy, Renal Calculus, TURBT-Transurethral Resection of Bladder Tumor , Vasectomy, Other (See Below) Other Male Surgeries/Procedures: Failed skin graft in scrotal region in February 2019 with scrotal debridements on 03/24/19 and 03/17/19. Last cystoscopy in 2017 by patient history. Circumcision as an infant. Renal stone extraction June 2002. Vasectomy in his late 20s. Prostate biopsy on 09/05/1999. TURBT on 12/09/14 Endocrine Surgical History: Reports: None. Denies: Thyroid Biopsy Neurological Surgical History: Reports: None. Denies: C-Spine, Discectomy, Laminectomy, Lumbar Spine, Sacral Spine, Spinal Fusion, Thoracic Spine, Vertebroplasty Musculoskeletal Surgical History: Reports: Amputation, Other (See Below). Denies: Arthroscopic Procedure, Carpal Tunnel, Ganglion Cyst, Joint Replacement , Knee Replacement, ORIF, Shoulder Surgery Other Musculoskeletal Surgeries/Procedures:: Amputation of digit #1 of the right foot secondary to osteomyelitis in April 2018. Oncologic Surgical History: Reports: Other (See Below) Other Oncologic Surgeries/Procedures: TURBT as above Dermatological Surgical History: Reports: Skin Graft, Other (See Below) Other Dermatological Surgeries/Procedures: Scrotal skin graft in February 2019. - Past Imaging History Past Imaging History: Reports: ESTRELLA Screen (03/12/19 of the left leg with previous bilateral lower extremity evaluation on 01/12/19), Angiography (Right leg angiogram on 02/09/19.Heart catheterization on 05/23/15 with ejection fraction of only 25%), Cardiac Echo (Last echocardiogram on 01/02/17.), Carotid US (Last carotid artery Doppler studies on 01/12/19 with multiple previous evaluations.), CAT Scan (CT of the pelvis on 03/16/19. CT of the head on . CT of the abdomen and pelvis on 11/18/17 and 02/17/12. CT urethrogram on and 05/27/11.), DEXA Scan (09/20/16 with previous evaluation on 12/26/11), PFT (Double PFTs with diffusion studies with last evaluation on 05/08/17), Stress Testing (Low level cardiac stress test on 06/20/15), Swallow Study (Mildly positive on 03/04/19.), Ultrasound (Scrotal ultrasound on 03/01/19 and 02/25/19. Soft tissue ultrasound of the head and neck on 10/26/18. Last abdominal aortic ultrasound on 11/11/16. Renal ultrasound on 05/20/15 and 05/05/12), Other (See Below) (Left leg atrial Doppler evaluation on 03/12/19. Pulmonary stress test on 10/22/18.) Social & Family History - Family History HEENT: Reports: None. Denies: Allergic Rhinitis, Glaucoma, Macular Degeneration , Retinal Detachment Cardiac: Reports: High Cholesterol, Other (See Below). Denies: Afib, Aneurysm, Arrhythmia, Bypass, CAD, Cardiomyopathy, Heart Failure, Hypertension, [place], Syncope Other Cardiac Family History: Mother with hyperlipidemia Respiratory: Reports: None. Denies: Asthma, COPD, PE, Pneumothorax, Sleep Apnea GI: Reports: Cholelithiasis, Other (See Below). Denies: Celiac Disease, Colon Polyps, GI bleed, Inflammatory Bowel Disease, Irritable Bowel Syndrome, PUD Other GI Family History: Mother with cholelithiasis : Reports: Renal Calculus, Other (See Below). Denies: Renal Disease/ Insufficiency Other Family History: Father with urolithiasis OBGYN: Reports: None. Denies: Endometriosis, Recurrent Spontaneous Musculoskeletal: Reports: Arthritis, RA, Other (See Below). Denies: Gout, SLE Other Musculoskeletal Family History: Paternal grandmother with rheumatoid arthritis Neurological: Reports: Alzheimers Disease, CVA, Dementia, Other (See Below). Denies: Cerebral Aneurysms, Migraines, MS, Parkinson's, Seizure, TIA Other Neurological Family History: Parents with Alzheimer's disease. Paternal grandfather with fatal CVA. Psychiatric: Reports: None. Denies: Abuse, Victim of, ADD, ADHD, Anxiety, Depression, Psych Hospitalization(s), Suicide Attempt Endocrine/Metabolic: Reports: Diabetes, type II, Hypothyroidism, IDDM, Other ( See Below). Denies: Diabetes, Type I, Diabetes Mellitus, Type 3c Other Endocrine/Metabolic Family History: Mother with hypothyroidism. Mother with IDDM. Hematologic: Reports: None. Denies: Anemia Immunologic: Reports: None. Denies: AIDS, HIV, SLE Dermatologic: Reports: None. Denies: Eczema, Psoriasis Oncologic: Reports: None. Denies: Colon, Hodgkin's Lymphoma, Leukemia, Lymphoma , Non-Hodgkin's Lymphoma, Prostate, Skin - Tobacco Use Smoking Status *Q: Former Smoker Tobacco Use Within Last Twelve Months: No Years of Tobacco use: 61 Packs/Tins Daily: 1.5 Used Tobacco, but Quit: Yes Month/Year Tobacco Last Used: Stop smoking in April 2015 Smoking Cessation Information Provided To Patient: No Second Hand Smoke Exposure: No Second Hand Smoke Education Provided: No - Caffeine Use Caffeine Use: Reports: Coffee (2 cups per day). Denies: Energy Drinks, Soda, Tea - Alcohol Use Alcohol Use History: No Days Per Week of Alcohol Use: 0 Number of Drinks Per Day: 0 Number of Drinks Per Day Comment: No previous DWIs, problems with alcohol abuse , etc. 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 ED EXAM, GENERAL - Physical Exam Exam: See Below Exam Limited By: No Limitations General Appearance: Alert, WD/WN, No Apparent Distress Eye Exam: Bilateral Eye: EOMI, Normal Inspection (No nystagmus, mild miosis), PERRL Ears: Normal External Exam, Normal Canal, Normal TMs, Hearing Loss (Mild bilateral hearing loss) Ear Exam: Right Ear: TM Bulging Nose: Normal Inspection, Normal Mucosa, No Blood Throat/Mouth: Normal Lips, Normal Oropharynx, Normal Voice, No Airway Compromise. No: Normal Teeth (Complete absent lower dentition. Complete upper dentures.), Dysphagia, Perioral Cyanosis Head: Atraumatic, Normocephalic. No: Facial Swelling, Facial Tenderness, Sinus Tenderness Neck: Supple, Non-Tender, Full Range of Motion, Carotid Bruit (Mild bilateral carotid bruits). No: Lymphadenopathy (L), Lymphadenopathy (R), Thyromegaly Respiratory/Chest: No Accessory Muscle Use, Chest Non-Tender, Rales (Moderate diffuse bilateral basilar rales). No: Rhonchi, Wheezing, Pleural Rub, Retractions Cardiovascular: Normal Peripheral Pulses, No Edema, No Gallop, No JVD, No Murmur , No Rub, Tachycardia, Irregularly Irregular. No: Gallop/S3, Gallop/S4, Friction Rub Peripheral Pulses: 1+: Dorsalis Pedis (L), Dorsalis Pedis (R), 2+: Radial (L), Radial (R) GI/Abdominal: No Organomegaly, No Abnormal Bruit, No Mass, Pelvis Stable, Distended (Mild), Tender (Mild nonspecific diffuse), Abnormal Bowel Sounds ( Moderately tympanic). No: Guarding, Rigid, Rebound (Male) Exam: Other (Dressing in place of open scrotal area after failed skin graft with mild drainage and erythema. Current Soliz catheter.) Rectal (Males) Exam: Deferred Back Exam: Normal Inspection, Full Range of Motion. No: CVA Tenderness (L), CVA Tenderness (R), Muscle Spasm Extremities: Normal Range of Motion, Non-Tender, No Pedal Edema, Normal Capillary Refill, Other (Diffuse ecchymosis as below; status post amputation of digit #1 of the right foot with no local signs of infection). No: Angelito's Sign Neurological: Normal Reflexes (Negative Babinski's), Confused (Confusionmild) Psychiatric: Normal Affect, Normal Mood Skin Exam: Diaphoretic (Initially however resolved at time of transfer), Ecchymosis (Old moderate diffuse ecchymosis over the hands and arms bilaterally) , Wound/Incision (Scrotal area as above). No: Increased Warmth, Petechiae, Rash Lymphatic: No Adenopathy EKG INTERPRETATION EKG Date: 03/29/19 Time: 10:52 Rhythm: A-Fib (With rapid ventricular response and additional demand pacemaker) Rate (Beats/Min): 115 [place]: Normal (Left) P-Wave: Variable QRS: Wide (0.10 seconds representing repolarization changes versus beginning a new incomplete left bundle branch block) ST-T: Other (Diffuse nonspecific ST changes) QT: Normal [place]/PQ Interval: Not applicable. Extreme poor R-wave progression in the anterior leads Comparison: Change From Previous EKG (As above since 02/22/19.) EKG Interpretation Comments: 1. Possible new incomplete left bundle branch block 2. Atrial fibrillation with rapid ventricular response 3. Demand pacemaker Course - Vital Signs Last Recorded V/S: Last Vital Signs Temp 36.0 C 03/29/19 10:45 Pulse 89 03/29/19 12:45 Resp 16 03/29/19 12:45 BP 134/62 03/29/19 12:45 Pulse Ox 100 03/29/19 12:45 Vital Signs - 24 hr 03/29/19 03/29/19 03/29/19 10:45 10:59 11:00 Temperature [ 36.0 C Temporal] Pulse, 109 H Peripheral Pulse, 138 H 109 H Peripheral [ Apical] Respiratory 38 H 30 H Rate Blood Pressure 150/66 H Blood Pressure 150/66 H 137/68 [Right Upper Arm] O2 Sat by Pulse 99 100 Oximetry 03/29/19 03/29/19 03/29/19 11:15 11:30 11:45 Temperature [ Temporal] Pulse, Peripheral Pulse, 101 H 94 92 Peripheral [ Apical] Respiratory 28 H 28 H 28 H Rate Blood Pressure Blood Pressure 132/70 135/48 L 135/49 L [Right Upper Arm] O2 Sat by Pulse 100 100 Oximetry 03/29/19 03/29/19 03/29/19 12:00 12:15 12:30 Temperature [ Temporal] Pulse, Peripheral Pulse, 86 85 88 Peripheral [ Apical] Respiratory 23 H 26 H 25 H Rate Blood Pressure Blood Pressure 117/68 151/48 H 134/58 L [Right Upper Arm] O2 Sat by Pulse 100 100 100 Oximetry 03/29/19 12:45 Temperature [ Temporal] Pulse, Peripheral Pulse, 89 Peripheral [ Apical] Respiratory 16 Rate Blood Pressure Blood Pressure 134/62 [Right Upper Arm] O2 Sat by Pulse 100 Oximetry - Orders/Labs/Meds Orders: Active Orders 24 hr Category Date Time Status Cardiac Monitoring [RC] . DIRECTED Care 03/29/19 10:52 Active EKG Documentation Completion [RC] ASDIRECTED Care 03/29/19 10:52 Active Oxygen Therapy, ED [RC] CONTINUOUS Care 03/29/19 10:52 Active Peripheral IV Care [RC] . DIRECTED Care 03/29/19 10:52 Active Pulse Oximetry [RC] CONTINUOUS Care 03/29/19 10:52 Active Up With Assistance [RC] PFP Care 03/29/19 10:52 Active Vital Signs [RC] PFP Care 03/29/19 10:52 Active Nothing per Oral Now Diet [DIET] Diet 03/29/19 Breakfast Active Abdomen Series w Chest 1V [CR] Stat Exams 03/29/19 11:06 Taken CULTURE BLOOD [BC] Stat Lab 03/29/19 11:00 Received CULTURE BLOOD [BC] Stat Lab 03/29/19 11:45 Received Lactated Ringers [Ringers, Lactated] 1,000 ml Med 03/29/19 12:30 Active IV ASDIRECTED Sodium Chloride 0.9% [Saline Flush] Med 03/29/19 10:52 Active 10 ml FLUSH ASDIRECTED PRN cefTRIAXone [Rocephin] Med 03/29/19 12:15 Active 2 gm IVPUSH Q24H Blood Culture x2 Reflex Set [OM.PC] Urgent Oth 03/29/19 10:55 Ordered Obtain Past Medical Record [OM.PC] Urgent Oth 03/29/19 10:52 Active Peripheral IV Insertion Adult [OM.PC] Stat Oth 03/29/19 10:52 Ordered Resuscitation Status Stat Resus Stat 03/29/19 12:48 Ordered Medication Orders Ceftriaxone Sodium (Rocephin) 2 gm IVPUSH Q24H [facility] Last Admin: 03/29/19 12:29 Dose: 2 gm Lactated Ringer's (Ringers, Lactated) 1,000 mls @ 100 mls/hr IV ASDIRECTED [place] Last Admin: 03/29/19 12:29 Dose: 100 mls/hr Sodium Chloride (Saline Flush) 10 ml FLUSH ASDIRECTED PRN PRN Reason: Keep Vein Open Last Admin: 03/29/19 12:29 Dose: 10 ml Admin: 03/29/19 11:02 Dose: 10 ml Labs: Laboratory Tests 03/29/19 03/29/19 03/29/19 Range/Units 11:00 11:00 11:00 WBC 14.1 H (4.0-10.2) K/uL RBC 3.73 L (4.33-5.41) M/uL Hgb 11.2 Hct 34.3 L (39.0-49.0) % MCV 92.0 (84.0-98.0) fL MCH 30.6 (28.2-33.3) pg MCHC 33.2 (31.7-36.0) g/dL RDW 18.7 H (11.2-14.1) % Plt Count 341 D (150-350) K/uL Neut % (Auto) 71.8 (45.0-80.0) % Lymph % (Auto) 19.6 (10.0-50.0) % Dent % (Auto) 7.4 (2.0-14.0) % Eos % (Auto) 1.0 (0.0-5.0) % Baso % (Auto) 0.2 (0.0-2.0) % Neut # (Auto) 10.13 H (1.40-7.00) K/uL Lymph # (Auto) 2.76 (0.50-3.50) K/uL Dent # (Auto) 1.05 H (0.00-1.00) K/uL Eos # (Auto) 0.14 (0.00-0.50) K/uL Baso # (Auto) 0.03 (0.00-0.20) K/uL PT 33.9 H D (9.5-12.0) SEC INR 3.1 APTT 37.3 H (21.0-31.3) SEC D-Dimer, Quantitative 556 H (0-400) ng/mL Sodium (136-145) mmol/L Potassium (3.5-5.1) mmol/L Chloride (98-107) mmol/L Carbon Dioxide (21.0-32.0) mmol/L BUN (7-18) mg/dL Creatinine (0.51-1.17) mg/dL Est Cr Clr Drug Dosing mL/min Estimated GFR (MDRD) mL/min Glucose (74-106) mg/dL Lactic Acid (0.4-2.0) mmol/L Uric Acid (2.6-7.2) mg/dL Calcium (8.5-10.1) mg/dL Magnesium (1.8-2.4) mg/dL Total Bilirubin (0.2-1.0) mg/dL AST (15-37) U/L ALT (12-78) U/L Alkaline Phosphatase (46-116) IU/L Creatine Kinase (26-308) U/L Creatine Kinase Index (0.0-2.5) % CK-MB (CK-2) (0.00-3.60) ng/mL Troponin I (0.000-0.056) ng/mL NT-Pro-B Natriuret Pep (0-125) pg/mL Total Protein (6.4-8.2) g/dL Albumin (3.4-5.0) g/dL TSH, Ultra Sensitive (0.358-3.740) mIU/mL 03/29/19 03/29/19 Range/Units 11:00 11:45 WBC (4.0-10.2) K/uL RBC (4.33-5.41) M/uL Hgb Hct (39.0-49.0) % MCV (84.0-98.0) fL MCH (28.2-33.3) pg MCHC (31.7-36.0) g/dL RDW (11.2-14.1) % Plt Count (150-350) K/uL Neut % (Auto) (45.0-80.0) % Lymph % (Auto) (10.0-50.0) % Dent % (Auto) (2.0-14.0) % Eos % (Auto) (0.0-5.0) % Baso % (Auto) (0.0-2.0) % Neut # (Auto) (1.40-7.00) K/uL Lymph # (Auto) (0.50-3.50) K/uL Dent # (Auto) (0.00-1.00) K/uL Eos # (Auto) (0.00-0.50) K/uL Baso # (Auto) (0.00-0.20) K/uL PT (9.5-12.0) SEC INR APTT (21.0-31.3) SEC D-Dimer, Quantitative (0-400) ng/mL Sodium 141 (136-145) mmol/L Potassium 3.1 L (3.5-5.1) mmol/L Chloride 103 (98-107) mmol/L Carbon Dioxide 20.2 L (21.0-32.0) mmol/L BUN 17 (7-18) mg/dL Creatinine 1.01 (0.51-1.17) mg/dL Est Cr Clr Drug Dosing 58.33 mL/min Estimated GFR (MDRD) > 60 mL/min Glucose 245 H (74-106) mg/dL Lactic Acid 5.7 H (0.4-2.0) mmol/L Uric Acid 4.7 (2.6-7.2) mg/dL Calcium 9.1 (8.5-10.1) mg/dL Magnesium 1.7 L (1.8-2.4) mg/dL Total Bilirubin 1.0 (0.2-1.0) mg/dL AST 40 H (15-37) U/L ALT 47 (12-78) U/L Alkaline Phosphatase 254 H (46-116) IU/L Creatine Kinase 26 (26-308) U/L Creatine Kinase Index 3.5 H (0.0-2.5) % CK-MB (CK-2) 0.90 (0.00-3.60) ng/mL Troponin I 0.034 (0.000-0.056) ng/mL NT-Pro-B Natriuret Pep 52576 H (0-125) pg/mL Total Protein 6.4 (6.4-8.2) g/dL Albumin 2.4 L (3.4-5.0) g/dL TSH, Ultra Sensitive 2.436 (0.358-3.740) mIU/mL Meds: Medications Generic Name Dose Route Start Last Admin Trade Name Freq PRN Reason Stop Dose Admin Ceftriaxone Sodium 2 gm 03/29/19 12:15 03/29/19 12:29 Rocephin IVPUSH 2 gm Q24H [place] Administration Lactated Ringer's 1,000 mls @ 100 mls/hr 03/29/19 12:30 03/29/19 12:29 Ringers, Lactated IV 100 mls/hr ASDIRECTED [place] Administration Sodium Chloride 10 ml 03/29/19 10:52 03/29/19 12:29 Saline Flush FLUSH 10 ml ASDIRECTED PRN Administration Keep Vein Open Discontinued Medications Generic Name Dose Route Start Last Admin Trade Name Freq PRN Reason Stop Dose Admin Famotidine 40 mg 03/29/19 10:52 03/29/19 10:59 Pepcid IVPUSH 03/29/19 10:53 40 mg ONETIME ONE Administration Metoprolol Tartrate 2.5 mg 03/29/19 10:52 03/29/19 10:59 Lopressor IVPUSH 03/29/19 10:53 2.5 mg ONETIME ONE Administration - Radiology Interpretation Free Text/Narrative:: threat monitoring analyst showed some moderate sinus tachycardia in the 120s to 130s with atrial fibrillation and frequent demand pacemaker beats. Improvement of his heart rate to the 60s to 90s after low-dose IV Lopressor was administered. Abdominal x-rays, portable, shows evidence of moderate cardiomegaly and mostly centralized CHF with additional moderate COPD, moderate inferior right upper lobe consolidation/infiltrate and nonspecific increased bowel gaseous pattern particularly in the colon. Very occasional fluid level with no evidence of free air, ileus, obstruction, etc. Note right upper pacemaker/AICD. In addition, moderate calcification of the femoral arteries were noted. Departure - Departure Time of Disposition: 13:50 Disposition: DC/Tfer to [facility] Reason for Transfer *Q: Other (NO CODE STATUS) Condition: Serious Clinical Impression: Mixed anxiety depressive disorder, D-dimer, elevated, Hypokalemia, Hypomagnesemia, Organic brain syndrome, Need for comfort care COPD (chronic obstructive pulmonary disease) Qualifiers: COPD type: COPD with acute lower respiratory infection Qualified Code(s): J44.0 - Chronic obstructive pulmonary disease with acute lower respiratory infection Coronary artery disease Qualifiers: Coronary Disease-Associated Artery/Lesion type: [place] artery [place] vs. transplanted heart: [place] heart Associated angina: without angina Qualified Code(s): I25.10 - Atherosclerotic heart disease of [place] coronary artery without angina pectoris Diabetes mellitus Qualifiers: Diabetes mellitus type: type 2 Diabetes mellitus complication status: without complication Qualified Code(s): E11.9 - Type 2 diabetes mellitus without complications Hyperlipidemia Qualifiers: Hyperlipidemia type: unspecified Qualified Code(s): E78.5 - Hyperlipidemia, unspecified Osteoarthritis Qualifiers: Osteoarthritis location: multiple joints Osteoarthritis type: primary Qualified Code(s): M15.0 - Primary generalized (osteo)arthritis Cellulitis Qualifiers: Site of cellulitis: other site Qualified Code(s): L03.818 - Cellulitis of other sites Pneumonia Qualifiers: Pneumonia type: due to unspecified organism Laterality: right Lung location: upper lobe of lung Qualified Code(s): J18.1 - Lobar pneumonia, unspecified organism Sepsis Qualifiers: Sepsis type: sepsis due to unspecified organism Sepsis acute organ dysfunction status: without acute organ dysfunction Qualified Code(s): A41.9 - Sepsis, unspecified organism Anemia Qualifiers: Anemia type: unspecified type Qualified Code(s): D64.9 - Anemia, unspecified Referrals: Mihaela Benitez, DESK EDITOR [Primary Care Provider] - Forms: ED Department Discharge, Interfacility Transfer [facility] - Problem List & Annotations (1) Sepsis SNOMED Code(s): 93200669 Code(s): A41.9 - SEPSIS, UNSPECIFIED ORGANISM Status: Acute Priority: High Current Visit: Yes Onset Date: 03/29/19 Annotation/Comment:: Note clinical evidence of sepsis including tachycardia, leukocytosis, lactic acid elevation, etc. Very possible etiologies could the current pneumonia, possible C. difficile colitis secondary to extensive recent antibiotic therapy, and/or postoperative cellulitis from recent skin graft as below. Patient does have a Soliz catheter consideration of additional UTI. Despite of patient's CHF we will initiate IV lactated Ringer's with caution secondary to his sepsis and hypokalemia. No IV Lasix therapy for now per request of accepting physician. Telephone consultation at 12:[address] Hardin, emergency room physician at [facility] in [place], who does accept the patient for further treatment, evaluation, and admission. He is in agreement with our treatment planned as above/below. Ambulance transfer with assistant therapy aide accompaniment. Note that per the patient's daughter the patient is currently a no code/comfort care only status, although the family does agree to patient transfer. The patient was apparently incorrectly admitted to full code status during his recent swing bed care. Significant lactic acid elevation with repeat lactic acid level in 3 hours recommended. Qualifiers: Sepsis type: sepsis due to unspecified organism Sepsis acute organ dysfunction status: without acute organ dysfunction Qualified Code(s): A41.9 - Sepsis, unspecified organism (2) Coronary artery disease SNOMED Code(s): 25684909 Code(s): I25.10 - ATHSCL HEART DISEASE OF [place] CORONARY ARTERY W/O ANG PCTRS Status: Chronic Priority: Medium Current Visit: No Annotation/ Comment:: Note recent chest pain and anginal type symptoms as above. Borderline new left bundle branch block?. Chest pain protocol initiated in the emergency room. Patient is chest pain-free at time of transfer. Note BNP elevation with artifactually elevated CK index with low baseline CK. Troponin I is still normal although mildly change secondary to his CHF. Consider cardiology consultation, routine rule out [place] workup, etc. by accepting providers. Qualifiers: Coronary Disease-Associated Artery/Lesion type: [place] artery [place] vs. transplanted heart: [place] heart Associated angina: without angina Qualified Code(s): I25.10 - Atherosclerotic heart disease of [place] coronary artery without angina pectoris (3) Pneumonia SNOMED Code(s): 007953602 Code(s): J18.9 - PNEUMONIA, UNSPECIFIED ORGANISM Status: Acute Priority: High Current Visit: Yes Annotation/Comment:: Note current right upper lobe pneumonia by clinical exam and today's chest x-ray, although the etiology this did not indicate this in his report. IV Rocephin therapy initiated as above. Qualifiers: Pneumonia type: due to unspecified organism Laterality: right Lung location: upper lobe of lung Qualified Code(s): J18.1 - Lobar pneumonia, unspecified organism (4) D-dimer, elevated SNOMED Code(s): 843770309 Code(s): R79.89 - OTHER SPECIFIED ABNORMAL FINDINGS OF BLOOD CHEMISTRY Status: Acute Priority: High Current Visit: Yes Onset Date: 03/29/19 Annotation/Comment:: Note current Coumadin therapy with INR 3.1. No direct clinical evidence of PE or DVT. Emergency room physician is in agreement with holding off on CTA of the chest for the time being with further workup by accepting providers depending on patient's clinical course. (5) Congestive heart failure SNOMED Code(s): 77662133 Code(s): I50.9 - HEART FAILURE, UNSPECIFIED Status: Acute Priority: High Current Visit: No Annotation/Comment:: Note moderate CHF based on BNP, chest x-ray, and today's clinical exam. No concomitant pneumonia. Oral Lasix was continued during his swing bed care, however no further IV Lasix at this time per request of the accepting emergency room physician. This is extremely reasonable secondary to patient's current probable sepsis. Qualifiers: Heart failure chronicity: unspecified (6) Cellulitis SNOMED Code(s): 916151455 Code(s): L03.90 - CELLULITIS, UNSPECIFIED Status: Acute Priority: High Current Visit: Yes Annotation/Comment:: Post operative cellulitis secondary to failed scrotal skin graft with current oral Cipro therapy during recent/ current swing bed care. Note previous extensive IV vancomycin therapy during the last month therapy. Consider wound specimen for culture and sensitivity. Qualifiers: Site of cellulitis: other site Qualified Code(s): L03.818 - Cellulitis of other sites (7) Anemia SNOMED Code(s): 317806246 Code(s): D64.9 - ANEMIA, UNSPECIFIED Status: Acute Priority: Medium Current Visit: Yes Onset Date: 11/22/15 Annotation/Comment:: Stable anemia during recent swing bed care. Continue to observe closely by accepting providers. Note suspicion of possible C. difficile colitis as above with further workup depending on his clinical course. Qualifiers: Anemia type: unspecified type Qualified Code(s): D64.9 - Anemia, unspecified (8) Hypokalemia SNOMED Code(s): 23779642 Code(s): E87.6 - HYPOKALEMIA Status: Chronic Priority: Medium Current Visit: Yes Onset Date: 11/23/15 Annotation/Comment:: Lactated Ringer's initiated in the emergency room with caution contrary to his CHF and sepsis. Further medication adjustment by accepting physicians. (9) Hypomagnesemia SNOMED Code(s): 347550847 Code(s): E83.42 - HYPOMAGNESEMIA Status: Chronic Priority: Medium Current Visit: Yes Annotation/Comment:: Further medication adjustment by accepting providers, including possible magnesium oxide orally versus IV magnesium sulfate. (10) Organic brain syndrome SNOMED Code(s): 117881679 Code(s): F09 - UNSP MENTAL DISORDER DUE TO KNOWN PHYSIOLOGICAL CONDITION Status: Chronic Priority: Medium Current Visit: Yes Annotation/Comment:: Recent progressive confusion likely secondary to organic brain syndrome. Current infection may be a contributing factor. He may benefit from half-way placement depending on his clinical course. Family members were counseled concerning this during today's emergency room visit. (11) COPD (chronic obstructive pulmonary disease) SNOMED Code(s): 70556522 Code(s): J44.9 - CHRONIC OBSTRUCTIVE PULMONARY DISEASE, UNSPECIFIED Status : Chronic Priority: Medium Current Visit: Yes Annotation/Comment:: COPD with pneumonia as above. DuoNeb Nebulizer treatments have been ordered, however not initiated this point. Qualifiers: COPD type: COPD with acute lower respiratory infection Qualified Code(s): J44.0 - Chronic obstructive pulmonary disease with acute lower respiratory infection (12) Diabetes mellitus SNOMED Code(s): 57835486 Code(s): E11.9 - TYPE 2 DIABETES MELLITUS WITHOUT COMPLICATIONS Status: Chronic Priority: Medium Current Visit: Yes Onset Date: 11/23/15 Annotation/Comment:: Stable by history. The patient does not perform home Accu- Cheks with his diabetes currently diet controlled Qualifiers: Diabetes mellitus type: type 2 Diabetes mellitus complication status: without complication Qualified Code(s): E11.9 - Type 2 diabetes mellitus without complications (13) Hyperlipidemia SNOMED Code(s): 85859218 Code(s): E78.5 - HYPERLIPIDEMIA, UNSPECIFIED Status: Chronic Priority: Medium Current Visit: Yes Annotation/Comment:: Currently under therapy Qualifiers: Hyperlipidemia type: unspecified Qualified Code(s): E78.5 - Hyperlipidemia , unspecified (14) Mixed anxiety depressive disorder SNOMED Code(s): 219466265 Code(s): F41.8 - OTHER SPECIFIED ANXIETY DISORDERS Status: Chronic Priority: Medium Current Visit: No Annotation/Comment:: Stable by patient and family's history. Note chronic narcotic therapy secondary to his chronic pain syndrome/rheumatoid arthritis (15) Osteoarthritis SNOMED Code(s): 259203234 Code(s): M19.90 - UNSPECIFIED OSTEOARTHRITIS, UNSPECIFIED SITE Status: Chronic Priority: Medium Current Visit: No Annotation/Comment:: Stable by history with additional steroid-dependent rheumatoid arthritis Qualifiers: Osteoarthritis location: multiple joints Osteoarthritis type: primary Qualified Code(s): M15.0 - Primary generalized (osteo)arthritis (16) Need for comfort care SNOMED Code(s): 531776611, 828063346 Code(s): ZTF8862 - Status: Chronic Priority: High Current Visit: Yes Annotation/Comment:: Confirmed with family as above. Long-term prognosis is poor. - Problem List Review Problem List Initiated/Reviewed/Updated: Yes - My Orders Last 24 Hours: My Active Orders 03/29/19 10:52 Cardiac Monitoring [RC] . DIRECTED EKG Documentation Completion [RC] ASDIRECTED Oxygen Therapy, ED [RC] CONTINUOUS Peripheral IV Care [RC] . DIRECTED Pulse Oximetry [RC] CONTINUOUS Up With Assistance [RC] PFP Vital Signs [RC] PFP Sodium Chloride 0.9% [Saline Flush] 10 ml FLUSH ASDIRECTED PRN Obtain Past Medical Record [OM.PC] Urgent Peripheral IV Insertion Adult [OM.PC] Stat 03/29/19 10:55 Blood Culture x2 Reflex Set [OM.PC] Urgent 03/29/19 11:00 CULTURE BLOOD [BC] Stat 03/29/19 11:06 Abdomen Series w Chest 1V [CR] Stat 03/29/19 11:45 CULTURE BLOOD [BC] Stat 03/29/19 12:15 cefTRIAXone [Rocephin] 2 gm IVPUSH Q24H 03/29/19 12:30 Lactated Ringers [Ringers, Lactated] 1,000 ml IV ASDIRECTED 03/29/19 12:48 Resuscitation Status Stat 03/29/19 Breakfast Nothing per Oral Now Diet [DIET] - Assessment/Plan Last 24 Hours: My Active Orders 03/29/19 10:52 Cardiac Monitoring [RC] . DIRECTED EKG Documentation Completion [RC] ASDIRECTED Oxygen Therapy, ED [RC] CONTINUOUS Peripheral IV Care [RC] . DIRECTED Pulse Oximetry [RC] CONTINUOUS Up With Assistance [RC] PFP Vital Signs [RC] PFP Sodium Chloride 0.9% [Saline Flush] 10 ml FLUSH ASDIRECTED PRN Obtain Past Medical Record [OM.PC] Urgent Peripheral IV Insertion Adult [OM.PC] Stat 03/29/19 10:55 Blood Culture x2 Reflex Set [OM.PC] Urgent 03/29/19 11:00 CULTURE BLOOD [BC] Stat 03/29/19 11:06 Abdomen Series w Chest 1V [CR] Stat 03/29/19 11:45 CULTURE BLOOD [BC] Stat 03/29/19 12:15 cefTRIAXone [Rocephin] 2 gm IVPUSH Q24H 03/29/19 12:30 Lactated Ringers [Ringers, Lactated] 1,000 ml IV ASDIRECTED 03/29/19 12:48 Resuscitation Status Stat 03/29/19 Breakfast Nothing per Oral Now Diet [DIET] Assessment:: As above Plan: As above. Extensive precautions were given to the patient, his , and his daughter who are in agreement with the treatment plan. Ambulance transfer with assistant therapy aide accompaniment.
[2019-03-29] MEDS ORDERED: Famotidine 20 MG/2 ML SDV IVPUSH ONE (10:52)
[2019-03-29] MEDS ORDERED: Metoprolol Tartrate 5 MG/5 ML SDV IVPUSH ONE (10:52)
[2019-03-29] MEDS: Sodium Chloride 0.9% 10 ML Syringe FLUSH PRN ×2 (11:02→12:29)
[2019-03-29 11:46] LABS: CHLORIDE,CL 103 mmol/L (98-107); SODIUM,NA 141 mmol/L (136-145)
[2019-03-29] MEDS ORDERED: cefTRIAXone 2 GM Vial IVPUSH SCH (12:15)
[2019-03-29] MEDS ORDERED: Lactated Ringers 1,000 ML IV SCH (12:30)
[2019-03-29 17:30] VITALS: BP 137/60
== END 2019-03-29 13:38 ==
LOC: LL.ED 10:45
DX: A41.9 Sepsis, unspecified organism (principal); J44.0 Chronic obstructive pulmonary disease with (acute) lower respiratory infection; J18.1 Lobar pneumonia, unspecified organism; N49.2 Inflammatory disorders of scrotum; R65.20 Severe sepsis without septic shock; I11.0 Hypertensive heart disease with heart failure; I50.9 Heart failure, unspecified; I25.10 Atherosclerotic heart disease of native coronary artery without angina pectoris; F41.8 Other specified anxiety disorders; E87.6 Hypokalemia; E83.42 Hypomagnesemia; F09 Unspecified mental disorder due to known physiological condition; E11.59 Type 2 diabetes mellitus with other circulatory complications; E78.5 Hyperlipidemia, unspecified; M15.0 Primary generalized (osteo)arthritis; D64.9 Anemia, unspecified; R79.1 Abnormal coagulation profile; K21.9 Gastro-esophageal reflux disease without esophagitis; Z87.891 Personal history of nicotine dependence; Z88.8 Allergy status to other drugs, medicaments and biological substances; Z79.82 Long term (current) use of aspirin; Z79.899 Other long term (current) drug therapy; Z79.01 Long term (current) use of anticoagulants; Z85.51 Personal history of malignant neoplasm of bladder
CPT/HCPCS: 36415; 74022; 80053; 82550; 82553; 83605; 83735; 83880; 84443; 84484; 84550; 85025; 85379; 85610; 85730; 87040; 93005; 96361; 96374; 96375; 99285-25; J0696; J3490; J7120

== ENCOUNTER 2019-04-02 13:16 | Inpatient (IN) | payer SELFPAY ==
[2019-04-02] MEDS ORDERED: Morphine Oral Concentrate 20 MG/ML 30 ML Bottle PO PRN (14:00)
[2019-04-02] MEDS ORDERED: Acetaminophen 325 MG Tab PO PRN (16:23)
[2019-04-02] MEDS ORDERED: Bisacodyl 10 MG Supp RECTAL PRN (16:23)
--- NOTE | 2019-04-02 16:52 | PCM.HP.2 ---
H&P History of Present Illness - General Date of Service: 04/02/19 Source of Information: Family History Limitations: Reports: Altered Mental Status - History of Present Illness Initial Comments - Free Text/Narative: Patient is a 78-year-old gentleman with known history of dementia heart failure atrial fibrillation deferred but later and on Coumadin be has history of peripheral arterial disease which she underwent stenting then developed scrotal cellulitis which was debrided and IV antibiotics Cipro and Vanco started patient did better was sent home with family and after a week of being home progressively got worse and was readmitted to the hospital and sent to [place] for sepsis and management. Onset of Symptoms: Reports: Gradual Duration of Symptoms: Reports: Week(s):, Intermittent Location: Reports: Pelvis Quality: Reports: Ache, Same as Previous Episode Severity: Moderate Improves with: Reports: Medication, Rest Worsens with: Reports: Movement Context: Reports: Sick Contact Associated Symptoms: Reports: Confusion, Weakness - Related Data Allergies/Adverse Reactions: Allergies Allergy/AdvReac Type Severity Reaction Status Date / Time No Known Drug Allergies Allergy Other Verified 04/02/19 16:27 celecoxib [From Celebrex] AdvReac Stomach Verified 04/02/19 13:27 Ache Home Medications: Home Meds Acetaminophen 650 mg PO Q6HR PRN 04/02/19 [History] Bisacodyl [Dulcolax] 10 mg RC DAILY PRN 04/02/19 [History] LORazepam [Ativan] 0.5 mg PO Q4HR PRN 04/02/19 [History] Morphine [Morphine 10 MG/5 ML] 2.5 ml PO Q3HR PRN 04/02/19 [History] QUEtiapine [SEROquel] 25 mg PO BEDTIME 04/02/19 [History] fentaNYL [Duragesic] 25 mcg TD Q72H 04/02/19 [History] Past Medical History HEENT History: Reports: Allergic Rhinitis, Cataract, Hard of Hearing, Impaired Vision, Other (See Below) Other HEENT History: Patient wears glasses. No current hearing aide therapy. Cardiovascular History: Reports: Afib, Aneurysm, Arrhythmia, Automatic Implantable Cardioverter Defibrillators, CAD, Cardiomyopathy, Heart Failure, High Cholesterol, Hypertension, Pulmonary Hypertension, PVD, Syncope, Other ( See Below) Other Cardiovascular History: Atrial fibrillation with rapid ventricular response with secondary cardiac and respiratory collapse requiring intubation cardioversion on 05/20/15. PACs, PVCs, and additional history of ventricular tachycardia with ICD placement as below. Borderline incomplete right bundle branch block. Severe cardiomyopathy with ejection fraction of only 25% area of mild carotid occlusive disease at 1649 percent bilaterally. Abdominal aortic aneurysm mildly progressive at 2.9 cm by ultrasound on 11/11/16. Peripheral vascular disease requiring right toe amputation as below. Dyslipidemia. Respiratory History: Reports: Bronchitis, Recurrent, COPD, Intubation, Previous , Pneumonia, Recurrent, Pulmonary Fibrosis, Other (See Below) Other Respiratory History: Benign right pulmonary nodule Gastrointestinal History: Reports: Cholelithiasis, Fecal Incontinence, Gastritis , GERD, Hepatitis, Helicobacter Pylori, Pancreatitis, PUD, Other (See Below) Other Gastrointestinal History: Cholelithiasis with secondary pancreatitis and hepatitis on 11/30/12. Mild dysphagia. Genitourinary History: Reports: BPH, Prostate Disorder, Renal Calculus, Urinary Incontinence, Other (See Below) Other Genitourinary History: Bilateral renal cysts, Peyronie's disease. History of bladder cancer diagnosed on 12/09/14 with BCG treatment. Benign prostatic nodule diagnosed on 09/05/1999. Recurrent bilateral nephrolithiasis since his 30s with at least 4 previous episodes with last episode in April 2012. Severe bilateral hydroceles and postoperative scrotal hematomas requiring surgery as below with failed scrotal skin graft as below. Right renal hemangioma. Musculoskeletal History: Reports: Amputation, Arthritis, Back Pain, Chronic, Neck Pain, Chronic, Osteoarthritis, Osteoporosis, RA, Other (See Below) Other Musculoskeletal History: Severe rheumatoid arthritis. Osteomyelitis of the right great toe requiring surgery as below. 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 Benign resting tremor. History of acute encephalopathy and cerebral atrophy. Psychiatric History: Reports: Addiction, Alzheimers Disease, Anxiety, Dementia , Depression, Other (See Below) Other Psychiatric History: Chronic daily narcotic use secondary to severe rheumatoid arthritis Endocrine/Metabolic History: Reports: Diabetes, Type II, Multinodular Thyroid, Osteopenia, Osteoporosis, Vitamin D Deficiency Other Endocrine/Metabolic History: Diabetes mellitus/borderline hyperglycemia currently treated with diet. Multiple thyroid nodules by ultrasound on 10/26/18. Hypokalemia. Hematologic History: Reports: None, Anemia Immunologic History: Reports: None Oncologic (Cancer) History: Reports: Bladder, Other (See Below) Other Oncologic History: Bladder cancer diagnosed on 12/09/14 with subsequent BCG therapy as above Dermatologic History: Reports: None - Infectious Disease History Infectious Disease History: Reports: None - Past Surgical History Head Surgeries/Procedures: Reports: None HEENT Surgical History: Reports: Cataract Surgery, Oral Surgery, Tonsillectomy, Other (See Below) Other HEENT Surgeries/Procedures: Bilateral cataract surgery. Multiple teeth extractions with current complete dentures and partial lowers. Tonsillectomy at age 22. Cardiovascular Surgical History: Reports: AICD, Pacer, Vascular Surgery, Other ( See Below) Other Cardiovascular Surgeries/Procedures: Right femoral popliteal bypass in January 2019. Last AICD placement on 05/09/16 with removal of previous AICD on secondary to postoperative infection with initial placement on September 28, 2015 ; previous Life Vest therapy. Respiratory Surgical History: Reports: Lung Biopsies, Other (See Below) Other Respiratory Surgeries/Procedures: Right pulmonary nodule biopsy in 2000. GI Surgical History: Reports: Colonoscopy, EGD, ERCP, Other (See Below) Other GI Surgeries/Procedures: Colonoscopy on 02/28/08 and EGD on 03/26/08 with additional ERCP with patient denying cholecystectomy despite previous history of obstructive cholelithiasis and secondary pancreatitis Male Surgical History: Reports: Circumcision, Kidney Stone Extraction, Prostate Biopsy, Renal Calculus, TURBT-Transurethral Resection of Bladder Tumor , Vasectomy, Other (See Below) Other Male Surgeries/Procedures: Failed skin graft in scrotal region in February 2019 with scrotal debridements on 03/24/19 and 03/17/19. Last cystoscopy in 2017 by patient history. Circumcision as an . Renal stone extraction June 2002. Vasectomy in his late 20s. Prostate biopsy on 09/05/1999. TURBT on 12/09/14 Endocrine Surgical History: Reports: None Neurological Surgical History: Reports: None Musculoskeletal Surgical History: Reports: Amputation, Other (See Below) Other Musculoskeletal Surgeries/Procedures:: Amputation of digit #1 of the right foot secondary to osteomyelitis in April 2018. Oncologic Surgical History: Reports: Other (See Below) Other Oncologic Surgeries/Procedures: TURBT as above Dermatological Surgical History: Reports: Skin Graft, Other (See Below) - Past Imaging History Past Imaging History: Reports: ESTRELLA Screen (03/12/19 of the left leg with previous bilateral lower extremity evaluation on 01/12/19), Angiography (Right leg angiogram on 02/09/19.Heart catheterization on 05/23/15 with ejection fraction of only 25%), Cardiac Echo (Last echocardiogram on 01/02/17.), Carotid US (Last carotid artery Doppler studies on 01/12/19 with multiple previous evaluations.), CAT Scan (CT of the pelvis on 03/16/19. CT of the head on . CT of the abdomen and pelvis on 11/18/17 and 02/17/12. CT urethrogram on and 05/27/11.), DEXA Scan (09/20/16 with previous evaluation on 12/26/11), PFT (Double PFTs with diffusion studies with last evaluation on 05/08/17), Stress Testing (Low level cardiac stress test on 06/20/15), Swallow Study (Mildly positive on 03/04/19.), Ultrasound (Scrotal ultrasound on 03/01/19 and 02/25/19. Soft tissue ultrasound of the head and neck on 10/26/18. Last abdominal aortic ultrasound on 11/11/16. Renal ultrasound on 05/20/15 and 05/05/12), Other (See Below) (Left leg atrial Doppler evaluation on 03/12/19. Pulmonary stress test on 10/22/18.) Social & Family History - Family History HEENT: Reports: None Cardiac: Reports: High Cholesterol, Other (See Below) Other Cardiac Family History: Mother with hyperlipidemia Respiratory: Reports: None GI: Reports: Cholelithiasis, Other (See Below) Other GI Family History: Mother with cholelithiasis : Reports: Renal Calculus, Other (See Below) Other Family History: Father with urolithiasis OBGYN: Reports: None Musculoskeletal: Reports: Arthritis, RA, Other (See Below) Other Musculoskeletal Family History: Paternal grandmother with rheumatoid arthritis Neurological: Reports: Alzheimers Disease, CVA, Dementia, Other (See Below) Other Neurological Family History: Parents with Alzheimer's disease. Paternal grandfather with fatal CVA. Psychiatric: Reports: None Endocrine/Metabolic: Reports: Diabetes, type II, Hypothyroidism, IDDM, Other ( See Below) Other Endocrine/Metabolic Family History: Mother with hypothyroidism. Mother with IDDM. Hematologic: Reports: None Immunologic: Reports: None Dermatologic: Reports: None Oncologic: Reports: None - Caffeine Use Caffeine Use: Reports: Coffee (2 cups per day). 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.) H&P Review of Systems - Review of Systems: Review Of Systems: See Below HEENT: Reports: No Symptoms Pulmonary: Reports: Shortness of Breath Cardiovascular: Reports: No Symptoms, Lightheadedness Gastrointestinal: Reports: No Symptoms Genitourinary: Reports: Pain, Other (Testicular necrosis) Musculoskeletal: Reports: No Symptoms Skin: Reports: Bruising, Erythema, Wound (Testes) Psychiatric: Reports: Confusion, Agitation Neurological: Reports: No Symptoms Hematologic/Lymphatic: Reports: No Symptoms Immunologic: Reports: No Symptoms Exam - Exam Exam: See Below - Vital Signs Vital Signs: Last Vital Signs Temp Pulse 93 04/02/19 13:17 Resp 18 04/02/19 13:17 BP 120/61 04/02/19 13:17 Pulse Ox 92 L 04/02/19 13:17 Weight: 165 lb - Exam General: Mild Distress HEENT: PERRLA, Hearing Intact, Mucosa Moist & Cash, Nares Patent, Normal Nasal Septum, Posterior Pharynx Clear, Conjunctiva Clear, EOMI, EACs Clear, TMs Clear Neck: Supple, Trachea Midline, 2 Lungs: Clear to Auscultation, Normal Respiratory Effort Cardiovascular: Irregular Rhythm GI/Abdominal Exam: Normal Bowel Sounds, Soft, Non-Tender, No Organomegaly, No Distention, No Abnormal Bruit, No Mass, Pelvis Stable (Male) Exam: Scrotum Tenderness (R), Testicular Tenderness (R) Rectal (Males) Exam: Normal Exam, Normal Rectal Tone, Prostate Normal Back Exam: Normal Inspection, Full Range of Motion, NT Extremities: Normal Inspection, Normal Range of Motion, Non-Tender, No Pedal Edema, Normal Capillary Refill Skin: Warm, Dry, Intact, Wound (Testicular) Neurological: Cranial Nerves Intact, Reflexes Equal Bilateral Neuro Extensive - Mental Status: Alert, Oriented x3, Normal Mood/Affect, Normal Cognition Psychiatric: Agitated - Problem List (1) End of life care SNOMED Code(s): 826166014, [id number] ICD Code: Z51.5 - ENCOUNTER FOR PALLIATIVE CARE Status: Acute Current Visit: Yes (2) Hospice care Status: Acute Current Visit: Yes Problem List Initiated/Reviewed/Updated: Yes Orders Last 24hrs: Active Orders 24 hr Category Date Time Status Acetaminophen [Tylenol] Med 04/02/19 16:23 Active 650 mg PO Q6HR PRN Bisacodyl [Dulcolax] Med 04/02/19 16:23 Active 10 mg RECTAL DAILY PRN Hyoscyamine [Hyosyne] Med 04/02/19 16:24 Active 0.125 mg PO Q4H PRN LORazepam [Ativan] Med 04/02/19 16:23 Active 0.5 mg PO Q4HR PRN Morphine [Morphine 20 MG/ML Soln] Med 04/02/19 16:00 Active 5 mg PO Q1H PRN QUEtiapine [SEROquel] Med 04/02/19 20:00 Active 25 mg PO BEDTIME fentaNYL [Duragesic] Med 04/05/19 08:00 Active 25 mcg TOP Q72H Medication Orders Acetaminophen (Tylenol) 650 mg PO Q6HR PRN PRN Reason: Pain Bisacodyl (Dulcolax) 10 mg RECTAL DAILY PRN PRN Reason: Constipation Fentanyl (Duragesic) 25 mcg TOP Q72H [place] Hyoscyamine (Hyosyne) 0.125 mg PO Q4H PRN PRN Reason: secretions Lorazepam (Ativan) 0.5 mg PO Q4HR PRN PRN Reason: agitation/anxiety Morphine Sulfate (Morphine 20 Mg/Ml Soln) 5 mg PO Q1H PRN PRN Reason: Pain Quetiapine Fumarate (Seroquel) 25 mg PO BEDTIME [place] Assessment/Plan Comment:: Patient admitted to [facility] for comfort care through hospice. Will follow plan of care provided by hospice. - Mortality Measure Prognosis:: Poor
[2019-04-02] MEDS ORDERED: MORPHINE PO PRN (17:04)
[2019-04-02] MEDS: QUEtiapine 25 MG Tab PO SCH (19:44)
[2019-04-03] MEDS: QUEtiapine 25 MG Tab PO SCH (19:54)
[2019-04-04] MEDS: LORazepam 0.5 MG Tab PO PRN ×2 (00:15→22:58)
[2019-04-04] MEDS: Morphine Oral Concentrate 20 MG/ML 30 ML Bottle PO PRN ×3 (00:21→20:13)
[2019-04-04] MEDS: QUEtiapine 25 MG Tab PO SCH (20:12)
[2019-04-05] MEDS ORDERED: Remove Patch FENTANYL PATCH TRDERM SCH (08:00)
[2019-04-05] MEDS ORDERED: fentaNYL 25 MCG/HR Transdermal Patch TOP SCH (08:00)
[2019-04-05] MEDS: Morphine Oral Concentrate 20 MG/ML 30 ML Bottle PO PRN ×2 (14:59→20:46)
[2019-04-05] MEDS: QUEtiapine 25 MG Tab PO SCH (20:46)
[2019-04-05] MEDS: LORazepam 0.5 MG Tab PO PRN (22:46)
[2019-04-06] MEDS: QUEtiapine 25 MG Tab PO SCH (19:06)
[2019-04-06] MEDS: LORazepam 0.5 MG Tab PO PRN (23:04)
[2019-04-06] MEDS: Morphine Oral Concentrate 20 MG/ML 30 ML Bottle PO PRN (23:55)
[2019-04-07] MEDS: Morphine Oral Concentrate 20 MG/ML 30 ML Bottle PO PRN (01:01)
[2019-04-07] MEDS ORDERED: LORazepam 1 MG Tab PO PRN (11:16)
--- NOTE | 2019-04-07 11:19 | PCM.SN ---
- Free Text/Narrative Note: Patient seen and discussed with hospice nurse has periods of anxiety and pain does not appear to be tolerated all the time therefore we will go ahead and increase his fentanyl to 50 mg patches plus Ativan 4 times a day when necessary
[2019-04-07] MEDS: fentaNYL 50 MCG/HR Transdermal Patch TRDERM SCH (12:57)
[2019-04-07] MEDS: QUEtiapine 25 MG Tab PO SCH (19:30)
[2019-04-07] MEDS ORDERED: LORazepam 0.5 MG Tab **OWN MED PO PRN (19:32)
[2019-04-07] MEDS ORDERED: LORazepam 1 MG Tab PO SCH (20:00)
[2019-04-07] MEDS ORDERED: LORAZEPAM 0.5 MG PO SCH (20:00)
[2019-04-08] MEDS: Morphine Oral Concentrate 20 MG/ML 30 ML Bottle PO PRN ×2 (00:18→20:38)
[2019-04-08] MEDS: LORazepam Conc Solution 2 MG/ML 30 ML Bottle PO SCH (19:23)
[2019-04-08] MEDS: QUEtiapine 25 MG Tab PO SCH (19:25)
[2019-04-09 08:43] VITALS: BP 101/53; PULSE 125
[2019-04-09] MEDS: Morphine Oral Concentrate 20 MG/ML 30 ML Bottle PO PRN (13:12)
[2019-04-09] MEDS: LORazepam Conc Solution 2 MG/ML 30 ML Bottle PO PRN (18:21)
[2019-04-09] MEDS: QUEtiapine 25 MG Tab PO SCH (19:54)
[2019-04-09] MEDS: LORazepam Conc Solution 2 MG/ML 30 ML Bottle PO SCH (19:54)
[2019-04-10] MEDS: Morphine Oral Concentrate 20 MG/ML 30 ML Bottle PO PRN ×4 (10:53→23:04)
[2019-04-10] MEDS: fentaNYL 50 MCG/HR Transdermal Patch TRDERM SCH (10:54)
[2019-04-10] MEDS ORDERED: Remove Patch FENTANYL PATCH TRDERM SCH (11:15)
[2019-04-10] MEDS: LORazepam Conc Solution 2 MG/ML 30 ML Bottle PO PRN (17:26)
[2019-04-10] MEDS: Hyoscyamine 0.125 MG/ML Bottle PO PRN (19:38)
[2019-04-10] MEDS: LORazepam Conc Solution 2 MG/ML 30 ML Bottle PO SCH (19:40)
[2019-04-10] MEDS: QUEtiapine 25 MG Tab PO SCH (19:43)
[2019-04-11] MEDS: Morphine Oral Concentrate 20 MG/ML 30 ML Bottle PO PRN ×5 (00:54→12:14)
[2019-04-11] MEDS: Hyoscyamine 0.125 MG/ML Bottle PO PRN ×3 (00:55→09:13)
[2019-04-11] MEDS: LORazepam Conc Solution 2 MG/ML 30 ML Bottle PO PRN (11:30)
--- NOTE | 2019-04-12 15:11 | PCM.DCSUM1 ---
Discharge Summary - Hospital Course Free Text/Narrative:: Patient was admitted for hospice care. Nurse called provider on 04-11-19 notifying me of patient's at 1610. This was an expected secondary due to sepsis. Diagnosis: Stroke: No - Discharge Data Discharge Date: 04/11/19 Discharge Disposition: 20 Preliminary Cause of *Q: Sepsis & Multi System Organ Failure Condition: - Referral to Home Health Primary Care Physician: More Fried PA-C - Discharge Diagnosis/Problem(s) (1) End of life care SNOMED Code(s): 658085176, [id number] ICD Code: Z51.5 - ENCOUNTER FOR PALLIATIVE CARE Status: Acute Problem Details: patient on 04-11-19 (2) Hospice care Status: Acute Problem Details: patient on 04-11-19 - Discharge Plan *PRESCRIPTION DRUG MONITORING PROGRAM REVIEWED*: Not Applicable (patient on hospice) *COPY OF PRESCRIPTION DRUG MONITORING REPORT IN PATIENT RADHA: Not Applicable ( patient on hospice) Home Medications: Home Meds Acetaminophen 650 mg PO Q6HR PRN 04/02/19 [History] Bisacodyl [Dulcolax] 10 mg RC DAILY PRN 04/02/19 [History] LORazepam [Ativan] 0.5 mg PO Q4HR PRN 04/02/19 [History] Morphine [Morphine 10 MG/5 ML] 2.5 ml PO Q3HR PRN 04/02/19 [History] QUEtiapine [SEROquel] 25 mg PO BEDTIME 04/02/19 [History] fentaNYL [Duragesic] 25 mcg TD Q72H 04/02/19 [History] - Discharge Summary/Plan Comment DC Time >30 min.: No - General Info Date of Service: 04/11/19 Subjective Update: Patient on 04-11-19 at 1610. - Patient Data Vitals - Most Recent: Last Vital Signs Temp 99.2 F 04/09/19 08:00 Pulse 125 H 04/09/19 08:00 Resp 17 04/09/19 08:00 BP 101/53 L 04/09/19 08:00 Pulse Ox 95 04/09/19 08:00 Weight - Most Recent: 165 lb Med Orders - Current: Current Medications Discontinued Medications Acetaminophen (Tylenol) 650 mg PO Q6HR PRN PRN Reason: Pain Last Admin: 04/06/19 14:29 Dose: 650 mg Bisacodyl (Dulcolax) 10 mg RECTAL DAILY PRN PRN Reason: Constipation Fentanyl (Duragesic) 25 mcg TOP Q72H [facility] Last Admin: 04/05/19 10:21 Dose: 25 mcg Fentanyl (Duragesic) 50 mcg TRDERM Q72H [facility] Last Admin: 04/10/19 10:54 Dose: 50 mcg Hyoscyamine (Hyosyne) 0.125 mg PO Q4H PRN PRN Reason: secretions Last Admin: 04/11/19 09:13 Dose: 0.125 mg Lorazepam (Ativan) 0.5 mg PO Q4HR PRN PRN Reason: agitation/anxiety Last Admin: 04/06/19 23:04 Dose: 0.5 mg Lorazepam (Ativan) 1 mg PO BEDTIME [place] Lorazepam (Ativan) 1 mg PO Q6H PRN PRN Reason: Anxiety Lorazepam (Ativan) 1 mg PO BEDTIME [facility] Last Admin: 04/07/19 19:34 Dose: 1 mg Lorazepam (Ativan) 1 mg PO Q6H PRN PRN Reason: Anxiety Lorazepam (Ativan) 1 mg PO BEDTIME [facility] Last Admin: 04/10/19 19:40 Dose: 1 mg Lorazepam (Ativan) 1 mg PO Q6H PRN PRN Reason: ANXIETY/RESTLESSNESS Last Admin: 04/11/19 11:30 Dose: 1 mg Miscellaneous Information (Remove Patch) 1 ea TRDERM Q72H [facility] Last Admin: 04/05/19 14:59 Dose: 1 ea Miscellaneous Information (Remove Patch) 1 ea TRDERM Q72H [facility] Last Admin: 04/10/19 10:54 Dose: 1 ea Morphine Sulfate (Morphine 20 Mg/Ml Soln) 5 mg PO Q3H PRN PRN Reason: Pain Last Admin: 04/02/19 14:17 Dose: 0.25 ml Morphine Sulfate (Morphine 20 Mg/Ml Soln) 5 mg PO Q1H PRN PRN Reason: Pain Last Admin: 04/11/19 12:14 Dose: 0.25 ml Non-Formulary Medication (Morphine [Morphine 10 Mg/5 Ml]) 2.5 ml PO Q3HR PRN PRN Reason: Pain Quetiapine Fumarate (Seroquel) 25 mg PO BEDTIME [facility] Last Admin: 04/10/19 19:43 Dose: 25 mg - Exam General: Denies: Alert HEENT: Reports: Other (pupils non response to light or accomodation; negative cornea reflex ) Lungs: Reports: Other (no breath sounds) Cardiovascular: Reports: Other (Patient no heart tones, no rythmn )
== END 2019-04-11 17:55 | disposition expired | DRG 951 ==
LOC: LL.MS 13:16
PROVIDERS: ADMIT Family Medicine; ATTEND Family Medicine
DX: Z51.5 Encounter for palliative care (principal); A41.9 Sepsis, unspecified organism; M86.8X7 Other osteomyelitis, ankle and foot; I48.91 Unspecified atrial fibrillation; Z66 Do not resuscitate; I73.9 Peripheral vascular disease, unspecified; H91.90 Unspecified hearing loss, unspecified ear; H54.7 Unspecified visual loss; I25.10 Atherosclerotic heart disease of native coronary artery without angina pectoris; I11.0 Hypertensive heart disease with heart failure; I44.7 Left bundle-branch block, unspecified; N40.1 Benign prostatic hyperplasia with lower urinary tract symptoms; R32 Unspecified urinary incontinence; E78.00 Pure hypercholesterolemia, unspecified; I50.9 Heart failure, unspecified; J44.9 Chronic obstructive pulmonary disease, unspecified; K21.9 Gastro-esophageal reflux disease without esophagitis; M19.90 Unspecified osteoarthritis, unspecified site; M81.0 Age-related osteoporosis without current pathological fracture; M54.2 Cervicalgia; M54.9 Dorsalgia, unspecified; G89.29 Other chronic pain; M06.9 Rheumatoid arthritis, unspecified; G30.9 Alzheimer's disease, unspecified; F02.80 Dementia in other diseases classified elsewhere, unspecified severity, without behavioral disturbance, psychotic disturbance, mood disturbance, and anxiety; F41.9 Anxiety disorder, unspecified; F32.9 Major depressive disorder, single episode, unspecified; E11.9 Type 2 diabetes mellitus without complications; E55.9 Vitamin D deficiency, unspecified; Z90.89 Acquired absence of other organs; Z79.899 Other long term (current) drug therapy; Z87.11 Personal history of peptic ulcer disease; Z87.442 Personal history of urinary calculi; Z85.51 Personal history of malignant neoplasm of bladder; Z95.810 Presence of automatic (implantable) cardiac defibrillator; Z88.8 Allergy status to other drugs, medicaments and biological substances; Z98.41 Cataract extraction status, right eye; Z98.42 Cataract extraction status, left eye; Z95.820 Peripheral vascular angioplasty status with implants and grafts; Z98.52 Vasectomy status; Z90.6 Acquired absence of other parts of urinary tract; Z98.890 Other specified postprocedural states; Z79.01 Long term (current) use of anticoagulants
CPT/HCPCS: A9270-GY